=== PATIENT | male | born 1945 | race Caucasian/White ===

== ENCOUNTER → 2021-04-03 15:28 | Outpatient (BNVA) | payer MEDICARE, OTHER, SELFPAY | PROVIDERS: PCP Family Medicine; Visit Provider Hospitalist | DX: J84.9 Interstitial pulmonary disease, unspecified (principal); R05.3 Chronic cough; R91.1 Solitary pulmonary nodule | CPT/HCPCS: 99202 ==

== ENCOUNTER 2021-04-04 09:19 | Outpatient (REF) | payer MEDICARE, OTHER, SELFPAY ==
[2021-04-04 09:44] LABS: MANUAL DIFF FLAG NO
[2021-04-04 10:10] LABS: Basophils Absolute Auto 0.1 X10*3/uL (0.0-0.2); Basophils Percent Auto 0.8 % (0-2); Eosinophils Absolute Auto 0.3 X10*3/uL (0.0-0.4); Eosinophils Percent Auto 4.8 % (0-4); Hematocrit 42.4 % (42.0-52.0); Hemoglobin 14.3 g/dl (14.0-18.0); Imm Gran Abs Auto 0.02 X10*3/uL (0.00-0.03); Imm Gran Pct Auto 0.3 % (0.0-0.4); Lymphocytes Absolute Auto 1.3 X10*3/uL (1.2-4.9); Lymphocytes Percent Auto 19.8 % (20-40); Mean Corpuscular HGB Conc 33.7 g/dl (31.0-36.0); Mean Corpuscular Hemoglobin 30.2 pg (27.0-33.0); Mean Corpuscular Volume 89.6 fL (80.0-98.0); Mean Platelet Volume 10.4 fL (9.4-12.4); Monocytes Absolute Auto 0.7 X10*3/uL (0.1-1.2); Monocytes Percent Auto 11.3 % (2-11); Neutrophils Absolute Auto 4.1 x10*3/uL (2.0-8.3); Platelet Count 201 X10*3/uL (160-400); Red Blood Count 4.73 X10*6/uL (4.60-5.80); Red Cell Distribution Width 13.3 % (11.0-16.0); White Blood Count 6.5 X10*3/uL (4.8-10.8)
[2021-04-04 10:34] LABS: B Type Natriuretic Peptide 43 pg/mL (<100)
[2021-04-04 11:02] LABS: Alanine Aminotransferase 19 U/L (0-40); Albumin Level 4.6 g/dL (3.5-5.0); Alkaline Phosphatase 100 U/L (39-117); Aspartate Amino Transferase 25 U/L (5-37); Bilirubin Direct 0.3 mg/dL (0.0-0.5); Bilirubin Total 0.9 mg/dL (0.0-1.0); Total Protein 7.8 g/dL (6.5-8.0)
[2021-04-04 11:03] LABS: Erythrocyte Sedimentation Rate 16 MM/HR (0-15)
[2021-04-05 13:32] LABS: IgA 201 mg/dL (70-320); IgG 1260 mg/dL (600-1540); IgM 30 mg/dL (50-300)
[2021-04-05 21:37] LABS: Immunoglobulin E 148 kU/L (<OR=114)
[2021-04-06 20:11] LABS: TS Negative Control Passed; TS Panel A 1; TS Panel B 0; TS Positive Control Passed; TSpotTB Negative (Negative)
[2021-04-08 13:32] LABS: Angiotensin Converting Enzyme 71 U/L (9-67)
[2021-04-10 13:01] LABS: Asperg fumigatus Precip Abs NEGATIVE (NEGATIVE); Micropoly faeni Abs NEGATIVE (NEGATIVE); Pigeon serum Abs NEGATIVE (NEGATIVE); Saccharo pora viridis Abs NEGATIVE (NEGATIVE); Thermo candidus Abs NEGATIVE (NEGATIVE); Thermoa vulgaris #1 NEGATIVE (NEGATIVE)
== END 2021-04-04 09:20 | disposition home or self-care (01) ==
LOC: HO.LAB 09:19
PROVIDERS: PCP Family Medicine; Visit Provider Hospitalist
DX: J84.9 Interstitial pulmonary disease, unspecified (principal); R05.3 Chronic cough; R91.1 Solitary pulmonary nodule; R91.8 Other nonspecific abnormal finding of lung field
CPT/HCPCS: 36415; 80076; 82164; 82784; 82785; 83880; 85025; 85652; 86331; 86481; 86606; 86609

== ENCOUNTER 2021-04-14 08:51 | Outpatient (REF) | payer MEDICARE, OTHER, SELFPAY ==
--- NOTE | ~2021-04-14 | CT_ITS ---
EXAMINATION: CT CHEST WITHOUT CONTRAST CLINICAL INFORMATION: Interstitial pulmonary disease COMPARISON: None TECHNIQUE: Multidetector volumetric CT imaging of the chest was done. Axial MIP volume rendering provided. Sagittal and coronal reformatted images were obtained. This CT examination was performed using dose optimization techniques as appropriate, variously including the following: *Automated exposure control *Adjustment of mA and/or kV according to patient size (this includes techniques or standardized protocols for targeted exams where dose is matched to indication/reason for exam; i.e. extremities or head) *Use of iterative reconstruction technique DLP: 367 mGy-cm FINDINGS: LUNGS/PLEURA: Extensive peripheral reticular nodular opacities with architectural distortion. Biapical pleural parenchymal scarring. Multiple nodules are noted throughout the bilateral lung nelson. The right lung apex (series 7, image 53) measuring 6 mm. Posterior aspect of the right upper lobe (series 7, image 64) measuring 5 mm. Calcified nodules in the medial aspect of the right upper lobe measuring 7 mm (series 7, image 80 additional calcified nodule in medial aspect of the right upper lobe (series 7, image 85). Partially calcified nodule in the right upper lobe (series 7, image 92). Calcified granuloma along the anterior aspect of the right middle lobe (series 7, image 179). Multiple calcified nodules in the posterior lateral aspect of the right lower lobe the largest measuring up to 5 mm (series 7, image 171). Calcified nodule in the left upper lobe (series 7, image 76) measuring 7 mm. Partially calcified nodule in the left upper lobe (series 7, image 98) measuring 6 mm. Partially calcified nodule with slight pleural tethering to the left major fissure (series 7, image 147) measuring 7 mm along the anterior aspect of the left lower lobe. Noncalcified 3 mm nodule along the left major fissure (series 7, image 157). Central airways are patent. No pneumothorax. No pleural effusion. MEDIASTINUM: The heart is not enlarged. No pericardial effusion. Coronary artery calcifications are noted. Aorta is nonaneurysmal and demonstrates atherosclerotic calcifications. Main pulmonary artery is not enlarged. Extensive calcified and partially calcified lymph nodes throughout the mediastinum the largest measuring up to 1.9 cm suggesting granulomatous disease. Visualized portions of the thyroid are unremarkable. AXILLA: No lymphadenopathy. UPPER ABDOMEN: Mild fecal loading of the colon. The gallbladder is decompressed. Small hiatal hernia. Abdominal aorta is nonaneurysmal and demonstrates atherosclerotic calcifications. OSSEOUS STRUCTURES: Degenerative changes of the thoracolumbar spine. No large lytic or blastic lesions are noted. Degenerative changes of the bilateral glenohumeral joints. CT/CT chest wo con IMPRESSION: 1. Extensive peripheral reticular nodular opacities with architectural distortion. 2. Multiple bilateral pulmonary nodules are noted which are noncalcified, partially calcified, and heavily calcified, the largest measuring up to 7 mm. 3. Extensive calcified and partially calcified lymph nodes throughout the mediastinum the largest measuring up to 1.9 cm suggesting granulomatous disease. 4. Small hiatal hernia.
== END 2021-04-14 08:52 | disposition home or self-care (01) ==
LOC: HO.CT 08:51
PROVIDERS: Visit Provider Hospitalist
DX: J84.9 Interstitial pulmonary disease, unspecified (principal); R91.1 Solitary pulmonary nodule
CPT/HCPCS: 71250

== ENCOUNTER 2021-04-20 08:54 | Outpatient (REF) | payer MEDICARE, OTHER, SELFPAY ==
--- NOTE | 2021-04-20 | PFT_ITS ---
INDICATION: Cough. SPIROMETRY: The FEV1 to FVC of 81% with an FEV1 of 3.02 L, which is 98% predicted and an FVC of 3.73 L, which is 87% predicted. No significant response to bronchodilators noted. Maximum voluntary ventilation 105% predicted. LUNG VOLUMES: Total lung capacity 84% predicted with an expiratory reserve volume of 112% predicted. DIFFUSION CAPACITY: DLCO 51% predicted. INTERPRETATION: No obstructive nor restrictive ventilatory defects identified. No significant response to bronchodilators noted. No evidence of any abnormalities in maximum voluntary ventilation. Lung volumes are within normal limits with a low normal total lung capacity. Therefore, occult interstitial lung conditions cannot be ruled out. The patient does have a moderate diffusion impairment. Again, occult interstitial lung conditions and/or pulmonary vascular conditions should be considered. Correct for hemoglobin also be beneficial. Clinical correlation warranted. MD JESSICA Ferrari/SHANICE / [phone]
== END 2021-04-20 08:55 | disposition home or self-care (01) ==
LOC: HO.RESP 08:54
PROVIDERS: PCP Family Medicine; Visit Provider Hospitalist
DX: R05.9 Cough, unspecified (principal)
CPT/HCPCS: 94060; 94727; 94729

== ENCOUNTER → 2021-05-01 10:58 | Outpatient (BNVA) | payer MEDICARE, OTHER, SELFPAY | PROVIDERS: PCP Family Medicine; Visit Provider Hospitalist | DX: R91.1 Solitary pulmonary nodule (principal); J84.9 Interstitial pulmonary disease, unspecified; R05.3 Chronic cough | CPT/HCPCS: 99212 ==

== ENCOUNTER → 2021-08-07 09:24 | Outpatient (BNVA) | payer MEDICARE, OTHER, SELFPAY | PROVIDERS: PCP Family Medicine; Visit Provider Hospitalist | DX: D86.9 Sarcoidosis, unspecified (principal); J84.9 Interstitial pulmonary disease, unspecified; R91.1 Solitary pulmonary nodule; R05.3 Chronic cough | CPT/HCPCS: 99212 ==

== ENCOUNTER 2021-10-23 13:37 | Outpatient (REF) | payer MEDICARE, OTHER, SELFPAY ==
--- NOTE | ~2021-10-23 | XR_ITS ---
EXAMINATION: XR CHEST CLINICAL INFORMATION: Interstitial pulmonary disease. COMPARISON: CT scan of 04/14/2021. TECHNIQUE: 2 views of the chest were obtained. FINDINGS: There are calcified granulomas seen bilaterally. There are increased interstitial markings seen bilaterally most prominent peripherally. No pneumothorax or pleural effusion. No new confluent region of parenchymal disease. Heart normal size. XR/XR chest 2V IMPRESSION: Old granulomatous disease. Chronic interstitial lung disease.
[2021-10-23 13:51] LABS: MANUAL DIFF FLAG NO
[2021-10-23 14:30] LABS: Basophils Percent Auto 0.6 % (0-2); Eosinophils Absolute Auto 0.3 X10*3/uL (0.0-0.4); Eosinophils Percent Auto 4.3 % (0-4); Hematocrit 40.9 % (42.0-52.0); Hemoglobin 13.9 g/dl (14.0-18.0); Imm Gran Abs Auto 0.02 X10*3/uL (0.00-0.03); Imm Gran Pct Auto 0.3 % (0.0-0.4); Lymphocytes Absolute Auto 1.4 X10*3/uL (1.2-4.9); Lymphocytes Percent Auto 20.6 % (20-40); Mean Corpuscular Hemoglobin 30.6 pg (27.0-33.0); Mean Corpuscular Volume 90.1 fL (80.0-98.0); Mean Platelet Volume 10.5 fL (9.4-12.4); Monocytes Absolute Auto 0.9 X10*3/uL (0.1-1.2); Monocytes Percent Auto 13.1 % (2-11); Neutrophils Absolute Auto 4.1 x10*3/uL (2.0-8.3); Neutrophils Percent Auto 61.1 % (45-73); Platelet Count 203 X10*3/uL (160-400); Red Blood Count 4.54 X10*6/uL (4.60-5.80); Red Cell Distribution Width 13.6 % (11.0-16.0); White Blood Count 6.7 X10*3/uL (4.8-10.8)
[2021-10-23 15:19] LABS: Erythrocyte Sedimentation Rate 19 MM/HR (0-15)
[2021-10-23 15:31] LABS: Alanine Aminotransferase 18 U/L (0-40); Albumin Level 4.4 g/dL (3.5-5.0); Alkaline Phosphatase 78 U/L (39-117); Anion Gap 15 (12-20); Aspartate Amino Transferase 24 U/L (5-37); Bilirubin Direct 0.4 mg/dL (0.0-0.5); Blood Urea Nitrogen 14 mg/dL (9-16); Calcium 9.7 mg/dL (8.4-10.2); Carbon Dioxide 27 mmol/L (22-29); Chloride 103 mmol/L (96-108); Estimated Glomerular Filt Rate > 60; Glucose Random 91 mg/dL (60-115); Potassium 4.5 mmol/L (3.3-5.1); Sodium 140 mmol/L (135-145); Total Protein 7.4 g/dL (6.5-8.0)
[2021-10-26 22:10] LABS: Angiotensin Converting Enzyme 71.9 U/L (9-67)
== END 2021-10-23 13:38 | disposition home or self-care (01) ==
LOC: HO.XRAY 13:37
PROVIDERS: PCP Family Medicine; Visit Provider Hospitalist
DX: J84.9 Interstitial pulmonary disease, unspecified (principal); R91.1 Solitary pulmonary nodule
CPT/HCPCS: 36415; 71046; 80048; 80076; 82164; 85025; 85652

== ENCOUNTER → 2021-11-08 09:03 | Outpatient (BNVA) | payer MEDICARE, OTHER, SELFPAY | PROVIDERS: PCP Family Medicine; Visit Provider Hospitalist | DX: D86.9 Sarcoidosis, unspecified (principal); J84.9 Interstitial pulmonary disease, unspecified; R91.1 Solitary pulmonary nodule; R05.3 Chronic cough; Z79.52 Long term (current) use of systemic steroids | CPT/HCPCS: 99212 ==

== ENCOUNTER → 2022-04-11 09:51 | Outpatient (BNVA) | payer MEDICARE, OTHER, SELFPAY | PROVIDERS: PCP Family Medicine; Visit Provider Hospitalist | DX: J84.9 Interstitial pulmonary disease, unspecified (principal); R05.3 Chronic cough; R91.1 Solitary pulmonary nodule; D86.9 Sarcoidosis, unspecified | CPT/HCPCS: 99212 ==

== ENCOUNTER → 2022-04-24 07:30 | Outpatient (REF) | payer MEDICARE, OTHER, SELFPAY ==
--- NOTE | 2022-04-24 07:42 | CA_ITS ---
Transthoracic Echocardiogram Patient (Last, First, Middle): Curtis Paredes, Gender: Male Date of : 1945 Age: 76 Procedure Date: 04/24/2022 Procedure Type: Transthoracic Echocardiogram Location: OP Height: 177.8 cm Weight: 88.45 kg BSA: 2.06 m2 Heart Rate: bpm BP: 126 / 70 mmHg Sewage Reticulation Drafting Officer: ANDRES Referring MD: Kvng Joseph MD Payroll Machine Operator: Arthur Nina MD Symptoms: NEW SYSTOLIC MURMUR Study Quality: Adequate ECG Rhythm: Sinus Conclusions: - 1. Normal LV ejection fraction 55-60% with impaired relaxation filling pattern 2. At least mild aortic stenosis 3. Normal RV systolic pressure 4. No gross pericardial effusion Findings Left Ventricle Normal left ventricular size, thickness, and systolic function. The visually estimated ejection fraction is between 55-60%. Spectral Doppler is indicative of an impaired relaxation filling pattern. E/E prime ratio is between 8 and 15 consistent with indeterminate filling pressures. Peak GLS is -16.3%, which is marginally reduced. Right Ventricle Normal right ventricular cavity size and systolic function. Atria The left atrium is likely dilated. Interatrial shunt cannot be excluded. The right atrium is normal in size. Aortic Valve There is mild calcification of the aortic valve. There is mild thickening of the aortic valve. There is mild aortic valve stenosis. The mean gradient is 9 mmHg. There is no aortic valve regurgitation. Mitral Valve Normal mitral valve structure and function. There is trace mitral valve regurgitation. There is no mitral valve stenosis. Pulmonic Valve The pulmonic valve was not well visualized. Tricuspid Valve Likely normal tricuspid valve structure and function. There is trace tricuspid valve regurgitation. The right ventricular systolic pressure is normal. The right ventricular systolic pressure is 31 mmHg. Normal right atrial pressure. There is no evidence of pulmonary hypertension. Great Vessels All visible segments of the aorta are normal in size. The pulmonary artery was not well visualized. Venous The inferior vena cava is normal in size and collapses greater than 50% with inspiration. Pericardium/Pleural There is no evidence of pericardial effusion. Prior Study Comparison No prior study available for comparison. Measurements 2D Linear Measurements IVSd: 1.14 0.6-0.9/0.6-1.0 cm LVIDd: 4.16 3.9-5.3/4.2-5.9 cm LVIDd Index: 2.02 2.4-3.2/2.2-3.1 cm/m2 LVIDs: 3.30 2.0-3.6 cm LVPWd: 0.97 0.7-1.1 cm LA Diam: 3.60 2.7-3.8/3.0-4.0 cm LAIDs Index: 1.75 1.5-2.3 cm/m2 LV Mass: 180.87 67-162/88-224 g LV Mass Index: 87.80 43-95/49-115 g/m2 LVOT Diam: 2.20 3.0+(-)1.3 cm 2D Systolic Function EF 4C: 57.10 >55% EF 2C: 59.10 >55% EF BiP: 56.30 >55% Mitral Valve MV Pk E: 0.64 MV PK A: 0.55 MV Decel Time: 293.00 E/A: 1.20 E'Lateral: 11.10 E'Medial: 6.09 E/E' Med: 10.60 E/E' Lat: 5.80 PHT: 86.00 MVA PHT: 2.56 Decel Beckham: 2.19 Aortic Valve AoV Pk Monty: 1.94 AoV Mn Monty: 1.46 AoV VTI: 0.50 AoV Pk Grad: 15.00 Aov Mn Grad: 9.00 YURI Cont.VTI: 1.23 LVOT LVOT Pk Monty: 0.71 LVOT Mn Monty: 0.42 LVOT VTI: 0.16 LVOT Pk Grad: 2.00 LVOT Mn Grad: 1.00 LVOT Diam: 2.20 LVOT Area: 3.80 Diastolic Function MV Pk E: 0.64 MV Pk A: 0.55 E/A: 1.20 E'Medial: 6.09 E/E' Med: 10.60 E' Laterial: 11.10 E/E' Lat: 5.80 Right Ventricle TAPSE (mm): 22.40 TVS' Monty: 11.60 Tricuspid Valve TR Pk Monty: 2.42 TR Pk Grad: 23.00 RA Press: 8.00 RVSP: 31.00 Great Vessels Aorta Sinus of Valsalva: 3.83 2.0-3.[address] Ridge: 2.90 1.7-3.4 cm Ao Asc: 3.70 2.1-3.4 cm Updated in Other Vendor System with Status of Final Arthur Nina MD electronically signed on 04/25/2022 4:00:06 PM with status of Final
== END ==
LOC: HO.CARD 07:30
PROVIDERS: Visit Provider Physician Assistant
DX: R01.1 Cardiac murmur, unspecified (principal)
CPT/HCPCS: 93306; 93356

== ENCOUNTER 2022-05-18 08:38 | Outpatient (REF) | payer MEDICARE, OTHER, SELFPAY ==
--- NOTE | ~2022-05-18 | XR_ITS ---
EXAMINATION: XR HIP, RIGHT CLINICAL INFORMATION: Right hip pain COMPARISON: 09/21/2021 TECHNIQUE: Three views of the right hip. FINDINGS: No acute fracture or dislocation. Mild narrowing of the right femoral acetabular joint with tiny osteophytes. XR/XR hip RT w PEL1V IMPRESSION: Mild osteoarthritis of the right hip joint.
== END 2022-05-18 08:39 | disposition home or self-care (01) ==
LOC: HO.XRAY 08:38
PROVIDERS: PCP Family Medicine; Visit Provider Family Medicine
DX: M25.551 Pain in right hip (principal)
CPT/HCPCS: 73502

== ENCOUNTER → 2022-09-03 09:03 | Outpatient (REF) | payer MEDICARE, OTHER, SELFPAY | LOC: HO.SL 09:03 | PROVIDERS: PCP Family Medicine; Visit Provider Family Medicine | DX: G47.33 Obstructive sleep apnea (adult) (pediatric) (principal) | CPT/HCPCS: 95806 ==

== ENCOUNTER 2022-10-02 06:33 | Outpatient (REF) | payer MEDICARE, OTHER, SELFPAY ==
--- NOTE | ~2022-10-02 | CT_ITS ---
EXAMINATION: CT CHEST WITHOUT CONTRAST CLINICAL INFORMATION: Other nonspecific abnormal finding of lung field. COMPARISON: Previous chest CT March 2021 and chest x-ray September 2021. TECHNIQUE: Multidetector volumetric CT imaging of the chest was done. Axial MIP volume rendering provided. Sagittal and coronal reformatted images were obtained. This CT examination was performed using dose optimization techniques as appropriate, variously including the following: *Automated exposure control *Adjustment of mA and/or kV according to patient size (this includes techniques or standardized protocols for targeted exams where dose is matched to indication/reason for exam; i.e. extremities or head) *Use of iterative reconstruction technique DLP: 202 mGy-cm FINDINGS: LUNGS: There are numerous calcified and noncalcified pulmonary nodules. There is a new 3 mm noncalcified right upper lobe nodule axial image 67 series 10. Pulmonary nodules are otherwise stable. There are increased peripheral or subpleural interstitial markings with increased reticulation and some traction bronchiolectasis suggestive of interstitial lung disease. This is greatest at the lung bases. This does not appear appreciably changed from 2020 exam. MEDIASTINUM: There is stable mediastinal and bilateral hilar lymphadenopathy. Some lymph nodes are calcified. Some lymph nodes are prominent largest lymph node subcarinal and left hilar lymph node measuring 1.6 cm in short axis and right paratracheal lymph node measuring 1.3 cm in short axis. This is similar to previous exam. Normal heart size. No pericardial effusion. Tortuous thoracic aorta. There may be a small esophageal hernia. CORONARY ARTERY CALCIFICATION: Moderate coronary artery calcification. There is also aortic valve calcification. PLEURA: There is no pleural effusion. No pleural mass or thickening. AXILLA: No lymphadenopathy. UPPER ABDOMEN: Unremarkable. OSSEOUS STRUCTURES: Degenerative changes of the spine. CT/CT chest wo IV con IMPRESSION: Peripheral interstitial lung disease similar to prior exam. Multiple predominantly calcified pulmonary nodules and calcified bilateral hilar and mediastinal lymph nodes also stable. This is probably related to old granulomatous disease. New 3 mm noncalcified right upper lobe nodule. Fleischner guidelines were followed.
--- NOTE | ~2022-10-02 | CT_ITS ---
EXAMINATION: CT ABDOMEN AND PELVIS WITH CONTRAST CLINICAL INFORMATION: Right lower quadrant pain. COMPARISON: None available. TECHNIQUE: Multidetector volumetric images were obtained from the superior aspect of the liver through the pubic symphysis following administration 85 mL of Omnipaque 350 intravenous contrast. Sagittal and coronal reformatted images were obtained on the technologist's workstation. Oral contrast: Yes This CT examination was performed using dose optimization techniques as appropriate, variously including the following: *Automated exposure control *Adjustment of mA and/or kV according to patient size (this includes techniques or standardized protocols for targeted exams where dose is matched to indication/reason for exam; i.e. extremities or head) *Use of iterative reconstruction technique DLP: 485 mGy-cm FINDINGS: LUNG BASES: See chest CT from the same day. LIVER, GALLBLADDER, AND BILIARY TREE: The liver is normal in size, shape, and attenuation. No focal hepatic lesion or biliary ductal dilatation is present. The gallbladder is unremarkable with no evidence of radiopaque gallstones, gallbladder wall thickening, or obvious pericholecystic inflammatory changes. PANCREAS: Unremarkable. SPLEEN: Unremarkable. ADRENAL GLANDS: Unremarkable. KIDNEYS AND URETERS: The kidneys are normal in size, shape, and attenuation. No hydronephrosis, hydroureter, or calculi are seen. No perinephric stranding. BLADDER: Unremarkable. GASTROINTESTINAL TRACT: The small and large bowel is unremarkable. The appendix is unremarkable. ABDOMINAL WALL: Small umbilical hernia containing fat. Small left inguinal hernia containing fat. LYMPH NODES: Small retroperitoneal lymph nodes. No enlarged lymph nodes. VASCULAR: Atherosclerotic disease. Mild dilatation of the abdominal aorta measuring maximum 2.4 x 2.7 cm. No abdominal aortic aneurysm. Mild dilatation of the bilateral common iliac arteries measuring 1.8 cm and bilateral external iliac arteries measuring 1.3 cm on the right and 1.4 cm on the left. PELVIC VISCERA: Unremarkable. OSSEOUS STRUCTURES: Degenerative changes of the spine. CT/CT abdomen pelvis w IV con IMPRESSION: No cause of right lower quadrant pain seen. The appendix is normal appearing. Atherosclerotic disease with mild dilatation of the lower abdominal aorta and bilateral iliac arteries. No aneurysm. Fleischner guidelines were followed.
[2022-10-02 07:51] LABS: MANUAL DIFF FLAG NO
[2022-10-02 08:23] LABS: Basophils Percent Auto 0.7 % (0-2); Eosinophils Absolute Auto 0.4 X10*3/uL (0.0-0.4); Eosinophils Percent Auto 6.5 % (0-4); Hematocrit 43.3 % (42.0-52.0); Hemoglobin 14.8 g/dl (14.0-18.0); Imm Gran Abs Auto 0.01 X10*3/uL (0.00-0.03); Imm Gran Pct Auto 0.2 % (0.0-0.4); Lymphocytes Absolute Auto 1.2 X10*3/uL (1.2-4.9); Lymphocytes Percent Auto 20.2 % (20-40); Mean Corpuscular HGB Conc 34.2 g/dl (31.0-36.0); Mean Corpuscular Hemoglobin 30.5 pg (27.0-33.0); Mean Corpuscular Volume 89.1 fL (80.0-98.0); Mean Platelet Volume 10.5 fL (9.4-12.4); Monocytes Absolute Auto 0.7 X10*3/uL (0.1-1.2); Monocytes Percent Auto 12.6 % (2-11); Neutrophils Absolute Auto 3.4 x10*3/uL (2.0-8.3); Neutrophils Percent Auto 59.8 % (45-73); Platelet Count 210 X10*3/uL (160-400); Red Blood Count 4.86 X10*6/uL (4.60-5.80); Red Cell Distribution Width 13.5 % (11.0-16.0); White Blood Count 5.7 X10*3/uL (4.8-10.8)
[2022-10-02 08:52] LABS: Alanine Aminotransferase 15 U/L (0-40); Albumin Level 4.6 g/dL (3.5-5.0); Alkaline Phosphatase 72 U/L (39-117); Anion Gap 12 (12-20); Aspartate Amino Transferase 21 U/L (5-37); Bilirubin Direct 0.3 mg/dL (0.0-0.5); Bilirubin Total 1.5 mg/dL (0.0-1.0); Blood Urea Nitrogen 16 mg/dL (9-16); Calcium 9.9 mg/dL (8.4-10.2); Carbon Dioxide 30 mmol/L (22-29); Chloride 103 mmol/L (96-108); Estimated Glomerular Filt Rate > 60; Glucose Random 95 mg/dL (60-115); Potassium 4.6 mmol/L (3.3-5.1); Sodium 140 mmol/L (135-145); Total Protein 7.7 g/dL (6.5-8.0)
[2022-10-02] MEDS: iohexoL 350 MG/ML 100 ML INFUS..BTL IV (09:47)
[2022-10-02] MEDS: Barium Sulfate Oral (Berry) 450 ML ORAL.SUSP 900 ML PO (09:48)
[2022-10-02 10:09] LABS: Erythrocyte Sedimentation Rate 14 MM/HR (0-15)
[2022-10-06 14:13] LABS: Angiotensin Converting Enzyme 85.1 U/L (9-67)
== END 2022-10-02 06:34 | disposition home or self-care (01) ==
LOC: HO.CT 06:33
PROVIDERS: Hospitalist; PCP Family Medicine; Visit Provider Family Medicine
DX: R10.31 Right lower quadrant pain (principal); R91.8 Other nonspecific abnormal finding of lung field; D86.9 Sarcoidosis, unspecified; J84.9 Interstitial pulmonary disease, unspecified; R91.1 Solitary pulmonary nodule
CPT/HCPCS: 36415; 71250; 74177; 80048; 80076; 82164; 85025; 85652; Q9967

== ENCOUNTER → 2022-10-18 14:35 | Outpatient (BNVA) | payer MEDICARE, OTHER, SELFPAY | PROVIDERS: PCP Family Medicine; Visit Provider Hospitalist | DX: J84.9 Interstitial pulmonary disease, unspecified (principal); R91.1 Solitary pulmonary nodule; D86.9 Sarcoidosis, unspecified; R05.3 Chronic cough | CPT/HCPCS: 99212 ==

== ENCOUNTER 2022-11-22 09:40 | Outpatient (AMB) | payer MEDICARE, OTHER, SELFPAY ==
--- NOTE | 2022-11-22 09:44 | MHC.OFFVIS ---
Intake Vital Signs 11/22/22 09:49 Height 5 ft 11 in Weight 196 lb 6 oz BMI 27.4 BP 126/62 Blood Pressure Location Lt brachial Position Sitting Pulse 68 Pulse Source Pulse Oximeter Pulse Oximetry (%) 97 Oxygen Delivery Method Room Air Intake Visit Reasons: ENP-SHERON Intake Note: NPV for SHERON, on cpap Band Head Saw Operator Required: No Allergies Penicillins Allergy (Severe, Verified 12/06/22 08:46) Rash HPI HPI Comments History of Present Illness Details 77 y/o male patient with interstitial lung disease presents for new in-person visit to manage SHERON. Pt reports that he had a home sleep study done and started using CPAP. The home sleep study result was significant for moderately severe degree of sleep apnea. The total sleep time AHI was 18/hr and snoring for 20% of the sleep time. There is also nocturnal hypoxemia with average O2 sat 91%, lowest O2 sat 80% and O2 sat below 88% for 45 min. Pt started APAP [id number] two weeks ago. The CPAP compliance and therapy response reviewed. The usage days 16 days and the average usage hours 5 hrs. The median pressure is 6.3 and the AHI was 1/hr. Pt reports that he has refreshed sleep for 8-9 hrs, and he is not groggy anymore, daytime sleepiness has resolved. However, he feels the mask is not comfortable, and wants to try different masks. [facility] Medical History (Updated 12/15/22 @ 20:34 by Angie High CNP) Chronic cough ILD (interstitial lung disease) Pulmonary nodule Sarcoidosis Surgical History (Updated 11/22/22 @ 09:47 by June Foy CMA) H/O arthroscopic knee surgery H/O hernia repair Hx of tonsillectomy Family History (Updated 11/22/22 @ 09:49 by June Foy CMA) Mother Heart disease Family/Other Colon cancer Family/Other Colon cancer Social History Alcohol intake: current Patient Tobacco Use Status: Former Tobacco user Tobacco use type: Cigarette Years Smoked: 7 years Review of Systems Const All systems reviewed & are unremarkable except as noted in HPI and below ENT Reports Normal hearing present Neuro Reports Normal hearing present Physical Exam Vital Signs: Last Vital Signs Pulse 68 11/22/22 09:49 BP 126/62 11/22/22 09:49 Pulse Ox 97 11/22/22 09:49 Oxygen Delivery Method Room Air 11/22/22 09:49 BMI result Body Mass Index 27.4 Const General: cooperative and healthy appearing Nutritional Appearance: average body habitus Orientation/consciousness: patient oriented x3 Neck Neck: Yes full ROM and Yes supple Resp Effort & Inspection: normal respiratory effort and able to speak in complete sentences Neuro General: patient oriented x3, gait normal, moves all extremities and no focal motor deficits Cranial nerves: Yes Bilaterally intact EOM present, Yes Normal facial strength present, Yes Midline tongue present, Yes Symmetric palate elevation present, Yes Normal hearing present, Yes Ability to bilaterally rotate head present and Yes Ability to bilaterally elevate shoulders present Cognition (Neuro): normal cognition Gait exam (Neuro): Normal gait present Motor exam (neuro): 5/5 motor strength present throughout, Pronator motor function not present and no tremor noted Psych Appearance: grossly normal Mental Status: mental status grossly normal Speech and movement: Normal speech and movement present Affect: normal affect Attitude: cooperative Assessment & Plan Assessment & Plan (1) SHERON (obstructive sleep apnea): Comment: Moderate to severe degree of sleep apnea. The AHI was 18/hr and oxygen denise was 80%. Code(s): G47.33 - Obstructive sleep apnea (adult) (pediatric) Plan Advised patient to try new mask fitting session. The mask fitting session prescription given to patient. Continue to use APAP [id number] as patient experiences good clinical effects (less snoring, sleep quality improved, and daytime sleepiness has resolved). Coding Level of Care Code New Pt Level 3 (48625) Diagnoses SHERON (obstructive sleep apnea) G47.33
[2022-11-22 09:49] VITALS: BP 126/62; PULSE 68; O2SAT 97; BMI 27.4
== END 2022-11-22 10:17 | disposition home or self-care (01) ==
PROVIDERS: Visit Provider Nurse Practitioner Family
DX: G47.33 Obstructive sleep apnea (adult) (pediatric) (principal)
CPT/HCPCS: 99203

== ENCOUNTER → 2022-11-22 09:40 | Outpatient (BNVA) | payer MEDICARE, OTHER, SELFPAY | PROVIDERS: Visit Provider Nurse Practitioner Family | DX: G47.33 Obstructive sleep apnea (adult) (pediatric) (principal) | CPT/HCPCS: 99202 ==

== ENCOUNTER 2022-12-06 08:34 | Outpatient (AMB) | payer MEDICARE, OTHER, SELFPAY ==
[2022-12-06 08:42] VITALS: BMI 25.8
--- NOTE | 2022-12-06 08:42 | A.OFFVIS_ITS ---
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 States his pain has been present for years. States he has discrepancy in his feet and walks a little funny. He would like to discuss if the way he walks is affecting knee. Hx of MMT repair in 2004. States at times his knee gives out especially when carrying heavy items. Patient has tried P.T,orthotics and PRP wituh god results. Last PRP was done in June 2021 and his right hip in 2019. Patient referred by his PCP Kvng Joseph MD. Allergies Penicillins Allergy (Severe, Verified 12/06/22 08:46) Rash Medication List - Last Reconciled 12/06/22 by Stefanie Marley MD epinephrine IM DIRECTED multivitamin 1 tab PO DAILY HPI HPI Comments History of Present Illness Details Chronic pain for years, always on right side. No symptoms on left. Talks about a medial tendon right ankle pain, resulting from volleyball injury. Right meniscus repair 1994 from tennis injury. Noticed right everts out, thinks related to gait. Only in the past year. Denies developmental issue. Has flat feet. PRP and stemp brigida to joint to knee and hip tried, in [facility]. 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 These helped. But when he does repetitive exercise, like bicycle, notice more pain. Current pain medial knee, medial ankle and lateral hip. Rare sharp pain, usually with carrying on stairs. Last PT for ankle/tendon over period of time, 2017. Also used shoe insert. No numbness of feet. No swelling or effusions. No back lumbar pain. [facility] Medical History (Updated 12/06/22 @ 09:25 by Stefanie Marley MD) Chronic cough ILD (interstitial lung disease) Pulmonary nodule Sarcoidosis Surgical History (Updated 11/22/22 @ 09:47 by June Foy CMA) H/O arthroscopic knee surgery H/O hernia repair Hx of tonsillectomy Family History (Updated 11/22/22 @ 09:49 by June Foy CMA) Mother Heart disease Family/Other Colon cancer Family/Other Colon cancer Social History (Reviewed 12/06/22 @ 08:47 by CARMELA Saunders Alcohol intake: current Patient Tobacco Use Status: Former Tobacco user Tobacco use type: Cigarette Years Smoked: 7 years Physical Exam Vital Signs: BMI result Body Mass Index 25.8 Constitutional: Patient appears to be in no acute distress, well nourished and well developed. MSK: No specific abnormalities found on inspection of the spine and all extremities. Lumbar ROM was full. Bilateral hip, knee and ankle ROM WNL. No active signs of inflammation seen on right hip/knee/ankle. No ligamentous laxity or crepitant. No increased effusion. No joint line tenderness. No tenderness over patella. Patellar grind test is negative. Valgus and varus stress tests are negative. No tenderness in left Achillis tendon or plantar fascia. No ankle instability. True leg length umbilicus to medial malleolus 108 cm on right, 109 cm on the left. Strength is 5/5 in all muscle groups tested. No increased tone noted. When walking slowly, tends to over compensate with left leg to the point that he over steps left leg short stride. Appears a little bit more unstable and right leg with slow walking. But he can compensate with fast gait. Neurological: Neurologic examination of the upper and lower extremities was nonfocal with intact sensation, muscle stretch reflexes and without focal motor deficits. Neal?s negative bilaterally. Babinski was down going bilaterally. Clonus was negative. Gait as above Patient can stand on heels and toes. Results Reviewed Results Reviewed: I independently reviewed the results of the following: Right hip mild arthritis on x-ray XR/XR hip RT w PEL1V IMPRESSION: Mild osteoarthritis of the right hip I reviewed records from the following: PCP Neurology Assessment & Plan Assessment & Plan (1) Gait abnormality: Code(s): R26.9 - Unspecified abnormalities of gait and mobility (2) Leg length discrepancy: Code(s): M21.70 - Unequal limb length (acquired), unspecified site Plan No active inflammation on hip/knee/ankle on right side. However chronic/past injuries have affected his gait. Very slight leg length discrepancy noted with right leg shorter. Instability/mild weakness noted in right with slow gait. We decided that it might be beneficial to try an orthotic or ankle brace to keep his ankle/foot neutral and may give him a little bit of a heel lift. We will try an ankle brace that we have [id number] here. He can use that for the next few weeks and give me feedback on follow-up. He might add an extra shoe insert for length discrepancy. If these do not help, you may consider referring him out to an external quality assurance supervisor final, considering a more rigid AFO. Assessment and plan discussed with patent, and patient was agreeable. All questions were answered thoroughly. Follow-up in 4 weeks. Coding Level of Care Code New Pt Level 4 (89480) Diagnoses Gait abnormality R26.9 Leg length discrepancy M21.70
== END 2022-12-06 09:24 | disposition home or self-care (01) ==
PROVIDERS: PCP Family Medicine; Visit Provider Physical Medicine & Rehabilitation
DX: M25.561 Pain in right knee (principal); R26.9 Unspecified abnormalities of gait and mobility; M21.70 Unequal limb length (acquired), unspecified site; M16.11 Unilateral primary osteoarthritis, right hip
CPT/HCPCS: 99203

== ENCOUNTER → 2022-12-06 08:34 | Outpatient (BNVA) | payer MEDICARE, OTHER, SELFPAY | PROVIDERS: PCP Family Medicine; Visit Provider Physical Medicine & Rehabilitation | DX: R26.9 Unspecified abnormalities of gait and mobility (principal); M21.70 Unequal limb length (acquired), unspecified site | CPT/HCPCS: 99202 ==

== ENCOUNTER 2023-01-03 09:14 | Outpatient (AMB) | payer MEDICARE, OTHER, SELFPAY ==
--- NOTE | 2023-01-03 09:30 | A.OFFVIS_ITS ---
Intake Vital Signs 01/03/23 09:36 Height 5 ft 11 in Weight 185 lb BMI 25.8 Intake Visit Reasons: leg length discrepancy Intake Note: Curtis 77 yr old male presents today for his right leg discrepancy follow up visit. States his pain has improved with the use of ankle brace but states his foot is still not straight. Allergies Penicillins Allergy (Severe, Verified 12/06/22 08:46) Rash HPI HPI Comments History of Present Illness Details Chronic pain for years, always on right side. No symptoms on left. Talks about a medial tendon right ankle pain, resulting from volleyball injury. Right meniscus repair 1994 from tennis injury. Noticed right everts out, thinks related to gait. Only in the past year. Denies developmental issue. Has flat feet. PRP and stemp brigida to joint to knee and hip tried, in [facility]. 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 These helped. But when he does repetitive exercise, like bicycle, notice more pain. Current pain medial knee, medial ankle and lateral hip. Rare sharp pain, usually with carrying on stairs. Last PT for ankle/tendon over period of time, 2018. Also used shoe insert. No numbness of feet. No swelling or effusions. No back lumbar pain. Since then, we have tried an ankle brace. He says that there is less pain. He feels that gait is straighter. [facility] Medical History (Updated 12/15/22 @ 20:34 by Angie High CNP) Sarcoidosis Chronic cough ILD (interstitial lung disease) Pulmonary nodule Surgical History (Updated 11/22/22 @ 09:47 by June Foy CMA) H/O arthroscopic knee surgery H/O hernia repair Hx of tonsillectomy Family History (Updated 11/22/22 @ 09:49 by Juen Foy CMA) Mother Heart disease Family/Other Colon cancer Family/Other Colon cancer Social History (Reviewed 12/06/22 @ 08:47 by Paula Olivares [facility]) Alcohol intake: current Patient Tobacco Use Status: Former Tobacco user Tobacco use type: Cigarette Years Smoked: 7 years Physical Exam Vital Signs: BMI result Body Mass Index 25.8 Constitutional: Patient appears to be in no acute distress, well nourished and well developed. MSK: No more over compensation with hips or legs anymore. A few times, left leg almost crossed over right leg but he was able to self-correct. While standing, knees and feet/ankle are neutral. Neurological: Neurologic examination of the upper and lower extremities was nonfocal with intact sensation, muscle stretch reflexes and without focal motor deficits. Gait as above Assessment & Plan Assessment & Plan (1) Gait abnormality: Code(s): R26.9 - Unspecified abnormalities of gait and mobility (2) Leg length discrepancy: Code(s): M21.70 - Unequal limb length (acquired), unspecified site Plan We see improvement in both gait and standing mechanics with the use of ankle brace. He is overall satisfied with less pain. Continues current ankle brace and I do not see any indication to go forward with more rigid AFOs. He is also interested in going back to physical therapy and referral was given. Assessment and plan discussed with patent, and patient was agreeable. All questions were answered thoroughly. Patient to call if any issues. Orders: Orders PT Evaluation and Treatment Today M21.70 - Unequal limb length (acquired), unspecified site, R26.9 - Unspecified abnormalities of gait and mobility Coding Level of Care Code Est Pt Level 3 (38767) Diagnoses Gait abnormality R26.9 Leg length discrepancy M21.70
[2023-01-03 09:36] VITALS: BMI 25.8
== END 2023-01-03 09:44 | disposition home or self-care (01) ==
PROVIDERS: PCP Family Medicine; Visit Provider Physical Medicine & Rehabilitation
DX: R26.9 Unspecified abnormalities of gait and mobility (principal); M21.70 Unequal limb length (acquired), unspecified site
CPT/HCPCS: 99213

== ENCOUNTER → 2023-01-03 09:14 | Outpatient (BNVA) | payer MEDICARE, OTHER, SELFPAY | PROVIDERS: PCP Family Medicine; Visit Provider Physical Medicine & Rehabilitation | DX: R26.9 Unspecified abnormalities of gait and mobility (principal); M21.70 Unequal limb length (acquired), unspecified site | CPT/HCPCS: 99212 ==

== ENCOUNTER 2023-01-16 11:23 | Outpatient (REF) | payer MEDICARE, OTHER, SELFPAY ==
[2023-01-16 12:29] LABS: MANUAL DIFF FLAG NO
[2023-01-16 13:01] LABS: Basophils Absolute Auto 0.1 X10*3/uL (0.0-0.2); Basophils Percent Auto 0.9 % (0-2); Eosinophils Absolute Auto 0.2 X10*3/uL (0.0-0.4); Hematocrit 40.9 % (42.0-52.0); Hemoglobin 14.1 g/dl (14.0-18.0); Imm Gran Abs Auto 0.02 X10*3/uL (0.00-0.03); Imm Gran Pct Auto 0.4 % (0.0-0.4); Lymphocytes Percent Auto 18.1 % (20-40); Mean Corpuscular HGB Conc 34.5 g/dl (31.0-36.0); Mean Corpuscular Hemoglobin 31.1 pg (27.0-33.0); Mean Corpuscular Volume 90.3 fL (80.0-98.0); Mean Platelet Volume 10.6 fL (9.4-12.4); Monocytes Absolute Auto 0.6 X10*3/uL (0.1-1.2); Monocytes Percent Auto 10.9 % (2-11); Neutrophils Absolute Auto 3.8 x10*3/uL (2.0-8.3); Neutrophils Percent Auto 66.7 % (45-73); Platelet Count 205 X10*3/uL (160-400); Red Blood Count 4.53 X10*6/uL (4.60-5.80); Red Cell Distribution Width 13.2 % (11.0-16.0); White Blood Count 5.7 X10*3/uL (4.8-10.8)
[2023-01-16 13:51] LABS: Alanine Aminotransferase 13 U/L (0-40); Albumin Level 4.4 g/dL (3.5-5.0); Alkaline Phosphatase 83 U/L (39-117); Anion Gap 11 (12-20); Aspartate Amino Transferase 22 U/L (5-37); Bilirubin Direct 0.3 mg/dL (0.0-0.5); Blood Urea Nitrogen 12 mg/dL (9-16); Calcium 10.1 mg/dL (8.4-10.2); Carbon Dioxide 29 mmol/L (22-29); Chloride 105 mmol/L (96-108); Estimated Glomerular Filt Rate > 60; Glucose Random 99 mg/dL (60-115); Sodium 141 mmol/L (135-145); Total Protein 7.8 g/dL (6.5-8.0)
[2023-01-16 13:54] LABS: Erythrocyte Sedimentation Rate 14 MM/HR (0-15)
[2023-01-17 11:54] LABS: Immunoglobulin E 184 kU/L (<OR=114)
[2023-01-21 03:14] LABS: Angiotensin Converting Enzyme 71.6 U/L (9-67)
== END 2023-01-16 11:24 | disposition home or self-care (01) ==
LOC: HO.LAB 11:23
PROVIDERS: PCP Family Medicine; Visit Provider Hospitalist
DX: R05.3 Chronic cough (principal); J84.9 Interstitial pulmonary disease, unspecified; R91.1 Solitary pulmonary nodule; D86.9 Sarcoidosis, unspecified; J30.9 Allergic rhinitis, unspecified
CPT/HCPCS: 36415; 80048; 80076; 82164; 82785; 85025; 85652; 86003; 94010; 99212

== ENCOUNTER 2023-01-16 11:23 | Outpatient (AMB) | payer MEDICARE, OTHER, SELFPAY ==
[2023-01-16 11:30] VITALS: BP 128/70; PULSE 66; O2SAT 97; BMI 25.5
--- NOTE | 2023-01-16 11:30 | A.OFFVIS_ITS ---
Intake Vital Signs 01/16/23 11:30 Height 5 ft 11 in Weight 183 lb BMI 25.5 BP 128/70 Blood Pressure Location Rt brachial Position Sitting Pulse 66 Pulse Source Pulse Oximeter Pulse Oximetry (%) 97 Oxygen Delivery Method Room Air Intake Visit Reasons: discuss medication Spanish Instructor Required: No Allergies Penicillins Allergy (Severe, Verified 01/16/23 11:33) Rash HPI HPI Comments History of Present Illness Details The patient is a 77-year-old gentleman with a known history of chronic cough who apparently back in 2018 he was evaluated with imaging studies. He ultimately had a CT scan of the chest at [facility] demonstrating multiple calcified nodular densities in addition to some noncalcified nodular densities and calcifications of the lymph nodes. He was suspected that he has a diagnosis of sarcoidosis and the patient was monitored closely. Subsequently after that the patient continues to have a cough and was then re-evaluated at [facility]. There he did undergo pulmonary function studies in 2018. I personally reviewed the numbers demonstrating no obstructive nor restrictive ventilatory defects although he had a mile on diffusion impairment. In addition to that he had repeat PFTs in 2019 now with interval worsening of the diffusing capacity to 66 percent predicted. Otherwise no evidence of any obstructive nor restrictive ventilatory defects at that time. In view of the worsening diffusing capacity further evaluation of the CT scan that he had back in 2018 demonstrated what appeared to be some areas of haziness and interstitial changes suggested in underlying interstitial lung disease. A lot of the changes appear to be at the bases. No additional imaging studies were done at that time at [facility]. The patient was lost to follow-up. the patient now presents to our pulmonary office for further evaluation of this chronic cough. We closely discussed his CT scan findings packed then more concerning the fact that he had noncalcified pulmonary nodules measuring up to 7 millimeters in size there have not been followed up. In addition to that the patient had evidence of interstitial lung disease. At this point is not clear definitively he has a diagnosis of sarcoidosis. I explained to him that with his travel history need to consider and dynamic fungal infections or even tuberculosis that may resulting granulomas as well. Therefore the patient does need to undergo additional laboratory data in addition to repeating the CT scan in order to further address the abnormal findings. On my examination was taken back by the fact the patient does have significant rales both lungs bilaterally up to midway up. Also to note the patient does have a allergy shots for reactions to bee stings. Patient denies any other allergens. He denies any exposure to any fumes or toxins recently or in the last 20 years. 05/01/2021 the patient is here for a pulmonary follow-up visit. Overall the patient is doing about the same. He does complaint of dyspnea on exertion. This appears to be progressive. The patient did have multiple results to review. He did undergo blood work including a angiotensin-converting enzyme level which was slightly elevated at 71. Explained to him that this is sometimes used to measure activity of people that have underlying sarcoidosis. suggesting the possibility of active sarcoidosis. Patient also had evidence of eosinophilia and elevations in his IgE suggesting some degree of allergic component. The patient does get allergy shots which appear to be effective for him. He did undergo a CT scan of the chest that was personally reviewed by me. Unfortunately I do not have the images from [facility]. However, I could see moderate amount of subpleural reticular changes consistent with scarring in addition to that he does have the significant calcified lymphadenopathy consistent with his granulomatous type of disease. Patient also has pulmonary nodules which appear to have more nodules when I compare the reports. Although the largest nodule still measuring 7-8 mm in size. I also did review his pulmonary function studies and compare them to his previous pulmonary function studies from few years back in 2018. It appears that he has a slight decrease in his total lung capacity from 91% to now 82% predicted in addition to a decrease in his diffusing capacity from 66-51% predicted. Therefore, indeed appears that he does have underlying interstitial lung disease and is likely related to sarcoidosis. although, this has been a clinical diagnosis. 08/07/2021 the patient overall doing well . He responded well to the prednisone. He has been able to cut down the prednisone down to about 5 mg daily. His cough is dramatically improved. His breathing is also better. No significant adverse effects. We did review his blood work demonstrating an elevated Dong level. Therefore, this is something that we can follow to assess the activity of the sarcoid. He also needs to have his eyes checked to rule out uveitis. The goal was to treating for 6 months and see how he is doing. Hopefully we can wean him off the prednisone. We can also consider inhaled cortical steroids. Will have him come back in 3 months time reassess his blood work in addition to his chest x-ray in based on that to see if we need to continue therapy or we can wean him off. The patient is concerned about the side effects of chronic steroid use. I tried to reassuring that is taking a small dose, but, I do understand his concerns. 11/08/2021 the patient is here for a pulmonary follow-up visit. Overall the patient continues to do fairly well. He continues on the 5 mg of prednisone. He does state that a few days that he felt congested need to do full 10 mg tablet. But overall he is doing well. He did have his eyes checked which were within normal limits. Recently he did undergo blood work including Dong level though still slightly elevated. His chest x-ray just demonstrating chronic interstitial changes on the sarcoid. Again, we looked at the CT scan demonstrating significant interstitial involvement bilaterally and some areas of scarring suggesting more progressive illness. The patient is agreeable to continuing the prednisone for now. We did talk about alternatives steroid sparing agents to consider such as methotrexate and CellCept and Remicade. At this point the patient requires only a small dose of prednisone so therefore she does continue with the current therapy. If however the patient continues to be symptomatic under current does or if he needs a prolonged period of immune suppression then he consider an alternative agent. Will follow up in about 4-6 months. The patient should have blood work and chest x-ray prior to the visit so we can discuss further interventions done. 04/11/2022 the patient is here for a pul monary follow-up visit. He has been doing well from a respiratory status. He stop coughing his breathing overall has been stable. He was able to stop the prednisone weaned off about a month ago. He has been off it now for a month and he continues to do well. He is encouraged with the fact that he is doing well from the respiratory status. We did review his last CT scan from 03/2021 demonstrating interstitial changes in addition to pulmonary nodules multiple bilaterally. Most likely these nodules were related to his underlying sarcoidosis. However, when to make sure that they do not have any significant increasing growth. The patient will have a repeat CT scan in 6 months time to make sure that the nodules are stable. In addition to that we can assess the interstitial lung disease to make sure that he is not progressing in view of being off the immunosuppressant therapy. If the patient has any worsening symptoms he is to call so we can readdress any reactivation of the sarcoid. Right now his lungs sound fine and I am not concerned for any active disease at this time. The patient also needs to undergo blood work to assess his calcium level and also his Dong level. His previous Dong levels have been slightly elevated. 10/18/2022 the patient is here for pulmon sudheer follow-up visit. Since we last spoke the patient unfortunately developed COVID-19. He was treated with Paxlovid and then had a rebound case. Afterwards he had significant shortness of breath and cough. He did not feel well overall. Finally the last few weeks he is starting to feel better starting to get more energy. The patient has been off prednisone now for almost a year. We did review his CT scan of the chest that he had recently. It appears that his parenchymal lung disease on the sarcoidosis appears to be stable. Although he has a new pulmonary nodule that will need follow-up. In the meantime the patient also underwent blood work and his Dong level continues to be elevated. I do not feel strongly that patient needs prednisone at this time. He is going to continue recovering from the COVID-19 that he had in the springtime. And will follow-up in 6 months with blood work and PFTs. If his PFTs are worsened or its Dong level is higher than will discuss any additional therapies at that point. If the patient has any worsening symptoms prior to that visit he will call the office for sooner evaluation. 01/16/2023 the patient is here for a follow-up visit. He did have a follow-up a few months but he move that up because is cough is getting worse. The cough is moderate severe. Is bothering his sleep and is making hard for him to tolerate the new CPAP machine. Also he has been noticing some chest tightness along with a cough during the daytime. He is wondering about starting medications like methotrexate for the sarcoidosis. The patient does have a history of allergies. he denies any wheezing episodes. He does not have any respiratory inhalers at this time. We did have him do a spirometry in the office in his FEV1 and FVC were both about 90% predicted. Looks like a slight improvement from his previous PFT. Therefore the numbers are reassuring. He did have some forced end expiratory wheezing therefore I do believe that will try him on a combination inhaler 1st and also can provide with the Tessalon Perles. We did review his last blood work from back in September 2022 where his total bili was elevated to 1.5 otherwise his LFTs were normal. In addition to this is angiotensin-converting enzyme level had been elevated. 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 Also explained to him that at this higher stage of sarcoidosis typically progresses. [facility] Medical History (Updated 01/16/23 @ 11:57 by Mike Dempsey MD) Chronic allergic rhinitis Asthma Sarcoidosis Chronic cough ILD (interstitial lung disease) Pulmonary nodule Surgical History (Updated 11/22/22 @ 09:47 by June Foy CMA) H/O arthroscopic knee surgery H/O hernia repair Hx of tonsillectomy Family History (Updated 11/22/22 @ 09:49 by June Foy CMA) Mother Heart disease Family/Other Colon cancer Family/Other Colon cancer Social History Alcohol intake: current Patient Tobacco Use Status: Former Tobacco user Tobacco use type: Cigarette Years Smoked: 7 years Review of Systems Const Reports fatigue and Denies night sweats ENT Denies change in voice, Denies lip swelling, Denies mouth pain, Denies nasal congestion and Denies tongue swelling Card Denies chest pain and Reports dyspnea on exertion Resp Reports cough and Reports dyspnea on exertion GI Denies abdominal pain Musc Denies no additional complaints, Reports abnormal gait, Reports arthralgias, Reports joint swelling and Reports limited range of motion Neuro Denies Neuro-related abnormal movements and Reports abnormal gait Psych Denies no additional complaints Endo Reports fatigue Ian/Lymph Denies easy bleeding and Denies lymphadenopathy Aller/Immun Denies lip swelling and Denies tongue swelling Physical Exam Vital Signs: Last Vital Signs Pulse 66 01/16/23 11:30 BP 128/70 01/16/23 11:30 Pulse Ox 97 01/16/23 11:30 Oxygen Delivery Method Room Air 01/16/23 11:30 BMI result Body Mass Index 25.5 Const General: alert HEENT General nose exam: Abnormal mucous membranes and turbinates present boggy Throat: Yes postnasal drainage and Yes cobblestoning Neck Neck: Yes normal visual inspection, Yes full ROM and Yes no lymphadenopathy Chest Chest palpation & inspection: normal inspection of the chest Resp Auscultation: crackles bilateral at the base and diminished lung sounds Cardio Rate: regular rate Rhythm: regular rhythm Heart sounds: S1 normal heart sound present and S2 normal heart sound present GI Palpation (GI): Soft to palpation and nontender Auscultation: normal bowel sounds Skin General skin exam: rashes and/or lesions noted Office Procedures Spirometry Testing Spirometry Comments: Spirometry done in the office, Dr. Dempsey has the results results scanned to his chart. [id number]- Spirometry Assessment & Plan Assessment & Plan (1) Chronic cough: Code(s): R05.3 - Chronic cough (2) ILD (interstitial lung disease): Code(s): J84.9 - Interstitial pulmonary disease, unspecified (3) Pulmonary nodule: Code(s): R91.1 - Solitary pulmonary nodule (4) Sarcoidosis: Code(s): D86.9 - Sarcoidosis, unspecified Plan repeat CT chest 09/2023 repeat blood work today PFTs in 6 months start Symbicort start benzonates continue with APAP consider starting Methotraxate if the respiratory therapy is not effective -F/U 2-3 months Orders: Orders Liver Panel Today D86.9 - Sarcoidosis, unspecified, J30.9 - Allergic rhinitis, unspecified, J45.909 - Unspecified asthma, uncomplicated, R05.3 - Chronic cough Angiotensin Converting Enzyme Today D86.9 - Sarcoidosis, unspecified, J30.9 - Allergic rhinitis, unspecified, J45.909 - Unspecified asthma, uncomplicated, R05.3 - Chronic cough Complete Blood Count Auto Diff Today D86.9 - Sarcoidosis, unspecified, J30.9 - Allergic rhinitis, unspecified, J45.909 - Unspecified asthma, uncomplicated, R05.3 - Chronic cough Basic Metabolic Panel Today D86.9 - Sarcoidosis, unspecified, J30.9 - Allergic rhinitis, unspecified, J45.909 - Unspecified asthma, uncomplicated, R05.3 - Chronic cough Rast Allergen Today D86.9 - Sarcoidosis, unspecified, J30.9 - Allergic rhinitis, unspecified, J45.909 - Unspecified asthma, uncomplicated, R05.3 - Chronic cough Immunoglobulin E Today D86.9 - Sarcoidosis, unspecified, J30.9 - Allergic rhinitis, unspecified, J45.909 - Unspecified asthma, uncomplicated, R05.3 - Chronic cough AMB Spirometry Testing Today J84.9 - Interstitial pulmonary disease, unspecified Medications: New benzonatate 200 mg PO BID 30 days PRN 30 caps 6RF cough budesonide-formoterol 160-4.5 mcg/actuation (Symbicort) 2 puffs inhalation BID 30 days 10.2 grams 11RF J44.9 - Chronic obstructive pulmonary disease, unspecified benzonatate 200 mg PO BID 30 days PRN 30 caps 6RF cough Coding Level of Care Code Est Pt Level 5 (96756) Diagnoses Chronic cough R05.3 ILD (interstitial lung disease) J84.9 Pulmonary nodule R91.1 Sarcoidosis D86.9 CPT Codes Spirometry - CPT: 68778- Spirometry ([id number]) Time Spent (min) 50
== END 2023-01-16 13:47 | disposition home or self-care (01) ==
PROVIDERS: PCP Family Medicine; Visit Provider Hospitalist
DX: R05.3 Chronic cough (principal); J84.9 Interstitial pulmonary disease, unspecified; R91.1 Solitary pulmonary nodule; D86.9 Sarcoidosis, unspecified
CPT/HCPCS: 94010; 99215

== ENCOUNTER 2023-02-27 10:56 | Outpatient (AMB) | payer MEDICARE, OTHER, SELFPAY ==
--- NOTE | 2023-02-27 11:06 | A.OFFVIS_ITS ---
Intake Vital Signs 02/27/23 11:09 Weight 194 lb 2 oz BP 130/90 H Blood Pressure Location Lt brachial Position Sitting Pulse 62 Pulse Source Pulse Oximeter Intake Visit Reasons: 3m f/u SHERON - Conf through CW Intake Note: F/U Sleep Hot Pipe Gauger Required: No Allergies Penicillins Allergy (Severe, Verified 02/27/23 11:06) Rash HPI HPI Comments History of Present Illness Details 77 y/o male patient with interstitial lizz ng disease presents for follow up of SHERON on CPAP. The home sleep study result was significant for moderately severe degree of sleep apnea. The total sleep time AHI was 18/hr and snoring for 20% of the sleep time. There is also nocturnal hypoxemia with average O2 sat 91%, lowest O2 sat 80% and O2 sat below 88% for 45 min. The CPAP compliance and therapy response (01/26/23-02/24/23) reviewed. He is on APAP [id number]. The usage days 90% and the average usage hours 4 hrs and 40 min. The max pressure was 7.8 and the AHI was 1.8/hr. Pt reports that he has refreshed sleep for 8-9 hrs, and he is not groggy anymore, daytime sleepiness has resolved. [facility] Medical History Chronic allergic rhinitis Asthma Sarcoidosis Chronic cough ILD (interstitial lung disease) Pulmonary nodule Surgical History H/O arthroscopic knee surgery H/O hernia repair Hx of tonsillectomy Family History Mother Heart disease Family/Other Colon cancer Family/Other Colon cancer (Updated 02/27/23 @ 11:09 by June Foy CMA) Alcohol intake: current Patient Tobacco Use Status: Former Tobacco user Tobacco use type: Cigarette Years Smoked: 7 years Review of Systems Const All systems reviewed & are unremarkable except as noted in HPI and below ENT Reports Normal hearing present Neuro Reports Normal hearing present Physical Exam Vital Signs: Last Vital Signs Pulse 62 02/27/23 11:09 BP 130/90 H 02/27/23 11:09 Const General: cooperative and healthy appearing Nutritional Appearance: average body habitus Orientation/consciousness: patient oriented x3 Neck Neck: Yes full ROM and Yes supple Resp Effort & Inspection: normal respiratory effort and able to speak in complete sentences Neuro General: patient oriented x3, gait normal, moves all extremities and no focal motor deficits Cranial nerves: Yes Bilaterally intact EOM present, Yes Normal facial strength present, Yes Midline tongue present, Yes Symmetric palate elevation present, Yes Normal hearing present, Yes Ability to bilaterally rotate head present and Yes Ability to bilaterally elevate shoulders present Cognition (Neuro): normal cognition Gait exam (Neuro): Normal gait present Motor exam (neuro): 5/5 motor strength present throughout, Pronator motor function not present and no tremor noted Psych Appearance: grossly normal Mental Status: mental status grossly normal Speech and movement: Normal speech and movement present Affect: normal affect Attitude: cooperative Assessment & Plan Assessment & Plan (1) SHERON (obstructive sleep apnea): Comment: Moderate to severe degree of sleep apnea. The AHI was 18/hr and oxygen denise was 80%. Code(s): G47.33 - Obstructive sleep apnea (adult) (pediatric) Plan Continue to use APAP [id number] as patient experiences good clinical effects (less snoring, sleep quality improved, and daytime sleepiness has resolved). Stressed compliance, use CPAP nightly and more than 4 hrs. Coding Level of Care Code Est Pt Level 3 (15921) Diagnoses SHERON (obstructive sleep apnea) G47.33
[2023-02-27 11:09] VITALS: BP 130/90; PULSE 62
== END 2023-02-27 11:35 | disposition home or self-care (01) ==
PROVIDERS: PCP Family Medicine; Visit Provider Nurse Practitioner Family
DX: G47.33 Obstructive sleep apnea (adult) (pediatric) (principal)
CPT/HCPCS: 99213

== ENCOUNTER → 2023-02-27 10:56 | Outpatient (BNVA) | payer MEDICARE, OTHER, SELFPAY | PROVIDERS: PCP Family Medicine; Visit Provider Nurse Practitioner Family | DX: G47.33 Obstructive sleep apnea (adult) (pediatric) (principal) | CPT/HCPCS: 99212 ==

== ENCOUNTER 2023-03-19 08:10 | Outpatient (REF) | payer MEDICARE, OTHER, SELFPAY ==
[2023-03-19 08:44] LABS: MANUAL DIFF FLAG NO
[2023-03-19 08:53] LABS: Basophils Percent Auto 0.7 % (0-2); Eosinophils Absolute Auto 0.3 X10*3/uL (0.0-0.4); Eosinophils Percent Auto 5.1 % (0-4); Hemoglobin 13.6 g/dl (14.0-18.0); Imm Gran Abs Auto 0.03 X10*3/uL (0.00-0.03); Imm Gran Pct Auto 0.5 % (0.0-0.4); Lymphocytes Percent Auto 16.5 % (20-40); Mean Corpuscular Hemoglobin 30.8 pg (27.0-33.0); Mean Corpuscular Volume 90.5 fL (80.0-98.0); Mean Platelet Volume 10.1 fL (9.4-12.4); Monocytes Percent Auto 15.7 % (2-11); Neutrophils Absolute Auto 3.8 x10*3/uL (2.0-8.3); Neutrophils Percent Auto 61.5 % (45-73); Platelet Count 179 X10*3/uL (160-400); Red Blood Count 4.42 X10*6/uL (4.60-5.80); Red Cell Distribution Width 13.2 % (11.0-16.0); White Blood Count 6.1 X10*3/uL (4.8-10.8)
[2023-03-19 09:10] LABS: Alanine Aminotransferase 16 U/L (0-40); Albumin Level 4.2 g/dL (3.5-5.0); Alkaline Phosphatase 102 U/L (39-117); Anion Gap 9 (12-20); Aspartate Amino Transferase 23 U/L (5-37); Bilirubin Direct 0.2 mg/dL (0.0-0.5); Bilirubin Total 0.6 mg/dL (0.0-1.0); Blood Urea Nitrogen 18 mg/dL (9-16); Calcium 9.4 mg/dL (8.4-10.2); Carbon Dioxide 29 mmol/L (22-29); Chloride 105 mmol/L (96-108); Estimated Glomerular Filt Rate > 60; Glucose Random 97 mg/dL (60-115); Potassium 4.4 mmol/L (3.3-5.1); Sodium 139 mmol/L (135-145); Total Protein 7.5 g/dL (6.5-8.0)
[2023-03-19 09:45] LABS: Erythrocyte Sedimentation Rate 19 MM/HR (0-15)
== END 2023-03-19 08:11 | disposition home or self-care (01) ==
LOC: HO.LAB 08:10
PROVIDERS: PCP Family Medicine; Visit Provider Hospitalist
DX: D86.9 Sarcoidosis, unspecified (principal); J45.909 Unspecified asthma, uncomplicated; R05.3 Chronic cough; J30.9 Allergic rhinitis, unspecified
CPT/HCPCS: 36415; 80048; 80076; 82164; 85025; 85652

== ENCOUNTER 2023-03-27 11:32 | Outpatient (REF) | payer MEDICARE, OTHER, SELFPAY ==
--- NOTE | 2023-03-27 11:00 | PFT_ITS ---
Indication: Sarcoidosis Spirometry [FEV1 to FVC 81%; FEV1 3.15 L which is 103% predicted; FVC 3.89 L which is 97% predicted. No significant response to bronchodilators noted. Maximum voluntary ventilation 149% predicted.] Lung Volumes [Total lung capacity 76% predicted] Diffusion Capacity [Diffusing capacity 65% predicted] Comparisons [None] Interpretation [No obstructive ventilatory defects identified. No significant response to bronchodilators noted. The patient does have a mild restrictive ventilatory defect consistent with his sarcoidosis and interstitial lung disease. Patient also has a mild diffusion impairment. Clinical correlation warranted. MTDD
== END 2023-03-27 11:33 | disposition home or self-care (01) ==
LOC: HO.RESP 11:32
PROVIDERS: PCP Family Medicine; Visit Provider Hospitalist
DX: D86.9 Sarcoidosis, unspecified (principal)
CPT/HCPCS: 94010; 94727; 94729

== ENCOUNTER 2023-04-01 10:12 | Outpatient (AMB) | payer MEDICARE, OTHER, SELFPAY ==
--- NOTE | 2023-04-01 10:18 | A.OFFVIS_ITS ---
Intake Vital Signs 04/01/23 10:19 Height 5 ft 11 in Weight 190 lb BMI 26.5 BP 120/70 Blood Pressure Location Lt brachial Position Sitting Pulse 75 Pulse Source Pulse Oximeter Pulse Oximetry (%) 96 Oxygen Delivery Method Room Air Intake Visit Reasons: sarcoidosis Bander And Cellophaner Machine Required: No Allergies Penicillins Allergy (Severe, Verified 04/01/23 10:22) Rash budesonide [From Symbicort] Adverse Reaction (Severe, Verified 04/01/23 10:22) Joint Pain formoterol [From Symbicort] Adverse Reaction (Severe, Verified 04/01/23 10:22) Joint Pain HPI HPI Comments History of Present Illness Details The patient is a 77-year-old gentleman with a known history of chronic cough who apparently back in 2018 he was evaluated with imaging studies. He ultimately had a CT scan of the chest at [facility] demonstrating multiple calcified nodular densities in addition to some noncalcified nodular densities and calcifications of the lymph nodes. He was suspected that he has a diagnosis of sarcoidosis and the patient was monitored closely. Subsequently after that the patient continues to have a cough and was then re-evaluated at [facility]. There he did undergo pulmonary function studies in 2018. I personally reviewed the numbers demonstrating no obstructive nor restrictive ventilatory defects although he had a mile on diffusion impairment. In addition to that he had repeat PFTs in 2019 now with interval worsening of the diffusing capacity to 66 percent predicted. Otherwise no evidence of any obstructive nor restrictive ventilatory defects at that time. In view of the worsening diffusing capacity further evaluation of the CT scan that he had back in 2018 demonstrated what appeared to be some areas of haziness and interstitial changes suggested in underlying interstitial lung disease. A lot of the changes appear to be at the bases. No additional imaging studies were done at that time at [facility]. The patient was lost to follow-up. the patient now presents to our pulmonary office for further evaluation of this chronic cough. We closely discussed his CT scan findings packed then more concerning the fact that he had noncalcified pulmonary nodules measuring up to 7 millimeters in size there have not been followed up. In addition to that the patient had evidence of interstitial lung disease. At this point is not clear definitively he has a diagnosis of sarcoidosis. I explained to him that with his travel history need to consider and dynamic fungal infections or even tuberculosis that may resulting granulomas as well. Therefore the patient does need to undergo additional laboratory data in addition to repeating the CT scan in order to further address the abnormal findings. On my examination was taken back by the fact the patient does have significant rales both lungs bilaterally up to midway up. Also to note the patient does have a allergy shots for reactions to bee stings. Patient denies any other allergens. He denies any exposure to any fumes or toxins recently or in the last 20 years. 05/01/2021 the patient is here for a pulmonary follow-up visit. Overall the patient is doing about the same. He does complaint of dyspnea on exertion. This appears to be progressive. The patient did have multiple results to review. He did undergo blood work including a angiotensin-converting enzyme level which was slightly elevated at 71. Explained to him that this is sometimes used to measure activity of people that have underlying sarcoidosis. suggesting the possibility of active sarcoidosis. Patient also had evidence of eosinophilia and elevations in his IgE suggesting some degree of allergic component. The patient does get allergy shots which appear to be effective for him. He did undergo a CT scan of the chest that was personally reviewed by me. Unfortunately I do not have the images from [facility]. However, I could see moderate amount of subpleural reticular changes consistent with scarring in addition to that he does have the significant calcified lymphadenopathy consistent with his granulomatous type of disease. Patient also has pulmonary nodules which appear to have more nodules when I compare the reports. Although the largest nodule still measuring 7-8 mm in size. I also did review his pulmonary function studies and compare them to his previous pulmonary function studies from few years back in 2018. It appears that he has a slight decrease in his total lung capacity from 91% to now 82% predicted in addition to a decrease in his diffusing capacity from 66-51% predicted. Therefore, indeed appears that he does have underlying interstitial lung disease and is likely related to sarcoidosis. although, this has been a clinical diagnosis. 08/07/2021 the patient overall doing well . He responded well to the prednisone. He has been able to cut down the prednisone down to about 5 mg daily. His cough is dramatically improved. His breathing is also better. No significant adverse effects. We did review his blood work demonstrating an elevated Dong level. Therefore, this is something that we can follow to assess the activity of the sarcoid. He also needs to have his eyes checked to rule out uveitis. The goal was to treating for 6 months and see how he is doing. Hopefully we can wean him off the prednisone. We can also consider inhaled cortical steroids. Will have him come back in 3 months time reassess his blood work in addition to his chest x-ray in based on that to see if we need to continue therapy or we can wean him off. The patient is concerned about the side effects of chronic steroid use. I tried to reassuring that is taking a small dose, but, I do understand his concerns. 11/08/2021 the patient is here for a pulmonary follow-up visit. Overall the patient continues to do fairly well. He continues on the 5 mg of prednisone. He does state that a few days that he felt congested need to do full 10 mg tablet. But overall he is doing well. He did have his eyes checked which were within normal limits. Recently he did undergo blood work including Dong level though still slightly elevated. His chest x-ray just demonstrating chronic interstitial changes on the sarcoid. Again, we looked at the CT scan demonstrating significant interstitial involvement bilaterally and some areas of scarring suggesting more progressive illness. The patient is agreeable to continuing the prednisone for now. We did talk about alternatives steroid sparing agents to consider such as methotrexate and CellCept and Remicade. At this point the patient requires only a small dose of prednisone so therefore she does continue with the current therapy. If however the patient continues to be symptomatic under current does or if he needs a prolonged period of immune suppression then he consider an alternative agent. Will follow up in about 4-6 months. The patient should have blood work and chest x-ray prior to the visit so we can discuss further interventions done. 04/11/2022 the patient is here for a pul monary follow-up visit. He has been doing well from a respiratory status. He stop coughing his breathing overall has been stable. He was able to stop the prednisone weaned off about a month ago. He has been off it now for a month and he continues to do well. He is encouraged with the fact that he is doing well from the respiratory status. We did review his last CT scan from 03/2021 demonstrating interstitial changes in addition to pulmonary nodules multiple bilaterally. Most likely these nodules were related to his underlying sarcoidosis. However, when to make sure that they do not have any significant increasing growth. The patient will have a repeat CT scan in 6 months time to make sure that the nodules are stable. In addition to that we can assess the interstitial lung disease to make sure that he is not progressing in view of being off the immunosuppressant therapy. If the patient has any worsening symptoms he is to call so we can readdress any reactivation of the sarcoid. Right now his lungs sound fine and I am not concerned for any active disease at this time. The patient also needs to undergo blood work to assess his calcium level and also his Dong level. His previous Dong levels have been slightly elevated. 10/18/2022 the patient is here for pulmon sudheer follow-up visit. Since we last spoke the patient unfortunately developed COVID-19. He was treated with Paxlovid and then had a rebound case. Afterwards he had significant shortness of breath and cough. He did not feel well overall. Finally the last few weeks he is starting to feel better starting to get more energy. The patient has been off prednisone now for almost a year. We did review his CT scan of the chest that he had recently. It appears that his parenchymal lung disease on the sarcoidosis appears to be stable. Although he has a new pulmonary nodule that will need follow-up. In the meantime the patient also underwent blood work and his Dong level continues to be elevated. I do not feel strongly that patient needs prednisone at this time. He is going to continue recovering from the COVID-19 that he had in the springtime. And will follow-up in 6 months with blood work and PFTs. If his PFTs are worsened or its Dong level is higher than will discuss any additional therapies at that point. If the patient has any worsening symptoms prior to that visit he will call the office for sooner evaluation. 01/16/2023 the patient is here for a follow-up visit. He did have a follow-up a few months but he move that up because is cough is getting worse. The cough is moderate severe. Is bothering his sleep and is making hard for him to tolerate the new CPAP machine. Also he has been noticing some chest tightness along with a cough during the daytime. He is wondering about starting medications like methotrexate for the sarcoidosis. The patient does have a history of allergies. he denies any wheezing episodes. He does not have any respiratory inhalers at this time. We did have him do a spirometry in the office in his FEV1 and FVC were both about 90% predicted. Looks like a slight improvement from his previous PFT. Therefore the numbers are reassuring. He did have some forced end expiratory wheezing therefore I do believe that will try him on a combination inhaler 1st and also can provide with the Tessalon Perles. We did review his last blood work from back in September 2022 where his total bili was elevated to 1.5 otherwise his LFTs were normal. In addition to this is angiotensin-converting enzyme level had been elevated. 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 Also explained to him that at this higher stage of sarcoidosis typically progresses. 04/01/2023 the patient is here for a pulm onary follow-up visit. Overall he is doing better. He was switched over to Symbicort but then started having significant muscle spasms then was switched over to Flovent. The flow in seems to be working well. Will continue right now as prescribed. He did undergo pulmonary function studies which we personally reviewed. It is reassuring that his spirometry numbers are stable and also the diffusing capacity appears to be better overall. Daily number that is decreases the total lung capacity to a sl ight mild restriction. This could be the result of his significant COVID that he had a few months ago. The patient does not appear to have any active sarcoidosis. He has been off the prednisone now for some time and doing well. His last CT scan was back in September 2022 demonstrating stability of disease although he does have a new 3 mm pulmonary nodule. He will return in [address] scan to follow up with the interstitial changes and also his pulmonary nodule. If the patient has any worsening symptoms prior to that he will call for an earlier assessment. No need for methotrexate at this time [facility] Medical History Chronic allergic rhinitis Asthma Sarcoidosis Chronic cough ILD (interstitial lung disease) Pulmonary nodule Surgical History H/O arthroscopic knee surgery H/O hernia repair Hx of tonsillectomy Family History Mother Heart disease Family/Other Colon cancer Family/Other Colon cancer Social History (Updated 02/27/23 @ 11:09 by June Foy CMA) Alcohol intake: current Patient Tobacco Use Status: Former Tobacco user Tobacco use type: Cigarette Years Smoked: 7 years Review of Systems Const Reports fatigue and Denies night sweats ENT Denies change in voice, Denies lip swelling, Denies mouth pain, Denies nasal congestion and Denies tongue swelling Card Denies chest pain and Reports dyspnea on exertion Resp Reports cough and Reports dyspnea on exertion GI Denies abdominal pain Musc Denies no additional complaints, Reports abnormal gait, Reports arthralgias, Reports joint swelling and Reports limited range of motion Neuro Denies Neuro-related abnormal movements and Reports abnormal gait Psych Denies no additional complaints Endo Reports fatigue Ian/Lymph Denies easy bleeding and Denies lymphadenopathy Aller/Immun Denies lip swelling and Denies tongue swelling Physical Exam Vital Signs: Last Vital Signs Pulse 75 04/01/23 10:19 BP 120/70 04/01/23 10:19 Pulse Ox 96 04/01/23 10:19 Oxygen Delivery Method Room Air 04/01/23 10:19 BMI result Body Mass Index 26.5 Const General: alert HEENT General nose exam: Abnormal mucous membranes and turbinates present boggy Throat: Yes postnasal drainage and Yes cobblestoning Neck Neck: Yes normal visual inspection, Yes full ROM and Yes no lymphadenopathy Chest Chest palpation & inspection: normal inspection of the chest Resp Auscultation: crackles bilateral at the base and diminished lung sounds Cardio Rate: regular rate Rhythm: regular rhythm Heart sounds: S1 normal heart sound present and S2 normal heart sound present GI Palpation (GI): Soft to palpation and nontender Auscultation: normal bowel sounds Skin General skin exam: rashes and/or lesions noted Assessment & Plan Assessment & Plan (1) Chronic cough: Code(s): R05.3 - Chronic cough (2) ILD (interstitial lung disease): Code(s): J84.9 - Interstitial pulmonary disease, unspecified (3) Pulmonary nodule: Code(s): R91.1 - Solitary pulmonary nodule (4) Sarcoidosis: Code(s): D86.9 - Sarcoidosis, unspecified Plan repeat CT chest 09/2023 continue Flovent start benzonates as needed continue with APAP F/U 6 months Medications: Changed From fluticasone propionate 110 mcg/actuation (Flovent HFA) 2 puffs inhalation BID 30 days 12 grams 11RF To fluticasone propionate 110 mcg/actuation (Flovent HFA) 2 puffs inhalation BID 90 days 3 ea 3RF Coding Level of Care Code Est Pt Level 4 (19134) Diagnoses Chronic cough R05.3 ILD (interstitial lung disease) J84.9 Pulmonary nodule R91.1 Sarcoidosis D86.9 Time Spent (min) 17
[2023-04-01 10:19] VITALS: BP 120/70; PULSE 75; O2SAT 96; BMI 26.5
== END 2023-04-01 10:51 | disposition home or self-care (01) ==
PROVIDERS: PCP Family Medicine; Visit Provider Hospitalist
DX: R05.3 Chronic cough (principal); J84.9 Interstitial pulmonary disease, unspecified; R91.1 Solitary pulmonary nodule; D86.9 Sarcoidosis, unspecified
CPT/HCPCS: 99214

== ENCOUNTER → 2023-04-01 10:12 | Outpatient (BNVA) | payer MEDICARE, OTHER, SELFPAY | PROVIDERS: PCP Family Medicine; Visit Provider Hospitalist | DX: D86.9 Sarcoidosis, unspecified (principal); R05.3 Chronic cough; R91.1 Solitary pulmonary nodule; J84.9 Interstitial pulmonary disease, unspecified | CPT/HCPCS: 99212 ==

== ENCOUNTER 2023-05-17 14:16 | Outpatient (AMB) | payer MEDICARE, OTHER, SELFPAY ==
--- NOTE | 2023-05-17 14:30 | A.OFFVIS_ITS ---
Intake Vital Signs 05/17/23 14:37 Height 5 ft 11 in Weight 194 lb 6 oz BMI 27.1 BP 120/74 Blood Pressure Location Lt brachial Position Sitting Pulse 68 Pulse Source Pulse Oximeter Pulse Oximetry (%) 96 Oxygen Delivery Method Room Air Intake Visit Reasons: f/u. Not doing well with CPAP and wants appt-LvM Intake Note: Patient presents for F/U having trouble using CPAP machine. mouth very dry.' Allergies Penicillins Allergy (Severe, Verified 05/17/23 14:35) Rash budesonide [From Symbicort] Adverse Reaction (Severe, Verified 05/17/23 14:35) Joint Pain formoterol [From Symbicort] Adverse Reaction (Severe, Verified 05/17/23 14:35) Joint Pain HPI HPI Comments History of Present Illness Details 77 y/o male patient with interstitial lizz ng disease presents for follow up of SHERON on CPAP. Pt reports problem using CPAP. He states that using CPAP is very discomfort. However, he felt good with CPAP at [id number]. He gets very dry mouth, and it wakes him at night since March. He changed humidifier and tubing temperature setting with respiratory therapies, but still very uncomfortable. He tried nasal mask and full mask, but not helped for dryness. Now he is on APAP 6-8cmH2O with EPR 3. The compliance and therapy response (04/17/23-05/16/23) reviewed. The usage days 73 % and the average usage hours 3 hrs. The max pressure was 7.9 and vitor maximum leaks 26.5 and residual AHI was 2.2. [facility] Medical History Chronic allergic rhinitis Asthma Sarcoidosis Chronic cough ILD (interstitial lung disease) Pulmonary nodule Surgical History H/O arthroscopic knee surgery H/O hernia repair Hx of tonsillectomy Family History Mother Heart disease Family/Other Colon cancer Family/Other Colon cancer Social History Alcohol intake: current Patient Tobacco Use Status: Former Tobacco user Tobacco use type: Cigarette Years Smoked: 7 years Review of Systems Const All systems reviewed & are unremarkable except as noted in HPI and below ENT Reports Normal hearing present Neuro Reports Normal hearing present Physical Exam Vital Signs: Last Vital Signs Pulse 68 05/17/23 14:37 BP 120/74 05/17/23 14:37 Pulse Ox 96 05/17/23 14:37 Oxygen Delivery Method Room Air 05/17/23 14:37 BMI result Body Mass Index 27.1 Const General: cooperative and healthy appearing Nutritional Appearance: average body habitus Orientation/consciousness: patient oriented x3 Neck Neck: Yes full ROM and Yes supple Resp Effort & Inspection: normal respiratory effort and able to speak in complete sentences Neuro General: patient oriented x3, gait normal, moves all extremities and no focal motor deficits Cranial nerves: Yes Bilaterally intact EOM present, Yes Normal facial strength present, Yes Midline tongue present, Yes Symmetric palate elevation present, Yes Normal hearing present, Yes Ability to bilaterally rotate head present and Yes Ability to bilaterally elevate shoulders present Cognition (Neuro): normal cognition Gait exam (Neuro): Normal gait present Motor exam (neuro): 5/5 motor strength present throughout, Pronator motor function not present and no tremor noted Psych Appearance: grossly normal Mental Status: mental status grossly normal Speech and movement: Normal speech and movement present Affect: normal affect Attitude: cooperative Assessment & Plan Assessment & Plan (1) SHERON (obstructive sleep apnea): Comment: Moderate to severe degree of sleep apnea. The AHI was 18/hr and oxygen denise was 80%. Code(s): G47.33 - Obstructive sleep apnea (adult) (pediatric) Plan Changed CPAP setting to APAP [id number] as patient experienced good clinical effects (less snoring, sleep quality improved, and daytime sleepiness has resolved) before. Changed EPR to 2. Stressed compliance, use CPAP nightly and more than 4 hrs. Coding Level of Care Code Est Pt Level 3 (02500) Diagnoses SHERON (obstructive sleep apnea) G47.33
[2023-05-17 14:37] VITALS: BP 120/74; PULSE 68; O2SAT 96; BMI 27.1
== END 2023-05-17 15:09 | disposition home or self-care (01) ==
PROVIDERS: PCP Family Medicine; Visit Provider Nurse Practitioner Family
DX: G47.33 Obstructive sleep apnea (adult) (pediatric) (principal)
CPT/HCPCS: 99213

== ENCOUNTER → 2023-05-17 14:16 | Outpatient (BNVA) | payer MEDICARE, OTHER, SELFPAY | PROVIDERS: PCP Family Medicine; Visit Provider Nurse Practitioner Family | DX: G47.33 Obstructive sleep apnea (adult) (pediatric) (principal) | CPT/HCPCS: 99212 ==

== ENCOUNTER 2023-09-17 07:58 | Outpatient (REF) | payer MEDICARE, OTHER, SELFPAY ==
--- NOTE | ~2023-09-17 | CT_ITS ---
EXAMINATION: CT CHEST WITHOUT CONTRAST CLINICAL INFORMATION: Solitary pulmonary nodule COMPARISON: 10/02/2022, 04/14/2021 TECHNIQUE: Multidetector volumetric CT imaging of the chest was done. Axial MIP volume rendering provided. Sagittal and coronal reformatted images were obtained. This CT examination was performed using dose optimization techniques as appropriate, variously including the following: *Automated exposure control *Adjustment of mA and/or kV according to patient size (this includes techniques or standardized protocols for targeted exams where dose is matched to indication/reason for exam; i.e. extremities or head) *Use of iterative reconstruction technique DLP: 162 mGy-cm FINDINGS: LUNGS: Extensive subpleural reticulation throughout the lungs are noted with areas of honeycombing and fibrotic changes in the bilateral lower lobes. Right lower lobe calcified nodules measuring up to 5 mm are unchanged (5:342). Irregular right upper lobe 7 mm nodule is unchanged since 2020 (5:97). Partially calcified irregular left upper lobe 1.1 cm nodule is unchanged since 2020 (5:141). Additional numerous bilateral partially calcified pulmonary nodules are overall unchanged. Central airways are patent. No definite new or enlarging pulmonary nodule. Previously seen new right upper lobe noncalcified 3 mm nodule is unchanged (5:159). PLEURA: No pleural effusion. MEDIASTINUM: No cardiomegaly. Aorta and pulmonary artery are normal in caliber. Dense mediastinal calcified adenopathy and bulky calcified bilateral hilar adenopathy is unchanged from prior study. No hilar lymphadenopathy. CORONARY ARTERY CALCIFICATION: Coronary artery calcifications are present. CHEST WALL/AXILLA: No axillary or internal mammary lymphadenopathy. UPPER ABDOMEN: Unremarkable. OSSEOUS STRUCTURES: Unremarkable. CT/CT chest wo IV con IMPRESSION: * Extensive subpleural reticulation throughout the lungs with areas of honeycombing and fibrotic changes in the bilateral lower lobes. Findings are consistent with interstitial lung disease. Bilateral pulmonary nodules measuring up to 1.1 cm are unchanged. No definite new or enlarging pulmonary nodule. According to the UPDATED 2017 Fleischner Society recommendations, the advised followup imaging for multiple solid nodules, the largest measuring 6 mm or greater, is: LOW RISK PATIENT: CT at 3-6 months, then consider CT at 18-24 months. HIGH RISK PATIENT: CT at 3-6 months, then at 18-24 months. * Dense mediastinal and bilateral hilar calcified adenopathy is unchanged. This exam was submitted to the interpreting radiologist for interpretation on 10/29/2023 9:47 AM.
== END 2023-09-17 07:59 | disposition home or self-care (01) ==
LOC: HO.CT 07:58
PROVIDERS: PCP Family Medicine; Visit Provider Hospitalist
DX: R91.1 Solitary pulmonary nodule (principal)
CPT/HCPCS: 71250

== ENCOUNTER 2023-11-06 10:05 | Outpatient (AMB) | payer MEDICARE, OTHER, SELFPAY ==
[2023-11-06 10:16] VITALS: PULSE 63; O2SAT 98; BMI 26.5
--- NOTE | 2023-11-06 10:16 | A.OFFVIS_ITS ---
Vital Signs 11/06/23 10:16 Height 5 ft 11 in Weight 190 lb BMI 26.5 Pulse 63 Pulse Source Pulse Oximeter Pulse Oximetry (%) 98 Oxygen Delivery Method Room Air Intake Visit Reasons: sarcoidosis Medical Records Supervisor Required: No Allergies Penicillins Allergy (Severe, Verified 11/06/23 10:17) Rash budesonide [From Symbicort] Adverse Reaction (Severe, Verified 11/06/23 10:17) Joint Pain formoterol [From Symbicort] Adverse Reaction (Severe, Verified 11/06/23 10:17) Joint Pain HPI Comments Details: The patient is a 78-year-old gentleman with a known history of chronic cough who apparently back in 2018 he was evaluated with imaging studies. He ultimately had a CT scan of the chest at [facility] demonstrating multiple calcified nodular densities in addition to some noncalcified nodular densities and calcifications of the lymph nodes. He was suspected that he has a diagnosis of sarcoidosis and the patient was monitored closely. Subsequently after that the patient continues to have a cough and was then re-evaluated at [facility]. There he did undergo pulmonary function studies in 2018. I personally reviewed the numbers demonstrating no obstructive nor restrictive ventilatory defects although he had a mile on diffusion impairment. In addition to that he had repeat PFTs in 2019 now with interval worsening of the diffusing capacity to 66 percent predicted. Otherwise no evidence of any obstructive nor restrictive ventilatory defects at that time. In view of the worsening diffusing capacity further evaluation of the CT scan that he had back in 2018 demonstrated what appeared to be some areas of haziness and interstitial changes suggested in underlying interstitial lung disease. A lot of the changes appear to be at the bases. No additional imaging studies were done at that time at [facility]. The patient was lost to follow-up. the patient now presents to our pulmonary office for further evaluation of this chronic cough. We closely discussed his CT scan findings packed then more concerning the fact that he had noncalcified pulmonary nodules measuring up to 7 millimeters in size there have not been followed up. In addition to that the patient had evidence of interstitial lung disease. At this point is not clear definitively he has a diagnosis of sarcoidosis. I explained to him that with his travel history need to consider and dynamic fungal infections or even tuberculosis that may resulting granulomas as well. Therefore the patient does need to undergo additional laboratory data in addition to repeating the CT scan in order to further address the abnormal findings. On my examination was taken back by the fact the patient does have significant rales both lungs bilaterally up to midway up. Also to note the patient does have a allergy shots for reactions to bee stings. Patient denies any other allergens. He denies any exposure to any fumes or toxins recently or in the last 20 years. 05/01/2021 the patient is here for a pulmonary follow-up visit. Overall the patient is doing about the same. He does complaint of dyspnea on exertion. This appears to be progressive. The patient did have multiple results to review. He did undergo blood work including a angiotensin-converting enzyme level which was slightly elevated at 71. Explained to him that this is sometimes used to measure activity of people that have underlying sarcoidosis. suggesting the possibility of active sarcoidosis. Patient also had evidence of eosinophilia and elevations in his IgE suggesting some degree of allergic component. The patient does get allergy shots which appear to be effective for him. He did undergo a CT scan of the chest that was personally reviewed by me. Unfortunately I do not have the images from [facility]. However, I could see moderate amount of subpleural reticular changes consistent with scarring in addition to that he does have the significant calcified lymphadenopathy consistent with his granulomatous type of disease. Patient also has pulmonary nodules which appear to have more nodules when I compare the reports. Although the largest nodule still measuring 7-8 mm in size. I also did review his pulmonary function studies and compare them to his previous pulmonary function studies from few years back in 2018. It appears that he has a slight decrease in his total lung capacity from 91% to now 82% predicted in addition to a decrease in his diffusing capacity from 66-51% predicted. Therefore, indeed appears that he does have underlying interstitial lung disease and is likely related to sarcoidosis. although, this has been a clinical diagnosis. 08/07/2021 the patient overall doing well. He responded well to the prednisone. He has been able to cut down the prednisone down to about 5 mg daily. His cough is dramatically improved. His breathing is also better. No significant adverse effects. We did review his blood work demonstrating an elevated Dong level. Therefore, this is something that we can follow to assess the activity of the sarcoid. He also needs to have his eyes checked to rule out uveitis. The goal was to treating for 6 months and see how he is doing. Hopefully we can wean him off the prednisone. We can also consider inhaled cortical steroids. Will have him come back in 3 months time reassess his blood work in addition to his chest x-ray in based on that to see if we need to continue therapy or we can wean him off. The patient is concerned about the side effects of chronic steroid use. I tried to reassuring that is taking a small dose, but, I do understand his concerns. 11/08/2021 the patient is here for a pulmonary follow-up visit. Overall the patient continues to do fairly well. He continues on the 5 mg of prednisone. He does state that a few days that he felt congested need to do full 10 mg tablet. But overall he is doing well. He did have his eyes checked which were within normal limits. Recently he did undergo blood work including Dong level though still slightly elevated. His chest x-ray just demonstrating chronic interstitial changes on the sarcoid. Again, we looked at the CT scan demonstrating significant interstitial involvement bilaterally and some areas of scarring suggesting more progressive illness. The patient is agreeable to continuing the prednisone for now. We did talk about alternatives steroid sparing agents to consider such as methotrexate and CellCept and Remicade. At this point the patient requires only a small dose of prednisone so therefore she does continue with the current therapy. If however the patient continues to be symptomatic under current does or if he needs a prolonged period of immune suppression then he consider an alternative agent. Will follow up in about 4-6 months. The patient should have blood work and chest x-ray prior to the visit so we can discuss further interventions done. 04/11/2022 the patient is here for a pulmonary follow-up visit. He has been doing well from a respiratory status. He stop coughing his breathing overall has been stable. He was able to stop the prednisone weaned off about a month ago. He has been off it now for a month and he continues to do well. He is encouraged with the fact that he is doing well from the respiratory status. We did review his last CT scan from 03/2021 demonstrating interstitial changes in addition to pulmonary nodules multiple bilaterally. Most likely these nodules were related to his underlying sarcoidosis. However, when to make sure that they do not have any significant increasing growth. The patient will have a repeat CT scan in 6 months time to make sure that the nodules are stable. In addition to that we can assess the interstitial lung disease to make sure that he is not progressing in view of being off the immunosuppressant therapy. If the patient has any worsening symptoms he is to call so we can readdress any reactivation of the sarcoid. Right now his lungs sound fine and I am not concerned for any active disease at this time. The patient also needs to undergo blood work to assess his calcium level and also his Dong level. His previous Dong levels have been slightly elevated. 10/18/2022 the patient is here for pulmonary follow-up visit. Since we last spoke the patient unfortunately developed COVID-19. He was treated with Paxlovid and then had a rebound case. Afterwards he had significant shortness of breath and cough. He did not feel well overall. Finally the last few weeks he is starting to feel better starting to get more energy. The patient has been off prednisone now for almost a year. We did review his CT scan of the chest that he had recently. It appears that his parenchymal lung disease on the sarcoidosis appears to be stable. Although he has a new pulmonary nodule that will need follow-up. In the meantime the patient also underwent blood work and his Dong level continues to be elevated. I do not feel strongly that patient ne eds prednisone at this time. He is going to continue recovering from the COVID- 19 that he had in the springtime. And will follow-up in 6 months with blood work and PFTs. If his PFTs are worsened or its Dong level is higher than will discuss any additional therapies at that point. If the patient has any worsening symptoms prior to that visit he will call the office for sooner evaluation. 01/16/2023 the patient is here for a follow-up visit. He did have a follow-up a few months but he move that up because is cough is getting worse. The cough is moderate severe. Is bothering his sleep and is making hard for him to tolerate the new CPAP machine. Also he has been noticing some chest tightness along with a cough during the daytime. He is wondering about starting medications like methotrexate for the sarcoidosis. The patient does have a history of allergies. he denies any wheezing episodes. He does not have any respiratory inhalers at this time. We did have him do a spirometry in the office in his FEV1 and FVC were both about 90% predicted. Looks like a slight improvement from his previous PFT. Therefore the numbers are reassuring. He did have some forced end expiratory wheezing therefore I do believe that will try him on a combination inhaler 1st and also can provide with the Tessalon Perles. We did review his last blood work from back in September 2022 where his total bili was elevated to 1.5 otherwise his LFTs were normal. In addition to this is angiotensin-converting enzyme level had been elevated. 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 Also explained to him that at this higher stage of sarcoidosis typically progresses. 04/01/2023 the patient is here for a pulmonary follow-up visit. Overall he is doing better. He was switched over to Symbicort but then started having significant muscle spasms then was switched over to Flovent. The flow in seems to be working well. Will continue right now as prescribed. He did undergo pulmonary function studies which we personally reviewed. It is reassuring that his spirometry numbers are stable and also the diffusing capacity appears to be better overall. Daily number that is decreases the total lung capacity to a slight mild restriction. This could be the result of his significant COVID that he had a few months ago. The patient does not appear to have any active sarcoidosis. He has been off the prednisone now for some time and doing well. His last CT scan was back in September 2022 demonstrating stability of disease although he does have a new 3 mm pulmonary nodule. He will return in [address] scan to follow up with the interstitial changes and also his pulmonary nodule. If the patient has any worsening symptoms prior to that he will call for an earlier assessment. No need for methotrexate at this time 11/06/2023 the patient is here for a pulmonary follow-up visit. Overall he is doing well from a respiratory status he just came back from [place] and did not have any respiratory issues over there. He does have some underlying allergies at times. He has tolerating the Flovent inhaler is helping. Will go ahead and switch him over to the generic fluticasone propionate which is the only 1 covered now. The patient did have a CT scan of the chest. Initially reading the report is concerning for extensive parenchymal interstitial lung disease. Although when we compare his CT scan to his previous there has no real significant difference in the last couple years. Therefore, reassured that although he does have interstitial lung disease due to the sarcoid and pulmonary nodules due to the sarcoid does appear to be significantly change or changing. I do not believe he needs additional systemic therapies at this time. Will continue to monitoring closely. Otherwise the patient is using his allergy medicines as needed. He did not tolerate CPAP. Therefore he is looking at alternatives. He did speak to a dentist regarding an oral mandibular device. He is also speaking to ENT regarding the possibility of a hypoglossal nerve stimulator. He has not decide how he is going to move forward. I did give him my recommendations and I will try the noninvasive approaches 1st before the invasive approaches. If he does go ahead with the oral mandibular device we rae l provide him with a letter of medical necessity to his dentist in order to get it approved through his insurance. [facility] Medical History Chronic allergic rhinitis Asthma Sarcoidosis Chronic cough ILD (interstitial lung disease) Pulmonary nodule Surgical History H/O arthroscopic knee surgery H/O hernia repair Hx of tonsillectomy Family History Mother Heart disease Family/Other Colon cancer Family/Other Colon cancer Social History Alcohol intake: current Patient Tobacco Use Status: Former Tobacco user Tobacco use type: Cigarette Years Smoked: 7 years Review of Systems Const Reports fatigue and Denies night sweats ENT Denies change in voice, Denies lip swelling, Denies mouth pain, Denies nasal congestion and Denies tongue swelling Card Denies chest pain and Reports dyspnea on exertion Resp Reports cough and Reports dyspnea on exertion GI Denies abdominal pain Musc Denies no additional complaints, Reports abnormal gait, Reports arthralgias, Reports joint swelling and Reports limited range of motion Neuro Denies Neuro-related abnormal movements and Reports abnormal gait Psych Denies no additional complaints Endo Reports fatigue Ian/Lymph Denies easy bleeding and Denies lymphadenopathy Aller/Immun Denies lip swelling and Denies tongue swelling Physical Exam Vital Signs: Last Vital Signs Pulse 63 11/06/23 10:16 Pulse Ox 98 11/06/23 10:16 Oxygen Delivery Method Room Air 11/06/23 10:16 BMI result Body Mass Index 26.5 Const General: alert HEENT General nose exam: Abnormal mucous membranes and turbinates present boggy Throat: Yes postnasal drainage and Yes cobblestoning Neck Neck: Yes normal visual inspection, Yes full ROM and Yes no lymphadenopathy Chest Chest palpation & inspection: normal inspection of the chest Resp Auscultation: crackles bilateral at the base and diminished lung sounds Cardio Rate: regular rate Rhythm: regular rhythm Heart sounds: S1 normal heart sound present and S2 normal heart sound present GI Palpation (GI): Soft to palpation and nontender Auscultation: normal bowel sounds Skin General skin exam: rashes and/or lesions noted Assessment & Plan Assessment & Plan (1) Chronic cough: Code(s): R05.3 - Chronic cough Category: Medical (2) ILD (interstitial lung disease): Code(s): J84.9 - Interstitial pulmonary disease, unspecified Category: Medical (3) Pulmonary nodule: Code(s): R91.1 - Solitary pulmonary nodule Category: Medical (4) Sarcoidosis: Code(s): D86.9 - Sarcoidosis, unspecified Category: Medical (5) SHERON (obstructive sleep apnea): Comment: Moderate to severe degree of sleep apnea. The AHI was 18/hr and oxygen denise was 80%. Code(s): G47.33 - Obstructive sleep apnea (adult) (pediatric) Category: Medical (6) Chronic allergic rhinitis: Code(s): J30.9 - Allergic rhinitis, unspecified Category: Medical (7) Asthma: Code(s): J45.909 - Unspecified asthma, uncomplicated Category: Medical Qualifiers: Asthma severity: moderate Asthma persistence: persistent Asthma complication type: uncomplicated Qualified Code(s): J45.40 - Moderate persistent asthma, uncomplicated Plan continue Flovent, generic benzonates as needed Did not tolerate APAP. Has significant SHERON. Considering the HNS Also should consider OMD repeat CT chest 1 year F/U 1 yr Orders: Orders CT chest wo IV con 09/28/24 J84.9 - Interstitial pulmonary disease, unspecified Medications: Changed From fluticasone propionate 110 mcg/actuation (Flovent HFA) 2 puffs inhalation BID 90 days 3 ea 3RF To fluticasone propionate 110 mcg/actuation 2 puffs inhalation BID 90 days 36 grams 3RF Coding Level of Care Code Est Pt Level 4 (91970) Diagnoses Chronic cough R05.3 ILD (interstitial lung disease) J84.9 Pulmonary nodule R91.1 Sarcoidosis D86.9 SHERON (obstructive sleep apnea) G47.33 Chronic allergic rhinitis J30.9 Moderate persistent asthma without complication J45.40 Asthma severity: moderate Asthma persistence: persistent Asthma complication type: uncomplicated Time Spent (min) 20
== END 2023-11-06 10:46 | disposition home or self-care (01) ==
PROVIDERS: PCP Family Medicine; Visit Provider Hospitalist
DX: R05.3 Chronic cough (principal); J84.9 Interstitial pulmonary disease, unspecified; R91.1 Solitary pulmonary nodule; D86.9 Sarcoidosis, unspecified; G47.33 Obstructive sleep apnea (adult) (pediatric); J30.9 Allergic rhinitis, unspecified; J45.40 Moderate persistent asthma, uncomplicated
CPT/HCPCS: 99214

== ENCOUNTER → 2023-11-06 10:05 | Outpatient (BNVA) | payer MEDICARE, OTHER, SELFPAY | PROVIDERS: PCP Family Medicine; Visit Provider Hospitalist | DX: J84.9 Interstitial pulmonary disease, unspecified (principal); R05.3 Chronic cough; R91.1 Solitary pulmonary nodule; D86.9 Sarcoidosis, unspecified; J45.40 Moderate persistent asthma, uncomplicated; G47.33 Obstructive sleep apnea (adult) (pediatric) | CPT/HCPCS: 99212 ==

== ENCOUNTER 2024-03-04 11:07 | Outpatient (AMB) | payer MEDICARE, OTHER, SELFPAY ==
[2024-03-04 11:10] VITALS: BP 110/62; PULSE 74; O2SAT 97; BMI 26.5
--- NOTE | 2024-03-04 11:10 | MHC.OFFVIS ---
Vital Signs 03/04/24 11:10 Height 5 ft 11 in Weight 190 lb BMI 26.5 BP 110/62 Blood Pressure Location Rt brachial Position Sitting Pulse 74 Pulse Source Pulse Oximeter Pulse Oximetry (%) 97 Oxygen Delivery Method Room Air Intake Visit Reasons: 1Y follow up [employer] Required: No Accompanied by: Self / Same As Patient Allergies Penicillins Allergy (Severe, Verified 03/04/24 11:12) Rash budesonide [From Symbicort] Adverse Reaction (Severe, Verified 03/04/24 11:12) Joint Pain formoterol [From Symbicort] Adverse Reaction (Severe, Verified 03/04/24 11:12) Joint Pain Medication List - Last Reconciled 03/04/24 by PAVEL Nielsen epinephrine IM DIRECTED fluticasone propionate 110 mcg/actuation 2 puffs inhalation BID 90 days montelukast (Singulair) 10 mg PO BEDTIME multivitamin 1 tab PO DAILY HPI Comments Details: 78-yr-old male presents for follow-up visit of sleep apnea. Pt reports he did not tolerate his CPAP d/t chronic cough from pulmonary sarcoidosis. Thus, he returned his machine. Pulmonology referred him to dentist for a mandibular device, which he has been fitted for. He is using his mandibular device nightly with morning device to retract lower jaw. He feels he is sleeping better now. Now sleeping through the night. If he coughs at night, he may expel the mandibular device but he is able to reapply it and go back to sleep. His dentist has requested a f/u sleep study to determine effectiveness of the mandibular device. [facility] Medical History Chronic allergic rhinitis Asthma Sarcoidosis Chronic cough ILD (interstitial lung disease) Pulmonary nodule Surgical History H/O arthroscopic knee surgery H/O hernia repair Hx of tonsillectomy Family History Mother Heart disease Family/Other Colon cancer Family/Other Colon cancer Social History Alcohol intake: current Patient Tobacco Use Status: Former Tobacco user Tobacco use type: Cigarette Years Smoked: 7 years Physical Exam Vital Signs: Last Vital Signs Pulse 74 03/04/24 11:10 BP 110/62 03/04/24 11:10 Pulse Ox 97 03/04/24 11:10 Oxygen Delivery Method Room Air 03/04/24 11:10 BMI result Body Mass Index 26.5 Const General: no acute distress Orientation/consciousness: patient oriented x3 Resp Other: Faint bilateral lower lung crackles. Dry non-productive cough Effort & Inspection: normal respiratory effort and able to speak in complete sentences Cardio Rate: regular rate Rhythm: regular rhythm Heart sounds: S1 normal heart sound present and S2 normal heart sound present Neuro General: patient oriented x3 Psych Mental Status: mental status grossly normal Speech and movement: Clear speech present Attitude: cooperative Assessment & Plan Assessment & Plan (1) SHERON (obstructive sleep apnea): Comment: Moderate to severe degree of sleep apnea. The AHI was 18/hr and oxygen denise was 80%. Code(s): G47.33 - Obstructive sleep apnea (adult) (pediatric) Category: Medical (2) Chronic cough: Code(s): R05.3 - Chronic cough Category: Medical (3) Sarcoidosis: Code(s): D86.9 - Sarcoidosis, unspecified Category: Medical Plan Pt advised to undergo in-lab PSG w/ mandibular device to determine effectiveness of mandibular device tx to reduce obstructive sleep apnea and nocturnal hypoxemia. Will follow-up upon review of above and patient to follow-up in clinic in 6 months or sooner prn. Medications: Changed From montelukast (Singulair) 10 mg PO BEDTIME 30 days 30 tabs 11RF J45.909 - Unspecified asthma, uncomplicated To montelukast (Singulair) 10 mg PO BEDTIME J45.909 - Unspecified asthma, uncomplicated Coding Level of Care Code Est Pt Level 3 (21815) Diagnoses SHERON (obstructive sleep apnea) G47.33 Chronic cough R05.3 Sarcoidosis D86.9
== END 2024-03-04 11:52 | disposition home or self-care (01) ==
LOC: HO.HSMS 11:07
PROVIDERS: Absent Provider Nurse Practitioner Family; PCP Family Medicine; Visit Provider Nurse Practitioner Family
DX: G47.33 Obstructive sleep apnea (adult) (pediatric) (principal); R05.3 Chronic cough; D86.9 Sarcoidosis, unspecified
CPT/HCPCS: 99213

== ENCOUNTER → 2024-03-04 11:07 | Outpatient (BNVA) | payer MEDICARE, OTHER, SELFPAY | PROVIDERS: Absent Provider Nurse Practitioner Family; PCP Family Medicine; Visit Provider Nurse Practitioner Family | DX: G47.33 Obstructive sleep apnea (adult) (pediatric) (principal); J45.909 Unspecified asthma, uncomplicated; R05.3 Chronic cough; D86.9 Sarcoidosis, unspecified | CPT/HCPCS: 99212 ==

== ENCOUNTER → 2024-03-17 20:30 | Outpatient (REF) | payer MEDICARE, OTHER, SELFPAY | LOC: HO.SL 20:30 | PROVIDERS: PCP Family Medicine; Visit Provider Nurse Practitioner Family | DX: G47.33 Obstructive sleep apnea (adult) (pediatric) (principal); J84.9 Interstitial pulmonary disease, unspecified | CPT/HCPCS: 95810 ==

== ENCOUNTER → 2024-03-17 21:08 | Outpatient (BNV) | payer MEDICARE, OTHER, SELFPAY | PROVIDERS: PCP Family Medicine; Visit Provider Psychiatry & Neurology Neurology | DX: G47.33 Obstructive sleep apnea (adult) (pediatric) (principal) | CPT/HCPCS: 95810 ==

== ENCOUNTER 2024-05-14 14:44 | Outpatient (AMB) | payer MEDICARE, OTHER, SELFPAY ==
[2024-05-14 14:49] VITALS: BP 110/80; PULSE 48; O2SAT 98
--- NOTE | 2024-05-14 14:49 | MHC.OFFVIS ---
Vital Signs 05/14/24 14:49 Weight 195 lb 1.745 oz BP 110/80 Blood Pressure Location Lt brachial Position Sitting Pulse 48 L Pulse Source Palpation Pulse Oximetry (%) 98 Oxygen Delivery Method Room Air Intake Visit Reasons: Increased cough Allergies Penicillins Allergy (Severe, Verified 05/14/24 14:56) Rash budesonide [From Symbicort] Adverse Reaction (Severe, Verified 05/14/24 14:56) Joint Pain formoterol [From Symbicort] Adverse Reaction (Severe, Verified 05/14/24 14:56) Joint Pain Medication List - Last Reconciled 05/14/24 by Lachelle Saucedo LPN benzonatate 200 mg PO BID PRN 30 days epinephrine IM DIRECTED fluticasone furoate 200 mcg/actuation (Arnuity Ellipta) 1 inh inhalation DAILY 30 days magnesium glycinate 125 mg PO montelukast (Singulair) 10 mg PO BEDTIME 90 days multivitamin 1 tab PO DAILY HPI Comments Details: The patient is a 78-year-old gentleman with a known history of chronic cough who apparently back in 2018 he was evaluated with imaging studies. He ultimately had a CT scan of the chest at [facility] demonstrating multiple calcified nodular densities in addition to some noncalcified nodular densities and calcifications of the lymph nodes. He was suspected that he has a diagnosis of sarcoidosis and the patient was monitored closely. Subsequently after that the patient continues to have a cough and was then re-evaluated at [facility]. There he did undergo pulmonary function studies in 2018. I personally reviewed the numbers demonstrating no obstructive nor restrictive ventilatory defects although he had a mile on diffusion impairment. In addition to that he had repeat PFTs in 2019 now with interval worsening of the diffusing capacity to 66 percent predicted. Otherwise no evidence of any obstructive nor restrictive ventilatory defects at that time. In view of the worsening diffusing capacity further evaluation of the CT scan that he had back in 2018 demonstrated what appeared to be some areas of haziness and interstitial changes suggested in underlying interstitial lung disease. A lot of the changes appear to be at the bases. No additional imaging studies were done at that time at [facility]. The patient was lost to follow-up. the patient now presents to our pulmonary office for further evaluation of this chronic cough. We closely discussed his CT scan findings packed then more concerning the fact that he had noncalcified pulmonary nodules measuring up to 7 millimeters in size there have not been followed up. In addition to that the patient had evidence of interstitial lung disease. At this point is not clear definitively he has a diagnosis of sarcoidosis. I explained to him that with his travel history need to consider and dynamic fungal infections or even tuberculosis that may resulting granulomas as well. Therefore the patient does need to undergo additional laboratory data in addition to repeating the CT scan in order to further address the abnormal findings. On my examination was taken back by the fact the patient does have significant rales both lungs bilaterally up to midway up. Also to note the patient does have a allergy shots for reactions to bee stings. Patient denies any other allergens. He denies any exposure to any fumes or toxins recently or in the last 20 years. 05/01/2021 the patient is here for a pulmonary follow-up visit. Overall the patient is doing about the same. He does complaint of dyspnea on exertion. This appears to be progressive. The patient did have multiple results to review. He did undergo blood work including a angiotensin-converting enzyme level which was slightly elevated at 71. Explained to him that this is sometimes used to measure activity of people that have underlying sarcoidosis. suggesting the possibility of active sarcoidosis. Patient also had evidence of eosinophilia and elevations in his IgE suggesting some degree of allergic component. The patient does get allergy shots which appear to be effective for him. He did undergo a CT scan of the chest that was personally reviewed by me. Unfortunately I do not have the images from [employer]. However, I could see moderate amount of subpleural reticular changes consistent with scarring in addition to that he does have the significant calcified lymphadenopathy consistent with his granulomatous type of disease. Patient also has pulmonary nodules which appear to have more nodules when I compare the reports. Although the largest nodule still measuring 7-8 mm in size. I also did review his pulmonary function studies and compare them to his previous pulmonary function studies from few years back in 2018. It appears that he has a slight decrease in his total lung capacity from 91% to now 82% predicted in addition to a decrease in his diffusing capacity from 66-51% predicted. Therefore, indeed appears that he does have underlying interstitial lung disease and is likely related to sarcoidosis. although, this has been a clinical diagnosis. 08/07/2021 the patient overall doing well. He responded well to the prednisone. He has been able to cut down the prednisone down to about 5 mg daily. His cough is dramatically improved. His breathing is also better. No significant adverse effects. We did review his blood work demonstrating an elevated Dong level. Therefore, this is something that we can follow to assess the activity of the sarcoid. He also needs to have his eyes checked to rule out uveitis. The goal was to treating for 6 months and see how he is doing. Hopefully we can wean him off the prednisone. We can also consider inhaled cortical steroids. Will have him come back in 3 months time reassess his blood work in addition to his chest x-ray in based on that to see if we need to continue therapy or we can wean him off. The patient is concerned about the side effects of chronic steroid use. I tried to reassuring that is taking a small dose, but, I do understand his concerns. 11/08/2021 the patient is here for a pulmonary follow-up visit. Overall the patient continues to do fairly well. He continues on the 5 mg of prednisone. He does state that a few days that he felt congested need to do full 10 mg tablet. But overall he is doing well. He did have his eyes checked which were within normal limits. Recently he did undergo blood work including Dong level though still slightly elevated. His chest x-ray just demonstrating chronic interstitial changes on the sarcoid. Again, we looked at the CT scan demonstrating significant interstitial involvement bilaterally and some areas of scarring suggesting more progressive illness. The patient is agreeable to continuing the prednisone for now. We did talk about alternatives steroid sparing agents to consider such as methotrexate and CellCept and Remicade. At this point the patient requires only a small dose of prednisone so therefore she does continue with the current therapy. If however the patient continues to be symptomatic under current does or if he needs a prolonged period of immune suppression then he consider an alternative agent. Will follow up in about 4-6 months. The patient should have blood work and chest x-ray prior to the visit so we can discuss further interventions done. 04/11/2022 the patient is here for a pulmonary follow-up visit. He has been doing well from a respiratory status. He stop coughing his breathing overall has been stable. He was able to stop the prednisone weaned off about a month ago. He has been off it now for a month and he continues to do well. He is encouraged with the fact that he is doing well from the respiratory status. We did review his last CT scan from 03/2021 demonstrating interstitial changes in addition to pulmonary nodules multiple bilaterally. Most likely these nodules were related to his underlying sarcoidosis. However, when to make sure that they do not have any significant increasing growth. The patient will have a repeat CT scan in 6 months time to make sure that the nodules are stable. In addition to that we can assess the interstitial lung disease to make sure that he is not progressing in view of being off the immunosuppressant therapy. If the patient has any worsening symptoms he is to call so we can readdress any reactivation of the sarcoid. Right now his lungs sound fine and I am not concerned for any active disease at this time. The patient also needs to undergo blood work to assess his calcium level and also his Dong level. His previous Dong levels have been slightly elevated. 10/18/2022 the patient is here for pulmonary follow-up visit. Since we last spoke the patient unfortunately developed COVID-19. He was treated with Paxlovid and then had a rebound case. Afterwards he had significant shortness of breath and cough. He did not feel well overall. Finally the last few weeks he is starting to feel better starting to get more energy. The patient has been off prednisone now for almost a year. We did review his CT scan of the chest that he had recently. It appears that his parenchymal lung disease on the sarcoidosis appears to be stable. Although he has a new pulmonary nodule that will need follow-up. In the meantime the patient also underwent blood work and his Dong level continues to be elevated. I do not feel strongly that patient needs prednisone at this time. He is going to continue recovering from the COVID-19 that he had in the springtime. And will follow-up in 6 months with blood work and PFTs. If his PFTs are worsened or its Dong level is higher than will discuss any additional therapies at that point. If the patient has any worsening symptoms prior to that visit he will call the office for sooner evaluation. 01/16/2023 the patient is here for a follow-up visit. He did have a follow-up a few months but he move that up because is cough is getting worse. The cough is moderate severe. Is bothering his sleep and is making hard for him to tolerate the new CPAP machine. Also he has been noticing some chest tightness along with a cough during the daytime. He is wondering about starting medications like methotrexate for the sarcoidosis. The patient does have a history of allergies. he denies any wheezing episodes. He does not have any respiratory inhalers at this time. We did have him do a spirometry in the office in his FEV1 and FVC were both about 90% predicted. Looks like a slight improvement from his previous PFT. Therefore the numbers are reassuring. He did have some forced end expiratory wheezing therefore I do believe that will try him on a combination inhaler 1st and also can provide with the Tessalon Perles. We did review his last blood work from back in September 2022 where his total bili was elevated to 1.5 otherwise his LFTs were normal. In addition to this is angiotensin-converting enzyme level had been elevated. 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 Also explained to him that at this higher stage of sarcoidosis typically progresses. 04/01/2023 the patient is here for a pulmonary follow-up visit. Overall he is doing better. He was switched over to Symbicort but then started having significant muscle spasms then was switched over to Flovent. The flow in seems to be working well. Will continue right now as prescribed. He did undergo pulmonary function studies which we personally reviewed. It is reassuring that his spirometry numbers are stable and also the diffusing capacity appears to be better overall. Daily number that is decreases the total lung capacity to a slight mild restriction. This could be the result of his significant COVID that he had a few months ago. The patient does not appear to have any active sarcoidosis. He has been off the prednisone now for some time and doing well. His last CT scan was back in September 2022 demonstrating stability of disease although he does have a new 3 mm pulmonary nodule. He will return in [address] scan to follow up with the interstitial changes and also his pulmonary nodule. If the patient has any worsening symptoms prior to that he will call for an earlier assessment. No need for methotrexate at this time 11/06/2023 the patient is here for a pulmonary follow-up visit. Overall he is doing well from a respiratory status he just came back from [place] and did not have any respiratory issues over there. He does have some underlying allergies at times. He has tolerating the Flovent inhaler is helping. Will go ahead and switch him over to the generic fluticasone propionate which is the only 1 covered now. The patient did have a CT scan of the chest. Initially reading the report is concerning for extensive parenchymal interstitial lung disease. Although when we compare his CT scan to his previous there has no real significant difference in the last couple years. Therefore, reassured that although he does have interstitial lung disease due to the sarcoid and pulmonary nodules due to the sarcoid does appear to be significantly change or changing. I do not believe he needs additional systemic therapies at this time. Will continue to monitoring closely. Otherwise the patient is using his allergy medicines as needed. He did not tolerate CPAP. Therefore he is looking at alternatives. He did speak to a dentist regarding an oral mandibular device. He is also speaking to ENT regarding the possibility of a hypoglossal nerve stimulator. He has not decide how he is going to move forward. I did give him my recommendations and I will try the noninvasive approaches 1st before the invasive approaches. If he does go ahead with the oral mandibular device we will provide him with a letter of medical necessity to his dentist in order to get it approved through his insurance. 05/14/2024 the patient is here for a pulmonary follow-up visit. Overall he is doing better. Back in March however, did have worsening respiratory symptoms. initially, started developing some difficulty swallowing. Denied any laryngitis but just felt he could not swallow well. This lasted several days. Then he started developing worsening cough along with shortness of breath with activity. Moderate severity. his cough at times was productive in nature. At that time had been taking Arnuity. He did get an evaluation. [place] to have some thrush. He was placed on nystatin swish and swallow. He did stop the Arnuity at that time. The patient also subsequently stopped all his medications. Was not sure if this is related to a sarcoid flare-up. We did review his previous CT scan demonstrating the sequela of the sarcoid. We did compare his most recent CT scan from 09/16/2023 demonstrating the interstitial lung disease pulmonary nodules to his initial CT scan that we have on record from 2020 demonstrating not only the interstitial lung disease but ground-glass opacities suggesting after sarcoidosis. His Dong level has been elevated. now that he is off the Arnuity the patient would like to seek further opinions regarding his sarcoidosis. I did ask him to consider going to a sarcoid Clinic. In the meantime he is using his oral mandibular device with good effect. He is not snoring. He is waking up rested therefore it appears to be working well for him. During the initial visit it was noted that his heart rate was decreased down to 46 beats per minute. Although with activity had the heart rate did increase. Therefore, will go ahead and request an EKG. Would not be unreasonable for him to have a cardiology evaluation specially if there is any evidence of any cardiac sarcoid. But, at this point since he is going to a tertiary center while awake their recommendations. [facility] Medical History (Updated 05/14/24 @ 23:03 by Mike Dempsey MD) Bradycardia Chronic allergic rhinitis Asthma Sarcoidosis Chronic cough ILD (interstitial lung disease) Pulmonary nodule Surgical History H/O arthroscopic knee surgery H/O hernia repair Hx of tonsillectomy Family History Mother Heart disease Family/Other Colon cancer Family/Other Colon cancer Social History Alcohol intake: current Patient Tobacco Use Status: Former Tobacco user Tobacco use type: Cigarette Years Smoked: 7 years Review of Systems Const Reports fatigue and Denies night sweats ENT Denies change in voice, Denies lip swelling, Denies mouth pain, Denies nasal congestion and Denies tongue swelling Card Denies chest pain and Reports dyspnea on exertion Resp Reports cough and Reports dyspnea on exertion GI Denies abdominal pain Musc Denies no additional complaints, Reports abnormal gait, Reports arthralgias, Reports joint swelling and Reports limited range of motion Neuro Denies Neuro-related abnormal movements and Reports abnormal gait Psych Denies no additional complaints Endo Reports fatigue Ian/Lymph Denies easy bleeding and Denies lymphadenopathy Aller/Immun Denies lip swelling and Denies tongue swelling Physical Exam Vital Signs: Last Vital Signs Pulse 48 L 05/14/24 14:49 BP 110/80 05/14/24 14:49 Pulse Ox 98 05/14/24 14:49 Oxygen Delivery Method Room Air 05/14/24 14:49 Const General: alert HEENT General nose exam: Abnormal mucous membranes and turbinates present boggy Throat: Yes postnasal drainage and Yes cobblestoning Neck Neck: Yes normal visual inspection, Yes full ROM and Yes no lymphadenopathy Chest Chest palpation & inspection: normal inspection of the chest Resp Auscultation: crackles bilateral at the base and diminished lung sounds Cardio Rate: regular rate Rhythm: regular rhythm Heart sounds: S1 normal heart sound present and S2 normal heart sound present GI Palpation (GI): Soft to palpation and nontender Auscultation: normal bowel sounds Skin General skin exam: rashes and/or lesions noted Assessment & Plan Assessment & Plan (1) SHERON (obstructive sleep apnea): Comment: Moderate to severe degree of sleep apnea. The AHI was 18/hr and oxygen denise was 80%. Code(s): G47.33 - Obstructive sleep apnea (adult) (pediatric) Category: Medical (2) Chronic cough: Code(s): R05.3 - Chronic cough Category: Medical (3) Sarcoidosis: Code(s): D86.9 - Sarcoidosis, unspecified Category: Medical (4) Bradycardia: Comment: asymptomatic, HR did increase to 80-90 with activity Code(s): R00.1 - Bradycardia, unspecified Category: Medical Plan EKG to assess bradycardia. The patient would like an evaluation at a sarcoid clinic Bloodwork Pt advised to undergo in-lab PSG w/ mandibular device to determine effectiveness of mandibular device tx to reduce obstructive sleep apnea and nocturnal hypoxemia. Will follow-up upon review of above and patient to follow-up in clinic in 4-6 months or sooner prn. Orders: Orders Basic Metabolic Panel Today D86.9 - Sarcoidosis, unspecified, R00.1 - Bradycardia, unspecified, R05.3 - Chronic cough Complete Blood Count Auto Diff Today D86.9 - Sarcoidosis, unspecified, R00.1 - Bradycardia, unspecified, R05.3 - Chronic cough Angiotensin Converting Enzyme Today D86.9 - Sarcoidosis, unspecified, R00.1 - Bradycardia, unspecified, R05.3 - Chronic cough ECG 12 lead EKG Today D86.9 - Sarcoidosis, unspecified, J44.9 - Chronic obstructive pulmonary disease, unspecified, R00.1 - Bradycardia, unspecified, R05.3 - Chronic cough Coding Level of Care Code Est Pt Level 4 (14751) Complex EM visit Add On G2211 Diagnoses SHERON (obstructive sleep apnea) G47.33 Chronic cough R05.3 Sarcoidosis D86.9 Bradycardia R00.1 Time Spent (min) 20
--- OUTSIDE RECORDS SUMMARY | 2024-05-14 19:33 | XMS_ITS | Data Portability ---
Author Organization [place] - [facility], Allergy Address [address] [place] [address] Assessment Encounter Date Assessment Date Assessment LastModified by Organization Details LastModified Time 11/06/2023 11/06/2023 Based on review of prior sleep study, office physical exam, drug-induced sleep endoscopy the patient appears to be a good candidate for the inspire hypoglossal nerve stimulator device. We discussed the implant surgery will require 2 incisions. The first incision is below the right jawline and allows identification and placement of a stimulation cuff around a branch of the nerve that controls movement of the tongue to open the airway while sleeping. The second incision is below the right collarbone and allows a sense lead to detect when effort is made to take of breath. In the same incision site a generator is placed which then sends a signal to trigger tongue movement. Risks of surgery include injury to nearby structures including nerves that control movement of the lower lip, tongue as well as risk of infection of a medical appliance maker, scar, wound healing. There is an implanted battery that will need to be changed in approximately 10 years with an additional surgery. Patient is anticipated to be discharged home on the day of surgery with prescription for pain control and antibiotics. Most patients only need Tylenol and Motrin for discomfort. They will follow-up in the office approximately 1 week after surgery to evaluate the wound. They should keep the incision sites dry for at least 48 hours after surgery and leave dressings intact until follow-up unless they become very soiled. Patient will follow-up with sleep center to begin activation in approximately 1 month after the surgery and can anticipate the device will become therapeutically titrated over the next several weeks. Patient will work with surgery scheduling to coordinate a time for implantation [email or web address] Not available 11/04/2023 13:46:39 Plan of Treatment Reminders Order Date Submit Date Provider Last Modified By Organization Details Last Modified Time Details Appointments None recorded. Lab None recorded. Referral None recorded. Procedures insertion or replacement of neurostimul ator system for treatment of central sleep apnea; complete system (PROC) - INSPIRE implant 2023 024 9 Not available 15:34:57 Surgeries None recorded. Imaging None recorded. Medication Orders None recorded. Patient TargetsNo targets recorded. Patient InstructionsNo instructions recorded. Reason for Referral None Reported. Problems Name Problem SNOMED Code Status Onset Date Resolution Date Notes Provider Name and Address Organization Details Recorded Time Obstructive sleep apnea syndrome 85316779 Active 024 RICHARD OLIVEROS MD [address] [place] [address], [phone], [facility] 13:45:04 Problem Notes None recorded. Procedures Surgical History Date Name Laterality Status Provider Name and Address Organization Details Recorded Time 4 Telehealth completed RICHARD OLIVEROS MD [address] [place] [address], [phone], [facility] 11/04/2023 13:46:15 4 Dise eval [facility] completed RICHARD OLIVEROS MD [address] [place] [address],[address], [phone], [facility] 11/04/2023 13:44:28 Imaging Results None recorded. Procedure Notes None recorded. Medical Equipment None Reported. Medications Name Sig Start Date Stop Date Status Note LastModified by Organization Details LastModified Time montelukast 10 mg tablet TAKE ONE TABLET BY MOUTH AT BEDTIME active Not Available Not Available No t Available epinephrine 0.3 mg/0.3 mL injection, auto-injecto r USE DIRECTED FOR ALLEGIC REACTION active Not Available Not Available No t Available ciclopirox 0.77 % topical cream APPLY 1 APPLICATION TOPICALLY 1 TO 2 TIMES A DAY BETWEEN TOES AND TO AFFECTED NAILS active Not Available Not Available No t Available azithromycin 500 mg tablet TAKE 1 TABLET BY MOUTH WITH FOOD 1 TIME DAILY FOR 3 DAYS FOR PERSISTENT DIARRHEA. active Not Available Not Available No t Available Flovent HFA 110 mcg/actuatio n aerosol inhaler INHALE TWO PUFFS BY MOUTH TWICE A DAY active Not Available Not Available No t Available Symbicort 160 mcg-4.5 mcg/actuatio n HFA aerosol inhaler INHALE TWO PUFFS BY MOUTH TWICE A DAY active Not Available Not Available No t Available Vitals None Recorded Social History None recorded. Functional Status None recorded. Mental Status None recorded. Family History Nothing Reported. Medical History No medical history recorded. Past Encounters Encounter ID Performer Location Encounter Start Date Encounter Closed Date Diagnosis/Indication Diagnosis SNOMED-CT Code Diagnosis ICD10 Code Diagnosis Note [id number] RICHARD OLIVEROS MD [facility] [address] [address] 11/06/2023 16:47:28 11/10/2023 21:34:07 Obstructive sleep apnea syndrome 91962523 G47.33 Health Concerns Section Related Observation LastModified by Organization Detai ls LastModified Time None Recorded Concern Status LastModified by Organization Details LastModified Time None Recorded Advance Directives Directive None Recorded Payers Encounter Date Sequence Insurance Name Policy Number Policy Brady Covered Member ID Brady Member ID Guarantor Name 11/06/2023 2 [facility] IN[facility]MN[facility] [id number] Curtis Paredes [id number] Curtis Paredes 11/06/2023 1 MEDICARE B-[place]: [facility] Curtis Paredes [id number] Curtis Paredes Notes Date Note Type Note Provider Name and Address Organization Details Recorded Time 11/06/2023 text/html SHERON - Inspire [facility] [place] 09/03/22BMI 27AHI 18central and mixed - none recordedCPAP trial - trial around October 2022, was uncomfortable when he had a flare of his pulmonary sarcoid. 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 weekend travel RICHARD OLIVEROS MD [address] [facility],[place] [address], [place], [address], [facility] - [facility] 11/06/2023 17:02:11
--- OUTSIDE RECORDS SUMMARY | 2024-05-14 19:34 | XMS_ITS | Continuity of Care Document ---
Author Organization [facility] [employer] [facility], [facility] Address [address] [facility] [address] [place] [address] Care Team Providers Care Billing Adjudicator Name Role Phone ANIRUDH HUBBARD Primary Care Provider INGRID DEMPSEY OTHER [phone] Assessment Encounter Date Assessment Date Assessment LastModified by Organization Details LastModified Time 03/20/2024 03/20/2024 Assessment and plan based on Geriatric 5 M framework (Mind, Mobility, Multicomplexity, Medications, and Matters Most) This is a 78 y/o man with PMH sig for heart murmur, arthritis, hearing loss, seen for geriatric evaluation for concerns of cognitive changes. Mind: Cognition: Some cognitive concerns and possibly some cognitive changes. Most likely consistent with normal aging at this time. Possible contributing factors. untreated sleep apnea, hearing changes, possible sarcoid (now mild) Appreciate family history of dementia. Labs: none in our system Head imaging: not in chart Assessment: MOCA 28/30 done 5.13.24 Plan: W/u: We will order B12 level, MMA, T[place] and [place] [facility] [place] Could consider Brain MRI to establish a baseline. Beny will hold off on that for now. Could consider Neuropsych assessment if no improvement. There are some things that we know can help with overall cognition. Important to be an active listener - repeat back, write things down. Our ability to multi- task gets worse as we get older Try to just do one thing at a time Physical activity is the best thing - 30 minutes 4-5 times a week but start off slow and build up including strength and resistance training Mental activity - learning a new skill Social activity Meditation and/or Anthony Chi can help Would look to decrease alcohol. Sleep apnea - looking into Inspire device. Now has an oral appliance. Note that Beny did a study at [facility] around - will try to get records. Diagnosis reviewed? Yes Mood: No changes in mood Plan: will monitor Mobility: some changes in gait. Has some neuropathy/some OA/ankle pain - ongoing. Plan: Would increase protein intake to around 20-30 grams/per meal. Would consider strength training/resistan ce training in addition to cardiovascular exercise. Would speak to c d reactor operator about neuropathy - might this be from sarcoidosis? If not, would speak to PCP about possible work up. Multicomplexity / Medications: Plan: Avoid anti-cholinergic medications. Matters most: personal relationships and staying healthy ACP: Health care proxy: will place in chart Molst: not completed I personally spent 70 minutes preparing for, caring for the patient (F2F and non-F2F), and finalizing the visit for this patient, which included discussion with patient and/or family about diagnosis, prognosis, recommendations, risk/benefits, risk reduction and education of above. Thank you for this interesting consult. Will f/u in 6 months to see if things are stable, any changes [email or web address] Not available 03/20/2024 11:22:31 Plan of Treatment Reminders Order Date Submit Date Provider Last Modified By Organization Details Last Modified Time Details Appointments FOLLOW UP 30 2024 09:00A M Ivet Cervantes MD Not available Not available Not available Lab vitamin B12, serum [address], [address], 03/25/2024 16:26:54 mma (methylm alonic acid), serum [address], [address] [place] [address], [id number], 03/27/2024 10:48:46 folate, serum [address], [address], 03/27/2024 10:48:46 TSH + free T4, serum 2023 024 [email or web address] [facility], [address] [place] [address], [id number], 03/27/2024 10:48:46 iron + TIBC + ferritin , serum 2023 [email or web address] [facility], [address] [place] [address], [id number], 03/27/2024 10:48:46 magnesiu m, serum or plasma 2023 [email or web address] [facility], [address] [place] [address], [id number], 03/27/2024 10:48:46 Referral None recorded . Procedures None recorded . Surgeries None recorded . Imaging None recorded . Medication Orders None recorded . Patient TargetsNo targets recorded. Patient Instructions Encounter Date Encounter Id Patient Instructions Last Modified By Organization Details Last Modified Time 03/20/2024 [id number] hearing loss: care instructions Not available 03/20/2024 11:14:07 Reason for Referral None Reported. Problems Name Problem SNOMED Code Status Onset Date Resolution Date Notes Provider Name and Address Organization Details Recorded Time Aortic valve stenosis 44245334 Active 2023 Ivet Cervantes MD [address] [facility],[address], [address], [employer] 15:30:22 Sarcoidosi s 59723134 Active [address] Dempsey, last 01/16/23 who noted: diagnosed ~ 2017. Was seen at [facility] [place]. Noted ILD but not sure about sarcoid. Did have travel history and wanted to nesure that r/o fungal infection/ TB. BRAN level 71 (2021) Noted slight decrease in lung capacity from 91% to 82%. Kerens to have clinical dx of sarcoidosi s. was placed on prednisone 5 mg. did not have uveitis on eye exam. Noted to have Covid in 2022 - with sig sob and cough but improved. 01/16/23: cough moderate severe, keeping him awake and hard to tolerate new CPAP machine. fev1/fvc -90% predicted. Ivet Cervantes MD [address], [place], [address], [place] [email or web address] 14:24:32 Osteoarthr itis 037592113 Active 2023 right hip Ivet Cervantes MD [address], [place], [address], [place] [email or web address] 15:30:41 Obstructiv e sleep apnea syndrome 96381333 Active 2023 Ivet Cervantes MD [address], [place], [address], [email or web address] 15:30:52 Advance care planning Active 2023 HCP - Dtr Silvana Paredes, MOLST: yes 9 02/13/21 Ivet Cervantes MD [address], [place], [address], [email or web address] 15:36:50 Tinnitus 22254188 Active 2023 Ivet Cervantes MD [address], [facility] [place], [address], [email or web address] 10:18:54 Hearing loss 84493661 Active 2023 Ivet Cervantes MD [address], [place], [address], [email or web address] 14:09:34 Impaired cognition 533736621 Active 2023 [facility] [place] [facility] [place] Ivet Cervantes MD [address], [place], [address], [email or web address] 14:10:49 Problem Notes None recorded. Procedures Surgical History Date Name Laterality Status Provider Name and Address Organization Details Recorded Time inguinal region repair completed Ivet Cervantes MD [address], [place], [address], [place] [employer] 09/08/2023 15:42:48 Imaging Results None recorded. Procedure Notes None recorded. Medical Equipment None Reported. Allergies Allergen ID Allergen Name Allergen Category Reaction Reaction Severity Criticality Documentation Date Start Date Code Code System Note Provider Name and Address Organization Details Recorded Time 81 honey bee venom medicatio n Not available Not available [facility] 09/08/2023 42640 7 RxNorm Ivet [facility]antes MD [address] [facility], [place], [address], [employer] 4 15:31:14 82 Medicinal product containin g penicilli n and acting as antibacte rial agent (product) medicatio n hives Not available high 09/09/2023 89212 05 SNOMED Ivet Cervantes MD [address], [place], [address], [employer] 4 14:11:22 83 Symbicort medicatio n vasculiti s Not available Not available 09/09/2023 75751 8 RxNorm Sever e leg cramp s [facility] [employer] 4 14:18:15 Medications Name Sig Start Date Stop Date Status Note LastModified by Organization Details LastModified Time monteluka st 10 mg tablet TAKE ONE TABLET BY MOUTH AT BEDTIME active Not Available Not Available No t Available epinephri ne 0.3 mg/0.3 mL injection , auto-inje ctor INJECT ONE PEN INTO THE MUSCLE NEEDED FOR ALLERGIC REACTION active Not Available Not Available No t Available Tessalon Perle 100 mg capsule Take 1 capsule 3 times a day by oral route. active Not Available Not Available No t Available ciclopiro x 0.77 % topical cream APPLY 1 APPLICAT ION TOPICALL Y 1 TO 2 TIMES A DAY BETWEEN TOES AND TO AFFECTED NAILS 03/20 completed Not Available Not Available Not Available azithromy linda 500 mg tablet TAKE 1 TABLET BY MOUTH WITH FOOD 1 TIME DAILY FOR 3 DAYS FOR PERSISTE NT DIARRHEA . 09/08 completed Not Available Not Available Not Available Flovent HFA 110 mcg/actua tion aerosol inhaler INHALE TWO PUFFS BY MOUTH TWICE A DAY active One puff AM and PM Not Available Not Available Not Available Daily Vitamin active Not Available Not Available Not Available Symbicort 160 mcg-4.5 mcg/actua tion HFA aerosol inhaler INHALE TWO PUFFS BY MOUTH TWICE A DAY 09/08 completed Not Available Not Available Not Available turmeric 03/20 completed 1950 mg capsule Not Available Not Available Not Available Vitals Date Recorded Body height Body mass index (BMI) Body weight Oxygen saturation Oxygen saturation in Arterial blood by Pulse oximetry Heart rate Systolic blood pressure Diastolic blood pressure Provider Name and Address Organization Details Last Updated DateTime 4 178.43 cm 27.5 kg/m2 96247.3 3 g 97 % 97 % 63 /min 142 mm[Hg] 80 mm[Hg] [facility] 4 10:50:04 Social History None recorded. Functional Status None recorded. Mental Status None recorded. Family History Relationship Description Onset Age of this Age Resolved Age Notes LastModified by Organization Details LastModified Time Brother Malignant tumor of colon 54 Not available 2023 15:31:37 Father Alzheimer's disease 82 Not available 2023 15:31:53 Sister Malignant tumor of colon Not available 2023 15:32:09 Notes:Mother at age 94, father at age 89, healthy sister Medical History Condition Response Abnormal Bleeding N Thyroid Disease N Hearing Loss N Parkinson's Disease N Emphysema N Abnormal Pap Smear N Acid Reflux (GERD) N Back Problems N Dementia N Incontinence N Edema N Urinary Problems N Abdominal Pain N Nervous System Disorder N Heart Attack (MD) N Deep Vein Thrombosis N Past Encounters Encounter ID Performer Location Encounter Start Date Encounter Closed Date Diagnosis/Indication Diagnosis SNOMED-CT Code Diagnosis ICD10 Code Diagnosis Note [id number] MD [facility] [address] [place] [phone] 03/20/2024 10:27:27 03/20/2024 20:39:09 Impaired cognition 013075982 R41.89 see above - cognitive changes most likely c/w normal aging Obstructiv e sleep apnea syndrome 03194226 G47.33 as above, continue with mouth device. Hearing loss 93212930 H9 1.93 wearing hearing aides Bilateral cramp of muscle of lower limbs 1560396779 4282917 R25.2 gets them off and on.Tries to stay hydrated.C ould try some mag glycinnate 200-250 mg at bedtimeCan try some excercises Will order iron studies as well Health Concerns Section Related Observation LastModified by Organization Detai ls LastModified Time None Recorded Concern Status LastModified by Organization Details LastModified Time None Recorded Payers Encounter Date Sequence Insurance Name Policy Number Policy Brady Covered Member ID Brady Member ID Guarantor Name 03/20/2024 2 [facility] INDEMNITY PLAN (MEDICARE SUPPLEMENT) [id number] Curtis Paredes [id number] Curtis Paredes 03/20/2024 1 MEDICARE B-[place]: [employer] Curtis Welsh Lena [id number] Curtis Paredes Notes Date Note Type Note Provider Name and Address Organization Details Recorded Time 03/20/2024 text/html Subjective:Since last visit: date: 09/09/23: Falls/change in gait:ED visits/hospitaliza tions:Changes in function:Changes in medication:Was diagnosis from initial visit discussed?: Beny:They have been busy - some travelling. They did a food tour in [facility] and then [place] in January.He doesnt notice any memory changes while he is travelling. Sarcoidosis does hold him back - he is slower. He doesnt have any stamina. Memory: has not felt that it has deteriorated.His biggest complaint is his coughing and sarcoidosis. He f/u with Dr Dempsey, last in September, was planning to see him in a year but seemed to have gotten worse in [place]. He does feel he is continuing to lose weight. has lost weight. he wonders about going to [facility]. Faina:Memory is okay. Ivet Crevantes MD [address] [place] [address],[facility] [address], [place], [address], [facility] [employer] [facility] 03/20/2024 11:33:59
--- OUTSIDE RECORDS SUMMARY | 2024-05-14 19:34 | XMS_ITS | Data Portability ---
Author Organization [facility] s 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 Mind: Cognition: Some cognitve concerns and possibly some cognitive changes. Most likely consistent with normal aging at this time. Possible contributring factors. untreated sleep apnea, hearing changes, possible sarcoid (now mild) Appreciate family history of dementia. Labs: none in our system Head imaging: not in chart Assessment: MOCA Plan: W/u: Please make sure you have B12 level, MMA, TSH and folate levels done [place] [facility] [place] am happy to order here on that. . Could consider Brain MRi to establish a baseline. Beny will hold [...] Sleep apnea - looking into Inspire device. Also looking into the oral appliance. Note that Beny did a study at [facility] around - will try to get records. Diagnosis reviewed? Yes Mood: No changes in mood Plan: will monitor Mobility: some changes in gait. Has some neuropathy/some OA/ankle pain Plan: Would increase protein intake to around 20-30 grams/per meal. Would consider strength training/resistan ce training in addition to cardiovascular exercise. Would speak to plastic printer about neuropathy - might this be from sarcoidosis? If not, would speak to PCP about possible work up. Multicomplexity / Medications: Plan: Avoid anti-cholinergic medications. Matters most: personal relationships and staying healthy ACP: Health care proxy: will place in chart Molst: not completed I personally spent 130 minutes preparing for, caring for the patient (F2F and non-F2F), and finalizing the visit for this patient, which included discussion with patient and/or family about diagnosis, prognosis, recommendations, risk/benefits, risk reduction and education of above. Thank you for this interesting consult. Will f/u in 6 months to see if things are stable, any changes Not available 09/09/2023 15:55:43 03/20/2024 03/20/2024 Assessment and plan based on [...] not in chart Assessment: MOCA 28/30 done 5. Plan: W/u: We will order B12 level, MMA, TSH and folate levels done at [facility]. Could consider Brain MRI to establish a [...] Note that Beny did a study at [facility] around - will try to get records. Diagnosis reviewed? Yes Mood: No changes in mood Plan: will monitor Mobility: some changes in gait. Has some neuropathy/some OA/ankle pain - ongoing. Plan: Would increase protein intake to around 20-30 grams/per meal. Would consider strength training/resistan ce training in addition to cardiovascular exercise. Would speak to plastic printer about neuropathy - might this be from [...] see if things are stable, any [facility] Not available 03/20/2024 11:22:31 Plan of Treatment Reminders Order Date Submit Date Provider Last Modified By Organization Details Last Modified Time Details Appointments FOLLOW UP 30 2024 09:00A M Ivet Cervantes MD Not available Not available Not available Lab vitamin B12, serum [address], [address], 03/25/2024 16:26:54 mma (methylm alonic acid), serum [address], [address], 03/27/2024 10:48:46 folate, serum [address], [address], 03/27/2024 10:48:46 TSH + free T4, serum [address], [address], 03/27/2024 10:48:46 iron + TIBC + ferritin , serum [address], [address], 03/27/2024 10:48:46 magnesiu m, serum or plasma [address], [address], 03/27/2024 10:48:46 Referral None recorded . Procedures None recorded . Surgeries None recorded . Imaging None recorded . Medication Orders None recorded . Patient TargetsNo targets recorded. Patient Instructions Encounter Date Encounter Id Patient Instructions Last Modified By Organization Details Last Modified Time 09/09/2023 63 Please make sure you have B12 level, MMA, TSH and folate levels. Could consider Brain MRi to establish a baseline. Beny will hold [...] decrease alcohol. Sleep apnea - looking into Insprire device. Also looking into the oral appliance. Not available 09/09/2023 15:40:28 03/20/2024 659 hearing loss: care instructions Not available 03/20/2024 11:14:07 Reason for Referral None Reported. Results Created Date Observation Date Name Description Value Unit Range Abnormal Flag Note LastModifiedBy Organization Detail LastModifiedTime Result Notes None recorded. Problems Name Problem SNOMED Code Status Onset Date Resolution Date Notes Provider Name and Address Organization Details Recorded Time Aortic valve stenosis 88200679 Active 2023 Ivet Cervantes MD [address], [place], [address], [facility] 4 15:30:22 Sarcoidosi s 37628305 Active [address] Dempsey, last 01/16/23 who noted: diagnosed ~ 2017. Was seen at [facility] Pulmonary. Noted ILD but not sure about sarcoid. Did have travel history and wanted to nesure that r/o fungal infection/ TB. BRAN level 71 (2021) Noted slight decrease in lung capacity from 91% to 82%. [place] to have clinical dx of sarcoidosi s. was placed on prednisone 5 mg. did not have uveitis on eye exam. Noted to have Covid in 2022 - with sig sob and cough but improved. 01/16/23: cough moderate severe, keeping him awake and hard to tolerate new CPAP machine. fev1/fvc -90% predicted. Ivet Cervantes MD [address], [place], [address], [facility] 4 14:24:32 Osteoarthr itis 194727604 Active 2023 right hip Ivet Cervantes MD [address], [place], [address], [facility] 4 15:30:41 Obstructiv e sleep apnea syndrome 54866383 Active 2023 Ivet Cervantes MD [address], [place], [address], [facility] 4 15:30:52 Advance care planning Active 2023 HCP - Dtr Silvana Paredes, MOLST: yes 9 02/13/21 Ivet Cervantes MD [address], [place], [address], [facility] 15:36:50 Tinnitus 19109920 Active 2023 Ivet Cervantes MD [address] [facility], [place], [address], [facility] 10:18:54 Hearing loss 31983047 Active 2023 Ivet Cervantes MD [address] [place] [address],[address], [address], [facility] 14:09:34 Impaired cognition 007711459 Active 2023 MOCA - 07/[address] [facility] Ivet Cervantes MD [address] [place] [address],[facility], [place], [address], [facility] 14:10:49 Problem Notes None recorded. Procedures Surgical History Date Name Laterality Status Provider Name and Address Organization Details Recorded Time inguinal region repair completed Ivet Cervantes MD [address], [address], [facility] 09/08/2023 15:42:48 Imaging Results None recorded. Procedure Notes None recorded. Medical Equipment None Reported. Allergies Allergen ID Allergen Name Allergen Category Reaction Reaction Severity Criticality Documentation Date Start Date Code Code System Note Provider Name and Address Organization Details Recorded Time 81 honey bee venom medicatio n Not available Not available high 09/08/2023 09055 7 RxNorm Ivet Cervantes MD 264 [facility],[address], [address], [facility] 15:31:14 82 Medicinal product containin g penicilli n and acting as antibacte rial agent (product) medicatio n hives Not available high 09/09/2023 99674 05 SNOMED Ivet Cervantes MD [address] [facility], [place], [address], [facility] 14:11:22 83 Symbicort medicatio n vasculiti s Not available Not available 09/09/2023 13200 8 RxNorm Sever e leg cramp s Alyssa Calsysnicolas gagnon [employer] 4 14:18:15 Medications Name Sig Start Date [...] height Body mass index (BMI) Body weight Heart rate Oxygen saturation Oxygen saturation in Arterial blood by Pulse oximetry Systolic blood pressure Diastolic blood pressure Provider Name and Address Organization Details Last Updated DateTime 4 178.43 cm 27.8 kg/m2 93962.5 1 g 72 /min 97 % 97 % 112 mm[Hg] 78 mm[Hg] Alyssa Azuljamey [employer] 4 14:23:05 Date Recorded Body height Body mass index (BMI) Body weight Oxygen saturation Oxygen saturation in Arterial blood by Pulse oximetry Heart rate Systolic blood pressure Diastolic blood pressure Provider Name and Address Organization Details Last Updated DateTime 4 178.43 cm 27.5 kg/m2 51128.3 3 g 97 % 97 % 63 /min 142 mm[Hg] 80 mm[Hg] Alyssa Graham [employer] [facility] 10:50:04 Social History None recorded. Functional Status [...] Incontinence N Edema N Urinary Problems N Nervous System Disorder N Abdominal Pain N Heart Attack (NM) N Deep Vein Thrombosis N Past Encounters Encounter ID Performer Location Encounter Start Date Encounter Closed Date Diagnosis/Indication Diagnosis SNOMED-CT Code Diagnosis ICD10 Code Diagnosis Note 63 MD [facility] [address] [address] 09/09/2023 14:04:05 09/09/2023 15:49:19 Advance care planning 252337284 Z71.89 HCP - will place in chart Impaired cognition 55294 6002 R41.89 see above - cognitive changes most likely c/w normal aging Obstructiv e sleep apnea syndrome 01145367 G47.33 as above, would look to treat. 659 MD [facility] [address] [address] 03/20/2024 10:27:27 03/20/2024 20:39:09 Impaired cognition 935818313 R41.89 see above - cognitive changes most likely c/w normal aging Obstructiv e sleep apnea syndrome 07767393 G47.33 as above, continue with mouth device. Hearing loss 42175951 H9 1.93 wearing hearing aides Bilateral cramp of muscle of lower limbs 1374426811 4402885 R25.2 gets them off and on.Tries to [...] Member ID Brady Member ID Guarantor Name 09/09/2023 2 [facility] (MEDICARE SUPPLEMENT) [id number] Curtis Paredes [id number] Curtis Paredes 09/09/2023 1 MEDICARE B-[place]: [facility] [employer] Curtis Paredes [id number] Curtis Paredes 03/20/2024 2 UNICARE - GIC INDEMNITY PLAN (MEDICARE SUPPLEMENT) [id number] Curtis Paredes [id number] Curtis Paredes 03/20/2024 1 MEDICARE B-[place]: [facility] Curtis Paredes [id number] 9 Curtis Paredes Notes Date Note Type Note Provider Name and Address Organization Details Recorded Time 4 text/html Per Dr Hubbard, PCP notes (seen 08/12/23)presented at wellness visit with some forgetting things that partner tells him. Like details. Also starts tasks and then does not finish them. ALso a little disoriented sometimes with driving has to look around to see where he is. No hx ADHD. Noted MOCA score 28/30. Dr Hubbard noted that he had mostly attnetional issues regarding his memory. They talked about strategies to reduce toxic load and to increase antioxidants Person to contact for follow up visits: self Goals for visit: Determine mental accuity; establish baseline for potential Alzheimer's disease Problems or specific concerns for this visit: sometimes I lose my balance PHQ9: 2 (sleeping, feeling tired)GAD7: 0 Patient history: Beny Spends time- plays golf 1-2x week, skiing in winter, waterskiing, travel,tries to exercise, not reading a lot, watches a little TV a few hours/night. Memory changes:Dad had Alzheimers that progressed when he got into his mid/late 80's. He when he was 89. looking back at the things he would do, made Beny concerned. (like driving and losing track of where he was going)Sister is 86 - repeats herself and doesnt make any sense.He is concerned about progressing in that direction - would like to establish a baseline.No real changes in his function. Does sometimes have to think about where he is when he is driving at times.personality: no sig changes, less tolerance for stupidity.No AH/VH/no concerns that someone is stealing from him. In 2018, he looked at clinical studies. (he has been worried about this for some time)in a study at [facility], he was given a dose of atropine and assessed cognition. They would do tests/PET scans. They wouldnt release the information to him but may be able to get this to done. He has become more concerned and cautious about his physical concerns/security.Bam vega says that he doesnt follow through with things -this is a change. he was always well organized. Mood:Denies depression or anxiety. generally a positive person. Doesnt worry too much. Enjoys people. Mobility:Has lost his balance a few times. Hasnt fallen but notices some changes when he turns. It seems when he is going to his right that he notices it.Has issues with his right foot, right knee - has some pain. Last spring, he had covid x 2, since then his physical stamina has decreased tremendously, more SOB - after 2 flights of stairs. Sarcoidosis: followed by Apolinar Vargas, next visit in Spring 2023 (sees him every 6 months)In early , he had a lot of congestion in his lungs. Saw Dr Dinh, did xrays, felt he had sarcoidosis. Didnt have problems for many years, but then devd phlegm. Saw Dr Krishna at [facility]. Now seeing Dr Dempsey at [place] and very happy with him. Has some neuropathy - tingling/numbness in his feet, hands, more annoying than anything else. Attention - Sometimes Faina will say he is not paying attention. Wears hearing aides. Dr Hubbard - not sure if he did labs like B12, Did the MOCA . Wondered about spatial perception. Family/caregiver history: Faina He would start to do things and not finish them - over the past few years.he was always very regimented.No personality changes.She is less concerned than he is about his memory. She is not sure if he is getting older. He stopped using the CPAP - was very annoying, he would start coughing. He has looked into the Inspire, due for EGD in a week. Has not been using CPAP for 5 months. The winter was very hard. He is slouching more than he used to. He did lose about 10 lbs over the last year, not deliberately.Breakfast: coffee, scones, OJ,Cereal with milkDoesnt sit and have a full meal during the day.Has smoked salmon, then they have leftovers - chicken rice/beef/pastas. Recent ED visits/hospitalizations: No Function:ADL: (bathing, dressing, toileting, transferring, continence, feeding)Independent IADL: ( Telephone, shopping, food preparation, housekeeping, laundry, Transportation, Medications, Finances)independentPart ner pays bills and he does at time., no financial scams, no trouble with medications. No change in cooking Supports:Help at home: no General information about you: Mobility:Assistive device: noAny falls? noIf yes, any injuries? n/aAre you afraid of falling? no Sleep:How would you describe your sleep? fair (options: good, fair, poor)Do you snore? yes (options: yes, no, don't know)Have you ever been tested for sleep apnea? yes (yes, no, don't know) Driving?: yesAny concerns? there are times he is driving and will wonder where he is and see what landmarks are around - noticing that more in the past 4-8 months. Faina commented that he is not driving with the same amt of anticiption of traffic that he used to have. he was always a smooth driver guide but now putting on brakes Nutrition:Appetite: goodHas food intake declined over the past 3 months? noWeight loss/gain: lost weightWould you like assistance with meals? no Finances: Any concerns? no Health Maintenance:Overall health: goodDepression//sadness: noAnxiety:noMemory loss: ?Are you or others concerned about your memory?: yesFeels safe at home: yesHearing Test: yesEye exam: yesDentist: yesHave you decreased the amt of time you spend with family/friends in the past year?: n/a Physical fitness: yes Frailty Screening:Fatigue: yesResistance (able to climb a flight of stairs): yesAerobic (able to walk a block): yesPresence of > 5 illnesses(HTN, DM, CA, chronic respiratorydisease, NM, CVA, arthritis (or RA), CKD, or liver disease): noWeight loss > 5% in the past 6 months: ~ 10 lbsScore: 2 (Robust: 0, Pre-frail: 1-2, Frail: >=3) Social History: Born/raised: [facility]; 1 brother, 1 sister.Brother 12 years older ( at around age 56) , sister 10 years olderHealthy childhood. Not in the militaryEducational level: Juris DoctorLiving situation: 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 IM/MFM. Now director [employer]. In [facility].In contact with them? yesETOH: daily. drinks a beer every day at 5pm, wine with meals, 2 glassesConcern about amount of ETOH? noTobacco: yes- smoked 4-5 years, quit 50+ years agoOther drugs: nothing current ROS:constitutional noneeyes glassesENT ear ringingheart - nonelungs SOB/coughabdomen: painurinary noneMS: arthritisskin: noneNeuro: tingling, balancebehavioral: noneblood: none Ivet Cervantes MD [address] [place] [address], [address], [facility] 09/09/2023 15:56:06 4 text/html Subjective:Since last visit: date: 09/09/23: Falls/change in gait:ED visits/hospitalizations: Changes in function:Changes in medication:Was diagnosis from initial visit discussed?: Beny:They have been busy - some travelling. They did a food tour in [facility] and then [place] in January.He doesnt notice any memory changes while he is travelling. Sarcoidosis does hold him back - he is slower. He doesnt have any stamina. Memory: has not felt that it has deteriorated.His biggest complaint is his coughing and sarcoidosis. He f/u with Dr Dempsey, last in September, was planning to see him in a year but seemed to have gotten worse in [place]. He does feel he is continuing to lose weight. has lost weight. he wonders about going to [facility]. Faina:Memory is okay. Ivet Cervantes MD [address] [place] [address], [place], [address], [facility] 03/20/2024 11:33:59
== END 2024-05-14 15:26 | disposition home or self-care (01) ==
PROVIDERS: PCP Family Medicine; Visit Provider Hospitalist
DX: G47.33 Obstructive sleep apnea (adult) (pediatric) (principal); R05.3 Chronic cough; D86.9 Sarcoidosis, unspecified; R00.1 Bradycardia, unspecified
CPT/HCPCS: 99214; G2211

== ENCOUNTER → 2024-05-14 14:44 | Outpatient (BNVA) | payer MEDICARE, OTHER, SELFPAY | PROVIDERS: PCP Family Medicine; Visit Provider Hospitalist | DX: R05.3 Chronic cough (principal); R00.1 Bradycardia, unspecified; G47.33 Obstructive sleep apnea (adult) (pediatric); D86.9 Sarcoidosis, unspecified | CPT/HCPCS: 99212 ==

== ENCOUNTER → 2024-05-18 13:32 | Outpatient (REF) | payer MEDICARE, OTHER, SELFPAY ==
[2024-05-18 13:44] LABS: MANUAL DIFF FLAG NO
--- NOTE | 2024-05-18 13:44 | ECG_ITS ---
Test Reason : COPD Blood Pressure : */* mmHG Vent. Rate : 70 BPM Atrial Rate : 70 BPM P-R Int : 186 ms QRS Dur : 146 ms QT Int : 400 ms P-R-T Axes : 28 -8 -2 degrees QTcB Int : 432 ms Normal sinus rhythm Right bundle branch block Septal infarct , age undetermined Abnormal ECG No previous ECGs available Referred By: Mike Dempsey Electronically Signed By: CAYLA RICHMOND MD
[2024-05-18 14:17] LABS: Basophils Absolute Auto 0.1 X10*3/uL (0.0-0.2); Basophils Percent Auto 0.9 % (0-2); Eosinophils Absolute Auto 0.3 X10*3/uL (0.0-0.4); Hematocrit 39.3 % (42.0-52.0); Hemoglobin 13.6 g/dl (14.0-18.0); Imm Gran Abs Auto 0.02 X10*3/uL (0.00-0.03); Imm Gran Pct Auto 0.3 % (0.0-0.4); Lymphocytes Absolute Auto 1.2 X10*3/uL (1.2-4.9); Lymphocytes Percent Auto 17.7 % (20-40); Mean Corpuscular HGB Conc 34.6 g/dl (31.0-36.0); Mean Corpuscular Hemoglobin 31.3 pg (27.0-33.0); Mean Corpuscular Volume 90.3 fL (80.0-98.0); Mean Platelet Volume 10.5 fL (9.4-12.4); Monocytes Absolute Auto 0.8 X10*3/uL (0.1-1.2); Monocytes Percent Auto 12.5 % (2-11); Neutrophils Absolute Auto 4.2 x10*3/uL (2.0-8.3); Neutrophils Percent Auto 63.6 % (45-73); Platelet Count 190 X10*3/uL (160-400); Red Blood Count 4.35 X10*6/uL (4.60-5.80); Red Cell Distribution Width 13.5 % (11.0-16.0); White Blood Count 6.5 X10*3/uL (4.8-10.8)
[2024-05-18 14:36] LABS: Anion Gap 11 (12-20); Blood Urea Nitrogen 24 mg/dL (9-16); Carbon Dioxide 29 mmol/L (22-29); Chloride 105 mmol/L (96-108); Estimated Glomerular Filt Rate > 60; Glucose Random 77 mg/dL (60-115); Potassium 4.2 mmol/L (3.3-5.1); Sodium 141 mmol/L (135-145)
--- OUTSIDE RECORDS SUMMARY | 2024-05-18 15:15 | XMS_ITS | Data Portability ---
Author Organization [facility] [employer] [facility], [facility] Address [address] [address] Care Team Providers Care Headlight Adjuster Name Role Phone ANIRUDH HUBBARD Primary Care [...] MMA, TSH and folate levels done at [facility] I am happy to order here on [...] Note that Beny did a study at [facility] around - will try to get records. Diagnosis reviewed? Yes Mood: No changes in mood Plan: will monitor Mobility: some changes in gait. Has some neuropathy/some OA/ankle pain Plan: Would increase protein intake to around 20-30 grams/per meal. Would consider strength training/resistan ce training in addition to cardiovascular exercise. Would speak to employee health rn about neuropathy - might this be from [...] MMA, TSH and folate levels done at [facility]. Could consider Brain MRI to establish a [...] Note that Beny did a study at [facility] around - will try to get records. Diagnosis reviewed? Yes Mood: No changes in mood Plan: will monitor Mobility: some changes in gait. Has some neuropathy/some OA/ankle pain - ongoing. Plan: Would increase protein intake to around 20-30 grams/per meal. Would consider strength training/resistan ce training in addition to cardiovascular exercise. Would speak to employee health rn about neuropathy - might this be from [...] if things are stable, [facility] Not available 03/20/2024 11:22:31 Plan of Treatment Reminders Order Date Submit Date Provider Last Modified By Organization Details Last Modified Time Details Appointments FOLLOW UP 30 2024 09:00A M Ivet Cervantes MD Not available Not available Not available Lab vitamin B12, serum [address], [address], 03/25/2024 16:26:54 mma (methylm alonic acid), serum [address], [address], 03/27/2024 10:48:46 folate, serum [address], [address], 03/27/2024 10:48:46 TSH + free T4, serum [address], [address], 03/27/2024 10:48:46 iron + TIBC + ferritin , serum [address], [address], 03/27/2024 10:48:46 magnesiu m, serum or plasma [address], [address], 03/27/2024 10:48:46 Referral None recorded . Procedures [...] Organization Details Recorded Time Aortic valve stenosis 73360401 Active 2023 Ivet Cervantes MD [address], [place], [address], [facility] 4 15:30:22 Sarcoidosi s 32922337 Active [address] Dempsey, last 01/16/23 who noted: diagnosed ~ 2017. Was seen at [facility] Pulmonary. Noted ILD but not sure about sarcoid. Did have travel history and wanted to nesure that r/o fungal infection/ TB. BRAN level 71 (2021) Noted slight decrease in lung capacity from 91% to 82%. [place] to have clinical dx of sarcoidosi s. was placed on prednisone 5 mg. did not have uveitis on eye exam. Noted to have Covid in 2022 - with sig sob and cough but improved. 01/16/23: cough moderate severe, keeping him awake and hard to tolerate new CPAP machine. fev1/fvc -90% predicted. Ivet Cervantes MD [address], [place], [address], [employer] 4 14:24:32 Osteoarthr itis 370616044 Active 2023 right hip Ivet Cervantes MD [address], [place], [address], [employer] 4 15:30:41 Obstructiv e sleep apnea syndrome 10319942 Active 2023 Ivet Cervantes MD [address], [place], [address], [employer] 4 15:30:52 Advance care planning Active 2023 HCP - Dtr Silvana Paredes, MOLST: yes 9 02/13/21 Ivet Cervantes MD [address], [place], [address], [employer] 15:36:50 Tinnitus 10331785 Active 2023 Ivet Cervantes MD 264 [facility],[address], [address], [employer] 10:18:54 Hearing loss 26495729 Active 2023 Ivet Cervantes MD [address] [place] [address], [address], [employer] 14:09:34 Impaired cognition 707904026 Active 2023 MOCA - 07/2023 @ [facility] Ivet Cervantes MD [address] [place] [address], [place], [address], [employer] 14:10:49 Problem Notes None recorded. Procedures Surgical History Date Name Laterality Status Provider Name and Address Organization Details Recorded Time inguinal region repair completed Ivet Cervantes MD [address], [address], [employer] 09/08/2023 15:42:48 Imaging Results None recorded. Procedure Notes None recorded. Medical Equipment None Reported. Allergies Allergen ID Allergen Name Allergen Category Reaction Reaction Severity Criticality Documentation Date Start Date Code Code System Note Provider Name and Address Organization Details Recorded Time 81 honey bee venom medicatio n Not available Not available high 09/08/2023 99030 7 RxNorm Ivet Cervantes MD [address], [address], [employer] 15:31:14 82 Product containin g penicilli n and antibioti c (product) medicatio n hives Not available high 09/09/2023 62602 05 SNOMED Ivet Cervantes MD 264 [facility], [place], [address], [facility] 14:11:22 83 Symbicort medicatio n vasculiti s Not available Not available 09/09/2023 55389 8 RxNorm Sever e leg cramp s Alyssa GMInicolas [facility] 4 14:18:15 Medications Name Sig Start Date [...] Updated DateTime 4 178.43 cm 27.8 kg/m2 08363.5 1 g 72 /min 97 % 97 % 112 mm[Hg] 78 mm[Hg] Alyssa [facility] 4 14:23:05 Date Recorded Body height Body mass index (BMI) Body weight Oxygen saturation Oxygen saturation in Arterial blood by Pulse oximetry Heart rate Systolic blood pressure Diastolic blood pressure Provider Name and Address Organization Details Last Updated DateTime 4 178.43 cm 27.5 kg/m2 00436.3 3 g 97 % 97 % 63 /min 142 mm[Hg] 80 mm[Hg] Alyssa Graham [facility] 10:50:04 Social History None recorded. Functional Status [...] 89, healthy sister Medical History Condition Response Thyroid Disease N Emphysema N Incontinence N Edema N Deep Vein Thrombosis N Hearing Loss N Abnormal Pap Smear N Acid Reflux (GERD) N Nervous System Disorder N Abnormal Bleeding N Parkinson's Disease N Urinary Problems N Abdominal Pain N Heart Attack ([place]) N Back Problems N Dementia N Past Encounters Encounter ID Performer Location Encounter Start Date Encounter Closed Date Diagnosis/Indication Diagnosis SNOMED-CT Code Diagnosis ICD10 Code Diagnosis Note [id number] MD Helen Joyce [facility] [address] [address] 09/09/2023 14:04:05 09/09/2023 15:49:19 Advance care planning 139499693 Z71.89 HCP - will place in chart Impaired cognition 31644 6002 R41.89 see above - cognitive changes most likely c/w normal aging Obstructiv e sleep apnea syndrome 11521404 G47.33 as above, would look to treat. [id number] MD [facility] [address] [address] 03/20/2024 10:27:27 03/20/2024 20:39:09 Impaired cognition 713686710 R41.89 see above - cognitive changes most likely c/w normal aging Obstructiv e sleep apnea syndrome 89175247 G47.33 as above, continue with mouth device. Hearing loss 96730221 H9 1.93 wearing hearing aides Bilateral cramp of muscle of lower limbs 0824713413 6255319 R25.2 gets them off and on.Tries to [...] Brady Member ID Guarantor Name 09/09/2023 2 [employer] - GIC INDEMNITY PLAN (MEDICARE SUPPLEMENT) [id number] Curtis Paredes [id number] Curtis Paredes 09/09/2023 1 MEDICARE B-[place]: NATIONAL [employer] Curtis Paredes [id number] 9 Curtis Paredes 03/20/2024 2 [employer] - GIC INDEMNITY PLAN (MEDICARE SUPPLEMENT) [id number] Curtis Paredes [id number] Curtis Paredes 03/20/2024 1 MEDICARE B-[place]: [employer]ATIONAL [employer] Curtis Paredes [id number] 9 Curtis Praedes Notes Date Note Type Note Provider Name [...] this for some time)in a study at [facility], he was given a dose of atropine [...] then devd phlegm. Saw Dr Krishna at [facility]. Now seeing Dr Dempsey at [place] and very happy with him. Has some [...] to have. 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 Not in the militaryEducational level: Mallorie DoctorLiving situation: 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 IM/MFM. 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 In [facility].In contact with them? yesETOH: daily. drinks a beer every day at 5pm, wine with meals, 2 glassesConcern about amount of ETOH? noTobacco: yes- smoked 4-5 years, quit 50+ years agoOther drugs: nothing current ROS:constitutional noneeyes glassesENT ear ringingheart - nonelungs SOB/coughabdomen: painurinary noneMS: arthritisskin: noneNeuro: tingling, balancebehavioral: noneblood: none Ivet Cervantes MD [address] [place] [address], [address], [facility] 09/09/2023 15:56:06 4 text/html Subjective:Since last visit: date: 09/09/23: Falls/change in gait:ED visits/hospitalizations: Changes in function:Changes in medication:Was diagnosis from initial visit discussed?: Beny:They have been busy - some travelling. They did a food tour in [facility] and then [place] in January.He doesnt notice any memory changes while he is travelling. Sarcoidosis does hold him back - he is slower. He doesnt have any stamina. Memory: has not felt that it has deteriorated.His biggest complaint is his coughing and sarcoidosis. He f/u with Dr Dempsey, last in September, was planning to see him in a year but seemed to have gotten worse in [place]. He does feel he is continuing to lose weight. has lost weight. he wonders about going to [facility]. Faina:Memory is okay. Ivet Cervantes MD [address] [place] [address],[facility], [place], [address], [facility] 03/20/2024 11:33:59
--- OUTSIDE RECORDS SUMMARY | 2024-05-18 15:16 | XMS_ITS | Continuity of Care Document ---
Author Organization [facility] [employer] [facility], [facility] Address 264 [facility] 12 [place] [address] Care Team Providers Care Moving Van Driver Name Role Phone ANIRUDH HUBBARD Primary Care Provider INGRID DEMPSEY OTHER [phone] Assessment Encounter Date Assessment Date Assessment LastModified [...] MMA, TSH and folate levels done at [facility]. Could consider Brain MRI to [...] Note that Beny did a study at [facility] around - will try to get records. Diagnosis reviewed? Yes Mood: No changes in mood Plan: will monitor Mobility: some changes in gait. Has some neuropathy/some OA/ankle pain - ongoing. Plan: Would increase protein intake to around 20-30 grams/per meal. Would consider strength training/resistan ce training in addition to cardiovascular exercise. Would speak to secondary school teacher librarian about neuropathy - might this be from [...] Not available Lab vitamin B12, serum [address], [address], 03/25/2024 16:26:54 mma (methylm alonic acid), serum [address], [address] [place] [address], [address], 03/27/2024 10:48:46 folate, serum [address], [address], 03/27/2024 10:48:46 TSH + free T4, serum 2023 024 [email or web address], [address] [place] [address], [address], 03/27/2024 10:48:46 iron + TIBC + ferritin , serum 2023 [email or web address], [address] [place] [address], [address], 03/27/2024 10:48:46 magnesiu m, serum or plasma 2023 [email or web address], [address] [place] [address], [address], 03/27/2024 10:48:46 Referral None recorded . Procedures [...] Organization Details Recorded Time Aortic valve stenosis 03572004 Active 2023 Ivet Cervantes MD 264 [facility],[address], [address], [employer] 15:30:22 Sarcoidosi s 98053282 Active [address] Dempsey, last 01/16/23 who noted: diagnosed ~ 2017. Was seen at [facility] Pulmonary. Noted ILD but not sure about sarcoid. Did have travel history and wanted to nesure that r/o fungal infection/ TB. BRAN level 71 (2021) Noted slight decrease in lung capacity from 91% to 82%. [place] to have clinical dx of sarcoidosi s. was placed on prednisone 5 mg. did not have uveitis on eye exam. Noted to have Covid in 2022 - with sig sob and cough but improved. 01/16/23: cough moderate severe, keeping him awake and hard to tolerate new CPAP machine. fev1/fvc -90% predicted. Ivet Cervantes MD [address], [place], [address], [employer] [place] [employer] 14:24:32 Osteoarthr itis 144405425 Active 2023 right hip Ivet Cervantes MD [address], [place], [address], [employer] [place] [employer] 4 15:30:41 Obstructiv e sleep apnea syndrome 09118636 Active 2023 Ivet Cervantes MD [address], [place], [address], [employer] 15:30:52 Advance care planning Active 2023 HCP - Dtr Silvana Paredes, MOLST: yes 9 02/13/21 Ivet Cervantes MD [address], [place], [address], [employer] 15:36:50 Tinnitus 68729504 Active 2023 Ivet Cervantes MD [address], [place], [address], [employer] 10:18:54 Hearing loss 05234404 Active 2023 Ivet Cervantes MD [address], [place], [address], [employer] 14:09:34 Impaired cognition 581940840 Active 2023 MOCA - 07/2023 @ [facility] Ivet Cervantes MD [address], [place], [address], [employer] 14:10:49 Problem Notes None recorded. Procedures Surgical History Date Name Laterality Status Provider Name and Address Organization Details Recorded Time inguinal region repair completed Ivet Cervantes MD [address], [place], [address], [place] [employer] 09/08/2023 15:42:48 Imaging Results None recorded. Procedure Notes None recorded. Medical Equipment None Reported. Allergies Allergen ID Allergen Name Allergen Category Reaction Reaction Severity Criticality Documentation Date Start Date Code Code System Note Provider Name and Address Organization Details Recorded Time 81 honey bee venom medicatio n Not available Not available [facility] 09/08/2023 54489 7 RxNorm Ivet Cervantes MD [address], [place], [address], [employer] 4 15:31:14 82 Product containin g penicilli n and antibioti c (product) medicatio n hives Not available high 09/09/2023 96846 05 SNOMED Ivet Cervantes MD [address], [place], [address], [employer] 4 14:11:22 83 Symbicort medicatio n vasculiti s Not available Not available 09/09/2023 42365 8 RxNorm Sever e leg cramp s [facility] [employer] 4 14:18:15 Medications Name Sig Start Date [...] Updated DateTime 4 178.43 cm 27.5 kg/m2 44888.3 3 g 97 % 97 % 63 /min 142 mm[Hg] 80 mm[Hg] [facility] 4 10:50:04 Social History None recorded. Functional [...] Loss N Parkinson's Disease N Emphysema N Acid Reflux (GERD) N Abnormal Pap Smear N Back Problems N Dementia N Incontinence N Edema N Urinary Problems N Abdominal Pain N Nervous System Disorder N Heart Attack ([place]) N Deep Vein Thrombosis N Past Encounters Encounter ID Performer Location Encounter Start Date Encounter Closed Date Diagnosis/Indication Diagnosis SNOMED-CT Code Diagnosis ICD10 Code Diagnosis Note [id number] MD [facility] [address] [place] [address] 03/20/2024 10:27:27 03/20/2024 20:39:09 Impaired cognition 445190260 R41.89 see above - cognitive changes most likely c/w normal aging Obstructiv e sleep apnea syndrome 70879063 G47.33 as above, continue with mouth device. Hearing loss 47829621 H9 1.93 wearing hearing aides Bilateral cramp of muscle of lower limbs 0235290247 5371497 R25.2 gets them off and on.Tries to [...] Brady Member ID Guarantor Name 03/20/2024 2 [facility] INDEMNITY PLAN (MEDICARE SUPPLEMENT) [id number] Curtis Lena [id number] Curtis Paredes 03/20/2024 1 MEDICARE B-[place]: [employer] Curtis Paredes [id number] 9 Curtis Paredes Notes Date Note Type Note Provider Name and Address Organization Details Recorded Time 03/20/2024 text/html Subjective:Since last visit: date: 09/09/23: Falls/change in gait:ED visits/hospitaliza tions:Changes in function:Changes in medication:Was diagnosis from initial visit discussed?: Beny:They have been busy - some travelling. They did a food tour in [facility] and then [place] in January.He doesnt notice any memory changes while he is travelling. Sarcoidosis does hold him back - he is slower. He doesnt have any stamina. Memory: has not felt that it has deteriorated.His biggest complaint is his coughing and sarcoidosis. He f/u with Dr Dempsey, last in September, was planning to see him in a year but seemed to have gotten worse in [place]. He does feel he is continuing to lose weight. has lost weight. he wonders about going to [facility]. Faina:Memory is okay. Ivet Cervantes MD [address] [place] [address],[facility], [place], [address], [facility] [employer] [facility] 03/20/2024 11:33:59
== END ==
LOC: HO.CARD 13:32
PROVIDERS: PCP Family Medicine; Visit Provider Hospitalist
DX: R00.1 Bradycardia, unspecified (principal); R05.3 Chronic cough; D86.9 Sarcoidosis, unspecified; J44.9 Chronic obstructive pulmonary disease, unspecified
CPT/HCPCS: 36415; 80048; 82164; 85025; 93005

== ENCOUNTER → 2024-05-18 13:44 | Outpatient (BNV) | payer MEDICARE, OTHER, SELFPAY | PROVIDERS: PCP Family Medicine; Visit Provider Internal Medicine Cardiovascular Disease | DX: R94.31 Abnormal electrocardiogram [ECG] [EKG] (principal) | CPT/HCPCS: 93010 ==

== ENCOUNTER 2024-06-08 10:05 | Outpatient (AMB) | payer MEDICARE, OTHER, SELFPAY ==
[2024-06-08 10:08] VITALS: BP 140/64; PULSE 72; BMI 27.9
--- NOTE | 2024-06-08 10:08 | MHC.OFFVIS ---
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 Required: No Accompanied by: Self / Same As Patient Allergies Penicillins Allergy (Severe, Verified 05/14/24 14:56) Rash budesonide [From Symbicort] Adverse Reaction (Severe, Verified 05/14/24 14:56) Joint Pain formoterol [From Symbicort] Adverse Reaction (Severe, Verified 05/14/24 14:56) Joint Pain Medication List - Last Reconciled 06/08/24 by Hemal Wisdom MD epinephrine IM DIRECTED fluticasone furoate 200 mcg/actuation (Arnuity Ellipta) 1 inh inhalation DAILY 30 days magnesium glycinate 125 mg PO montelukast (Singulair) 10 mg PO BEDTIME 90 days multivitamin 1 tab PO DAILY HPI Comments Details: Curtis is here for consultation regarding question of bradycardia. He does not have any known cardiac issues. No history of any coronary disease, myocardial infarction or cardiomyopathy or in fact any other cardiac concerns in the past. There is interstitial lung disease and there is also question of sarcoidosis. He goes to Dr. Dempsey but also planning on a 2nd opinion, possibly in [facility]. From the cardiac standpoint, there was question of bradycardia per Pulmonary note. EKG also showed a right bundle-branch block. Hence he has been referred here. Patient denies any cardiac history and also any cardiac symptoms like angina. He does get some exertional shortness of breath related to interstitial lung disease. Coughing, again most likely pulmonary in nature. [facility] Medical History (Updated 06/08/24 @ 11:05 by Hemal Wisdom MD) Bradycardia Chronic allergic rhinitis Asthma Sarcoidosis Chronic cough ILD (interstitial lung disease) Pulmonary nodule Surgical History H/O arthroscopic knee surgery H/O hernia repair Hx of tonsillectomy Family History Mother Heart disease Family/Other Colon cancer Family/Other Colon cancer Social History (Updated 06/08/24 @ 10:14 by Ruby Hercules CMA) Alcohol intake: current Alcohol intake frequency: holidays/special occasions only Patient Tobacco Use Status: Former Tobacco user Tobacco use type: Cigarette Years Smoked: 7 years Review of Systems Const Denies chills, Denies daytime sleepiness, Denies fatigue, Denies fever(s), Denies poor appetite, Denies snoring, Denies stops breathing during sleep, Denies weakness, Denies weight gain and Denies weight loss Eyes Denies loss of vision ENT Denies dizziness and Denies hearing loss Card Denies chest pain, Denies irregular heart rhythm, Denies claudication, Denies leg edema, Denies lightheadedness, Denies palpitations, Reports dyspnea on exertion and Denies orthopnea Resp Denies cough, Denies excessive phlegm production, Reports dyspnea on exertion, Denies snoring and Denies wheezing GI Denies abdominal pain, Denies hematochezia, Denies change in bowel habits, Denies nausea and Denies vomiting Denies dysuria and Denies urinary frequency Musc Denies arthralgias, Denies muscle weakness, Denies numbness and Denies other Skin/Breast Denies nail changes and Denies rash Neuro Denies Abnormal speech present, Denies dizziness, Denies loss of vision, Denies memory loss, Denies numbness and Denies weakness Psych Denies depression and Denies memory loss Endo Denies fatigue and Denies palpitations Ian/Lymph Denies easy bruising Aller/Immun Denies wheezing Physical Exam Vital Signs: Last Vital Signs Pulse 72 06/08/24 10:08 BP 140/64 H 06/08/24 10:08 BMI result Body Mass Index 27.9 Const General: comfortable and no acute distress Orientation/consciousness: patient oriented x3 HEENT Other: Unremarkable Head: Yes normal to inspection Neck Neck: Yes normal visual inspection Chest Chest palpation & inspection: normal inspection of the chest Resp Other: Few fine inspiratory crackles Cardio Palpation: normal PMI Heart sounds: S1 normal heart sound present, S2 normal heart sound present, no gallops, Murmur heart sound present systolic II/ and at the right sternal border and no rubs GI Palpation (GI): Soft to palpation Back/Spine/Pelvis Other: unremarkable Skin General skin exam: no rashes or lesions noted Neuro General: patient oriented x3 Speech: No Abnormal speech present Extrem General: Yes normal to inspection Psych Mental Status: mental status grossly normal Assessment & Plan Assessment & Plan (1) Atherosclerotic cardiovascular disease: Code(s): I25.10 - Atherosclerotic heart disease of [place] coronary artery without angina pectoris Category: Medical Plan: Chest CT scan shows coronary artery calcification. Clinically, no angina. Obtain myocardial perfusion imaging study to assess ischemia. He has some ankle issues and if it does not get better by the time of stress test, consider Lexiscan instead of treadmill. (2) Non-rheumatic aortic stenosis: Code(s): I35.0 - Nonrheumatic aortic (valve) stenosis Category: Medical Plan: In the echocardiogram from 2021, mean gradient across the aortic valve was 9 mm Hg. Thought to be having mild aortic stenosis. LVEF preserved at 55-60%. Can recheck echocardiogram. Pathophysiology, clinical course, treatment options discussed. (3) Right bundle branch block: Code(s): I45.10 - Unspecified right bundle-branch block Category: Medical Plan: Recent EKG shows right bundle-branch block. Could be related to obstructive sleep apnea. Less likely related to infiltrative disease like sarcoid. There was a question of bradycardia from pulmonary note. Obtain Holter monitor. (4) ILD (interstitial lung disease): Code(s): J84.9 - Interstitial pulmonary disease, unspecified Category: Medical Plan: Not definitive if it is sarcoid or not per patient. Hence he is seeing a specialist. If indeed confirmed to be sarcoid, then consider cardiac MRI or PET to evaluate for cardiac sarcoid but less likely as he does not have any overt symptoms or prior echocardiographic findings. Plan Discussed with significant other. Orders: Orders CA stress test Today I25.10 - Atherosclerotic heart disease of [place] coronary artery without angina pectoris, R07.2 - Precordial pain NM cardiolite stress test Today I25.10 - Atherosclerotic heart disease of [place] coronary artery without angina pectoris, R07.2 - Precordial pain ECG 7 day holter monitor Today R00.1 - Bradycardia, unspecified CA echo transthoracic complete Today I35.0 - Nonrheumatic aortic (valve) stenosis Coding Level of Care Code New Pt Level 4 (26186) Diagnoses Atherosclerotic cardiovascular disease I25.10 Non-rheumatic aortic stenosis I35.0 Right bundle branch block I45.10 ILD (interstitial lung disease) J84.9
== END 2024-06-08 10:52 | disposition home or self-care (01) ==
PROVIDERS: PCP Family Medicine; Visit Provider Internal Medicine
DX: I25.10 Atherosclerotic heart disease of native coronary artery without angina pectoris (principal); I35.0 Nonrheumatic aortic (valve) stenosis; I45.10 Unspecified right bundle-branch block; J84.9 Interstitial pulmonary disease, unspecified
CPT/HCPCS: 99204

== ENCOUNTER → 2024-06-08 10:05 | Outpatient (BNVA) | payer MEDICARE, OTHER, SELFPAY | PROVIDERS: PCP Family Medicine; Visit Provider Internal Medicine | DX: I25.10 Atherosclerotic heart disease of native coronary artery without angina pectoris (principal); I35.0 Nonrheumatic aortic (valve) stenosis; I45.10 Unspecified right bundle-branch block; J84.9 Interstitial pulmonary disease, unspecified | CPT/HCPCS: 99202 ==

== ENCOUNTER → 2024-06-24 12:53 | Outpatient (REF) | payer MEDICARE, OTHER, SELFPAY ==
--- NOTE | 2024-06-24 12:57 | CA_ITS ---
Transthoracic Echocardiogram Patient (Last, First, Middle): Curtis Paredes, Gender: Male Date of : 1945 Age: 79 Procedure Date: 06/24/2024 Procedure Type: Transthoracic Echocardiogram Location: OP Height: 177.8 cm Weight: 86.18 kg BSA: 2.04 m2 Heart Rate: bpm BP: 130 / 82 mmHg Guest Services Agent: Referring MD: Hemal Wisdom MD Symptoms: I35.0 - Nonrheumatic aortic (valve) stenosis Study Quality: Adequate ECG Rhythm: Sinus Conclusions: - The left ventricular systolic function is normal. The calculated ejection fraction is 58% by biplane method. - There is mild aortic valve stenosis. Findings Left Ventricle Normal left ventricular cavity size. There is mildly increased left ventricular wall thickness. The left ventricular systolic function is normal. The calculated ejection fraction is 58% by biplane method. There is no evidence of regional wall motion abnormalities. Diastolic function is normal for age. Right Ventricle Normal right ventricular cavity size and systolic function. Atria Both atria are normal in size. Aortic Valve There is moderate calcification of the aortic valve. There is mild aortic valve stenosis. There is no aortic valve regurgitation. Mitral Valve The mitral valve appears normal. There is mild mitral valve regurgitation. There is no mitral valve stenosis. Pulmonic Valve The pulmonic valve is likely normal. Tricuspid Valve There is trace tricuspid valve regurgitation. There is no evidence of pulmonary hypertension. Great Vessels The asc aorta is normal in size. Venous The inferior vena cava is normal in size and collapses greater than 50% with inspiration. Pericardium/Pleural There is no evidence of pericardial effusion. Prior Study Comparison No significant change compared to prior study dated: 04/24/2022. Measurements 2D Linear Measurements IVSd: 1.12 0.6-0.9/0.6-1.0 cm LVIDd: 4.33 3.9-5.3/4.2-5.9 cm LVIDd Index: 2.12 2.4-3.2/2.2-3.1 cm/m2 LVIDs: 3.04 2.0-3.6 cm LVPWd: 1.02 0.7-1.1 cm Ao Root: 3.50 2.1-3.5 cm LA Diam: 3.80 2.7-3.8/3.0-4.0 cm LAIDs Index: 1.86 1.5-2.3 cm/m2 LV Mass: 197.24 67-162/88-224 g LV Mass Index: 96.69 43-95/49-115 g/m2 LVOT Diam: 2.40 3.0+(-)1.3 cm 2D Systolic Function EF 4C: 63.90 >55% EF 2C: 50.40 >55% EF BiP: 58.20 >55% Mitral Valve MV Pk E: 0.55 MV PK A: 0.69 MV Decel Time: 288.00 E/A: 0.80 E'Lateral: 10.20 E'Medial: 5.55 E/E' Med: 10.00 E/E' Lat: 5.40 PHT: 84.00 MVA PHT: 2.62 Decel Andrews: 1.92 Aortic Valve AoV Pk Monty: 1.85 AoV Mn Monty: 1.30 AoV VTI: 0.48 AoV Pk Grad: 14.00 Aov Mn Grad: 9.00 YURI Cont.VTI: 1.65 LVOT LVOT Pk Monty: 0.66 LVOT Mn Monty: 0.44 LVOT VTI: 0.18 LVOT Pk Grad: 2.00 LVOT Mn Grad: 1.00 LVOT Diam: 2.40 LVOT Area: 4.52 Diastolic Function MV Pk E: 0.55 MV Pk A: 0.69 E/A: 0.80 E'Medial: 5.55 E/E' Med: 10.00 E' Laterial: 10.20 E/E' Lat: 5.40 Right Ventricle TAPSE (mm): 24.00 TVS' Monty: 10.00 Tricuspid Valve TR Pk Monty: 1.66 TR Pk Grad: 11.00 RA Press: 3.00 RVSP: 14.00 Great Vessels Aorta Ao Root-2D: 3.50 2.0-3.7 cm Ao Asc: 3.50 2.1-3.4 cm Pulmonary Valve PV Pk Monty: 1.10 Peak PV Grad: 5.00 Updated in Other Vendor System with Status of Final Hemal Wisdom MD electronically signed on 06/25/2024 8:06:53 AM with status of Final
--- OUTSIDE RECORDS SUMMARY | 2024-06-24 15:46 | XMS_ITS | Data Portability ---
Author Organization [place] - [facility], Allergy Address [address] [place] [phone] Assessment Encounter Date Assessment Date Assessment LastModified [...] well as risk of infection of a manager medical, scar, wound healing. There is an implanted [...] system (PROC) - INSPIRE implant 2023 024 [email or web address] Not available 15:34:57 Surgeries None recorded. Imaging None recorded. Medication Orders None recorded. Patient TargetsNo targets recorded. Patient InstructionsNo instructions recorded. Reason for Referral None Reported. Problems Name Problem SNOMED Code Status Onset Date Resolution Date Notes Provider Name and Address Organization Details Recorded Time Obstructive sleep apnea syndrome 17522047 Active 024 RICHARD OLIVEROS MD [address] [place] [address], [phone], [facility] 13:45:04 Problem Notes None recorded. Procedures Surgical History Date Name Laterality Status Provider Name and Address Organization Details Recorded Time 4 Telehealth completed RICHARD OLIVEROS MD [address] [place] [address], [phone], [facility] 11/04/2023 13:46:15 4 Dise [facility] RICHARD OLIVEROS MD [address] [place] [address],[address], [address], [facility] 11/04/2023 13:44:28 Imaging Results None recorded. Procedure [...] Diagnosis Note [id number] RICHARD OLIVEROS MD [facility] [address] [address] 11/06/2023 16:47:28 11/10/2023 21:34:07 Obstructive sleep apnea syndrome 23592644 G47.33 Health Concerns Section Related Observation LastModified by Organization Detai ls LastModified Time None Recorded Concern Status LastModified by Organization Details LastModified Time None Recorded Advance Directives Directive None Recorded Payers Encounter Date Sequence Insurance Name Policy Number Policy Brady Covered Member ID Brady Member ID Guarantor Name 11/06/2023 2 [facility] IN[facility]MNITY [facility] - [facility] [id number] Curtis Paredes [id number] Curtis Paredes 11/06/2023 1 MEDICARE B-[place]: [facility] [employer] Curtis Praedes [id number] Curtis Paredes Notes Date Note Type Note Provider Name and Address Organization Details Recorded Time 11/06/2023 text/html [facility] - [employer] [facility] [facility] [place] 09/03/22BMI 27AHI 18central and mixed - none [...] exercise. weekend travel RICHARD OLIVEROS MD [address] [facility],[place] [address], [place], [address], [facility] - [facility] 11/06/2023 17:02:11
--- OUTSIDE RECORDS SUMMARY | 2024-06-24 15:47 | XMS_ITS | Data Portability ---
Author Organization [facility] [email or web address] s [facility], [facility] Address [address] [address] Care Team Providers Care Academic Administrator Name Role Phone ANIRUDH HUBBARD Primary Care Provider [phone] INGRID DEMPSEY OTHER Assessment Encounter Date Assessment [...] MMA, TSH and folate levels done at [facility] I am happy to order here on [...] Note that Beny did a study at [facility] around - will try to get records. Diagnosis reviewed? Yes Mood: No changes in mood Plan: will monitor Mobility: some changes in gait. Has some neuropathy/some OA/ankle pain Plan: Would increase protein intake to around 20-30 grams/per meal. Would consider strength training/resistan ce training in addition to cardiovascular exercise. Would speak to rubber off about neuropathy - might this be from [...] MMA, TSH and folate levels done at [facility]. Could consider Brain MRI to establish a [...] Note that Beny did a study at [facility] around - will try to get records. Diagnosis reviewed? Yes Mood: No changes in mood Plan: will monitor Mobility: some changes in gait. Has some neuropathy/some OA/ankle pain - ongoing. Plan: Would increase protein intake to around 20-30 grams/per meal. Would consider strength training/resistan ce training in addition to cardiovascular exercise. Would speak to rubber off about neuropathy - might this be from [...] see if things are stable, [facility] 03/20/2024 11:22:31 Plan of Treatment Reminders Order Date Submit Date Provider Last Modified By Organization Details Last Modified Time Details Appointments FOLLOW UP 30 2024 09:00A M Ivet Cervantes MD Not available Not available Not available Lab vitamin B12, serum [address], [address], 03/25/2024 16:26:54 mma (methylm alonic acid), serum [address], [address], 03/27/2024 10:48:46 folate, serum [address], [address], 03/27/2024 10:48:46 TSH + free T4, serum [address], [address], 03/27/2024 10:48:46 iron + TIBC + ferritin , serum [address], [address], 03/27/2024 10:48:46 magnesiu m, serum or plasma [address], [address], 03/27/2024 10:48:46 Referral None recorded . Procedures [...] Organization Details Recorded Time Aortic valve stenosis 82695317 Active 2023 Ivet Cervantes MD [address], [place], [address], [employer] 4 15:30:22 Sarcoidosi s 57574622 Active [address] Dempsey, last 01/16/23 who noted: diagnosed ~ 2017. Was seen at [facility] Pulmonary. Noted ILD but not sure about sarcoid. Did have travel history and wanted to nesure that r/o fungal infection/ TB. BRAN level 71 (2021) Noted slight decrease in lung capacity from 91% to 82%. [place] to have clinical dx of sarcoidosi s. was placed on prednisone 5 mg. did not have uveitis on eye exam. Noted to have Covid in 2022 - with sig sob and cough but improved. 01/16/23: cough moderate severe, keeping him awake and hard to tolerate new CPAP machine. fev1/fvc -90% predicted. Ivet Cervantes MD [address], [place], [address], [employer] 4 14:24:32 Osteoarthr itis 941243629 Active 2023 right hip Ivet Cervantes MD [address], [place], [address], [employer] 4 15:30:41 Obstructiv e sleep apnea syndrome 43762731 Active 2023 Ivet Cervantes MD [address], [place], [address], [employer] 4 15:30:52 Advance care planning Active 2023 HCP - Dtr Silvana Paredes, MOLST: yes 9 02/13/21 Ivet Cervantes MD [address], [place], [address], [employer] 15:36:50 Tinnitus 24746457 Active 2023 Ivet Cervantes MD [address] [facility], [place], [address], [employer] 10:18:54 Hearing loss 43790212 Active 2023 Ivet Cervantes MD [address] [place] [address], [address], [employer] 14:09:34 Impaired cognition 161786660 Active 2023 MOCA - 07/2023 @ [facility] Ivet Cervantes MD [address] [place] [address], [place], [address], [employer] 14:10:49 Problem Notes None recorded. Procedures Surgical History Date Name Laterality Status Provider Name and Address Organization Details Recorded Time inguinal region repair completed Ivet Cervantes MD [address], [address], [employer] 09/08/2023 15:42:48 Imaging Results None recorded. Procedure Notes None recorded. Medical Equipment None Reported. Allergies Allergen ID Allergen Name Allergen Category Reaction Reaction Severity Criticality Documentation Date Start Date Code Code System Note Provider Name and Address Organization Details Recorded Time 81 honey bee venom medicatio n Not available Not available high 09/08/2023 02994 7 RxNorm Ivet Cervantes MD [address] [place] [address],[address], [address], [employer] 4 15:31:14 82 Product containin g penicilli n (product) medicatio n hives Not available high 09/09/2023 47663 8001 SNOMED Ivet Cervantes MD [address] [facility], [place], [address], [employer] 14:11:22 83 Symbicort medicatio n vasculiti s Not available Not available 09/09/2023 98314 8 RxNorm Sever e leg cramp s Alyssa Pangnicolas gagnon [employer] 4 14:18:15 Medications Name Sig Start Date [...] Updated DateTime 4 178.43 cm 27.8 kg/m2 97240.5 1 g 72 /min 97 % 97 % 112 mm[Hg] 78 mm[Hg] Alyssa Graham [employer] 4 14:23:05 Date Recorded Body height Body mass index (BMI) Body weight Oxygen saturation Oxygen saturation in Arterial blood by Pulse oximetry Heart rate Systolic blood pressure Diastolic blood pressure Provider Name and Address Organization Details Last Updated DateTime 4 178.43 cm 27.5 kg/m2 27261.3 3 g 97 % 97 % 63 /min 142 mm[Hg] 80 mm[Hg] [facility]a [facility] 10:50:04 Social History None recorded. Functional [...] N Nervous System Disorder N Heart Attack ([place]) N Deep Vein Thrombosis N Past Encounters Encounter ID Performer Location Encounter Start Date Encounter Closed Date Diagnosis/Indication Diagnosis SNOMED-CT Code Diagnosis ICD10 Code Diagnosis Note 63 MD Helen Joyce [facility] [address] [address] 09/09/2023 14:04:05 09/09/2023 15:49:19 Advance care planning 735498234 Z71.89 HCP - will place in chart Impaired cognition 76352 6002 R41.89 see above - cognitive changes most likely c/w normal aging Obstructiv e sleep apnea syndrome 25405547 G47.33 as above, would look to treat. [id number] MD Helen Joyce [facility] Primary Care [address] [address] 03/20/2024 10:27:27 03/20/2024 20:39:09 Impaired cognition 694620398 R41.89 see above - cognitive changes most likely c/w normal aging Obstructiv e sleep apnea syndrome 67702947 G47.33 as above, continue with mouth device. Hearing loss 34794962 H9 1.93 wearing hearing aides Bilateral cramp of muscle of lower limbs 9738587221 0636663 R25.2 gets them off and on.Tries to [...] UNICARE - GIC INDEMNITY PLAN (MEDICARE SUPPLEMENT) [id number] Curtis Monkanda [id number] Curtis Paredes 09/09/2023 1 MEDICARE B-[place]: [facility] [employer] Curtis Paredes [id number] Curtis Paredes 03/20/2024 2 UNICARE - GIC INDEMNITY PLAN (MEDICARE SUPPLEMENT) [id number] Curtis Paredes [id number] Curtis Paredes 03/20/2024 1 MEDICARE B-[place]: NATIONAL [employer]ERNMENT [employer] Curtis Paredes [id number] Curtis Paredes Notes Date Note Type [...] this for some time)in a study at [facility], he was given a dose of [...] 2023 (sees him every 6 months)In early 1999', he had a lot of congestion in his lungs. Saw Dr Dinh, did xrays, felt he had sarcoidosis. Didnt have problems for many years, but then devd phlegm. Saw Dr Krishna at [facility]. Now seeing Dr Dempsey at [place] and very happy with him. Has some [...] to have. 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 Not in the militaryEducational level: Mallorie DoctorLiving situation: [facility], moved to [place] in 1971, in 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 IM/MFM. 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 In [facility].In contact with them? yesETOH: daily. drinks a beer every day at 5pm, wine with meals, 2 glassesConcern about amount of ETOH? noTobacco: yes- smoked 4-5 years, quit 50+ years agoOther drugs: nothing current ROS:constitutional noneeyes glassesENT ear ringingheart - nonelungs SOB/coughabdomen: painurinary noneMS: arthritisskin: noneNeuro: tingling, balancebehavioral: noneblood: none Ivet Cervantes MD [address] [place] [address], [address], [facility] 09/09/2023 15:56:06 4 text/html Subjective:Since last visit: date: 09/09/23: Falls/change in gait:ED visits/hospitalizations: Changes in function:Changes in medication:Was diagnosis from initial visit discussed?: Beny:They have been busy - some travelling. They did a food tour in [facility] and then [place] in January.He doesnt notice any memory changes while he is travelling. Sarcoidosis does hold him back - he is slower. He doesnt have any stamina. Memory: has not felt that it has deteriorated.His biggest complaint is his coughing and sarcoidosis. He f/u with Dr Dempsey, last in September, was planning to see him in a year but seemed to have gotten worse in [place]. He does feel he is continuing to lose weight. has lost weight. he wonders about going to [facility]. Faina:Memory is okay. Ivet Cervantes MD [address] [place] [address], [place], [address], [facility] 03/20/2024 11:33:59
--- OUTSIDE RECORDS SUMMARY | 2024-06-24 15:47 | XMS_ITS | Continuity of Care Document ---
Author Organization [facility], Sports Medicine, [facility] Address [address] [place] [address] Care Team Providers Care Sinter Feeder Name Role Phone FLORA TOUSSAINT Phys. Med. & Rehab Unavailable ANIRUDH HUBBARD Primary Care Provider TAMY CORDOVA Airport Clerk RICKY VERA Neuro Psych Sales Specialist EDVIN BUENO Infectious Disease JULIO CALZADA Orthopedist LEELA ADAN Neuro Psych Sales Specialist [facility] Orthopedist [facility] Dermatolo gist RICHARD OLIVEROS OTHER Assessment No assessment recorded. Plan of Treatment Reminders Order Date Submit Date Provider Last Modified By Organization Details Last Modified Time Details Appointments Follow Up, 2024 03:00P M Roberto Springer n, PT Not available Not available Not available Sports Med Follow Up (20) 2024 09:30A M Moises Perrin MD Not available Not available Not available Wellness Visit 2024 11:15A M Anirudh Hubbard MD Not available Not available Not available Lab None recorded. Referral None recorded. Procedures None recorded. Surgeries None recorded. Imaging US, foot - Performed and read by - Do not send to radiologi 2024 [id number] [email or web address] [id number] [facility] (Imaging), [address], [place], [address], 06/18/2024 11:20:13 Medication Orders None recorded. Patient TargetsNo targets recorded. Patient Instructions Encounter Date Encounter Id Patient Instructions Last Modified By Organization Details Last Modified Time 2024 [id number] Consider wearing a walking boot Continue with physical Consider orthotics Follow-up in 6-8 weeks for a recheck Not available 2024 12:22:39 All of the patients questions were answered and they understand the plan of care. Thank you for allowing me to participate in the care of your patient. ? ? ?Please feel free to contact me with any questions regarding their care. Not available 2024 12:24:17 Reason for Referral None Reported. 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 flovent- but d/c'd( did not need much). 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 2022 repeat echo 2026 Anirudh Hubbard MD [address] [place] [address], , [facility] 3 09:36:43 Lipoma of skin and subcutan eous tissue (excludi ng face) 887115921 Completed 200703/18/2013 Not Available [facility] 3 02:04:10 Neoplasm of uncertai n behavior of skin 58509061 Completed 200603/18/2013 Not Available [facility] 3 02:01:52 Hiccough s 91602840 Completed 200602/13/2021 Anirudh Hubbard MD [address] [place] [address], , [facility] 1 09:20:52 Knee pain Completed 200603/18/2013 Not Available [facility] 3 02:00:42 Problem Notes None recorded. Procedures Surgical History Date Name Laterality Status Provider Name and Address Organization Details Recorded Time 06/16/19 25 76100: Therapeutic Exercise completed Roberto Calloway, PT [address] [place], [address], [facility] 06/16/2024 10:16:27 06/16/19 25 29716: Neuromuscular Re-Education completed Roberto Calloway, PT [address] [place], [address], [facility] 06/16/2024 10:17:24 06/16/19 25 Treatment and Advice completed Roberto Calloway, PT [address] [place], [address], [facility] 06/16/2024 10:18:51 06/11/19 25 Generic Procedure Template completed Moises Perrin MD [address] [place], [address], [facility] 2024 12:24:28 06/11/19 25 88908: Neuromuscular Re-Education completed Roberto Calloway, PT [address] [place], [address], [facility] 2024 09:42:16 06/11/19 25 Treatment and Advice completed Roberto Calloway, PT [address] [place], [address], [facility] 2024 09:33:26 06/09/19 25 90568: Manual Therapy completed Roberto Calloway, PT [address] [place], [address], [facility] 2024 09:38:21 06/09/19 25 61258: Neuromuscular Re-Education completed Roberto Calloway, PT [address] [place], [address], [facility] 2024 09:36:59 06/09/19 25 Treatment and Advice completed Roberto Calloway, PT [address] [place], [address], [facility] 06/09/2024 12:47:46 05/14/19 25 Physical Activity Counselling completed Roberto Calloway, PT [address] [place], [address], [facility] 05/14/2024 13:27:08 05/14/19 25 79762: PT Eval Low Complexity completed Roberto Calloway, PT [address] [place], [address], [facility] 05/14/2024 13:27:08 05/14/19 25 Treatment and Advice completed Roberto Calloway, PT [address] [place], [address], [facility] 05/14/2024 13:57:52 04/20/20 19 76152: Therapeutic Exercise completed Flora Toussaint, PT [address] [place], [address], [facility] 04/20/2019 08:48:51 04/20/20 19 41837: Manual Therapy completed Flora Toussaint, PT [address] [place], [address], [facility] 04/20/2019 08:48:55 04/08/20 19 45077: Therapeutic Exercise completed Flora Toussaint, PT [address] [place], [address], [facility] 04/09/2019 13:29:05 04/01/20 19 74396: Therapeutic Exercise completed Flora Toussaint, PT [address] [place], [address], [facility] 04/01/2019 08:40:29 04/01/20 19 20524: Manual Therapy completed Flora Toussaint, PT [address] [place], [address], [facility] 04/01/2019 08:40:33 03/30/20 19 Physical Activity Counselling completed Folra Toussaint, PT [address] [place], [address], [facility] 03/31/2019 09:38:08 03/30/20 19 94725: PT Eval Low Complexity completed Flora Toussaint, PT [address] [place], [address], [facility] 03/31/2019 09:38:13 08/28/19 19 Medicare Wellness Visit completed Naina Villanueva [facility] 08/27/2018 13:44:04 08/28/19 19 Medicare Risk for Falls Screen completed Naina Villanueva [facility] 08/27/2018 13:49:32 08/28/19 19 Advanced Care Planning completed Anirudh Hubbard MD [address] [place], [address], [facility] 08/27/2018 14:21:10 11/13/19 18 75152: Therapeutic Exercise completed Flora Toussaint, PT [address] [place], [address], [facility] 11/13/2017 07:35:58 11/13/19 18 34531: Manual Therapy completed Flora Toussaint, PT [address] [place], [address], [facility] 11/13/2017 07:36:04 10/26/19 18 20086: Therapeutic Exercise completed Flora Toussaint, PT [address] [place], [address], [facility] 10/25/2017 08:13:46 10/26/19 18 41263: Manual Therapy completed Flora Toussaint, PT [address] [place], [address], [facility] 10/25/2017 08:13:50 10/24/19 18 Physical Activity Counselling completed Flora Toussaint, PT [address] [place], [address], [facility] 10/23/2017 14:58:29 10/24/19 18 29000: PT Eval Low Complexity completed Flora Toussaint, PT [address] [place], [address], [facility] 10/23/2017 14:58:35 08/22/19 18 Medicare Wellness Visit completed Naina Villanueva [facility] 08/21/2017 13:44:24 08/22/19 18 Medicare Risk for Falls Screen completed Naina Villanueva [facility] 08/21/2017 13:46:22 08/21/19 17 Medicare Wellness Visit completed Corina Solares RN, BSN [facility] 08/20/2016 11:04:47 11/10/19 15 Medicare Wellness Visit completed Jailyn Lance [facility] 11/09/2014 16:18:01 11/10/19 15 Medicare Annual Wellness Visit completed Jailyn Lance [facility] 11/09/2014 16:25:29 11/10/19 15 Medicare Risk for Falls Screen completed Jailyn Lance [facility] 11/09/2014 16:25:29 08/14/19 14 <strong>Pain</str latonia> Assessment and Follow-up (G8730) completed Flora Toussaint, PT [address] [place], [address], [facility] 08/13/2013 23:01:36 08/14/19 14 <strong>Falls</st juan c> Risk Assessment - No Risk (1101F) completed Flora Toussaint, PT [address] [place], [address], [facility] 08/13/2013 23:01:36 08/14/19 14 <strong>Functiona l</strong> outcome not documented, reason not given (G8541) completed Flora Toussaint, PT [address] [place], [address], [facility] 08/13/2013 23:01:36 03/16/20 13 Medicare Wellness Visit completed Nasrin Multani CMA [facility] 03/16/2013 15:07:02 04/07/20 12 Medicare Wellness Visit completed Naina Garcia MA [facility] 04/07/2012 09:08:04 Imaging Results None recorded. Procedure Notes None recorded. Medical Equipment None Reported. Allergies Allergen ID Allergen Name Allergen Category Reaction Reaction Severity Criticality Documentation Date Start Date Code Code System Note Provider Name and Address Organization Details Recorded Time 21644 Product containin g penicilli n (product) medicatio n rash Not available Not available 12/27/2008 42150 8001 SNOMED Not Available [facility] 1 06:05:20 848513 hornet venom environme nt anaphylax is Not available Not available 11/01/2017 16854 UNK Colten Rooney RN null, [facility] 8 11:51:51 490193 wasp venoms environme nt anaphylax is Not available Not available 11/01/2017 90484 RxNorm Colten Rooney RN null, [facility] 8 11:52:00 718591 Symbicort medicatio n muscle cramps Not available Not available 04/19/2023 83273 8 RxNorm Lachelle Kauffman CMA [facility] 3 09:05:01 Medications Name Sig Start Date Stop Date Status Note LastModified by Organization Details LastModified Time cyclobenz aprine 10 mg tablet TK 1 T PO Q 8 H PRF SPASM 01/19 completed Not Available Not Available Not Available nystatin 100,000 unit/mL oral suspensio n Take 5 mL 4 times a day by oral route for 7 days. active finished course 06/11/24 Not Available Not Available Not Available prednison e 10 mg tablet TAKE ONE TABLET BY MOUTH EVERY DAY 04/17 completed Not Available Not Available Not Available doxycycli ne hyclate 100 mg capsule TAKE ONE CAPSULE BY MOUTH TWICE A DAY FOR 14 DAYS active Not Available Not Available No t Available ibuprofen 800 mg tablet 08/27 completed Not Available Not Available Not Available benzonata te 200 mg capsule TAKE ONE CAPSULE BY MOUTH TWICE A DAY NEEDED FOR COUGH 05/10 completed Not Available Not Available Not Available acetazola mide 250 mg tablet 1/2 BID 24 hours before ascent and 1 tab BID for symptoms active Not Available Not Available No t Available tramadol 50 mg tablet 01/19 completed Not Available Not Available Not Available oxycodone -acetamin ophen 5 mg-325 mg tablet 01/19 completed Not Available Not Available Not Available lidocaine 5 % topical patch active Not Available Not Available Not Available monteluka st 10 mg tablet TAKE ONE TABLET BY MOUTH EVERY DAY active Not Available Not Available No t Available Baby Aspirin 81 mg chewable tablet active TAKE 1 DAILY Not Available Not Available Not Available epinephri ne 0.3 mg/0.3 mL injection , auto-inje ctor INJECT ONE PEN INTO THE MUSCLE NEEDED FOR ALLERGIC REACTION active Not Available Not Available No t Available Bactrim DS 800 mg-160 mg tablet Take 1 tablet every 12 hours by oral route. 2009 active Not Available Not Available Not Avai lable ciclopiro x 0.77 % topical cream APPLY 1 APPLICAT ION TOPICALL Y 1 TO 2 TIMES A DAY BETWEEN TOES AND TO AFFECTED NAILS active Not Available Not Available No t Available azithromy linda 500 mg tablet 05/10 completed Not Available Not Available Not Available Flovent HFA 110 mcg/actua tion aerosol inhaler INHALE TWO PUFFS BY MOUTH TWICE A DAY 04/27 completed pt is not using 04/27/24 mp Not Available Not Available Not Available benzonata te as needed active Not Available Not Available No t Available multivita min active TAKE 1 DAILY Not Available Not Available Not Available Prilosec OTC active TAKE 1 DAILY Not Available Not Available Not Available Symbicort 160 mcg-4.5 mcg/actua tion HFA aerosol inhaler INHALE TWO PUFFS BY MOUTH TWICE A DAY 04/19 completed muscle cramping Not Available Not Available Not Available Symbicort per Pulm note 04/19 completed Not Available Not Available Not Available Flovent Diskus 100 mcg/actua tion powder for inhalatio n 08/27 completed Not Available Not Available Not Available Fluvirin (PF) 45 mcg (15 mcg x3)/0.5 mL intramusc ular syringe TO BE ADMINIST ERED BY PHARMACI ST FOR IMMUNIZA TION active Not Available Not Available No t Available Arnuity Ellipta 200 mcg/actua tion powder for inhalatio n INHALE 1 PUFF BY MOUTH ONCE DAILY active Not Available Not Available No t Available Fluzone High-Dose (PF) 180 mcg/0.5 mL intramusc ular syringe TO BE ADMINIST ERED BY PHARMACI ST FOR IMMUNIZA TION 08/20 completed Not Available Not Available Not Available Shingrix (PF) 50 mcg/0.5 mL intramusc ular suspensio n, kit 05/31 completed Not Available Not Available Not Available BinaxNOW COVID-19 Ag Self Test kit TEST DIRECTED TODAY 05/10 completed Not Available Not Available Not Available Paxlovid 300 mg (150 mg x 2)-100 mg tablets in a dose pack TAKE THREE TABLETS BY MOUTH TWICE A DAY FOR 5 DAYS 04/19 completed Not Available Not Available Not Available Vitals Date Recorded Body height Provider Name an d Address Organization Details Last Updated DateTime 2024 177.8 cm DEDE [facility] 2024 10:39:48 Social History Question Answer Notes LastModified by Organizat ion Details LastModified Time Tobacco Smoking Status Former Smoker SMOKED ABOUT 50 YRS AGO WHEN HE WAS A KID Not Available [facility] 09/21/2010 02:08:49 Do You Have An Advance Directive? No INFO GIVEN- [email or web address] Information not available 02/20/2010 What Is Your Level Of Alcohol Consumption? Moderate [email or web address] Information not available 03/16/2013 Do You Wear A Helmet When Biking? Yes Information not available 11/09/2014 What Is Your Level Of Caffeine Consumption? Moderate 3-4 Daily Information not available 11/09/2014 How Much Tobacco Do You Chew? 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 REGULAR Information not available 11/09/2014 Which Illicit Or Recreational Drugs Have You Used? 0 Information not available 11/09/2014 What Is The Highest Grade Or Level Of School You Have Completed Or The Highest Degree You Have Received? LA11478-1 [email or web address] Information not available 04/19/2023 When Did You Quit Smoking? 16+yearssinc elastcigaret te Information not available 11/09/2014 How Many Days In The Past Year Have You Had A Heavy Drinking Consumption (4+ Female, 5+ Male)? 2 2 Information not available 11/09/2014 Are There Any Guns Present In Your Home? No Information not available 11/09/2014 Live Alone Or With Others? With Others Faina Information not available 04/02/2011 Patient Has Health Care Proxy Signed And In Chart No Katina Paredes (daughter) [phone] [email or web address] Information not available 01/23/2018 MOLST Form Signed And In Chart 02/13/2021 Information not available 02/14/2021 CCM Consent Discussion 08/20/2016 Information not available 08/22/2016 Marital Status GF Faina Informatio n not available 02/20/2010 Mosquito Repellent Used Routinely No Information not available 11/09/2014 What Was The Date Of Your Most Recent Tobacco Screening? 05/10/2024 [email or web address] Information not available 05/10/2024 How Many Children Do You Have? 1 [facility] ) [email or web address] Information not available 04/02/2011 What Is Your Current Pack Years? 10packyears 0 Pack Years Information not available 11/09/2014 Do You Use Your Seat Belt Or Car Seat Routinely? Yes Information not available 04/19/2023 Seat Belts Used Routinely Yes Information not available 11/09/2014 Smoke Alarm In Home Yes Information not available 11/09/2014 Do You Have Smoke And Carbon Monoxide Detectors In Your Home? Yes [email or web address] Information not available 04/19/2023 Are You Passively Exposed To Smoke? No [email or web address] Information not available 04/19/2023 General Stress Level Low Information not available 11/09/2014 Do You Use Sunscreen Routinely? Yes Information not available 11/09/2014 Sex: Unknown Functional Status None recorded. Mental Status None recorded. Family History Relationship Description Onset Age of this Age Resolved Age Notes LastModified by Organization Details LastModified Time Brother Malignant tumor of colon 54 previo usly record ed as Cancer - Colon [id number] Not available 12/08/2012 03:00:55 Sister Malignant tumor of colon got age 70's [facility] Not available 08/27/2018 14:11:33 Sister Malignant tumor of breast [facility] Not available 2018 14:11:45 Father Alzheimer's disease age 82 [email or web address] Not available 2022 09:42:21 Notes:Mother age 94. Fa ther 89, [place] in his 80's. Healthy sister. Medical History Condition Response Interstitial Lung Disease Y MUSCULOSKELETAL Y Immunizations Vaccine Type Date Status Note Provider Nam e and Address Organization Details Recorded Time Influenza, split virus, trivalent, preservative 1 completed Not Available [facility] 05/16/2019 02:18:30 zoster live 1 completed Not Available [facility] 05/16/2019 02:29:17 influenza, unspecified formulation 8 completed Not Available [facility] 03/14/2011 05:22:13 Td(adult) unspecified formulation 8 completed Not Available [facility] 03/14/2011 05:22:26 Influenza, high-dose, trivalent, PF 4 completed Not Available [facility] 05/16/2019 02:29:19 Pneumococcal conjugate PCV 13 5 completed Not Available [facility] 05/16/2019 02:19:44 Influenza, split virus, trivalent, preservative 2 completed DEDE Cheung, [facility] 04/07/2012 09:09:04 influenza, unspecified formulation 3 [facility] 15:13:05 Influenza, high-dose, trivalent, PF 6 completed Not Available [facility] 05/16/2019 02:30:31 pneumococcal polysaccharide PPV23 7 completed Not Available [facility] 05/16/2019 02:39:42 Influenza, high-dose, trivalent, PF 7 completed Not Available [facility] 05/16/2019 02:22:28 Influenza, high-dose, trivalent, PF 5 completed Naina Villanueva CMA null, [facility] 03/08/2015 13:35:27 Influenza, high-dose, trivalent, PF 8 completed Not Available [facility] 05/16/2019 02:23:06 Influenza, high-dose, trivalent, PF 9 completed Not Available [facility] 05/16/2019 02:39:37 Influenza, high-dose, quadrivalent, PF 0 completed PAWAN Crane null, [facility] 02/22/2020 10:55:33 Hep A, unspecified formulation 9 completed [facility] 10/08/2018 08:15:24 zoster recombinant 9 completed Naina Villanueva CMA null, [facility] 04/16/2019 13:28:55 zoster recombinant 0 completed [facility] 07/03/2019 08:16:44 Influenza, high-dose, quadrivalent, PF 2 [facility] 02/15[facility]2022 13:28:17 Td (adult), 2 Lf tetanus toxoid, preservative free, adsorbed 2 completed Naina Villanueva CMA null, [facility] 05/29/2022 16:41:32 Influenza, split virus, trivalent, preservative 0 completed Not Available [facility] 05/16/2019 02:38:54 Tdap 0 completed Not Available [facility] 05/16/2019 02:34:19 Influenza, high-dose, quadrivalent, PF 3 completed Chinyere Loaiza RN null, [facility] 02/12/2023 10:50:21 Influenza, split virus, quadrivalent, preservative 1 completed Naina Villanueva CMA null, [facility] 02/13/2021 09:13:34 COVID-19, mRNA, LNP-S, PF, 100 mcg/0.5mL dose or 50 mcg/0.25mL dose 1 completed AMINTA Sheth, [facility] 02/13/2021 15:43:04 COVID-19, mRNA, LNP-S, PF, 100 mcg/0.5mL dose or 50 mcg/0.25mL dose 1 completed AMINTA Sheth, [facility] 02/12/2023 15:02:32 Influenza, split virus, trivalent, PF 9 completed Not Available [facility] 05/16/2019 02:30:34 Past Encounters Encounter ID Performer Location Encounter Start Date Encounter Closed Date Diagnosis/Indication Diagnosis SNOMED-CT Code Diagnosis ICD10 Code Diagnosis Note [id number] Roberto Calloway , PT Physical Therapy, [address] [address] 05/14/2024 13:18:15 05/18/2024 08:35:26 Pain in right foot [id number] 29265 M79.671 78 year old {{female m kia*}} with findings most consistent with {{acute* c hronic rec urrent}} 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 Skilled physical therapy is needed to safely and progressiv bea address impairment s and functional limitation s as outlined below.Antonia ent Goals:To be able to Walk, climb stairs and return to skiing her ADLs and recreation al without limitation s due to medial ankle pain Clinical Goals:1. Demonstrat e symmetric pain free active, passive and resisted motions of the {{neck and upper extremitie s shoulder elbow, forearm and wrist trun k and lower extremitie s hip knee ankle kne e and foot#}}. 2. Demonstrat e sufficient muscular endurance to meet functional demands. Treatment Plan: Patient to return for {{4 6* 8 1 0}} visits over {{4 8 12*} } weeks. 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 Skilled physical therapy is needed to safely and progressiv bea address impairment s and functional limitation s as outlined below.Antonia ent Goals:To be able to Walk, climb stairs and return to skiing her ADLs and recreation al without limitation s due to medial ankle pain Clinical Goals:1. Demonstrat e symmetric pain free active, passive and resisted motions of the {{neck and upper extremitie s shoulder elbow, forearm and wrist trun k and lower extremitie s hip knee ankle kne e and foot#}}. 2. Demonstrat e sufficient muscular endurance to meet functional demands. Treatment Plan: Patient to return for {{4 6* 8 1 0}} visits over {{4 8 12*} } weeks. We expect significan t change in pain, impairment and function in this time frame.Leticia tment to Include as appropriat e: therapeuti c exercise (40915), manual therapy (05760), therapeuti c activity (41609), gait training (19817), neuromuscu lar reeducatio n (34666), mechanical traction (99461) [id number] Moises Perrin MD Sports Medicine, [facility] [address] [facility] [place] [phone] 2024 10:01:18 06/18/2024 11:20:13 Pain in right foot [id number] M79.671 Beny is a 79-year-ol d male with right ankle pain due to tibialis posterior tendinitis . He may also be developing tibialis posterior dysfunctio n. His diagnostic ultrasound demonstrat ed significan t thickening of the tibialis posterior tendon as well as fluid adjacent to the tendon. There was no evidence of a significan t tendon rupture visualized . I reviewed tibialis posterior tendinitis and dysfunctio n with him today as well as discussing treatment. We discussed a period of brief immobiliza tion in a Cam walker boot. We also discussed the use of either over-the-c ounter or custom orthotics to support the navicular bone and posterior tibialis tendon. We also discussed further physical therapy as well as the potential for surgery. Beny will consider purchasing a Cam walker boot to wear when weightbear ing to see if this helps alleviate his symptoms. Tibialis p osterior tendinitis [id number] [id number] Roberto Calloway , PT Physical Therapy, [facility] [address] [place] [phone] 2024 09:06:37 2024 12:30:06 Pain in right foot [id number] M79.671 78 year old {{female m kia*}} with findings most consistent with {{acute* c hronic rec urrent}} 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 Skilled physical therapy is needed to safely and progressiv bea address impairment s and functional limitation s as outlined below.Antonia ent Goals:To be able to Walk, climb stairs and return to skiing her ADLs and recreation al without limitation s due to medial ankle pain Clinical Goals:1. Demonstrat e symmetric pain free active, passive and resisted motions of the {{neck and upper extremitie s shoulder elbow, forearm and wrist trun k and lower extremitie s hip knee ankle kne e and foot#}}. 2. Demonstrat e sufficient muscular endurance to meet functional demands. Treatment Plan: Patient to return for {{4 6* 8 1 0}} visits over {{4 8 12*} } weeks. We expect significan t change in pain, impairment and function in this time frame.Leticia tment to Include as appropriat e: therapeuti c exercise (31493), manual therapy (71787), therapeuti c activity (54712), gait training (51428), neuromuscu lar reeducatio n (22497), mechanical traction (34135) Health Concerns Section Related Observation LastModified by Organization Detai ls LastModified Time None Recorded Concern Status LastModified by Organization Details LastModified Time None Recorded Payers Encounter Date Sequence Insurance Name Policy Number Policy Brady Covered Member ID Brady Member ID Guarantor Name [id number] 2 FORMERLY [facility] IN[facility]MN[facility] - FORMERLY [facility] [id number] Jolie Paredes [id number] Julio Paredes 2024 1 [place]IC[place]: [employer] Julio Paredes [id number] Julio Paredes Notes Date Note Type Note Provider Name and Address Organization Details Recorded Time 2024 text/html PT Initial Eval*Reported bypatient.History: ief complaint: (Right medial foot pain); May 06 patient was walking in the [place] uneven [place]. He noted common medial foot pain that progressively worsened. Since then he has had difficulty with walking. He has a prior history of a right posterior tibial tendon insufficiency. He was treated with PT and orthotics in 2015 and had significant improvement. He has had intermittent foot pain but no pain that has lasted this long since then Symptom intensity:average 10/06 Symptom duration:constantly Symptom change:symptoms are not changing Symptom quality:burning; Throbbing Aggravating Factors:standing; walking; upstairs; downstairs; bending/squatting Sleep Status:no difficulty sleeping due to pain Prior History:no prior PT for other problems in the past year; no recent hospitalization; not currently taking a blood thinner; no allergy to latex; no falls in the past year Prior Treatments:physical therapy Work:retired Activities/Hobbies/E xercise:stopped due to pain; He is not walking for exercise like to be able to ski. Associated Symptoms:no nausea; no vomiting; no fever; no chills; no excessive fatigue; no confusion; no forgetfulness; no dizziness; no lightheadedness; no change in weight; no numbness; no tingling; no changes in urinary habits; no changes in bowel habits; no loss of pleasure or interest in activities; no feeling down or depressedDaily progress note*Reported bypatient.How are you feeling?improving (Taping helped a lot. I am seeing Dr. Perrin later today); Partner Faina is here to help with taping Patient Specific Functional Score: {{10 20 30 40 50 60 70 80* 90 100}} Percent limitation in Walking {{10 20 30 40 50* 60 70 80 90 100}} Percent limitation in Exercise Roberto Calloway, PT [address] [place], [phone], [facility] 2024 09:42:37 2024 text/html Beny is a 79-year -old male who presents today for evaluation of right foot and ankle pain. He states he developed pain in his right ankle and foot starting approximately 6 weeks ago. He was walking on frozen uneven ground with his dog and developed gradual onset pain along the medial ankle and foot. He denies any sudden onset of pain or injury. He describes the pain as along the medial ankle and worse with walking particular going up stairs or moving his ankle into a toe down position. He has been going to physical therapy for 2 sessions and states his symptoms have been improving somewhat. He has had his medial foot taped which rides symptom relief. He also has been using naproxen with some relief of symptoms. Beny is never had any previous right foot or ankle surgery or injections. He does state in 2015 he injured his ankle he thinks a medial ankle sprain. This was treated with physical therapy as well as custom orthotics with eventual resolution of his symptoms. He more recently was wearing [id number] orthotics. Moises Perrin MD [address] [place] [address], [phone], [facility] 2024 12:25:01
== END ==
LOC: HO.CARD 12:53
PROVIDERS: PCP Family Medicine; Visit Provider Internal Medicine
DX: R00.1 Bradycardia, unspecified (principal); I35.0 Nonrheumatic aortic (valve) stenosis
CPT/HCPCS: 93242; 93306

== ENCOUNTER → 2024-06-24 12:57 | Outpatient (BNV) | payer MEDICARE, OTHER, SELFPAY | PROVIDERS: PCP Family Medicine; Visit Provider Internal Medicine | DX: I35.2 Nonrheumatic aortic (valve) stenosis with insufficiency (principal); I34.0 Nonrheumatic mitral (valve) insufficiency; I36.1 Nonrheumatic tricuspid (valve) insufficiency | CPT/HCPCS: 93306 ==

== ENCOUNTER 2024-09-02 07:53 | Outpatient (REF) | payer MEDICARE, OTHER, SELFPAY ==
--- NOTE | ~2024-09-02 | CT_ITS ---
CLINICAL HISTORY: J84.9 - Interstitial pulmonary disease, unspecified CT chest without contrast Comparison: 09/17/2023 Findings: Lung nelson are clear without acute infiltrates. Chronic interstitial fibrosis pattern noted. Peripheral end-stage honeycombing is unchanged. Stable anterior left lower lobe nodules. Stable 3 mm right upper lobe nodule. Scattered calcified granulomas noted. No significant mediastinal adenopathy. Benign calcified nodes noted. No significant free pleural fluid. No significant focal bony abnormalities. Impression: Stable interstitial fibrosis No acute processes This document has been electronically signed by: Gomez Alaniz MD on 09/02/2024 20:01:57
--- OUTSIDE RECORDS SUMMARY | 2024-09-02 07:56 | XMS_ITS | Data Portability ---
Author Organization [facility], [facility] Address [address] [place] [address] Care Team Providers Care Tank Hoop Bender Name Role Phone FLORA TOUSSAINT Phys. Med. & Rehab Unavailable ANIRUDH HUBBARD Primary Care Provider TAMY CORDOVA Home Builder RICKY VERA Healthcare Liaison EDVIN BUENO Infectious Disease JULIO CALZADA Orthopedist LEELA ADAN Healthcare Liaison [facility] Orthopedist [facility] Dermatolo gist RICHARD OLIVEROS Assessment Encounter Date Assessment Date Assessment LastModified by Organization Details LastModified Time 2024 2024 2 PT sessions since initial evaluation on 05.14.24 Since our prior session patient reports improvement in symptom control and function. Clinically associated pain with ROM and resisted motions are not changingS. We will assess if adjustment to self care and home exercise as above help patient in progression toward their goals. Follow up: next week josullivan Not available 2024 09:42:29 06/16/2024 06/16/2024 3 PT sessions since initial evaluation on 05.14.24 Since our prior session patient reports improvement in symptom control and function. Clinically associated pain with ROM and resisted motions are improving. We will assess if adjustment to self care and home exercise as above help patient in progression toward their goals. Follow up: 3-4 weeks josullivan Not available 06/16/2024 10:19:24 07/09/2024 07/09/2024 4 PT sessions since initial evaluation on 05.14.24 Since our prior session patient reports improvement in symptom control and function. Clinically associated pain with ROM and resisted motions are improving. We will assess if adjustment to self care and home exercise as above help patient in progression toward their goals. Follow up: 3-4 weeks josullivan Not available 07/09/2024 16:10:16 08/11/2024 08/11/2024 6 PT sessions since initial evaluation on 05.14.24 Since our prior session patient reports improvement in symptom control and function. Clinically associated pain with ROM and resisted motions are improving. We will assess if adjustment to self care and home exercise as above help patient in progression toward their goals. Follow up: At this time patient is plateaued with their level of symptom control and function and confident they can continue with a home exercise program independently. No further physical therapy is planned. josullivan Not available 08/12/2024 19:07:42 Plan of Treatment Reminders Order Date Submit Date Provider Last Modified By Organization Details Last Modified Time Details Appointments LAB Follow-Up 2024 12:55P M [facility] Lab Not available Not available Not available Sports Med Follow Up (20) 2024 01:30P M Moises Perrin MD Not available Not available Not available New Patient-1 5 2024 03:30P M Roberto Weiner DPM Not available Not available Not available Wellness Visit 30 2024 11:15A M Anirudh Hubbard MD Not available Not available Not available Lab None recorded. Referral None recorded. Procedures None recorded. Surgeries None recorded. Imaging None recorded. Medication Orders None recorded. Patient TargetsNo targets recorded. Patient Instructions Encounter Date Encounter Id Patient Instructions Last Modified By Organization Details Last Modified Time 07/29/2024 [id number] Continue with physical therapy Consider having custom orthotics adjusted Follow-up as needed Not available 07/29/2024 09:53:56 All of the patients questions were answered and they understand the plan of care. Thank you for allowing me to participate in the care of your patient. ? ? ?Please feel free to contact me with any questions regarding their care. Not available 07/29/2024 09:54:44 Reason for Referral None Reported. 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 flovent- but d/c'd( did not need much). 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 2022 repeat echo 2026 Anirudh Hubbard MD [address] [place] [address] [place], [address] , [facility] 3 09:36:43 Lipoma of skin and subcutan eous tissue (excludi ng face) 501636836 Completed 200703/18/2013 Not Available [facility] 3 02:04:10 Neoplasm of uncertai n behavior of skin 64240875 Completed 200603/18/2013 Not Available [facility] 3 02:01:52 Lisbeth s 99939195 Completed 200602/13/2021 Anirudh Hubbard MD [address] [place], [address] , [facility] 1 09:20:52 Knee pain Completed 200603/18/2013 Not Available [facility] 3 02:00:42 Problem Notes None recorded. Procedures Surgical History Date Name Laterality Status Provider Name and Address Organization Details Recorded Time 08/12/19 34684: Therapeutic Exercise completed Roberto Calloway, PT [address] [place], [address], [facility] 08/12/2024 19:05:48 08/12/19 Treatment and Advice completed Roberto Calloway, PT [address] [place], [address], [facility] 08/12/2024 19:01:12 07/10/19 25 38544: Therapeutic Exercise completed Roberto Calloway, PT [address] [place], [address], [facility] 07/09/2024 16:09:56 07/10/19 Treatment and Advice completed Roberto Calloway, PT [address] [place], [address], [facility] 07/09/2024 16:08:43 06/16/19 25 92174: Therapeutic Exercise completed Roberto Calloway, PT [address] [place], [address], [facility] 06/16/2024 10:16:27 06/16/19 25 71275: Neuromuscular Re-Education completed Roberto Calloway, PT [address] [place], [address], [facility] 06/16/2024 10:17:24 06/16/19 25 Treatment and Advice completed Roberto Calloway, PT [address] [place], [address], [facility] 06/16/2024 10:18:51 06/11/19 25 Generic Procedure Template completed Moises Perrin MD [address] [place], [address], [facility] 2024 12:24:28 06/11/19 25 40647: Neuromuscular Re-Education completed Roberto Calloway, PT [address] [place], [address], [facility] 2024 09:42:16 06/11/19 25 Treatment and Advice completed Roberto Calloway, PT [address] [place], [address], [facility] 2024 09:33:26 06/09/19 25 38586: Manual Therapy completed Roberto Calloway, PT [address] [place], [address], [facility] 2024 09:38:21 06/09/19 25 08015: Neuromuscular Re-Education completed Roberto Calloway, PT [address] [place], [address], [facility] 2024 09:36:59 06/09/19 25 Treatment and Advice completed Roberto Calloway, PT [address] [place], [address], [facility] 06/09/2024 12:47:46 05/14/19 25 Physical Activity Counselling completed Roberto Calloway, PT [address] [place], [address], [facility] 05/14/2024 13:27:08 05/14/19 25 14135: PT Eval Low Complexity completed Roberto Calloway, PT [address] [place], [address], [facility] 05/14/2024 13:27:08 05/14/19 25 Treatment and Advice completed Roberto Calloway, PT [address] [place], [address], [facility] 05/14/2024 13:57:52 04/01/20 19 92074: Therapeutic Exercise completed Flora Toussaint, PT [address] [place], [address], [facility] 04/01/2019 08:40:29 04/01/20 19 91238: Manual Therapy completed Flora Toussaint, PT [address] [place], [address], [facility] 04/01/2019 08:40:33 03/30/20 19 Physical Activity Counselling completed Flora Toussaint, PT [address] [place], [address], [facility] 03/31/2019 09:38:08 03/30/20 19 70079: PT Eval Low Complexity completed Flora Toussaint, PT [address] [place], [address], [facility] 03/31/2019 09:38:13 08/28/19 19 Medicare Wellness Visit completed Naina Villanueva CMA [facility] 08/27/2018 13:44:04 08/28/19 19 Medicare Risk for Falls Screen completed Naina Villanueva CMA [facility] 08/27/2018 13:49:32 08/28/19 19 Advanced Care Planning completed Anirudh Hubbard MD [address] [place], [address], [facility] 08/27/2018 14:21:10 11/13/19 18 39111: Therapeutic Exercise completed Flora Toussaint, PT [address] [place], [address], [facility] 11/13/2017 07:35:58 11/13/19 18 96611: Manual Therapy completed Flora Toussaint, PT [address] [place], [address], [facility] 11/13/2017 07:36:04 10/26/19 18 22211: Therapeutic Exercise completed Flora Toussaint, PT [address] [place], [address], [facility] 10/25/2017 08:13:46 10/26/19 18 35924: Manual Therapy completed Flora Toussaint, PT [address] [place], [address], [facility] 10/25/2017 08:13:50 10/24/19 18 Physical Activity Counselling completed Flora Toussaint, PT [address] [place], [address], [facility] 10/23/2017 14:58:29 10/24/19 18 90778: PT Eval Low Complexity completed Flora Toussaint, PT [address] [place], [address], [facility] 10/23/2017 14:58:35 08/22/19 18 Medicare Wellness Visit completed Naina Villanueva [facility] 08/21/2017 13:44:24 08/22/19 18 Medicare Risk for Falls Screen completed Naina Villanueva [facility] 08/21/2017 13:46:22 08/21/19 17 Medicare Wellness Visit completed Corina Solares RN, BSN [facility] 08/20/2016 11:04:47 11/10/19 15 Medicare Wellness Visit completed Jailyn Lance [facility] 11/09/2014 16:18:01 11/10/19 15 Medicare Annual Wellness Visit completed Jailyn Lance [facility] 11/09/2014 16:25:29 11/10/19 15 Medicare Risk for Falls Screen completed Jailyn Lance [facility] 11/09/2014 16:25:29 08/14/19 14 <strong>Pain</str latonia> Assessment and Follow-up (G8730) completed Flora Toussaint, PT [address] [place], [address], [facility] 08/13/2013 23:01:36 08/14/19 14 <strong>Falls</st juan c> Risk Assessment - No Risk (1101F) completed Flora Toussaint, PT [address] [place], [address], [facility] 08/13/2013 23:01:36 08/14/19 14 <strong>Functiona l</strong> outcome not documented, reason not given (G8541) completed Flora Toussaint, PT [address] [place], [address], [facility] 08/13/2013 23:01:36 03/16/20 13 Medicare Wellness Visit completed Nasrin Multani CMA [facility] 03/16/2013 15:07:02 04/07/20 12 Medicare Wellness Visit completed Naina Garcia MA [facility] 04/07/2012 09:08:04 Imaging Results None recorded. Procedure Notes None recorded. Medical Equipment None Reported. Allergies Allergen ID Allergen Name Allergen Category Reaction Reaction Severity Criticality Documentation Date Start Date Code Code System Note Provider Name and Address Organization Details Recorded Time 57146 Product containin g penicilli n (product) medicatio n rash Not available Not available 12/27/2008 04039 8001 SNOMED Not Available [facility] 1 06:05:20 841142 hornet venom environme nt anaphylax is Not available Not available 11/01/2017 16680 UNK Colten Rooney RN [facility] 8 11:51:51 507874 wasp venoms environme nt anaphylax is Not available Not available 11/01/2017 59491 RxNorm Colten Rooney RN [facility], [facility] 8 11:52:00 818809 Symbicort medicatio n muscle cramps Not available Not available 04/19/2023 77818 8 RxNomichele Kauffman CMA [facility] 3 09:05:01 Medications Name Sig Start Date Stop Date Status Note LastModified by Organization Details LastModified Time cyclobenz aprine 10 mg tablet TK 1 T PO Q 8 H PRF SPASM 01/19 completed Not Available Not Available Not Available nystatin 100,000 unit/mL oral suspensio n Take 5 mL 4 times a day by oral route for 7 days. active finished course 2/13/25 Not Available Not Available Not Available prednison [...] Not Available Not Available Not Available Fluvirin 0300-2282 (PF) 45 mcg (15 mcg x3)/0.5 mL intramusc ular syringe TO BE ADMINIST ERED BY [employer] FOR IMMUNIZA TION active Not Available Not Available No t Available Arnuity Ellipta 200 mcg/actua tion powder for inhalatio n INHALE 1 PUFF BY MOUTH ONCE DAILY active Not Available Not Available No t Available Fluzone High-Dose (PF) 180 mcg/0.5 mL intramusc ular syringe TO BE ADMINIST ERED BY [employer] FOR IMMUNIZA TION 08/20 completed Not Available [...] Details Last Updated DateTime 2024 177.[address] MA [facility] 2024 10:39:48 Date Recorded Body height Provider Name an d Address Organization Details Last Updated DateTime 07/29/2024 177.8 [address] Patel MA 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 REGULAR Information not available 11/09/2014 Which Illicit Or Recreational Drugs Have You Used? 0 Information not available 11/09/2014 What Is The Highest Grade Or Level Of School You Have Completed Or The Highest Degree You Have Received? [id number] [email or web address] Information not available 04/19/2023 When Did You Quit Smoking? 16+yearssinc [email or web address] te Information not available 11/09/2014 How Many Days In The Past Year Have You Had A Heavy Drinking Consumption (4+ Female, 5+ Male)? 2 2 Information not available 11/09/2014 Are There Any Guns Present In Your Home? No Information not available 11/09/2014 Live Alone Or With Others? With Others Faina murphy Information not available 04/02/2011 Patient Has Health Care Proxy Signed And In Chart No Katina Paredes (daughter) [phone] [email or web address] Information not available 01/23/2018 MOLST Form Signed And In Chart 02/13/2021 Information not available 02/14/2021 CCM Consent Discussion 08/20/2016 Information not available 08/22/2016 Marital Status GF Faina [email or web address] Informatio n not available 02/20/2010 Mosquito Repellent Used Routinely No Information not available 11/09/2014 What Was The Date Of Your Most Recent Tobacco Screening? 05/10/2024 [email or web address] Information not available 05/10/2024 How Many Children Do You Have? 1 Silvana(Fami ly Practitioner ) [facility] Information not available 04/02/2011 What Is Your Current Pack Years? 10packyears 0 Pack Years Information not available 11/09/2014 Do You Use Your Seat Belt Or Car Seat Routinely? Yes [email or web address] Information not available 04/19/2023 Seat Belts Used Routinely Yes Information not available 11/09/2014 Smoke Alarm In Home Yes Information not available 11/09/2014 Do You Have Smoke And Carbon Monoxide Detectors In Your Home? Yes [email or web address] Information not available 04/19/2023 Are You Passively Exposed To Smoke? No [email or web address] Information not available 04/19/2023 General Stress Level [...] record ed as Cancer - Colon [id number] Not available 12/08/2012 03:00:55 Sister Malignant tumor of colon got age 70's [facility] Not available 08/27/2018 14:11:33 Sister Malignant tumor of breast [facility] Not available 2018 14:11:45 Father Alzheimer's disease age 82 [facility] Not available 2022 09:42:21 Notes:Mother age 94. Fa ther 89, [place] in his 80's. Healthy sister. Medical History Condition Response Interstitial Lung Disease Y MUSCULOSKELETAL Y Immunizations Vaccine Type Date Status Note Provider Nam e and Address Organization Details Recorded Time Influenza, split virus, trivalent, preservative 1 completed Not Available [facility] 05/16/2019 02:18:30 zoster live 1 completed Not Available [facility] 05/16/2019 02:29:17 influenza, unspecified formulation 8 completed Not Available [facility] 03/14/2011 05:22:13 Td(adult) unspecified formulation 8 completed Not Available [facility] 03/14/2011 05:22:26 Influenza, high-dose, trivalent, PF 4 completed Not Available [facility] 05/16/2019 02:29:19 Pneumococcal conjugate PCV 13 5 completed Not Available [facility] 05/16/2019 02:19:44 Influenza, split virus, trivalent, preservative 2 completed Naina Garcia MA null, [facility] 04/07/2012 09:09:04 influenza, unspecified formulation 3 completed Nasrin Multani CMA null, [facility] 03/16/2013 15:13:05 Influenza, high-dose, trivalent, PF 6 completed Not Available [facility] 05/16/2019 02:30:31 pneumococcal polysaccharide PPV23 7 completed Not Available [facility] 05/16/2019 02:39:42 Influenza, high-dose, trivalent, PF 7 completed Not Available [facility] 05/16/2019 02:22:28 Influenza, high-dose, trivalent, PF 5 completed Naina Villanueva CMA null, [facility] 03/08/2015 13:35:27 Influenza, high-dose, trivalent, PF 8 completed Not Available [facility] 05/16/2019 02:23:06 Influenza, high-dose, trivalent, PF 9 completed Not Available [facility] 05/16/2019 02:39:37 Influenza, high-dose, quadrivalent, PF 0 completed PAWAN Crane null, [facility] 02/22/2020 10:55:33 Hep A, unspecified formulation 9 completed [facility] [place] [facility]2018 08:15:24 zoster recombinant 9 completed Naina Villanueva CMA null, [facility] 04/16/2019 13:28:55 zoster recombinant 0 completed [facility] [place] 07/03/2019 08:16:44 Influenza, high-dose, quadrivalent, PF 2 completed Niana Villanueva CMA null, [facility] 02/15/2022 13:28:17 Td (adult), 2 Lf tetanus toxoid, preservative free, adsorbed 2 completed AMINTA Sheth, [facility] 05/29/2022 16:41:32 Influenza, split virus, trivalent, preservative 0 completed Not Available [facility] 05/16/2019 02:38:54 Tdap 0 completed Not Available [facility] 05/16/2019 02:34:19 Influenza, high-dose, quadrivalent, PF 3 completed Chinyere Loaiza RN null, [facility] 02/12/2023 10:50:21 Influenza, split virus, quadrivalent, preservative 1 completed AMINTA Sheth, [facility] 02/13/2021 09:13:34 COVID-19, mRNA, LNP-S, PF, 100 mcg/0.5mL dose or 50 mcg/0.25mL dose 1 completed AMINTA Sheth, [facility] 02/13/2021 15:43:04 COVID-19, mRNA, LNP-S, PF, 100 mcg/0.5mL dose or 50 mcg/0.25mL dose 1 completed AMINTA Sheth, [facility] 02/12/2023 15:02:32 Influenza, split virus, trivalent, PF 9 completed Not Available [facility] 05/16/2019 02:30:34 Past Encounters Encounter ID Performer Location Encounter Start Date Encounter Closed Date Diagnosis/Indication Diagnosis SNOMED-CT Code Diagnosis ICD10 Code Diagnosis Note [id number] MD DOUG Mares, [facility], OFF[address] [place] [address] 05/21/2006 17:15:54 05/22/2006 07:41:25 [id number] MD DOUG Mares, [facility], [address] [place] [address] [id number] MD DOUG Corbin, [facility], [address] [place] [address] 11/29/2006 16:21:32 11/29/2006 16:58:08 [id number] Leandro Monge , [facility], [address] [place] [place] [facility] [place] [address] 03/02/2008 16:16:02 05/19/2008 02:02:29 [id number] Anirudh Hubbard MD , [facility], [address] [place] [facility] [place] [address] 12/27/2008 08:53:44 12/31/2008 08:45:14 [id number] [facility] - [facility] [address] [facility] [place] [facility] [address] 02/15/2009 07:50:16 02/15/2009 07:57:32 [id number] MD DOUG Mares, [facility], [address] [place] [facility] [place] [address] 06/13/2009 16:38:19 06/14/2009 15:37:48 [id number] Anirudh Hubbard MD , [facility], [address] [place] [facility] [place] [address] 09/12/2009 16:38:58 09/15/2009 14:00:10 [id number] MD DOUG Corbin, [facility], [address] [place] [facility] [place] [address] 01/19/2010 16:11:15 01/24/2010 08:19:13 [id number] MD DOUG Mares, [facility] [facility] [place] [facility] [place] [address] 02/20/2010 14:00:17 02/22/2010 13:39:19 [id number] MD DOUG Contreras, [facility], OFF[address] [place] [facility] [place] [address] 06/30/2010 15:49:12 07/06/2010 15:20:53 [id number] MD DOUG Mares, [facility], [address] [place] [facility] [place] [address] 04/02/2011 08:50:55 04/02/2011 09:55:44 [id number] [facility] FP TREATMENT NURSE FP, [facility] [facility] [place] [facility] [address] 04/10/2011 08:56:13 04/11/2011 13:49:26 [id number] Anirudh Hubbard MD , [facility] [facility] [place] [facility] [place] [address] 10/05/2011 15:41:54 10/05/2011 16:16:09 [id number] Anirudh Hubbard MD , [facility], [facility] [address] [facility] [place] [address] 02/13/2012 07:43:58 02/13/2012 08:21:20 [id number] Eduardo Pierson MD Radiology , [address] [place] [facility] [place] [address] 02/18/2012 16:28:24 02/19/2012 15:22:27 [id number] Anirudh Hubbard MD , [facility], OFFICE [address] [place] [address] [place] [address] 04/07/2012 08:52:30 04/07/2012 10:27:09 [id number] Ethan Linn MD Radiology , [address] [place] [address] 05/12/2012 07:31:37 05/12/2012 08:01:50 [id number] Flora Toussaint PT Physical Therapy, [address] [place] [facility] [place] [address] 10/07/2012 08:52:05 10/07/2012 11:57:54 [id number] Flora Toussaint PT Physical Therapy, [address] [place] [facility] [address] 10/10/2012 07:35:42 10/14/2012 07:33:56 [id number] Flora Toussaint PT Physical Therapy, [address] [place] [address] 10/20/2012 07:36:37 10/20/2012 10:38:57 [id number] Flora Toussaint PT Physical Therapy, [address] [place] [facility] [address] 10/22/2012 07:35:39 10/22/2012 10:35:22 [id number] Flora Toussaint PT Physical Therapy, [address] [address] 11/05/2012 07:31:42 11/05/2012 11:55:57 [id number] Anirudh Hubbard MD , [facility], OFFICE [address] [place] [address] 6 03/16/2013 14:58:54 03/16/2013 16:32:08 Adult health examination [id number] see Risk Assessment and Lifestyle Change Counseling section above Counseling 443967207 Muscle strain 68103420 [id number] Anirudh Hubbard MD , [facility], OFFICE [address] [place] [address] 6 08/10/2013 08:14:35 08/10/2013 09:31:48 Memory impairment 554920976 Foot pain 80760306 Sprain of foot 69395325 spring ligament sprain. [id number] Flora Toussaint PT Physical Therapy, [address] [address] 6 08/13/2013 06:44:10 08/14/2013 11:12:29 Foot pain 06281721 [id number] Flora Toussaint PT Physical Therapy, [address] [address] 6 08/17/2013 07:40:20 08/17/2013 11:13:38 Foot pain 94754367 [id number] Flora Toussaint PT Physical Therapy, [address] [address] 6 08/19/2013 07:05:45 08/19/2013 11:02:32 Foot pain 17048315 [id number] Flora Toussaint PT Physical Therapy, [address] [address] 6 08/19/2013 15:09:08 08/19/2013 15:09:27 [id number] MD DOUG Corbin, [facility], OFFICE [address] [place] [address] 6 03/12/2014 06:54:01 03/12/2014 08:19:45 Influenza vaccine needed 1461914491 [id number] [id number] Flora Toussaint PT Physical Therapy, [address] [address] 6 03/15/2014 15:13:56 03/15/2014 15:14:10 [id number] Tamy Rosas , [facility], OFFICE [address] [place] [address] 6 08/05/2014 09:58:30 08/05/2014 10:29:39 Tick bite 60167767 [id number] Anirudh Hubbard MD FP, [facility], OFFICE [address] [place] [address] 6 11/09/2014 16:10:53 11/09/2014 17:42:15 Adult health examination 369844477 see Risk Assessment and Lifestyle Change Counseling section above Counseling 808856413 Pigmented skin lesion of uncertain nature 370608471 Pain of elbow region 65213841 Active or passive immunization 884942027 Knee pain 75396794 [id number] Flora Toussaint, PT Physical Therapy, [address] [address] 6 04/21/2015 11:31:14 04/21/2015 11:31:27 [id number] Dax Beal MD , [facility], OFFICE [address] [place] [address] 6 01/26/2016 11:47:44 01/26/2016 14:08:17 Active or passive immunization 588736201 Z23 [id number] Flora Toussaint PT Physical Therapy, [address] [address] 6 05/10/2016 13:54:16 05/10/2016 13:54:31 [id number] Anirudh Hubbard MD , [facility], OFFICE [address] [place] [address] 6 08/20/2016 10:55:38 08/20/2016 12:18:08 Adult health examination 843772696 Z00.00 see Risk Assessment and Lifestyle Change Counseling section above Counseling 559619877 Z71 .9 Screening for disorder 695869326 Z11.59 Active or passive immunization 578439096 Z23 Tick bite 74268689 S30.8 61A [id number] Anirudh Hubbard MD , [facility], OFFICE [address] [place] [address] 6 09/25/2016 16:51:08 09/26/2016 12:49:47 Allergic reaction to bee sting 277577859 T78.40XA Chest pain 53595836 R07. 9 [id number] Flora Toussaint, PT Physical Therapy, [address] [address] 6 01/11/2017 09:51:41 01/11/2017 09:51:57 [id number] Anirudh Hubbard MD , [facility], OFFICE [address] [place] [address] 6 04/17/2017 11:42:00 04/17/2017 11:57:09 Active or passive immunization 171222714 Z23 [id number] Anirudh Hubbard MD , [facility], OFFICE [address] [place] [address]984 6 08/21/2017 13:39:31 08/21/2017 14:31:53 Adult health examination 956117985 Z00.00 see Risk Assessment and Lifestyle Change Counseling section above Counseling 969922129 Z71 .9 Depression screening 171 610545 Z13.89 depression screening tool administer ed, entered into emr, scored and discussed. 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, wasps and bees 528647511 T63.451D Pain of ri ght shoulder joint 1014706282 0580412 M25.511 Pain of rush int of ankle 277014700 M25.400 [id number] Flora Toussaint, PT Physical Therapy, [address] [address] 6 10/23/2017 07:57:17 10/24/2017 10:04:45 Tibialis posterior tendinitis 895619898 M76.226 [id number] Flora Toussaint PT Physical Therapy, [address] [address] 6 10/25/2017 07:33:11 10/25/2017 08:39:24 Tibialis posterior tendinitis 669700284 M76.180 [id number] Flora Toussaint, PT Physical Therapy, [address] [address] 6 11/12/2017 17:15:43 11/13/2017 08:20:23 Tibialis posterior tendinitis 581229297 M76.780 [id number] Anirudh Hubbard MD , [facility], OFFICE [address] [place] [address] 6 03/05/2018 07:00:55 03/05/2018 12:10:08 Active or passive immunization 978158769 Z23 [id number] Anirudh Hubbrad MD , [facility], OFFICE [address] [place] [address] 6 08/27/2018 13:43:33 08/27/2018 14:27:00 Adult health examination 470735777 Z00.00 see Risk Assessment and Lifestyle Change Counseling section above Counseling 158502669 Z71 .9 Depression screening 171 872577 Z13.89 depression screening tool administer ed, entered into emr Advance di rective discussed with patient 720853401 Z71.89 Sarcoidosis 27346945 D86 .9 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 [id number] Anirudh Hubbard MD , [facility], OFFICE [address] [place] [address] 6 11/26/2018 14:13:21 11/26/2018 15:59:54 Acute upper respiratory infection 05056050 J06.9 [id number] Anirudh Hubbard MD , [facility], OFFICE [address] [place] [address] 6 02/05/2019 09:19:51 02/05/2019 16:20:10 Active or passive immunization 579857926 Z23 [id number] Flora Toussaint PT Physical Therapy, [address] [address] 6 03/30/2019 15:26:42 04/02/2019 14:37:58 Pain in right foot 2983561585 77012 M79.215 [id number] Flora Toussaint PT Physical Therapy, [address] [address] 6 04/01/2019 08:01:04 04/01/2019 10:06:04 Pain in right foot 0440076069 58141 M79.527 [id number] Flora Toussaint PT Physical Therapy, [address] [address] 6 04/08/2019 07:56:20 04/09/2019 14:24:48 Pain in right foot 3261752519 53014 M79.062 [id number] Flora Toussaint PT Physical Therapy, [address] [address] 6 04/20/2019 08:01:50 04/20/2019 09:41:52 Pain in right foot 8685272075 43045 M79.283 [id number] Flora Toussaint PT Physical Therapy, [address] [address] 6 10/21/2019 07:36:42 10/26/2019 12:38:44 Knee pain 97300987 M25.561 Pain of hip region 09213 002 M25.800 [id number] Flora Toussaint PT Physical Therapy, [address] [address] 6 10/27/2019 07:25:42 10/27/2019 08:43:50 Knee pain 14675882 M25.561 Pain of hip region 98274 002 M25.020 [id number] Flora Toussaint PT Physical Therapy, [address] [address] 6 11/04/2019 07:35:31 11/04/2019 08:14:54 Knee pain 11025227 M25.561 Pain of hip region 88416 002 M25.869 [id number] Anirudh Hubbard MD , [facility], OFFICE [address] [place] [address] 6 01/20/2020 13:34:38 01/21/2020 08:38:13 Adult health examination 645095520 Z00.00 see Risk Assessment and Lifestyle Change Counseling section above Counseling 983077620 Z71 .9 including cardiovasc ular risk reduction counseling Depression screening 171 101693 Z13.89 depression screening tool administer ed, entered into emr, scored and discussed\ Screening for alcohol abuse 839147666 Z13.39 Sarcoidosis 12480488 D86 .9 quiescent. 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 suspect L3 disc injury, or more likely a lumbar muscle strain. Delines meds. Screening for disorder 558675252 Z13.6 due anyway, low on my list of likely issues. Abdominal pain 27751719 R10.9 Abd pain portion of this does not make 100% sense. Would do AAA screening. [id number] Flora Toussaint, PT Physical Therapy, [address] [address] 6 06/02/2020 07:36:33 06/03/2020 08:18:36 Low back pain 203908813 M54.5 [id number] Anirudh Hubbard MD , [facility], OFFICE [address] [place] [address]749 6 02/13/2021 08:59:55 02/24/2021 10:28:04 Adult health examination 592164929 Z00.00 see Risk Assessment and Lifestyle Change Counseling section above Counseling 703277482 Z71 .9 including cardiovasc ular risk reduction counseling Depression screening 171 Z13.31 depression screening tool administer ed, entered into emr, scored and discussed, Screening for alcohol abuse 486418808 Z13.39 Advance di rective discussed with patient 167722551 Z71.89 Sarcoidosis 02134621 D86 .9 quiescent. but with cough daily. and a bit more SOB. Will look up sarcoid and further surveilanc e. [id number] Anirudh Hubbard MD , [facility], OFFICE [address] [place] [address] 6 02/15/2022 13:20:25 03/07/2022 14:13:39 Active or passive immunization 326158172 Z23 [id number] Anirudh Hubbard MD , [facility], OFFICE [address] [place] [address] 6 04/17/2022 14:42:41 04/17/2022 15:30:52 Adult health examination 979622932 Z00.00 see Risk Assessment and Lifestyle Change Counseling section above Counseling 852938544 Z71 .9 including cardiovasc ular risk reduction counseling Depression screening 171 247210 Z13.31 depression screening tool administer ed, entered into emr Screening for alcohol abuse 984642546 Z13.39 Active or passive immunization 065788037 Z23 Allergy to bee venom 424 247265 Z91.030 epi when needs it. Sarcoidosis 86973410 D86 .9 quiescent. but with cough daily. and a bit more SOB. Will look up sarcoid and further surveilanc e. Pigmented skin lesion of uncertain nature 888089367 L81.9 see derm Systolic murmur 54616453 R01.1 check the echo, also SOB Family his tory of cancer of colon 087626149 Z80.0 get colonsocpy 2022 [id number] Anirudh Hubbard MD , [facility], OFFICE [address] [place] [address] 6 05/11/2022 08:23:44 05/11/2022 09:49:26 Right lower quadrant pain 911814839 R10.31 2 d RLQ pain, neg on exam, no tenderness . unclear etiology. Suspect muscluar. will observe. Go to ED if getting worse. When get back from the trip to [facility] , then send a message how it is going. If no better, consider imaging-CT [id number] Anirudh Hubbard MD , [facility], OFFICE [address] [place] [address] 6 07/13/2022 09:33:49 07/13/2022 10:36:46 Acute upper respiratory infection 00347688 J06.9 Cold self care measures reviewed and encouraged (fluids, steam inhalation , adequate rest). F/U if symptoms worsen or aren't resolving. COVID-19 261123325 U07.1 Last GFR 06/18/20 at 78. By recommend full dosing. We talked about repeating the kidney function but it is heading into the weekend and will just get it on time to be fully effective. Sarcoidosis 23509149 D86 .9 quiescent. but with cough daily. and a bit more SOB. Will look up sarcoid and further surveilanc e. Right lowe r quadrant pain 194066360 R10.31 2 mo RLQ pain, neg on exam, no tenderness . unclear etiology. neg us and x-ray. still with the problem, ? serious etiology. [id number] Anirudh Hubbard MD , [facility], OFFICE [address] [place] [address] 02/12/2023 10:43:00 02/12/2023 19:08:09 Active or passive immunization 397453711 Z23 [id number] Anirudh Hubbard MD , [facility], OFFICE [address] [place] [address]509 6 04/19/2023 08:57:49 04/23/2023 12:36:46 Adult health examination 090765759 Z00.00 see Risk Assessment and Lifestyle Change Counseling section above Depression screening 171 648280 Z13.31 depression screening tool administer ed Screening for alcohol abuse 194792693 Z13.39 Alcohol use screening tool administer ed Screening for malignant neoplasm of prostate 791134289 Z12.5 PSA testing for ages 55-69 risks and benefits discussed {{patient declines testing te st ordered}}. Allergy to bee venom 424 748170 Z91.030 epi when needs it. [id number] Anirudh Hubbard MD , [facility], OFFICE [address] [place] [address] 08/12/2023 08:59:43 08/12/2023 11:47:51 Mild memory disturbance 839053836 R41.3 The memory is actually quite good and his mocha score is 28 out of 30 which is quite normal. He does seem to present with mostly attentiona l issues regarding his memory and I will discuss this with or send a message to 1 of the geriatrici ans about this. We talked about strategies to reduce toxic load and to increase antioxidan ts. We talked about the clean 15 and the dirty dozen from the [facility] to continue taking his multivitam in, getting enough vitamin D as well.We talked some about the medication s used for Alzheimer' s in my judgment given his lack of evidence of obvious memory loss I would probably steer away from them given the side effects but he is also welcome to talk to a geriatrici an or a neurologis t.Given the number for Ivet Cervantes [id number] PAVEL EDUARDO , [facility], OFFICE [address] [place] [address] 04/27/2024 13:15:20 04/27/2024 14:04:46 Candidiasis of mouth 64458823 B37.0 Pt noting discomfort in throat, difficulty swallowing , altered taste x 2 weeks. on steroid inhaler. White lesion noted in back of throat. Difficult to discern if thrush or a cancer sore. Will treat as thrush, reviewed instructio n for medication rinse below, if not improvemen t after 1 week would consider treating as canker sore w/ oral steroid paste. f/u prn Sarcoidosis 48172364 D86 .9 can consider holding inhaler during treatment [id number] Silvana Hercules DO , [facility], OFFICE [address] [place] [address] 05/10/2024 08:57:47 05/10/2024 09:23:56 Pain in right foot 4459368014 93278 M79.671 Recurrent Extensor Tibialis Tendonitis Aggravated by walking on uneven terrain. Currently managed with over-the-c ounter ibuprofen 800mg three times a day and custom orthotics. Pain originates from the foot and radiates upwards. -Refer to physical therapy for a refresher on exercises and management strategies . -Wrap the foot for additional support. Applied by nursing today -Consider use of topical pain relievers such as ibuprofen gel or aspirin cream. [id number] Roberto Calloway , PT Physical Therapy, [address] [address] 6 05/14/2024 13:18:15 05/18/2024 08:35:26 Pain in right foot 8265715737 45991 M79.671 78 year old {{female m kia*}} [...] Include as appropriat e: therapeuti c exercise (36480), manual therapy (75187), therapeuti c activity (49492), gait training (49957), neuromuscu lar reeducatio n (36896), mechanical traction (12215) [id number] NICHOL MASTERS NP Physical Therapy, [address] [address] 6 06/09/2024 12:28:14 2024 12:29:29 Pain in right foot 4698354438 64052 M79.671 78 year old {{female m kia*}} [...] Include as appropriat e: therapeuti c exercise (72413), manual therapy (20553), therapeuti c activity (75885), gait training (23374), neuromuscu lar reeducatio n (34037), mechanical traction (37399) [id number] Moises Perrin MD Sports Medicine, [address] [address] 2024 10:01:18 06/18/2024 11:20:13 Pain in right foot 6937937981 91723 M79.671 Beny is a 79-year-ol d male [...] alleviate his symptoms. Tibialis p osterior tendinitis 342857917 M76.829 [id number] NICHOL MASTERS NP Physical Therapy, [address] [address] 2024 09:06:37 2024 12:30:06 Pain in right foot 0508568325 81773 M79.671 78 year old {{female m kia*}} [...] Include as appropriat e: therapeuti c exercise (14323), manual therapy (40893), therapeuti c activity (62413), gait training (74727), neuromuscu lar reeducatio n (77186), mechanical traction (47813) [id number] NICHOL MASTERS NP Physical Therapy, [address] [address] 6 06/16/2024 09:29:15 06/16/2024 11:40:26 Pain in right foot 5368394752 93185 M79.671 78 year old {{female m kia*}} [...] Include as appropriat e: therapeuti c exercise (62946), manual therapy (19539), therapeuti c activity (53547), gait training (96842), neuromuscu lar reeducatio n (30968), mechanical traction (69933) [id number] NICHOL MASTERS NP Physical Therapy, [address] [address] 6 07/09/2024 14:57:56 07/09/2024 16:20:45 Pain in right foot 9438422967 47112 M79.671 78 year old {{female m kia*}} [...] Include as appropriat e: therapeuti c exercise (11634), manual therapy (56823), therapeuti c activity (92756), gait training (56719), neuromuscu lar reeducatio n (68367), mechanical traction (36578) [id number] Moises Perrin MD Sports Medicine, [address] [address] 6 07/29/2024 09:27:13 08/20/2024 09:16:51 Pain in right foot 0016774550 04367 M79.671 Beny is a 79-year-ol d male with right ankle pain due to tibialis posterior tendinitis . I again reviewed this diagnosis with him today as well as discussing further treatment options. He has done quite well with brief immobiliza tion as well as physical therapy. We discussed considerat ion of custom orthotics via podiatry. We also discussed possible surgical interventi on. Beny had questions regarding PRP injections . I did advise that although there is limited evidence in this region PRP has been shown to improved symptoms with her the areas of tendinitis and would likely provide some benefit. We discussed the cost of $600 which is not covered by the insurance. Beny is also considerin g other options such as stem cell treatments which he has had in other locations and found beneficial . He was provided with the name of Dr. Navin Schmitt who does both PRP and stem cell injections . He has previously had treatments with Dr. Rian Capone in [place]. At this point time is planning to consider his options. He will continue with his physical therapy and consider custom orthotics. He will contact me if he wishes to proceed with a PRP injection around the tibialis posterior tendon. Otherwise, Beny will plan to follow-up with me only as needed for further care. Over 30 minutes was spent on patient care activities during the day of service Tibialis p osterior tendinitis 924649891 M15.821 [id number] NICHOL MASTERS NP Physical Therapy, [facility] [address] [place] [address] 08/11/2024 11:56:14 08/14/2024 11:17:33 Pain in right foot 4771826146 70397 M79.878 Patient Goals:To be able to Walk, climb stairs and return to skiing her ADLs and recreation al without limitation s due to medial ankle pain4.15.2 5 progress made but goals not reached. Patient will pursue PRP injection. Clinical Goals:1. Demonstrat e symmetric pain free active, passive and resisted motions of the {{neck and upper extremitie s shoulder elbow, forearm and wrist trun k and lower extremitie s hip knee ankle kne e and foot#}}. 2. Demonstrat e sufficient muscular endurance to meet functional demands.4. 15.25 progress made but goals not reached. Patient will pursue PRP injection. Health Concerns Section Related Observation LastModified by Organization Detai ls LastModified Time None Recorded Concern Status LastModified by Organization Details LastModified Time None Recorded Advance Directives Directive N: INFO GIVEN- Payers Encounter Date Sequence Insurance Name Policy Number Policy Brady Covered Member ID Brady Member ID Guarantor Name 2024 2 [facility] [id number] Jolie Monkanda [id number] [facility] 2024 1 MEDIC[place] [facility] Julio Paredes [id number] [facility] 06/16/2024 2 [facility] INDEMNITY [facility] - [employer] [id number] Jolie Lena [id number] [facility] 06/16/2024 1 [place]: [employer] Julio Paredes [id number] [facility] 07/09/2024 2 [facility] [id number] Jolie Paredes [id number] Julio Paredes 07/09/2024 1 [place] [facility] Julio Paredes [id number] Julio Paredes 07/29/2024 2 [facility] [id number] Jolie Paredes [id number] Julio Paredes 07/29/2024 1 [facility] Julio Paredes [id number] Julio Paredse 08/11/2024 2 [facility] [id number] Jolie Paredes [id number] Julio Paredes 08/11/2024 1 [place] [facility] Julio Paredes [id number] Julio Paredes Notes Date Note Type Note Provider Name and Address Organization Details Recorded Time 2024 text/html PT Initial Eval*Reported bypatient.History:[facility] complaint: (Right medial foot pain); May 06 patient was walking in the [facility] on uneven ground. He noted common medial foot pain that progressively worsened. Since then he has had difficulty with walking. He has a prior history of a right posterior tibial tendon insufficiency. He was treated with PT and orthotics in 2014 and had significant improvement. He has had intermittent foot pain but no pain that has lasted this long since then Symptom intensity:average 6/10 Symptom duration:constantly Symptom change:symptoms are not changing [...] limitation in Exercise Roberto Calloway, PT [address] [place], [address], [facility] 2024 09:42:37 2024 text/html Beny is a [...] surgery or injections. He does state in 2014 he injured his ankle he thinks a medial ankle sprain. This was treated with physical therapy as well as custom orthotics with eventual resolution of his symptoms. He more recently was wearing ojav-ggs-niiireb orthotics. Moises Perrin MD [address] [place], [address], [facility] 2024 12:25:01 06/16/2024 text/html PT Initial Eval*Reported bypatient.History:[facility] complaint: (Right medial foot pain); May 06 patient was walking in the [place] on uneven ground. He noted common medial foot pain that progressively worsened. Since then he has had difficulty with walking. He has a prior history of a right posterior tibial tendon insufficiency. He was treated with PT and orthotics in 2014 and had significant improvement. He has had [...] or depressedDaily progress note*Reported bypatient.How are you feeling?same; I saw Dr. Perrin. He said the tendon was intact on ultrasound. He suggested a Cam walker boot. I have tried it and it does not help as much as the tape and causes some pain. I will tried a few more times and see. Patient Specific Functional Score: {{10 20 30 40 50 60 70 80* 90 100}} Percent limitation in Walking {{10 20 30 40 50* 60 70 80 90 100}} Percent limitation in Exercise Roberto Calloway, PT [address] [place] [address], [phone], [facility] 06/16/2024 10:19:34 07/09/2024 text/html PT Initial Eval*Reported bypatient.History:[facility] complaint: (Right medial foot pain); May 06 patient was walking in the [place] on uneven ground. He noted common medial foot pain that progressively worsened. Since then he has had difficulty with walking. He has a prior history of a right posterior tibial tendon insufficiency. He was treated with PT and orthotics in 2014 and had significant improvement. He has had [...] depressedDaily progress note*Reported bypatient.How are you feeling?improving (still painful but much less); Standing pain in the bottom of the heel. Home program:Performing regularly Patient Specific Functional Score: {{10 20 30 40 50 60 70 80* 90 100}} Percent limitation in Walking {{10 20 30 40 50* 60 70 80 90 100}} Percent limitation in Exercise Roberto Calloway, PT [address] [place], [address], [facility] 07/09/2024 16:10:27 07/29/2024 text/html Beny is a 79-year -old male who presents today for reevaluation of right ankle pain. He was last evaluated on 2024. After that appointment he did wear a Cam walker boot for 2-3 days but felt it was uncomfortable so discontinued use. He has been continuing with his physical therapy with a home exercise program. He does wear [id number]-[id number] orthotics. Beny does have custom orthotics but feels they cause calluses and may not fit properly. He states these custom orthotics are 5-6 years old. Overall his symptoms have been improving and he is having significantly less pain. He does continue to have discomfort along his medial ankle in the retromalleolar region that is worse with walking. Moises Perrin MD [address] [place], [address], [facility] 07/29/2024 16:50:11 08/11/2024 text/html PT Initial Eval*Reported bypatient.History:[facility] complaint: (Right medial foot pain); May 06 patient was walking in the [place] on uneven ground. He noted common medial foot pain that progressively worsened. Since then he has had difficulty with walking. He has a prior history of a right posterior tibial tendon insufficiency. He was treated with PT and orthotics in 2014 and had significant improvement. He has had [...] depressedDaily progress note*Reported bypatient.How are you feeling?improving (slowly every day. Worse in the AM and if I sit for more than 15 minutes. works out with moving. Best if I stay taped and in my shoes with orthotics.) Home program:Performing regularly Patient Specific Functional Score: {{10 20 30 40 50 60 70 80* 90 100}} Percent limitation in Walking {{10 20 30 40 50* 60 70 80 90 100}} Percent limitation in Exercise Roberto Calloway, AXEL [address] [place], [address], [facility] 08/12/2024 19:09:05
--- OUTSIDE RECORDS SUMMARY | 2024-09-02 07:56 | XMS_ITS | Data Portability ---
Author Organization [facility] [employer] [facility], [facility] Address [address] [address] Care Team Providers Care Heavy Truck Driver Name Role Phone ANIRUDH HUBBARD Primary Care Provider INGRID DEMPSEY OTHER [phone] Assessment Encounter Date Assessment Date Assessment [...] MMA, TSH and folate levels done at [facility] I am happy to order here on [...] Note that Beny did a study at [facility] around - will try to get records. Diagnosis reviewed? Yes Mood: No changes in mood Plan: will monitor Mobility: some changes in gait. Has some neuropathy/some OA/ankle pain Plan: Would increase protein intake to around 20-30 grams/per meal. Would consider strength training/resistan ce training in addition to cardiovascular exercise. Would speak to moisture meter reader about neuropathy - might this be from [...] MMA, TSH and folate levels done at [facility]. Could consider Brain MRI to establish a [...] Note that Beny did a study at [facility] around - will try to get records. Diagnosis reviewed? Yes Mood: No changes in mood Plan: will monitor Mobility: some changes in gait. Has some neuropathy/some OA/ankle pain - ongoing. Plan: Would increase protein intake to around 20-30 grams/per meal. Would consider strength training/resistan ce training in addition to cardiovascular exercise. Would speak to moisture meter reader about neuropathy - might this be from [...] see if things are stable, any changes [facility] Not available 03/20/2024 11:22:31 Plan of Treatment Reminders Order Date Submit Date Provider Last Modified By Organization Details Last Modified Time Details Appointments FOLLOW UP 30 2024 09:00A M Ivet Cervantes MD Not available Not available Not available Lab vitamin B12, serum [address], [address], 03/25/2024 16:26:54 mma (methylm alonic acid), serum [address], [address], 03/27/2024 10:48:46 folate, serum [address], [address], 03/27/2024 10:48:46 TSH + free T4, serum [address], [address], 03/27/2024 10:48:46 iron + TIBC + ferritin , serum [address], [address], 03/27/2024 10:48:46 magnesiu m, serum or plasma [address], [address], 03/27/2024 10:48:46 Referral None recorded . Procedures [...] Organization Details Recorded Time Aortic valve stenosis 38578009 Active 2023 Ivet Cervantes MD [address], [place], [address], [employer] 4 15:30:22 Sarcoidosi s 49138002 Active [address] Dempsey, last 01/16/23 who noted: diagnosed ~ 2017. Was seen at [facility] Pulmonary. Noted ILD but not sure about sarcoid. Did have travel history and wanted to nesure that r/o fungal infection/ TB. BRAN level 71 (2021) Noted slight decrease in lung capacity from 91% to 82%. [place] to have clinical dx of sarcoidosi s. was placed on prednisone 5 mg. did not have uveitis on eye exam. Noted to have Covid in 2022 - with sig sob and cough but improved. 01/16/23: cough moderate severe, keeping him awake and hard to tolerate new CPAP machine. fev1/fvc -90% predicted. Ivet Cervantes MD [address], [place], [address], [employer] 4 14:24:32 Osteoarthr itis 581887917 Active 2023 right hip Ivet Cervantes MD [address], [place], [address], [employer] 4 15:30:41 Obstructiv e sleep apnea syndrome 40002623 Active 2023 Ivet Cervantes MD [address], [place], [address], [employer] 4 15:30:52 Advance care planning Active 2023 HCP - Dtr Silvana Paredes, MOLST: yes 9 02/13/21 Ivet Cervantes MD [address], [place], [address], [employer] 15:36:50 Tinnitus 28969843 Active 2023 Ivet Cervantes MD [address] [facility], [place], [address], [employer] 10:18:54 Hearing loss 18898662 Active 2023 Ivet Cervantes MD [address] [place] [address], [address], [employer] 14:09:34 Impaired cognition 910926501 Active 2023 MOCA - 07/2023 @ [facility] Ivet Cervantes MD [address] [place] [address], [place], [address], [employer] 14:10:49 Problem Notes None recorded. Procedures Surgical History Date Name Laterality Status Provider Name and Address Organization Details Recorded Time inguinal region repair completed Ivet Cervantes MD [address], [address], [employer] 09/08/2023 15:42:48 Imaging Results None recorded. Procedure Notes None recorded. Medical Equipment None Reported. Allergies Allergen ID Allergen Name Allergen Category Reaction Reaction Severity Criticality Documentation Date Start Date Code Code System Note Provider Name and Address Organization Details Recorded Time 81 honey bee venom medicatio n Not available Not available high 09/08/2023 17702 7 RxNorm Ivet Cervantes MD [address] [place] [address],[address], [address], [employer] 4 15:31:14 82 Product containin g penicilli n (product) medicatio n hives Not available high 09/09/2023 99368 8001 SNOMED Ivet Cervantes MD [address] [facility], [place], [address], [employer] 14:11:22 83 Symbicort medicatio n vasculiti s Not available Not available 09/09/2023 53286 8 RxNorm Sever e leg cramp s Alyssa Pangnicolas gagnon [employer] 4 14:18:15 Medications Name Sig Start Date [...] Updated DateTime 4 178.43 cm 27.8 kg/m2 51977.5 1 g 72 /min 97 % 97 % 112 mm[Hg] 78 mm[Hg] Alyssa Graham [facility] 4 14:23:05 Date Recorded Body height Body mass index (BMI) Body weight Oxygen saturation Oxygen saturation in Arterial blood by Pulse oximetry Heart rate Systolic blood pressure Diastolic blood pressure Provider Name and Address Organization Details Last Updated DateTime 4 178.43 cm 27.5 kg/m2 65879.3 3 g 97 % 97 % 63 /min 142 mm[Hg] 80 mm[Hg] [facility]a [facility] 10:50:04 Social History None recorded. Functional [...] N Nervous System Disorder N Heart Attack ([place]) N Deep Vein Thrombosis N Past Encounters Encounter ID Performer Location Encounter Start Date Encounter Closed Date Diagnosis/Indication Diagnosis SNOMED-CT Code Diagnosis ICD10 Code Diagnosis Note [id number] MD Helen Joyce [facility] [address] [address] 09/09/2023 14:04:05 09/09/2023 15:49:19 Advance care planning 876084978 Z71.89 HCP - will place in chart Impaired cognition 87832 6002 R41.89 see above - cognitive changes most likely c/w normal aging Obstructiv e sleep apnea syndrome 09137035 G47.33 as above, would look to treat. 659 MD Helen Joyce [facility] s Primary Care [address] [address] 03/20/2024 10:27:27 03/20/2024 20:39:09 Impaired cognition 706237787 R41.89 see above - cognitive changes most likely c/w normal aging Obstructiv e sleep apnea syndrome 42195913 G47.33 as above, continue with mouth device. Hearing loss 78817479 H9 1.93 wearing hearing aides Bilateral cramp of muscle of lower limbs 2814198119 0453279 R25.2 gets them off and on.Tries to [...] ID Brady Member ID Guarantor Name 09/09/2023 1 MEDICARE B-[place]: [facility] Curtis Paredes [id number] Curtis Paredes 09/09/2023 2 UNIC[employer] - [employer] INDEMNITY PLAN (MEDICARE SUPPLEMENT) [id number] Curtis Paredes [id number] Curtis Paredes 03/20/2024 1 [place] [facility] Curtis Paredes [id number] Curtis Paredes 03/20/2024 2 [employer] INDEMNITY PLAN (MEDICARE SUPPLEMENT) [id number] Curtis Paredes [id number] Curtis Paredes Notes Date Note Type Note [...] this for some time)in a study at [facility], he was given a dose of atropine [...] then devd phlegm. Saw Dr Krishna at [facility]. Now seeing Dr Dempsey at [place] [facility] and very happy with him. Has some [...] to have. 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 Not in the militaryEducational level: Mallorie DoctorLiving situation: 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 IM/MFM. 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 In [facility].In contact with them? yesETOH: daily. drinks a beer every day at 5pm, wine with meals, 2 glassesConcern about amount of ETOH? noTobacco: yes- smoked 4-5 years, quit 50+ years agoOther drugs: nothing current ROS:constitutional noneeyes glassesENT ear ringingheart - nonelungs SOB/coughabdomen: painurinary noneMS: arthritisskin: noneNeuro: tingling, balancebehavioral: noneblood: none Ivet Cervantes MD [address] [place] [address], [address], [facility] 09/09/2023 15:56:06 4 text/html Subjective:Since last visit: date: 09/09/23: Falls/change in gait:ED visits/hospitalizations: Changes in function:Changes in medication:Was diagnosis from initial visit discussed?: Beny:They have been busy - some travelling. They did a food tour in [facility] and then [place] in January.He doesnt notice any memory changes while he is travelling. Sarcoidosis does hold him back - he is slower. He doesnt have any stamina. Memory: has not felt that it has deteriorated.His biggest complaint is his coughing and sarcoidosis. He f/u with Dr Dempsey, last in September, was planning to see him in a year but seemed to have gotten worse in [place]. He does feel he is continuing to lose weight. has lost weight. he wonders about going to [facility]. Faina:Memory is okay. Ivet Cervantes MD [address] [place] [address], [place], [address], [facility] 03/20/2024 11:33:59
--- OUTSIDE RECORDS SUMMARY | 2024-09-02 07:56 | XMS_ITS | Data Portability ---
Author Organization [place] - [facility], Allergy Address [address] [place] [address] Assessment Encounter Date Assessment Date Assessment LastModified [...] well as risk of infection of a biomedical service engineer, scar, wound healing. There is an implanted [...] system (PROC) - INSPIRE implant 2023 024 [email or web address] [id number] Not available 15:34:57 Surgeries None recorded. Imaging None recorded. Medication Orders None recorded. Patient TargetsNo targets recorded. Patient InstructionsNo instructions recorded. Reason for Referral None Reported. Problems Name Problem SNOMED Code Status Onset Date Resolution Date Notes Provider Name and Address Organization Details Recorded Time Obstructive sleep apnea syndrome 60269383 Active 024 RICHARD OLIVEROS MD [address] [place] [address], [address], [facility] 13:45:04 Problem Notes None recorded. 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 Procedure [...] Diagnosis Note [id number] RICHARD OLIVEROS MD [facility] [address] [address] 11/06/2023 16:47:28 11/10/2023 21:34:07 Obstructive sleep apnea syndrome 96555632 G47.33 Health Concerns Section Related Observation LastModified by Organization Detai ls LastModified Time None Recorded Concern Status LastModified by Organization Details LastModified Time None Recorded Advance Directives Directive None Recorded Payers Insurance Date Sequence Insurance Name Policy Number Policy Brady Covered Member ID Brady Member ID Guarantor Name 11/11/2023 2 [facility] INDE[facility]ITY PLAN - [facility] [id number] Curtis Paredes [id number] Curtis Paredes 11/03/2023 1 MEDICARE B-[place]: [facility] Curtis Paredes [id number] Curtis Paredes Notes Date Note Type Note Provider Name and Address Organization Details Recorded Time 11/06/2023 text/html SHERON - Insp[facility] [place] 09/03/22BMI 27AHI 18central and mixed - none [...] exercise. weekend travel RICHARD OLIVEROS MD [address] [facility],[place] [address], [place], [address], [facility] - [facility] 11/06/2023 17:02:11
== END 2024-09-02 07:54 | disposition home or self-care (01) ==
LOC: HO.CT 07:53
PROVIDERS: PCP Family Medicine; Visit Provider Hospitalist
DX: J84.9 Interstitial pulmonary disease, unspecified (principal)
CPT/HCPCS: 71250

== ENCOUNTER → 2024-09-02 07:55 | Outpatient (BNV) | payer MEDICARE, OTHER, SELFPAY | PROVIDERS: PCP Family Medicine; Visit Provider Radiology Diagnostic Radiology | DX: J84.10 Pulmonary fibrosis, unspecified (principal) | CPT/HCPCS: 71250 ==

== ENCOUNTER 2024-09-15 10:57 | Outpatient (AMB) | payer MEDICARE, OTHER, SELFPAY ==
--- NOTE | 2024-09-15 11:10 | MHC.OFFVIS ---
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 In Apr, he notes he reinjured an old RLE tibial injury- slipped on frozen ground and strained the ankle. States this is slowly recovering. 03/17/2024, In-lab PSG while wearing mandibular device, showed good reduction in residual AHI and resolution of nocturnal hypoxemia with the use of patient's mandibular device. AHI 5.3 per hour and REM AHI 13 per hour Average SpO2 92%, with O2 denise 85% and SpO2 under 88% times 0.4 minutes. Light snoring Periodic limb movements of sleep 30.6 per hour with PLMS arousal index of 2.3 per hour Overall sleep efficiency 88% He states he continues to sleep better and waking up refreshed since he started using a mandibular device to treat his SHERON. He is using his mandibular device nightly with morning device to retract lower jaw. States he is overall tolerating this well, but may cause a bit of jaw discomfort- which he is ok with. He is no longer interested in pursuing Inspire therapy. 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 In regards to frequent periodic limb movements of sleep during sleep study, patient denies restless leg symptoms or restless sleep. He he does endorse a h/o nocturnal leg cramps- which have been well-controlled since starting Mag glycinate. [facility] Medical History (Updated 09/15/24 @ 12:43 by PAVEL Nielsen) Bradycardia Chronic allergic rhinitis Asthma Sarcoidosis Chronic cough ILD (interstitial lung disease) Pulmonary nodule Surgical History H/O arthroscopic knee surgery H/O hernia repair Hx of tonsillectomy Family History Mother Heart disease Family/Other Colon cancer Family/Other Colon cancer Social History (Updated 06/08/24 @ 10:14 by Ruby Hercules CMA) Alcohol intake: current Alcohol intake frequency: holidays/special occasions only Patient Tobacco Use Status: Former Tobacco user Tobacco use type: Cigarette Years Smoked: 7 years Physical Exam Vital Signs: Last Vital Signs Pulse 66 09/15/24 11:11 BP 140/78 H 09/15/24 11:11 Pulse Ox 99 09/15/24 11:11 Oxygen Delivery Method Room Air 09/15/24 11:11 Const General: no acute distress Orientation/consciousness: patient oriented x3 Resp Effort & Inspection: normal respiratory effort and able to speak in complete sentences Neuro Other: Patient wearing a RLE walking boot, steady gait with left-sided crutch General: patient oriented x3 Psych Mental Status: mental status grossly normal Speech and movement: Clear speech present Attitude: cooperative Assessment & Plan Assessment & Plan (1) SHERON (obstructive sleep apnea): Comment: 09/03/2022, HST showed moderate to severe SHERON with AHI was 18/hr and oxygen denise was 80%. Code(s): G47.33 - Obstructive sleep apnea (adult) (pediatric) Category: Medical (2) Sarcoidosis: Code(s): D86.9 - Sarcoidosis, unspecified Category: Medical Plan Reviewed results of interval in-lab PSG while using mandibular device, which shows good reduction in residual AHI and optimization of nocturnal oxygenation levels. Patient is advised to continue to use mandibular device nightly, which he is in agreement with. Concur with not pursuing further evaluation for Inspire therapy at this point. Concur with the using magnesium glycinate daily at bedtime for nocturnal leg cramp prevention. Patient to follow-up with pulmonology and dentist as scheduled. Patient to follow-up here as needed. Medications: Changed From magnesium glycinate 125 mg PO To magnesium glycinate 125 mg (1.25 x 100 mg magnesium) PO BEDTIME 30 days 38 caps 0RF Coding Level of Care Code Est Pt Level 3 (42259) Diagnoses SHERON (obstructive sleep apnea) G47.33 Sarcoidosis D86.9
[2024-09-15 11:11] VITALS: BP 140/78; PULSE 66; O2SAT 99
--- OUTSIDE RECORDS SUMMARY | 2024-09-15 12:14 | XMS_ITS | Data Portability ---
Author Organization [place] - [facility], Allergy Address [address] [place] [address] Assessment Encounter Date Assessment Date Assessment LastModified [...] as risk of infection of a medical i d sales, scar, wound healing. There is an implanted [...] system (PROC) - INSPIRE implant 2023 024 [email or web address] [id number] Not available 15:34:57 Surgeries None recorded. Imaging None recorded. Medication Orders None recorded. Patient TargetsNo targets recorded. Patient InstructionsNo instructions recorded. Reason for Referral None Reported. Problems Name Problem SNOMED Code Status Onset Date Resolution Date Notes Provider Name and Address Organization Details Recorded Time Obstructive sleep apnea syndrome 63824650 Active 024 RICHARD OLIVEROS MD [address] [place] [address], [address], [facility] 13:45:04 Problem Notes None recorded. Procedures Surgical History Date Name Laterality Status Provider Name and Address Organization Details Recorded Time 4 Telehealth completed RICHARD OLIVEROS MD [address] [place] [address], [address], [facility] 11/04/2023 13:46:15 4 Dise eval it network architect [facility] completed RICHARD OLIVEROS MD [address] [place] [address],[address], [address], [facility] 11/04/2023 13:44:28 Imaging Results None recorded. [...] Diagnosis Note [id number] RICHARD OLIVEROS MD [facility] [address] [address] 11/06/2023 16:47:28 11/10/2023 21:34:07 Obstructive sleep apnea syndrome 18854269 G47.33 Health Concerns Section Related Observation LastModified by Organization Detai ls LastModified Time None Recorded Concern Status LastModified by Organization Details LastModified Time None Recorded Advance Directives Directive None Recorded Payers Insurance Date Sequence Insurance Name Policy Number Policy Brady Covered Member ID Brady Member ID Guarantor Name 11/11/2023 2 [facility] INDEMNITY PLAN - [facility] [id number] Curtis Paredes [id number] Curtis Paredes 11/03/2023 1 [place]IC[place] B-[place]: [employer] Curtis Paredes [id number] Curtis Paredes Notes Date Note Type Note Provider Name and Address Organization Details Recorded Time 11/06/2023 text/html SHERON - [facility] [place] 09/03/22BMI 27AHI 18central and mixed - none [...] exercise. weekend travel RICHARD OLIVEROS MD [address] [facility],[place] [address], [place], [address], [facility] - [facility] 11/06/2023 17:02:11
--- OUTSIDE RECORDS SUMMARY | 2024-09-15 12:15 | XMS_ITS | Data Portability ---
Author Organization [facility] Bufys s [facility], [facility] Address [address] [address] Care Team Providers Care Veneer Jointer Name Role Phone ANIRUDH HUBBARD Primary Care Provider [phone] INGRID DEMPSEY OTHER Assessment Encounter Date Assessment [...] MMA, TSH and folate levels done at [facility] I am happy to order here on [...] Note that Beny did a study at [facility] around - will try to get records. Diagnosis reviewed? Yes Mood: No changes in mood Plan: will monitor Mobility: some changes in gait. Has some neuropathy/some OA/ankle pain Plan: Would increase protein intake to around 20-30 grams/per meal. Would consider strength training/resistan ce training in addition to cardiovascular exercise. Would speak to insulation power unit tender about neuropathy - might this be from [...] MMA, TSH and folate levels done at [facility]. Could consider Brain MRI to establish a [...] Note that Beny did a study at [facility] around - will try to get records. Diagnosis reviewed? Yes Mood: No changes in mood Plan: will monitor Mobility: some changes in gait. Has some neuropathy/some OA/ankle pain - ongoing. Plan: Would increase protein intake to around 20-30 grams/per meal. Would consider strength training/resistan ce training in addition to cardiovascular exercise. Would speak to insulation power unit tender about neuropathy - might this be from [...] see if things are stable, any changes [facility] Not available 03/20/2024 11:22:31 Plan of Treatment Reminders Order Date Submit Date Provider Last Modified By Organization Details Last Modified Time Details Appointments FOLLOW UP 30 2024 09:00A M Ivet Cervantes MD Not available Not available Not available Lab vitamin B12, serum [address], [address], 03/25/2024 16:26:54 mma (methylm alonic acid), serum [address], [address], 03/27/2024 10:48:46 folate, serum [address], [address], 03/27/2024 10:48:46 TSH + free T4, serum [address], [address], 03/27/2024 10:48:46 iron + TIBC + ferritin , serum [address], [address], 03/27/2024 10:48:46 magnesiu m, serum or plasma [address], [address], 03/27/2024 10:48:46 Referral None recorded . Procedures [...] Organization Details Recorded Time Aortic valve stenosis 13372872 Active 2023 Ivet Cervantes MD [address], [place], [address], [facility] 4 15:30:22 Sarcoidosi s 33336365 Active [address] Dempsey, last 01/16/23 who noted: diagnosed ~ 2017. Was seen [place] [facility]. Noted ILD but not sure about sarcoid. Did have travel history and wanted to nesure that r/o fungal infection/ TB. BRAN level 71 (2021) Noted slight decrease in lung capacity from 91% to 82%. Gate to have clinical dx of sarcoidosi s. was placed on prednisone 5 mg. did not have uveitis on eye exam. Noted to have Covid in 2022 - with sig sob and cough but improved. 01/16/23: cough moderate severe, keeping him awake and hard to tolerate new CPAP machine. fev1/fvc -90% predicted. Ivet Cervantes MD [address], [place], [address], [facility] 4 14:24:32 Osteoarthr itis 534519893 Active 2023 right hip Ivet Cervantes MD [address], [place], [address], [facility] 4 15:30:41 Obstructiv e sleep apnea syndrome 84541760 Active 2023 Ivet Cervantes MD [address], [place], [address], [facility] 4 15:30:52 Advance care planning Active 2023 HCP - Dtr Silvana Paredes, MOLST: yes 9 02/13/21 Ivet Cervantes MD [address], [place], [address], [facility] 15:36:50 Tinnitus 43520867 Active 2023 Ivet Cervantes MD 264 [facility], [place], [address], [facility] 10:18:54 Hearing loss 27108107 Active 2023 Ivet Cervantes MD [address] [place] [address], [address], [facility] 14:09:34 Impaired cognition 504284886 Active 2023 MOCA - 07/2023 @ [facility] Ivet C[facility]antes MD [address] [place] [address], [place], [address], [facility] 14:10:49 Problem Notes None recorded. Procedures Surgical History Date Name Laterality Status Provider Name and Address Organization Details Recorded Time inguinal region repair completed Ivet Cervantes MD [address], [address], [facility] 09/08/2023 15:42:48 Imaging Results None recorded. Procedure Notes None recorded. Medical Equipment None Reported. Allergies Allergen ID Allergen Name Allergen Category Reaction Reaction Severity Criticality Documentation Date Start Date Code Code System Note Provider Name and Address Organization Details Recorded Time 81 honey bee venom medicatio n Not available Not available high 09/08/2023 33253 7 RxNorm Ivet Cervantes MD [address] [place] [address],[address], [address], [facility] 4 15:31:14 82 Product containin g penicilli n (product) medicatio n hives Not available high 09/09/2023 79171 8001 SNOMED Ivet Cervantes MD [address] [facility], [place], [address], [facility] 14:11:22 83 Symbicort medicatio n vasculiti s Not available Not available 09/09/2023 82059 8 RxNorm Sever e leg cramp s Alyssa Pangnicolas gagnon [facility] 4 14:18:15 Medications Name Sig Start Date [...] Updated DateTime 4 178.43 cm 27.8 kg/m2 07934.5 1 g 72 /min 97 % 97 % 112 mm[Hg] 78 mm[Hg] Alyssa Graham [facility] 4 14:23:05 Date Recorded Body height Body mass index (BMI) Body weight Oxygen saturation Oxygen saturation in Arterial blood by Pulse oximetry Heart rate Systolic blood pressure Diastolic blood pressure Provider Name and Address Organization Details Last Updated DateTime 4 178.43 cm 27.5 kg/m2 34738.3 3 g 97 % 97 % 63 /min 142 mm[Hg] 80 mm[Hg] [facility] 10:50:04 Social History None recorded. Functional Status [...] N Nervous System Disorder N Heart Attack ([place]) N Deep Vein Thrombosis N Past Encounters Encounter ID Performer Location Encounter Start Date Encounter Closed Date Diagnosis/Indication Diagnosis SNOMED-CT Code Diagnosis ICD10 Code Diagnosis Note 63 MD Helen Joyce [facility] [address] [address] 09/09/2023 14:04:05 09/09/2023 15:49:19 Advance care planning 725581975 Z71.89 HCP - will place in chart Impaired cognition 78079 6002 R41.89 see above - cognitive changes most likely c/w normal aging Obstructiv e sleep apnea syndrome 42960304 G47.33 as above, would look to treat. [id number] MD Helen Joyce [facility] [address] [address] 03/20/2024 10:27:27 03/20/2024 20:39:09 Impaired cognition 785946687 R41.89 see above - cognitive changes most likely c/w normal aging Obstructiv e sleep apnea syndrome 94252420 G47.33 as above, continue with mouth device. Hearing loss 55216669 H9 1.93 wearing hearing aides Bilateral cramp of muscle of lower limbs 6929060697 5206029 R25.2 gets them off and on.Tries to [...] UNICARE - GIC INDEMNITY PLAN (MEDICARE SUPPLEMENT) [id number] Curtis Monkanda [id number] Curtis Paredes 09/09/2023 1 MEDICARE B-[place]: [facility] [employer] Curtis Paredes [id number] Curtis Paredes 03/20/2024 2 UNICARE - GIC INDEMNITY PLAN (MEDICARE SUPPLEMENT) [id number] Curtis Paredes [id number] Curtis Paredes 03/20/2024 1 MEDIC[place] B-[place]: [employer] Curtis Paredes [id number] 9 Curtis Paredes Notes Date Note Type [...] this for some time)in a study at [facility], he was given a dose of [...] then devd phlegm. Saw Dr Krishna at [facility]. Now seeing Dr Dempsey at [place] and very happy with him. Has some [...] to have. 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; 1 brother, 1 sister.Brother 12 years older ( at around age 56) , sister 10 years olderHealthy childhood. 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 IM/MFM. 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 In [facility].In contact with them? yesETOH: daily. drinks a beer every day at 5pm, wine with meals, 2 glassesConcern about amount of ETOH? noTobacco: yes- smoked 4-5 years, quit 50+ years agoOther drugs: nothing current ROS:constitutional noneeyes glassesENT ear ringingheart - nonelungs SOB/coughabdomen: painurinary noneMS: arthritisskin: noneNeuro: tingling, balancebehavioral: noneblood: none Ivet Cervantes MD [address] [place] [address], [address], [facility] 09/09/2023 15:56:06 4 text/html Subjective:Since last visit: date: 09/09/23: Falls/change in gait:ED visits/hospitalizations: Changes in function:Changes in medication:Was diagnosis from initial visit discussed?: Beny:They have been busy - some travelling. They did a food tour in [facility] and then [place] in January.He doesnt notice any memory changes while he is travelling. Sarcoidosis does hold him back - he is slower. He doesnt have any stamina. Memory: has not felt that it has deteriorated.His biggest complaint is his coughing and sarcoidosis. He f/u with Dr Dempsey, last in September, was planning to see him in a year but seemed to have gotten worse in [place]. He does feel he is continuing to lose weight. has lost weight. he wonders about going to [facility]. Faina:Memory is okay. Ivet Cervantes MD [address] [place] [address], [place], [address], [facility] 03/20/2024 11:33:59
--- OUTSIDE RECORDS SUMMARY | 2024-09-15 12:15 | XMS_ITS | Data Portability ---
Author Organization [facility], [facility] Address [address] [place] [address] Care Team Providers Care Side Gluer Name Role Phone FLORA TOUSSAINT Phys. Med. & Rehab Unavailable ANIRUDH HUBBARD Primary Care Provider TAMY CORDOVA Cellar Supervisor RICKY VERA Finishing Machine Operator EDVIN BUENO Infectious Disease JULIO CALZADA Orthopedist LEELA ADAN Finishing Machine Operator [facility] Orthopedist [facility] Dermatolo gist RICHARD OLIVEROS Assessment Encounter Date Assessment Date Assessment LastModified by Organization Details LastModified Time 06/16/2024 06/16/2024 3 PT sessions since initial [...] independently. No further physical therapy is planned. clayton Not available 08/12/2024 19:07:42 Plan of Treatment Reminders Order Date Submit Date Provider Last Modified By Organization Details Last Modified Time Details Appointments Follow Up, 2024 01:00P Fredy knox, PT Not available Not available Not available New Patient-1 5 2024 03:30P ALYCE MartinezM Not available Not available Not available Follow Up, 2024 03:00P Fredy knox, PT Not available Not available Not available Wellness Visit 2024 11:15A M Anirudh Hubbard MD Not available Not available Not available Lab None recorded. Referral None recorded. Procedures None recorded. Surgeries None recorded. Imaging US, guidance [address] (Imaging), [address], [place], [address], 09/08/2024 16:31:53 Medication Orders None recorded. Patient TargetsNo targets recorded. Patient Instructions Encounter Date Encounter Id Patient Instructions Last Modified By Organization Details Last Modified Time 07/29/2024 [id number] Continue with physical therapy Consider having custom orthotics adjusted Follow-up as needed Not available 07/29/2024 09:53:56 All of the patients questions were answered and they understand the plan of care. Thank you for allowing me to participate in the care of your patient. ? ? ?Please feel free to contact me with any questions regarding their care. Not available 07/29/2024 09:54:44 09/08/2024 [id number] Do not use NSAID S or Aspirin for the next 4 weeks You can use tylenol for pain Use crutches and boot and don't put weight on your foot for 2 days After 2 days you can walk with the boot on and you can stop using crutches After 2 weeks transition to sneakers with arch support for 2 more weeks (no barefoot) Restart physical therapy in 4 weeks No driving with boot on Follow-up as needed for further care Seek immediate attention for any redness, fevers, chills, worsening or severe pain, or any other concerning symptoms. Not available 09/08/2024 16:18:33 All of the patients questions were answered and they understand the plan of care. Thank you for allowing me to participate in the care of your patient. ? ? ?Please feel free to contact me with any questions regarding their care. Not available 09/08/2024 13:55:55 Reason for Referral None Reported. Results Created Date Observation Date Name Description Value Unit Range Abnormal Flag Note LastModifiedBy Organization Detail LastModifiedTime 09/03/1909/02/2024 CT, chest , w/o contr ast No observ ation record ed. [address], [address], 09/03/2024 09:17:50 Result Notes None recorded. 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 flovent- but d/c'd( did not need much). 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 2022 repeat echo 2026 Anirudh Hubbard MD [address] [place] [address], , [facility] 3 09:36:43 Lipoma of skin and subcutan eous tissue (excludi ng face) 161861084 Completed 200703/18/2013 Not Available [facility] 3 02:04:10 Neoplasm of uncertai n behavior of skin 02720442 Completed 200603/18/2013 Not Available [facility] 3 02:01:52 Hiccough s 47367327 Completed 200602/13/2021 Anirudh Hubbard MD [address] [place] [address], [address] , [facility] 1 09:20:52 Knee pain Completed 200603/18/2013 Not Available [facility] 3 02:00:42 Problem Notes None recorded. Procedures Surgical History Date Name Laterality Status Provider Name and Address Organization Details Recorded Time 09/09/19 Generic Procedure Template completed Moises Perrin MD [address] [place], [address], [facility] 09/08/2024 16:21:27 08/12/19 76953: Therapeutic Exercise completed Roberto Calloway, PT [address] [place], [address], [facility] 08/12/2024 19:05:48 08/12/19 Treatment and Advice completed Roberto Calloway, PT [address] [place], [address], [facility] 08/12/2024 19:01:12 07/10/19 50617: Therapeutic Exercise completed Roberto Calloway, PT [address] [place], [address], [facility] 07/09/2024 16:09:56 07/10/19 Treatment and Advice completed Roberto Calloway, PT [address] [place], [address], [facility] 07/09/2024 16:08:43 06/16/19 21693: Therapeutic Exercise completed Roberto Calloway, PT [address] [place], [address], [facility] 06/16/2024 10:16:27 06/16/19 25 50712: Neuromuscular Re-Education completed Roberto Calloway, PT [address] [place], [address], [facility] 06/16/2024 10:17:24 06/16/19 25 Treatment and Advice completed Roberto Calloway, PT [address] [place], [address], [facility] 06/16/2024 10:18:51 06/11/19 25 Generic Procedure Template completed Moises Perrin MD [address] [place], [address], [facility] 2024 12:24:28 06/11/19 25 51333: Neuromuscular Re-Education completed Roberto Calloway, PT [address] [place], [address], [facility] 2024 09:42:16 06/11/19 25 Treatment and Advice completed Roberto Calloway, PT [address] [place], [address], [facility] 2024 09:33:26 06/09/19 56112: Manual Therapy completed Roberto Calloway, PT [address] [place], [address], [facility] 2024 09:38:21 06/09/19 25 76622: Neuromuscular Re-Education completed Roberto Calloway, PT [address] [place], [address], [facility] 2024 09:36:59 06/09/19 25 Treatment and Advice completed Roberto Calloway, PT [address] [place], [address], [facility] 06/09/2024 12:47:46 05/14/19 25 Physical Activity Counselling completed Roberto Calloway, PT [address] [place], [address], [facility] 05/14/2024 13:27:08 05/14/19 25 08425: PT Eval Low Complexity completed Roberto Calloway, PT [address] [place], [address], [facility] 05/14/2024 13:27:08 05/14/19 25 Treatment and Advice completed Roberto Calloway, PT [address] [place], [address], [facility] 05/14/2024 13:57:52 04/01/20 19 61089: Therapeutic Exercise completed Flora Toussaint, PT [address] [place], [address], [facility] 04/01/2019 08:40:29 03/30/20 19 Physical Activity Counselling completed Flora Toussaint, PT [address] [place], [address], [facility] 03/31/2019 09:38:08 03/30/20 19 08577: PT Eval Low Complexity completed Flora Toussaint, PT [address] [place], [address], [facility] 03/31/2019 09:38:13 08/28/19 19 Medicare Wellness Visit completed Naina Villanueva [facility] 08/27/2018 13:44:04 08/28/19 19 Medicare Risk for Falls Screen completed Naina Villanueva [facility] 08/27/2018 13:49:32 08/28/19 19 Advanced Care Planning completed Anirudh Hubbard MD [address] [place], [address], [facility] 08/27/2018 14:21:10 11/13/19 18 07190: Therapeutic Exercise completed Flora Toussaint, PT [address] [place], [address], [facility] 11/13/2017 07:35:58 11/13/19 18 42018: Manual Therapy completed Flora Toussaint, PT [address] [place], [address], [facility] 11/13/2017 07:36:04 10/26/19 18 53023: Therapeutic Exercise completed Flora Toussaint, PT [address] [place], [address], [facility] 10/25/2017 08:13:46 10/26/19 18 39714: Manual Therapy completed Flora Toussaint, PT [address] [place], [address], [facility] 10/25/2017 08:13:50 10/24/19 18 Physical Activity Counselling completed Flora Toussaint, PT [address] [place], [address], [facility] 10/23/2017 14:58:29 10/24/19 18 55245: PT Eval Low Complexity completed Flora Toussaint, PT [address] [place], [address], [facility] 10/23/2017 14:58:35 08/22/19 18 Medicare Wellness Visit completed Naina Villanueva [facility] 08/21/2017 13:44:24 08/22/19 18 Medicare Risk for Falls Screen completed Naina Villanueva [facility] 08/21/2017 13:46:22 08/21/19 17 Medicare Wellness Visit completed Corina Solares RN, BSN [facility] 08/20/2016 11:04:47 11/10/19 15 Medicare Wellness Visit completed Jailyn Lance [facility] 11/09/2014 16:18:01 11/10/19 15 Medicare Annual Wellness Visit completed Jailyn Lance [facility] 11/09/2014 16:25:29 11/10/19 15 Medicare Risk for Falls Screen completed Jailyn Lance [facility] 11/09/2014 16:25:29 08/14/19 14 <strong>Pain</str latonia> Assessment and Follow-up (G8730) completed Flora Toussaint, PT [address] [place], [address], [facility] 08/13/2013 23:01:36 08/14/19 14 <strong>Falls</st juan c> Risk Assessment - No Risk (1101F) completed Flora Toussaint, PT [address] [place], [address], [facility] 08/13/2013 23:01:36 08/14/19 14 <strong>Functiona l</strong> outcome not documented, reason not given (G8541) completed Flora Toussaint, PT [address] [place], [address], [facility] 08/13/2013 23:01:36 03/16/20 13 Medicare Wellness Visit completed Nasrin Multani [facility] 03/16/2013 15:07:02 04/07/20 12 Medicare Wellness Visit completed Naina Garcia [facility] 04/07/2012 09:08:04 Imaging Results Imaging Date Name Status LastModified by Organiz ation Details LastModified Time 09/02/2024 CT, chest, w/o contrast completed [facility] [address] [place], [address], 09/03/2024 09:17:50 Procedure Notes None recorded. Medical Equipment None Reported. Allergies Allergen ID Allergen Name Allergen Category Reaction Reaction Severity Criticality Documentation Date Start Date Code Code System Note Provider Name and Address Organization Details Recorded Time 71523 Product containin g penicilli n (product) medicatio n rash Not available Not available 12/27/2008 87499 8001 SNOMED Not Available [facility] 1 06:05:20 890923 hornet venom environme nt anaphylax is Not available Not available 11/01/2017 43985 UNK Colten Rooney RN [facility] 8 11:51:51 963900 wasp venoms environme nt anaphylax is Not available Not available 11/01/2017 65807 RxNorm Colten Rooney RN null, [facility] 8 11:52:00 690194 Symbicort medicatio n muscle cramps Not available Not available 04/19/2023 62761 8 RxNorm Lachelle Kauffman CMA null, [facility] 3 09:05:01 Medications Name Sig Start Date [...] Not Available Not Available Not Available Fluvirin 6085-4826 (PF) 45 mcg (15 mcg x3)/0.5 mL intramusc ular syringe TO BE ADMINIST ERED BY PHARMACI ST FOR IMMUNIZA TION active Not Available Not Available No t Available Arnuity Ellipta 200 mcg/actua tion powder for inhalatio n INHALE 1 PUFF BY MOUTH ONCE DAILY active Not Available Not Available No t Available Fluzone High-Dose 2015-16 (PF) 180 mcg/0.5 mL intramusc ular syringe [...] DateTime 07/29/2024 177.8 cm Kimmy Patel MA [facility] 07/29/2024 09:40:59 Date Recorded Body height Provider Name an d Address Organization Details Last Updated DateTime 09/08/2024 177.8 cm Kimmy Patel MA [facility] 09/08/2024 13:34:37 Date Recorded Systolic blood pressure Diastolic blood pressure Provider Name and Address Organization Details Last Updated DateTime 07/06/2024 159 mm[Hg] 85 mm[Hg] Tati Parker LPN [facility] 07/07/2024 13:18:59 Social History Question Answer Notes LastModified by Organizat ion Details LastModified Time Tobacco Smoking Status Former Smoker SMOKED ABOUT 50 YRS AGO WHEN HE WAS A KID Not Available [facility] 09/21/2010 02:08:49 Do You Have An Advance Directive? No INFO GIVEN- [email or web address] Information not available 02/20/2010 Do You Wear A Helmet When Biking? Yes Information not available 11/09/2014 What Is Your Level Of Caffeine Consumption? Moderate 3-4 Daily Information not available 11/09/2014 How Much Tobacco Do You Chew? None Information not available 11/09/2014 What Type Of Diet Are You Following? REGULAR Information not available 11/09/2014 Which Illicit Or Recreational Drugs Have You Used? 0 Information not available 11/09/2014 What Is The Highest Grade Or Level Of School You Have Completed Or The Highest Degree You Have Received? MP87221-8 [email or web address] Information not available 04/19/2023 When Did You [...] And In Chart No Katina Paredes (daughter) [email or web address] Information not available 01/23/2018 MOLST Form [...] How Many Children Do You Have? 1 Silvana(Brian anny Shanelle r) Information not available 04/02/2011 What Is Your Current Pack Years? 10packyears 0 Pack Years Information not available 11/09/2014 Do You Use Your Seat Belt Or Car Seat Routinely? Yes [email or web address] Information not available 04/19/2023 Seat Belts Used Routinely Yes Information not available 11/09/2014 Smoke Alarm In Home Yes Information not available 11/09/2014 Do You Have Smoke And Carbon Monoxide Detectors In Your Home? Yes [email or web address] Information not available 04/19/2023 Are You Passively Exposed To Smoke? No [email or web address] Information not available 04/19/2023 General Stress Level Low Information not available 11/09/2014 Do You Use Sunscreen Routinely? Yes Information not available 11/09/2014 Sex: Unknown Functional Status Question Answer Note LastModified by Organizat ion Details LastModified Time What is your level of alcohol consumption? 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 Family History Relationship Description Onset Age of this Age Resolved Age Notes LastModified by Organization Details LastModified Time Brother Malignant tumor of colon 54 previo usly record ed as Cancer - Colon [id number] Not available 12/08/2012 03:00:55 Sister Malignant tumor of colon got age 70's [facility] Not available 08/27/2018 14:11:33 Sister Malignant tumor of breast [facility] Not available 2018 14:11:45 Father Alzheimer's disease [facility] 82 [facility] Not available 2022 09:42:21 Notes:Mother age 94. Fa ther 89, [place] in his 80's. Healthy sister. Medical History Condition Response Interstitial Lung Disease Y MUSCULOSKELETAL Y Immunizations Vaccine Type Date Status Note Provider Nam e and Address Organization Details Recorded Time Influenza, split virus, trivalent, preservative 1 completed Not Available [facility] 05/16/2019 02:18:30 zoster live 1 completed Not Available [facility] 05/16/2019 02:29:17 influenza, unspecified formulation 8 completed Not Available [facility] 03/14/2011 05:22:13 Td(adult) unspecified formulation 8 completed Not Available [facility] 03/14/2011 05:22:26 Influenza, high-dose, trivalent, PF 4 completed Not Available [facility] 05/16/2019 02:29:19 Pneumococcal conjugate PCV 13 5 completed Not Available [facility] 05/16/2019 02:19:44 Influenza, split virus, trivalent, preservative 2 completed Naina Garcia MA [facility] 04/07/2012 09:09:04 influenza, unspecified formulation 3 completed Nasrin Multani CMA [facility] 03/16/2013 15:13:05 Influenza, high-dose, trivalent, PF 6 completed Not Available [facility] 05/16/2019 02:30:31 pneumococcal polysaccharide PPV23 7 completed Not Available [facility] 05/16/2019 02:39:42 Influenza, high-dose, trivalent, PF 7 completed Not Available [facility] 05/16/2019 02:22:28 Influenza, high-dose, trivalent, PF 5 completed Naina Villanueva [employer] null, [facility] 03/08/2015 13:35:27 Influenza, high-dose, trivalent, PF 8 completed Not Available [facility] 05/16/2019 02:23:06 Influenza, high-dose, trivalent, PF 9 completed Not Available [facility] 05/16/2019 02:39:37 Influenza, high-dose, quadrivalent, PF 0 completed PAWAN Crane null, [facility] 02/22/2020 10:55:33 Hep A, unspecified formulation 9 completed [facility]2018 08:15:24 zoster recombinant 9 completed Naina Villanueva CMA null, [facility] 04/16/2019 13:28:55 zoster recombinant 0 completed [facility] 07/03/2019 08:16:44 Influenza, high-dose, quadrivalent, PF 2 completed AMINTA Sheth, [facility] 02/15/2022 13:28:17 Td (adult), 2 Lf tetanus toxoid, preservative free, adsorbed 2 completed Naina Villanueva [employer] kalin, [facility] 05/29/2022 16:41:32 Influenza, split virus, trivalent, preservative 0 completed Not Available [facility] 05/16/2019 02:38:54 Tdap 0 completed Not Available [facility] 05/16/2019 02:34:19 Influenza, high-dose, quadrivalent, PF 3 completed Chinyere Suddaby, RN null, [facility] 02/12/2023 10:50:21 Influenza, split virus, quadrivalent, preservative 1 completed Naina Villanueva CMA null, [facility] 02/13/2021 09:13:34 COVID-19, mRNA, LNP-S, PF, 100 mcg/0.5mL dose or 50 mcg/0.25mL dose 1 completed Naina Villanueva CMA null, [facility] 02/13/2021 15:43:04 COVID-19, mRNA, LNP-S, PF, 100 mcg/0.5mL dose or 50 mcg/0.25mL dose 1 completed Naina Villanueva CMA null, [facility] 02/12/2023 15:02:32 Influenza, split virus, trivalent, PF 9 completed Not Available [facility] 05/16/2019 02:30:34 Past Encounters Encounter ID Performer Location Encounter Start Date Encounter Closed Date Diagnosis/Indication Diagnosis SNOMED-CT Code Diagnosis ICD10 Code Diagnosis Note [id number] Anirudh Hubbard MD , [facility], [address] [place] [address] 05/21/2006 17:15:54 05/22/2006 07:41:25 [id number] MD DOUG Mares, [facility], [address] [place] [address] [id number] Dax Beal MD , [facility], [address] [place] [address] 11/29/2006 16:21:32 11/29/2006 16:58:08 [id number] Leandro Monge, [facility], [address] [place] [address] 03/02/2008 16:16:02 05/19/2008 02:02:29 [id number] MD DOUG Mares, [facility], [address] [place] [address] 12/27/2008 08:53:44 12/31/2008 08:45:[id number] [facility] - [facility] [address] [facility] [place] [address] 02/15/2009 07:50:16 02/15/2009 07:57:32 [id number] Anirudh Hubbard MD , [facility] [address] [facility] [place] [address] 06/13/2009 16:38:19 06/14/2009 15:37:48 [id number] MD DOUG Mares, [facility], [address] [facility] [place] [address] 09/12/2009 16:38:58 09/15/2009 14:00:10 [id number] MD DOUG Corbin, [facility], [facility] [address] [facility] [place] [address] 01/19/2010 16:11:15 01/24/2010 08:19:13 [id number] MD DOUG Mares, [facility], [facility] [address] [facility] [place] [address] 02/20/2010 14:00:17 02/22/2010 13:39:19 [id number] MD DOUG Contreras, [facility], [facility] [address] [facility] [place] [address] 06/30/2010 15:49:12 07/06/2010 15:20:53 [id number] MD DOUG Mares, [facility], [facility] [address] [facility] [place] [address] 04/02/2011 08:50:55 04/02/2011 09:55:[id number] [facility] FP TREATMENT NURSE , [facility] [address] [facility] [address] 04/10/2011 08:56:13 04/11/2011 13:49:26 [id number] MD DOUG Mares, [facility], [facility] [address] [facility] [place] [address] 10/05/2011 15:41:54 10/05/2011 16:16:09 [id number] MD DOUG Mares, [facility] [address] [facility] [place] [address] 02/13/2012 07:43:58 02/13/2012 08:21:20 [id number] Eduardo Pierson MD Radiology , [facility] [address] [facility] [place] [address] 02/18/2012 16:28:24 02/19/2012 15:22:27 [id number] Anirudh Hubbard MD , [facility], OFFICE [address] [place], [place] [address] on [facility] [place] [address] 04/07/2012 08:52:30 04/07/2012 10:27:09 [id number] Ethan Linn MD Radiology , [facility] [address] [facility] [place] [address] 05/12/2012 07:31:37 05/12/2012 08:01:50 [id number] Flora Toussaint, PT Physical Therapy, [address] [facility] [place] [address] 10/07/2012 08:52:05 10/07/2012 11:57:54 [id number] Flora Toussaint PT Physical Therapy, [address] [facility] [place] [address] 10/10/2012 07:35:42 10/14/2012 07:33:56 [id number] Flora Toussaint PT Physical Therapy, [address] [facility] [place] [address] 10/20/2012 07:36:37 10/20/2012 10:38:57 [id number] Flora Toussaint PT Physical Therapy, [address] [facility] [place] [address] 10/22/2012 07:35:39 10/22/2012 10:35:22 [id number] Flora Toussaint PT Physical Therapy, [address] [facility] [place] [address] 11/05/2012 07:31:42 11/05/2012 11:55:57 [id number] Anirudh Hubbard MD FP, [facility], OFFICE [address] [place], [place] [address]t on [facility] [place] [address] 03/16/2013 14:58:54 03/16/2013 16:32:08 Adult health examination [id number] see Risk Assessment and Lifestyle Change Counseling section above Counseling [id number] Muscle strain 07949105 [id number] Anirudh Hubbard MD FP, [facility], OFFICE [address] [place] [address]36 6 08/10/2013 08:14:35 08/10/2013 09:31:48 Memory impairment 285713384 Foot pain 12027796 Sprain of foot 07016971 spring ligament sprain. [id number] Flora Toussaint, PT Physical Therapy, [address] [address] 6 08/13/2013 06:44:10 08/14/2013 11:12:29 Foot pain 35213271 [id number] Flora Toussaint, PT Physical Therapy, [address] [address] 6 08/17/2013 07:40:20 08/17/2013 11:13:38 Foot pain 67499066 [id number] Flora Toussaint PT Physical Therapy, [address] [address] 6 08/19/2013 07:05:45 08/19/2013 11:02:32 Foot pain 58816264 [id number] Flora Toussaint PT Physical Therapy, [address] [address] 6 08/19/2013 15:09:08 08/19/2013 15:09:27 [id number] Dax Beal MD , [facility], OFFICE [address] [place] [address] 6 03/12/2014 06:54:01 03/12/2014 08:19:45 Influenza vaccine needed [id number] Flora Toussaint, PT Physical Therapy, [address] [address] 6 03/15/2014 15:13:56 03/15/2014 15:14:10 [id number] Tamy Rosas , [facility], OFFICE [address] [place] [address]230 6 08/05/2014 09:58:30 08/05/2014 10:29:39 Tick bite 97920537 [id number] Anirudh Hubbard MD , [facility], OFFICE [address] [place] [address] 6 11/09/2014 16:10:53 11/09/2014 17:42:15 Adult health examination 810606680 see Risk Assessment and Lifestyle Change Counseling section above Counseling 631638105 Pigmented skin lesion of uncertain nature 872614319 Pain of elbow region 20881423 Active or passive immunization 480383287 Knee pain 81491351 [id number] Flora Toussaint, PT Physical Therapy, [address] [address] 6 04/21/2015 11:31:14 04/21/2015 11:31:27 [id number] Dax Beal MD , [facility], OFFICE [address] [place] [address] 6 01/26/2016 11:47:44 01/26/2016 14:08:17 Active or passive immunization 797248984 Z23 [id number] Flora Toussaint PT Physical Therapy, [address] [address] 6 05/10/2016 13:54:16 05/10/2016 13:54:31 [id number] Anirudh Hubbard MD , [facility], OFFICE [address] [place] [address] 6 08/20/2016 10:55:38 08/20/2016 12:18:08 Adult health examination 981850965 Z00.00 see Risk Assessment and Lifestyle Change Counseling section above Counseling 749480427 Z71 .9 Screening for disorder 170728411 Z11.59 Active or passive immunization 628691249 Z23 Tick bite 44939616 S30.8 61A [id number] Anirudh Hubbard MD , [facility], OFFICE [address] [place] [address]114 6 09/25/2016 16:51:08 09/26/2016 12:49:47 Allergic reaction to bee sting 957548450 T78.40XA Chest pain 84000071 R07. 9 [id number] Flora Toussaint PT Physical Therapy, C [address] [place] [address] 09938-970 6 01/11/2017 09:51:41 01/11/2017 09:51:57 [id number] Anirudh Hubbard MD , [facility], OFFICE [address] [place] [address]516 6 04/17/2017 11:42:00 04/17/2017 11:57:09 Active or passive immunization 450948935 Z23 [id number] Anirudh Hubbard MD , [facility], OFFICE [address] [place] [address]46[address]041 6 08/21/2017 13:39:31 08/21/2017 14:31:53 Adult health examination 276359545 Z00.00 see Risk Assessment and Lifestyle Change Counseling section above Counseling 057566157 Z71 .9 Depression screening 171 091787 Z13.89 depression screening tool administer ed, entered into emr, scored and discussed. 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, wasps and bees 528290107 T63.451D Pain of ri ght shoulder joint 5190638827 8217731 M25.511 Pain of rush int of ankle 148601765 M25.405 [id number] Flora Toussaint, PT Physical Therapy, [address] [address] 6 10/23/2017 07:57:17 10/24/2017 10:04:45 Tibialis posterior tendinitis 636145981 M76.446 [id number] Flora Toussiant PT Physical Therapy, [address] [address] 6 10/25/2017 07:33:11 10/25/2017 08:39:24 Tibialis posterior tendinitis 765354796 M76.230 [id number] Flora Toussaint, PT Physical Therapy, [address] [address] 6 11/12/2017 17:15:43 11/13/2017 08:20:23 Tibialis posterior tendinitis 102807422 M76.865 [id number] Anirudh Hubbard MD , [facility], OFFICE [address] [place] [address]930 6 03/05/2018 07:00:55 03/05/2018 12:10:08 Active or passive immunization 213908405 Z23 [id number] Anirudh Hubbard MD , 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, OFFICE [address] [place] [address] 6 11/26/2018 14:13:21 11/26/2018 15:59:54 Acute upper respiratory infection 89971634 J06.9 [id number] Anirudh Hubbard MD , [facility], OFFICE [address] [place] [address]87[address]835 6 02/05/2019 09:19:51 02/05/2019 16:20:10 Active or passive immunization 704541146 Z23 [id number] Flora Toussaint PT Physical Therapy, [address] [address] 6 03/30/2019 15:26:42 04/02/2019 14:37:58 Pain in right foot 5304643396 67657 M79.910 [id number] Flora Toussaint PT Physical Therapy, [address] [address] 6 04/01/2019 08:01:04 04/01/2019 10:06:04 Pain in right foot 1731620221 97187 M79.956 [id number] Flora Toussaint PT Physical Therapy, [address] [address] 6 04/08/2019 07:56:20 04/09/2019 14:24:48 Pain in right foot 8924099373 10871 M79.475 [id number] Flora Toussaint PT Physical Therapy, [address] [place] [address] 6 04/20/2019 08:01:50 04/20/2019 09:41:52 Pain in right foot 0857766668 17277 M79.737 [id number] Flora Toussaint, PT Physical Therapy, [address] [address] 6 10/21/2019 07:36:42 10/26/2019 12:38:44 Knee pain 52137881 M25.561 Pain of hip region 32699 002 M25.591 [id number] Flora Toussaint, PT Physical Therapy, [address] [address] 6 10/27/2019 07:25:42 10/27/2019 08:43:50 Knee pain 11126449 M25.561 Pain of hip region 35154 002 M25.529 [id number] Flora Toussaint PT Physical Therapy, [address] [address] 6 11/04/2019 07:35:31 11/04/2019 08:14:54 Knee pain 94388697 M25.561 Pain of hip region 27267 002 M25.390 [id number] Anirudh Hubbard MD FP, [facility], OFFICE [address] [place] [address] 31475[address]168 6 01/20/2020 13:34:38 01/21/2020 08:38:13 Adult health examination 945898231 Z00.00 see Risk Assessment and Lifestyle Change Counseling section above Counseling 712012255 Z71 .9 including cardiovasc ular risk reduction counseling Depression screening 171 012943 Z13.89 depression screening tool administer ed, entered into emr, scored and discussed\ Screening for alcohol abuse 705631560 Z13.39 Sarcoidosis 73685517 D86 .9 quiescent. 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, OFFICE [address] [place] [address] 6 02/22/2020 07:30:51 02/23/2020 12:25:38 Active or passive immunization 154667337 Z23 [id number] Anirudh Hubbard MD , [facility], OFFICE [address] [place] [address] 16955[address]419 6 05/31/2020 17:03:06 06/02/2020 08:38:13 Low back pain 831157196 M54.5 2 wks low back pain and rad into R leg when he bends over. suspect L3 disc injury, or more likely a lumbar muscle strain. Delines meds. Screening for disorder 410939705 Z13.6 due anyway, low on my list of likely issues. Abdominal pain 39903350 R10.9 Abd pain portion of this does not make 100% sense. Would do AAA screening. [id number] Flora Toussaint, PT Physical Therapy, [address] [address] 6 06/02/2020 07:36:33 06/03/2020 08:18:36 Low back pain 459213235 M54.5 [id number] Anirudh Hubbard MD , [facility], OFFICE [address] [place] [address] 05788-771 6 02/13/2021 08:59:55 02/24/2021 10:28:04 Adult health examination 014126824 Z00.00 see Risk Assessment and Lifestyle Change Counseling section above Counseling 489800876 Z71 .9 including cardiovasc ular risk reduction counseling Depression screening 171 870212 Z13.31 depression screening tool administer ed, entered into emr, scored and discussed, Screening for alcohol abuse 492303764 Z13.39 Advance di rective discussed with patient 947695152 Z71.89 Sarcoidosis 58850569 D86 .9 quiescent. but with cough daily. and a bit more SOB. Will look up sarcoid and further surveilanc e. [id number] Anirudh Hubbard MD , [facility], OFFICE [address] [place] [address]95[address] 6 02/15/2022 13:20:25 03/07/2022 14:13:39 Active or passive immunization 138923618 Z23 [id number] Anirudh Hubbard MD , [facility], OFFICE [address] [place] [address]676[address]977 6 04/17/2022 14:42:41 04/17/2022 15:30:52 Adult health examination 476150074 Z00.00 see Risk Assessment and Lifestyle Change Counseling section above Counseling 007000098 Z71 .9 including cardiovasc ular risk reduction counseling Depression screening 171 942170 Z13.31 depression screening tool administer ed, entered into emr Screening for alcohol abuse 626099248 Z13.39 Active or passive immunization 432225655 Z23 Allergy to bee venom 424 117614 Z91.030 epi when needs it. Sarcoidosis 58818341 D86 .9 quiescent. but with cough daily. and a bit more SOB. Will look up sarcoid and further surveilanc e. Pigmented skin lesion of uncertain nature 436733184 L81.9 see derm Systolic murmur 42797129 R01.1 check the echo, also SOB Family his tory of cancer of colon 936059322 Z80.0 get colonsocpy 2022 [id number] Anirudh Hubbard MD , [facility], OFFICE [address] [place] [address] 05/11/2022 08:23:44 05/11/2022 09:49:26 Right lower quadrant pain 171741599 R10.31 2 d RLQ pain, neg on exam, no tenderness . unclear etiology. Suspect muscluar. will observe. Go to ED if getting worse. When get back from the trip to [facility] , then send a message how it is going. If no better, consider imaging-CT [id number] Anirudh Hubbard MD , [facility], OFFICE [address] [place] [address] 07/13/2022 09:33:49 07/13/2022 10:36:46 Acute upper respiratory infection 24546447 J06.9 Cold self care measures reviewed and encouraged (fluids, steam inhalation , adequate rest). F/U if symptoms worsen or aren't resolving. COVID-19 980386398 U07.1 Last GFR 06/18/20 at 78. By recommend full dosing. We talked about repeating the kidney function but it is heading into the weekend and will just get it on time to be fully effective. Sarcoidosis 68742643 D86 .9 quiescent. but with cough daily. and a bit more SOB. Will look up sarcoid and further surveilanc e. Right lowe r quadrant pain 864170288 R10.31 2 mo RLQ pain, neg on exam, no tenderness . unclear etiology. neg us and x-ray. still with the problem, ? serious etiology. [id number] Anirudh Hubbard MD , [facility], OFFICE [address] [place] [address] 6 02/12/2023 10:43:00 02/12/2023 19:08:09 Active or passive immunization 946335232 Z23 [id number] Anirudh Hubbard MD , [facility], OFFICE [address] [place] [address]64-076 6 04/19/2023 08:57:49 04/23/2023 12:36:46 Adult health examination 736236151 Z00.00 see Risk Assessment and Lifestyle Change Counseling section above Depression screening 171 651363 Z13.31 depression screening tool administer ed Screening for alcohol abuse 167063069 Z13.39 Alcohol use screening tool administer ed Screening for malignant neoplasm of prostate 315970277 Z12.5 PSA testing for ages 55-69 risks and benefits discussed {{patient declines testing te st ordered}}. Allergy to bee venom 424 920278 Z91.030 epi when needs it. [id number] Anirudh Hubbard MD , [facility], OFFICE [address] [place] [address] 6 08/12/2023 08:59:43 08/12/2023 11:47:51 Mild memory disturbance 341339425 R41.3 The memory is actually quite good [...] 15 and the dirty dozen from the [employer] to continue taking his multivitam [...] neurologis t.Given the number for Ivet Cervantes [id number] PAVEL EDUARDO , [facility], OFFICE [address] [place] [address] 04/27/2024 13:15:20 04/27/2024 14:04:46 Candidiasis of mouth 39034460 B37.0 Pt noting discomfort in throat, difficulty [...] w/ oral steroid paste. f/u prn Sarcoidosis 15215785 D86 .9 can consider holding inhaler during treatment [id number] Silvana Hercules DO , [facility], OFFICE [address] [place] [address] 05/10/2024 08:57:47 05/10/2024 09:23:56 Pain in right foot 3679309643 63727 M79.671 Recurrent Extensor Tibialis Tendonitis Aggravated by [...] such as ibuprofen gel or aspirin cream. [id number] Roberto Calloway , PT Physical Therapy, [facility] [address] [place] [address] 05/14/2024 13:18:15 05/18/2024 08:35:26 Pain in right foot 5076021939 14353 M79.671 78 year old {{female m kia*}} [...] Include as appropriat e: therapeuti c exercise (17090), manual therapy (30024), therapeuti c activity (10051), gait training (87418), neuromuscu lar reeducatio n (44082), mechanical traction (23929) [id number] NICHOL MASTERS NP Physical Therapy, [facility] [address] [place] [address] 06/09/2024 12:28:14 2024 12:29:29 Pain in right foot 3660308545 58499 M79.671 78 year old {{female m kia*}} [...] Include as appropriat e: therapeuti c exercise (62626), manual therapy (88488), therapeuti c activity (14737), gait training (96479), neuromuscu lar reeducatio n (77233), mechanical traction (04142) [id number] Moises Perrin MD Sports Medicine, [facility] [address] [facility] [place] [address] 2024 10:01:18 06/18/2024 11:20:13 Pain in right foot 3005573667 68665 M79.671 Beny is a 79-year-ol d male [...] alleviate his symptoms. Tibialis p osterior tendinitis 055220766 M76.829 [id number] NICHOL MASTERS NP Physical Therapy, [facility] [address] [place] [address] 2024 09:06:37 2024 12:30:06 Pain in right foot 6941297622 63013 M79.671 78 year old {{female m kia*}} [...] Include as appropriat e: therapeuti c exercise (72283), manual therapy (41063), therapeuti c activity (22570), gait training (52861), neuromuscu lar reeducatio n (53140), mechanical traction (04360) [id number] NICHOL MASTERS NP Physical Therapy, [facility] [address] [place] [address] 06/16/2024 09:29:15 06/16/2024 11:40:26 Pain in right foot 4320262727 61745 M79.671 78 year old {{female m kia*}} [...] {{4 6* 8 1 0}} visits over {{ 8 12*} } weeks. We expect significan t change in pain, impairment and function in this time frame.Leticia tment to Include as appropriat e: therapeuti c exercise (38948), manual therapy (33145), therapeuti c activity (12788), gait training (53142), neuromuscu lar reeducatio n (99934), mechanical traction (67352) [id number] NICHOL MASTERS NP Physical Therapy, [address] [address] 07/09/2024 14:57:56 07/09/2024 16:20:45 Pain in right foot 8702618992 37028 M79.671 78 year old {{female m kia*}} [...] {{4 6* 8 1 0}} visits over {{ 8 12*} } weeks. We expect significan t change in pain, impairment and function in this time frame.Leticia tment to Include as appropriat e: therapeuti c exercise (75203), manual therapy (48858), therapeuti c activity (83932), gait training (29230), neuromuscu lar reeducatio n (13404), mechanical traction (11710) [id number] Moises Perrin MD Sports Medicine, [facility] [address] [place] [address] 07/29/2024 09:27:13 08/20/2024 09:16:51 Pain in right foot 4102857728 08049 M79.671 Beny is a 79-year-ol d male [...] had treatments with Dr. Rian Capone in [place]. At this point time is planning to [...] day of service Tibialis p osterior tendinitis 050246573 M76.821 [id number] NICHOL MASTERS NP Physical Therapy, [facility] [address] [place] [address] 08/11/2024 11:56:14 08/14/2024 11:17:33 Pain in right foot 6915035297 84966 M79.671 Patient Goals:To be able to Walk, climb [...] not reached. Patient will pursue PRP injection. [id number] Moises Perrin MD Sports Medicine, [address] [place] [address] 09/08/2024 12:51:02 09/08/2024 16:21:56 Pain in right foot 2836495743 12098 M79.671 Beny is a 79-year-ol d male with right ankle and foot pain due to tibialis posterior tendinitis and dysfunctio n. I again reviewed this diagnosis with him and his as well as discussing further options for treatment. We discussed continued physical therapy and appropriat e bracing, activity modificati ons and orthotics, considerat ion of PRP injection, as well as potential surgery. He does wish to proceed with PRP. We discussed again the risks and benefits of this type of injection as well as the cost which is $600 and not covered by insurance which he understand s. Beny did undergo a right ankle leukocyte poor PRP injection around the tibialis posterior tendon. This was tolerated well for complicati on. I have advised that he be nonweightb earing with crutches and a boot for the next 2 days. He can take off his boot to sleep as well as when showering. After that he can progress to full weightbear ing without crutches for 2 weeks but continue to wear his Cam walker boot. After an additional 2 weeks he can progress to a sneaker with appropriat e arch support either via orthotic or the ASO brace he recently purchased. I did advise he can restart physical therapy in 4 weeks. Beny will plan to follow-up with me as needed if his symptoms are not improving and can contact me at any time if he has any questions or concerns. Tibialis p osterior tendinitis 521241644 M76.821 Health Concerns Section Related Observation LastModified by Organization Detai ls LastModified Time None Recorded Concern Status LastModified by Organization Details LastModified Time None Recorded Advance Directives Directive N: INFO GIVEN- Payers Encounter Date Sequence Insurance Name Policy Number Policy Brady Covered Member ID Brady Member ID Guarantor Name 06/16/2024 2 [employer] - [employer] [id number] 8 Jolie Lena [id number] [facility] 06/16/2024 1 MEDICARE B-[place]: [facility] Julio Welsh Lena [id number] [facility] 07/09/2024 2 [employer] - [employer] [id number] 8 Jolie Lena [id number] [facility] 07/09/2024 1 MEDICARE [place]: [facility] Julio Welsh Lena [id number] [facility] 07/29/2024 2 [employer] - [employer] [id number] 8 Jolie Lena [id number] [facility] 07/29/2024 1 MEDICARE [place]: [facility] Julio Welsh Lena [id number] [facility] 08/11/2024 2 [employer] - [employer] [id number] Jolie Lena [id number] [facility] 08/11/2024 1 [place]: [facility] Julio Welsh Lena [id number] [facility] 09/08/2024 2 [employer] - [employer] [id number] 8 Jolie Lena [id number] [facility] 09/08/2024 1 MEDICARE B-[place]: [facility] Julio Welsh Lena [id number] [facility] Notes Date Note Type Note Provider Name and Address Organization Details Recorded Time 06/16/2024 text/html PT Initial Eval*Reported bypatient.History: ief complaint: [...] limitation in Exercise Roberto Calloway, PT [address] [place], [address], [facility] 06/16/2024 10:19:34 07/09/2024 text/html PT Initial Eval*Reported bypatient.History: ief complaint: [...] lasted this long since then Symptom intensity:average 610 Symptom duration:constantly Symptom change:symptoms are not changing [...] limitation in Exercise Roberto Calloway, PT [address] [place], [address], [facility] 07/09/2024 16:10:27 07/29/2024 text/html Beny is a 79-year -old male who presents today for reevaluation of right ankle pain. He was last evaluated on 2024. After that appointment he did wear a Cam walker boot for 2-3 days but felt it was uncomfortable so discontinued use. He has been continuing with his physical therapy with a home exercise program. He does wear sook-wsw-qxhmrlt orthotics. Beny does have custom orthotics but feels they cause calluses and may not fit properly. He states these custom orthotics are 5-6 years old. Overall his symptoms have been improving and he is having significantly less pain. He does continue to have discomfort along his medial ankle in the retromalleolar region that is worse with walking. Moises Perrin MD [address] [place] [address], [address], [facility] 07/29/2024 16:50:11 08/11/2024 text/html PT Initial Eval*Reported bypatient.History:[facility] complaint: (Right medial foot pain); May 06 [...] limitation in Exercise Roberto Calloway, PT [address] [place], [address], [facility] 08/12/2024 19:09:05 09/08/2024 text/html Beny is a 79-year -old male presents today for reevaluation of right ankle pain and planned PRP injection. Was last evaluated on 07/29/2024 and has not had any significant change in his symptoms since then. Continues to have pain primarily along the right medial ankle in the retromalleolar region although has had some increased discomfort slightly more proximally as well. He has been doing physical therapy as well as briefly immobilizing his ankle in a Cam walker boot which did help somewhat with his symptoms although they did not completely resolve. He also has recently been using a ankle support orthosis type Velcro brace with specific strapping to help with posterior tibial tendon dysfunction. In review his symptoms initially started in April 2024. Moises Perrin MD [address] [place], [address], [facility] 09/08/2024 16:21:54
== END 2024-09-15 11:44 | disposition home or self-care (01) ==
LOC: HO.HSMS 10:58
PROVIDERS: PCP Family Medicine; Visit Provider Nurse Practitioner Family
DX: G47.33 Obstructive sleep apnea (adult) (pediatric) (principal); D86.9 Sarcoidosis, unspecified
CPT/HCPCS: 99213

== ENCOUNTER → 2024-09-15 10:57 | Outpatient (BNVA) | payer MEDICARE, OTHER, SELFPAY | PROVIDERS: PCP Family Medicine; Visit Provider Nurse Practitioner Family | DX: G47.33 Obstructive sleep apnea (adult) (pediatric) (principal); D86.9 Sarcoidosis, unspecified | CPT/HCPCS: 99212 ==

== ENCOUNTER → 2024-09-17 08:40 | Outpatient (REF) | payer MEDICARE, OTHER, SELFPAY ==
--- NOTE | 2024-09-17 08:42 | CA_ITS ---
Acquisition Time: 2024-09-17 08:46:18 Total Exercise Time: 00:02:00 Test Indications: LBBB, BRADYCARDIC Medications: SEE H&P Protocol: LEXISCAN Max HR: 91 BPM 64% of Pred: 142 BPM Max BP: 122/80 mmHG Max Work Load: 1.0 METS Pharmacological stress test with Lexiscan while pt moved his left leg, with reports of lightheadedness, without any arrythmias, with normotensive response to injection. Nondiagnostic EKG for ischemia. In recovery, pt feeling back to baseline. Nuclear images pending. Test reviewed with Dr. Mcneill. Referred By: Hemal Wisdom Electronically Signed By: Ayaz Nesbitt
--- OUTSIDE RECORDS SUMMARY | 2024-09-17 08:49 | XMS_ITS | Data Portability ---
Author Organization [place] - [facility], Allergy Address [address] [place] [phone] Assessment Encounter Date Assessment Date Assessment LastModified [...] Details Recorded Time Obstructive sleep apnea syndrome 70975744 Active 024 RICHARD OLIVEROS MD [address] [place] [address], [phone], [facility] 13:45:04 Problem Notes None recorded. Procedures Surgical History Date Name Laterality Status Provider Name and Address Organization Details Recorded Time 4 Telehealth completed RICHARD OLIVEROS MD [address] [place] [address], [phone], [facility] 11/04/2023 13:46:15 4 Dise eval [facility] completed RICHARD OLIVEROS MD [address] [place] [address],[address], [address], [facility] 11/04/2023 13:44:28 Imaging Results None recorded. [...] Diagnosis Note [id number] RICHARD OLIVEROS MD [facility] [address] [address] 11/06/2023 16:47:28 11/10/2023 21:34:07 Obstructive sleep apnea syndrome 86702855 G47.33 Health Concerns Section Related Observation LastModified by Organization Detai ls LastModified Time None Recorded Concern Status LastModified by Organization Details LastModified Time None Recorded Advance Directives Directive None Recorded Payers Insurance Date Sequence Insurance Name Policy Number Policy Brady Covered Member ID Brady Member ID Guarantor Name 11/11/2023 2 [facility] INDEMN[facility] - [facility] [id number] Curtis Paredes [id number] Curtis Paredes 11/03/2023 1 [place] [employer] Curtis Paredes [id number] Curtis Paredes Notes Date Note Type Note Provider Name and Address Organization Details Recorded Time 11/06/2023 text/html [facility] [place] 09/03/22BMI 27AHI 18central and mixed - none [...] exercise. weekend travel RICHARD OLIVEROS MD [address] [facility],[place] [address], [place], [address], [facility] - [facility] 11/06/2023 17:02:11
--- OUTSIDE RECORDS SUMMARY | 2024-09-17 08:50 | XMS_ITS | Data Portability ---
Author Organization [facility] Sighter s [facility], [facility] Address [address] [address] Care Team Providers Care Barrel Lathe Operator Name Role Phone ANIRUDH HUBBARD Primary Care Provider INGRID DEMPSEY OTHER [phone] Assessment Encounter Date Assessment Date Assessment LastModified [...] MMA, TSH and folate levels done at [facility] I am happy to order here on that. . Could consider Brain MRi to establish a baseline. Beyn will hold off on that for now. [...] Note that Beny did a study at [facility] around - will try to get records. Diagnosis reviewed? Yes Mood: No changes in mood Plan: will monitor Mobility: some changes in gait. Has some neuropathy/some OA/ankle pain Plan: Would increase protein intake to around 20-30 grams/per meal. Would consider strength training/resistan ce training in addition to cardiovascular exercise. Would speak to metal cut off saw tender about neuropathy - might this be [...] MMA, TSH and folate levels done at [facility]. Could consider Brain MRI to establish a [...] Note that Beny did a study at [facility] around - will try to get records. Diagnosis reviewed? Yes Mood: No changes in mood Plan: will monitor Mobility: some changes in gait. Has some neuropathy/some OA/ankle pain - ongoing. Plan: Would increase protein intake to around 20-30 grams/per meal. Would consider strength training/resistan ce training in addition to cardiovascular exercise. Would speak to metal cut off saw tender about neuropathy - might this be [...] see if things are stable, any changes [facility] Not available 03/20/2024 11:22:31 Plan of Treatment Reminders Order Date Submit Date Provider Last Modified By Organization Details Last Modified Time Details Appointments FOLLOW UP 30 2024 09:00A M Ivet [facility] MD Not available Not available Not available Lab vitamin B12, serum [address], [address], 03/25/2024 16:26:54 mma (methylm alonic acid), serum [address], [address], 03/27/2024 10:48:46 folate, serum [address], [address], 03/27/2024 10:48:46 TSH + free T4, serum [address], [address], 03/27/2024 10:48:46 iron + TIBC + ferritin , serum [address], [address], 03/27/2024 10:48:46 magnesiu m, serum or plasma [address], [address], 03/27/2024 10:48:46 Referral None recorded . Procedures [...] Organization Details Recorded Time Aortic valve stenosis 82695750 Active 2023 Ivet Cervantes MD [address], [place], [address], [employer] 4 15:30:22 Sarcoidosi s 69744982 Active [address] Dempsey, last 01/16/23 who noted: diagnosed ~ 2017. Was seen at [facility] Pulmonary. Noted ILD but not sure about sarcoid. Did have travel history and wanted to nesure that r/o fungal infection/ TB. BRAN level 71 (2021) Noted slight decrease in lung capacity from 91% to 82%. Oran to have clinical dx of sarcoidosi s. was placed on prednisone 5 mg. did not have uveitis on eye exam. Noted to have Covid in 2022 - with sig sob and cough but improved. 01/16/23: cough moderate severe, keeping him awake and hard to tolerate new CPAP machine. fev1/fvc -90% predicted. Ivet Cervantes MD [address], [place], [address], [employer] 4 14:24:32 Osteoarthr itis 444991564 Active 2023 right hip Ivet Cervantes MD [address], [place], [address], [email or web address] 4 15:30:41 Obstructiv e sleep apnea syndrome 45399574 Active 2023 Ivet Cervantes MD [address], [place], [address], [employer] 4 15:30:52 Advance care planning Active 2023 HCP - Dtr Silvana Paredes, MOLST: yes 9 02/13/21 Ivet Cervantes MD [address], [place], [address], [employer] 15:36:50 Tinnitus 70124844 Active 2023 Ivet Cervantes MD [address] [facility], [place], [address], [employer] 10:18:54 Hearing loss 23483836 Active 2023 Ivet Cervantes MD [address] [place] [address], [address], [employer] 14:09:34 Impaired cognition 972049277 Active 2023 MOCA - 07/2023 @ [facility] Ivet Cervantes MD [address] [place] [address], [place], [address], [employer] 14:10:49 Problem Notes None recorded. Procedures Surgical History Date Name Laterality Status Provider Name and Address Organization Details Recorded Time inguinal region repair completed Ivet Cervantes MD [address], [address], [employer] 09/08/2023 15:42:48 Imaging Results None recorded. Procedure Notes None recorded. Medical Equipment None Reported. Allergies Allergen ID Allergen Name Allergen Category Reaction Reaction Severity Criticality Documentation Date Start Date Code Code System Note Provider Name and Address Organization Details Recorded Time 81 honey bee venom medicatio n Not available Not available high 09/08/2023 37186 7 RxNorm Ivet Cervantes MD [address] [place] [address],[address], [address], [employer] 4 15:31:14 82 Product containin g penicilli n (product) medicatio n hives Not available high 09/09/2023 28215 8001 SNOMED Ivet Cervantes MD [address] [facility], [place], [address], [employer] 14:11:22 83 Symbicort medicatio n vasculiti s Not available Not available 09/09/2023 97183 8 RxNorm Sever e leg cramp s Alyssa Pangnicolas gagnon [employer] 4 14:18:15 Medications Name Sig Start Date [...] Updated DateTime 4 178.43 cm 27.8 kg/m2 52207.5 1 g 72 /min 97 % 97 % 112 mm[Hg] 78 mm[Hg] Alyssa Graham [employer] 4 14:23:05 Date Recorded Body height Body mass index (BMI) Body weight Oxygen saturation Oxygen saturation in Arterial blood by Pulse oximetry Heart rate Systolic blood pressure Diastolic blood pressure Provider Name and Address Organization Details Last Updated DateTime 4 178.43 cm 27.5 kg/m2 38928.3 3 g 97 % 97 % 63 /min 142 mm[Hg] 80 mm[Hg] [facility] 10:50:04 Social History None recorded. Functional [...] Problems N Abdominal Pain N Heart Attack (HI) N Back Problems N Dementia N Past Encounters Encounter ID Performer Location Encounter Start Date Encounter Closed Date Diagnosis/Indication Diagnosis SNOMED-CT Code Diagnosis ICD10 Code Diagnosis Note [id number] MD Helen Joyce [facility] Primary Care [address] [address] 09/09/2023 14:04:05 09/09/2023 15:49:19 Advance care planning 316797421 Z71.89 HCP - will place in chart Impaired cognition 35061 6002 R41.89 see above - cognitive changes most likely c/w normal aging Obstructiv e sleep apnea syndrome 31230314 G47.33 as above, would look to treat. [id number] MD Helen Joyce [facility] s Primary Care [address] [address] 03/20/2024 10:27:27 03/20/2024 20:39:09 Impaired cognition 313164339 R41.89 see above - cognitive changes most likely c/w normal aging Obstructiv e sleep apnea syndrome 78745444 G47.33 as above, continue with mouth device. Hearing loss 66452347 H9 1.93 wearing hearing aides Bilateral cramp of muscle of lower limbs 6264732741 6289328 R25.2 gets them off and on.Tries to [...] UNICARE - GIC INDEMNITY PLAN (MEDICARE SUPPLEMENT) [id number] Curtis Monkanda [id number] Curtis Paredes 09/09/2023 1 MEDIC[place] B-[place]: [facility] [employer] Curtis Paredes [id number] Curtis Paredes 03/20/2024 2 [employer] - [employer] INDEMNITY PLAN (MEDICARE SUPPLEMENT) [id number] Curtis Paredes [id number] Curtis Paredes 03/20/2024 1 MEDIC[place]: [employer] Curtis Paredes [id number] Curtis Paredes Notes Date Note Type [...] this for some time)in a study at [facility], he was given a dose of atropine [...] then devd phlegm. Saw Dr Krishna at [facility]. Now seeing Dr Dempsey at [place] and very happy with him. Has some [...] to have. 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 IM/MFM. 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 In [facility].In contact with them? yesETOH: daily. drinks a beer every day at 5pm, wine with meals, 2 glassesConcern about amount of ETOH? noTobacco: yes- smoked 4-5 years, quit 50+ years agoOther drugs: nothing current ROS:constitutional noneeyes glassesENT ear ringingheart - nonelungs SOB/coughabdomen: painurinary noneMS: arthritisskin: noneNeuro: tingling, balancebehavioral: noneblood: none Ivet Cervantes MD [address] [place] [address], [address], [facility] 09/09/2023 15:56:06 4 text/html Subjective:Since last visit: date: 09/09/23: Falls/change in gait:ED visits/hospitalizations: Changes in function:Changes in medication:Was diagnosis from initial visit discussed?: Beny:They have been busy - some travelling. They did a food tour in [facility] and then [place] in January.He doesnt notice any memory changes while he is travelling. Sarcoidosis does hold him back - he is slower. He doesnt have any stamina. Memory: has not felt that it has deteriorated.His biggest complaint is his coughing and sarcoidosis. He f/u with Dr Dempsey, last in September, was planning to see him in a year but seemed to have gotten worse in [place]. He does feel he is continuing to lose weight. has lost weight. he wonders about going to [facility]. Faina:Memory is okay. Ivet Cervantes MD [address] [place] [address], [place], [address], [facility] 03/20/2024 11:33:59
--- OUTSIDE RECORDS SUMMARY | 2024-09-17 08:50 | XMS_ITS | Data Portability ---
Author Organization [facility], [facility] Address [address] [place] [address] Care Team Providers Care Rubber Stamp Maker Name Role Phone FLORA TOUSSAINT Phys. Med. & Rehab Unavailable ANIRUDH HUBBARD Primary Care Provider TAMY [employer] Teacher RICKY VERA Account Manager Employee Benefits EDVIN BUENO Infectious Disease JULIO CALZADA Orthopedist LEELA ADAN Account Manager Employee Benefits [facility] Orthopedist [facility] Dermatolo gist RICHARD [...] None recorded. Imaging US, guidance [address] (Imaging), [address], [place], [address], 09/08/2024 16:31:53 Medication Orders None recorded. Patient TargetsNo targets recorded. Patient Instructions Encounter Date Encounter Id Patient Instructions Last Modified By Organization Details Last Modified Time 07/29/2024 [id number] Continue with physical therapy Consider having custom orthotics adjusted Follow-up as needed Not available 07/29/2024 09:53:56 All of the patients questions were answered and they understand the plan of care. Thank you for allowing me to participate in the care of your patient. ? ? ?Please feel free to contact me with any questions regarding their care. Not available 07/29/2024 09:54:44 09/08/2024 [id number] Do not use NSAID S or Aspirin [...] contr ast No observ ation record ed. [address], [address], 09/03/2024 09:17:50 Result Notes None recorded. 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 flovent- but d/c'd( did not need much). 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 2022 repeat echo 2026 Anirudh Hubbard MD [address] [place] [address], , [facility] 3 09:36:43 Lipoma of skin and subcutan eous tissue (excludi ng face) 700655944 Completed 200703/18/2013 Not Available [facility] 3 02:04:10 Neoplasm of uncertai n behavior of skin 14018655 Completed 200603/18/2013 Not Available [facility] 3 02:01:52 Hiccough s 46751130 Completed 200602/13/2021 Anirudh Hubbard MD [address] [place] [address], [address] , [facility] 1 09:20:52 Knee pain Completed 200603/18/2013 Not Available [facility] 3 02:00:42 Problem Notes None recorded. Procedures Surgical History Date Name Laterality Status Provider Name and Address Organization Details Recorded Time 09/09/19 Generic Procedure Template completed Moises Perrin MD [address] [place], [address], [facility] 09/08/2024 16:21:27 08/12/19 81308: Therapeutic Exercise completed Roberto Calloway, PT [address] [place], [address], [facility] 08/12/2024 19:05:48 08/12/19 Treatment and Advice completed Roberto Calloway, PT [address] [place], [address], [facility] 08/12/2024 19:01:12 07/10/19 89906: Therapeutic Exercise completed Roberto Calloway, PT [address] [place], [address], [facility] 07/09/2024 16:09:56 07/10/19 Treatment and Advice completed Roberto Calloway, PT [address] [place], [address], [facility] 07/09/2024 16:08:43 06/16/19 39130: Therapeutic Exercise completed Roberto Calloway, PT [address] [place], [address], [facility] 06/16/2024 10:16:27 06/16/19 25 15134: Neuromuscular Re-Education completed Roberto Calloway, PT [address] [place], [address], [facility] 06/16/2024 10:17:24 06/16/19 25 Treatment and Advice completed Roberto Calloway, PT [address] [place], [address], [facility] 06/16/2024 10:18:51 06/11/19 25 Generic Procedure Template completed Moises Perrin MD [address] [place], [address], [facility] 2024 12:24:28 06/11/19 25 19065: Neuromuscular Re-Education completed Roberto Calloway, PT [address] [place], [address], [facility] 2024 09:42:16 06/11/19 25 Treatment and Advice completed Roberto Calloway, PT [address] [place], [address], [facility] 2024 09:33:26 06/09/19 40506: Manual Therapy completed Roberto Calloway, PT [address] [place], [address], [facility] 2024 09:38:21 06/09/19 25 67477: Neuromuscular Re-Education completed Roberto Calloway, PT [address] [place], [address], [facility] 2024 09:36:59 06/09/19 25 Treatment and Advice completed Roberto Calloway, PT [address] [place], [address], [facility] 06/09/2024 12:47:46 05/14/19 25 Physical Activity Counselling completed Roberto Calloway, PT [address] [place], [address], [facility] 05/14/2024 13:27:08 05/14/19 25 41931: PT Eval Low Complexity completed Roberto Calloway, PT [address] [place], [address], [facility] 05/14/2024 13:27:08 05/14/19 25 Treatment and Advice completed Roberto Calloway, PT [address] [place], [address], [facility] 05/14/2024 13:57:52 04/01/20 19 88181: Therapeutic Exercise completed Flora Toussaint, PT [address] [place], [address], [facility] 04/01/2019 08:40:29 03/30/20 19 Physical Activity Counselling completed Flora Toussaitn, PT [address] [place], [address], [facility] 03/31/2019 09:38:08 03/30/20 19 00459: PT Eval Low Complexity completed Flora Toussaint, PT [address] [place], [address], [facility] 03/31/2019 09:38:13 08/28/19 19 Medicare Wellness Visit completed Naina Villanueva [facility] 08/27/2018 13:44:04 08/28/19 19 Medicare Risk for Falls Screen completed Naina Villanueva [facility] 08/27/2018 13:49:32 08/28/19 19 Advanced Care Planning completed Anirudh Hubbard MD [address] [place], [address], [facility] 08/27/2018 14:21:10 11/13/19 18 31946: Therapeutic Exercise completed Flora Toussaint, PT [address] [place], [address], [facility] 11/13/2017 07:35:58 11/13/19 18 05631: Manual Therapy completed Flora Toussaint, PT [address] [place], [address], [facility] 11/13/2017 07:36:04 10/26/19 18 34700: Therapeutic Exercise completed Flora Toussaint, PT [address] [place], [address], [facility] 10/25/2017 08:13:46 10/26/19 18 31787: Manual Therapy completed Flora Toussaint, PT [address] [place], [address], [facility] 10/25/2017 08:13:50 10/24/19 18 Physical Activity Counselling completed Flora Toussaint, PT [address] [place], [address], [facility] 10/23/2017 14:58:29 10/24/19 18 28219: PT Eval Low Complexity completed Flora Toussaint, PT [address] [place], [address], [facility] 10/23/2017 14:58:35 08/22/19 18 Medicare Wellness Visit completed Naina Villanueva [facility] 08/21/2017 13:44:24 08/22/19 18 Medicare Risk for Falls Screen completed Naina Villanueva [facility] 08/21/2017 13:46:22 08/21/19 17 Medicare Wellness Visit completed Corina Solares RN, BSN [facility] 08/20/2016 11:04:47 11/10/19 15 Medicare Wellness Visit completed Jailyn Lance [facility] 11/09/2014 16:18:01 11/10/19 15 Medicare Annual Wellness Visit completed Jailyn Lance [facility] 11/09/2014 16:25:29 11/10/19 15 Medicare Risk for Falls Screen completed Jailyn Lance [facility] 11/09/2014 16:25:29 08/14/19 14 <strong>Pain</str latonia> Assessment and Follow-up (G8730) completed Flora Toussaint, PT [address] [place], [address], [facility] 08/13/2013 23:01:36 08/14/19 14 <strong>Falls</st juan c> Risk Assessment - No Risk (1101F) completed Flora Toussaint, PT [address] [place], [address], [facility] 08/13/2013 23:01:36 08/14/19 14 <strong>Functiona l</strong> outcome not documented, reason not given (G8541) completed Flora Toussaint, PT [address] [place], [address], [facility] 08/13/2013 23:01:36 03/16/20 13 Medicare Wellness Visit completed Nasrin Multani [facility] 03/16/2013 15:07:02 04/07/20 12 Medicare Wellness Visit completed Naina Garcia [facility] 04/07/2012 09:08:04 Imaging Results Imaging Date Name Status LastModified by Organiz ation Details LastModified Time 09/02/2024 CT, chest, w/o contrast completed [facility] [address] [place], [address], 09/03/2024 09:17:50 Procedure Notes None recorded. Medical Equipment None Reported. Allergies Allergen ID Allergen Name Allergen Category Reaction Reaction Severity Criticality Documentation Date Start Date Code Code System Note Provider Name and Address Organization Details Recorded Time 09153 Product containin g penicilli n (product) medicatio n rash Not available Not available 12/27/2008 00368 8001 SNOMED Not Available [facility] 1 06:05:20 593588 hornet venom environme nt anaphylax is Not available Not available 11/01/2017 37745 UNK Colten Rooney RN [facility] 8 11:51:51 053358 wasp venoms environme nt anaphylax is Not available Not available 11/01/2017 52372 RxNorm Colten Rooney RN null, [facility] 8 11:52:00 279030 Symbicort medicatio n muscle cramps Not available Not available 04/19/2023 64256 8 RxNorm Lachelle Kauffman CMA null, [facility] 3 09:05:01 Medications Name Sig Start Date [...] Not Available Not Available Not Available Fluvirin 8115-4530 (PF) 45 mcg (15 mcg x3)/0.5 mL [...] Last Updated DateTime 07/29/2024 177.8 cm Kimmy Ptael MA [facility] [place] 07/29/2024 09:40:59 Date Recorded Body height Provider Name an d Address Organization Details Last Updated DateTime 09/08/2024 177.8 cm Kimmy Patel MA [facility] [place] 09/08/2024 13:34:37 Date Recorded Systolic blood pressure Diastolic blood pressure Provider Name and Address Organization Details Last Updated DateTime 07/06/2024 159 mm[Hg] 85 mm[Hg] Tati Parker LPN [facility] 07/07/2024 13:18:59 Date Recorded Systolic blood pressure Diastolic blood pressure Provider Name and Address Organization Details Last Updated DateTime 09/15/2024 140 mm[Hg] 78 mm[Hg] Chinyere Loaiza RN [facility] 09/16/2024 09:14:13 Social History Question Answer Notes LastModified by Organizat ion Details LastModified Time Tobacco Smoking Status Former Smoker SMOKED ABOUT 50 YRS AGO WHEN HE WAS A KID Not Available [facility] 09/21/2010 02:08:49 Do You Have An Advance [...] Or The Highest Degree You Have Received? GS69334-0 [email or web address] Information not available 04/19/2023 When Did You [...] And In Chart No Katina Paredes (daughter) [phone] [email or web address] Information not available 01/23/2018 MOLST Form [...] You Have? 1 Silvana(Brian anny Shanelle r) jeffrey Information not available 04/02/2011 What Is Your Current Pack Years? 10packyears 0 Pack Years Information not available 11/09/2014 Do You Use Your Seat Belt Or Car Seat Routinely? Yes [email or web address] Information not available 04/19/2023 Seat Belts Used Routinely Yes Information not available 11/09/2014 Smoke Alarm In Home Yes Information not available 11/09/2014 Do You Have Smoke And Carbon Monoxide Detectors In Your Home? Yes [email or web address] Information not available 04/19/2023 Are You Passively Exposed To Smoke? No [email or web address] Information not available 04/19/2023 General Stress Level Low Information not available 11/09/2014 Do You Use Sunscreen Routinely? Yes Information not available 11/09/2014 Sex: Unknown Functional Status Question Answer Note LastModified by Organizat ion Details LastModified Time What is your level of alcohol consumption? Moderate [email or web address] Information not available 03/16/2013 Are you currently employed? 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 Family History Relationship Description Onset Age of this Age Resolved Age Notes LastModified by Organization Details LastModified Time Brother Malignant tumor of colon 54 previo usly record ed as Cancer - Colon [id number] Not available 12/08/2012 03:00:55 Sister Malignant tumor of colon got age 70's [facility] Not available 08/27/2018 14:11:33 Sister Malignant tumor of breast [facility] Not available 2018 14:11:45 Father Alzheimer's disease age 82 [place] Not available 2022 09:42:21 Notes:Mother age 94. Fa ther 89, [place] in his 80's. Healthy sister. Medical History Condition Response MUSCULOSKELETAL Y Interstitial Lung Disease Y Immunizations Vaccine Type Date Status Note Provider Nam e and Address Organization Details Recorded Time Influenza, split virus, trivalent, preservative 1 completed Not Available [facility] 05/16/2019 02:18:30 zoster live 1 completed Not Available [facility] 05/16/2019 02:29:17 influenza, unspecified formulation 8 completed Not Available [facility] 03/14/2011 05:22:13 Td(adult) unspecified formulation 8 completed Not Available [facility] 03/14/2011 05:22:26 Influenza, high-dose, trivalent, PF 4 completed Not Available [facility] 05/16/2019 02:29:19 Pneumococcal conjugate PCV 13 5 completed Not Available [facility] 05/16/2019 02:19:44 Influenza, split virus, trivalent, preservative 2 completed DEDE Cheung [place] [facility] 04/07/2012 09:09:04 influenza, unspecified formulation 3 completed [facility] 03/16/2013 15:13:05 Influenza, high-dose, trivalent, PF 6 completed Not Available [facility] 05/16/2019 02:30:31 pneumococcal polysaccharide PPV23 7 completed Not Available [facility] 05/16/2019 02:39:42 Influenza, high-dose, trivalent, PF 7 completed Not Available [facility] 05/16/2019 02:22:28 Influenza, high-dose, trivalent, PF 5 [facility] 03/08/2015 13:35:27 Influenza, high-dose, trivalent, PF 8 completed Not Available [facility] 05/16/2019 02:23:06 Influenza, high-dose, trivalent, PF 9 completed Not Available [facility] 05/16/2019 02:39:37 Influenza, high-dose, quadrivalent, PF 0 completed [facility]ane [facility] 02/22/2020 10:55:33 Hep A, unspecified formulation 9 completed Chaitanya Ortiz [facility] 10/08/2018 08:15:24 zoster recombinant 9 completed [facility] 04/16/2019 13:28:55 zoster recombinant 0 completed Naina Villanueva CMA null, [facility] 07/03/2019 08:16:44 Influenza, high-dose, quadrivalent, PF 2 [facility] 02/15/2022 13:28:17 Td (adult), 2 Lf tetanus toxoid, preservative free, adsorbed 2 [facility] 05/29/2022 16:41:32 Influenza, split virus, trivalent, preservative 0 completed Not Available [facility] 05/16/2019 02:38:54 Tdap 0 completed Not Available [facility] 05/16/2019 02:34:19 Influenza, high-dose, quadrivalent, PF 3 completed Chinyere Loaiza RN null, [facility] 02/12/2023 10:50:21 Influenza, split virus, quadrivalent, preservative 1 completed [facility] 02/13/2021 09:13:34 COVID-19, mRNA, LNP-S, PF, 100 mcg/0.5mL dose or 50 mcg/0.25mL dose 1 [facility] 02/13/2021 15:43:04 COVID-19, mRNA, LNP-S, PF, 100 mcg/0.5mL dose or 50 mcg/0.25mL dose 1 [facility] 02/12/2023 15:02:32 Influenza, split virus, trivalent, PF 9 completed Not Available [facility] 05/16/2019 02:30:34 Past Encounters Encounter ID Performer Location Encounter Start Date Encounter Closed Date Diagnosis/Indication Diagnosis SNOMED-CT Code Diagnosis ICD10 Code Diagnosis Note [id number] MD DOUG Mares, [facility], [address] [place] [address] 05/21/2006 17:15:54 05/22/2006 07:41:25 [id number] MD DOUG Mares, [facility], [address] [place] [address] [id number] MD DOUG Corbin, [facility], [address] [place] [address] 11/29/2006 16:21:32 11/29/2006 16:58:08 [id number] Leandro Monge. DOUG, [facility], [address] [place] [address] 03/02/2008 16:16:02 05/19/2008 02:02:29 [id number] Anirudh Hubbard MD , [facility], [address] [facility] [place] [id number] 12/27/2008 08:53:44 12/31/2008 08:45:14 [id number] [facility] LAB LAB - [facility] [address] [place] [id number] 02/15/2009 07:50:16 02/15/2009 07:57:32 [id number] Anirudh Hubbard MD , [facility], [address] [facility] [place] [id number] 06/13/2009 16:38:19 06/14/2009 15:37:48 [id number] MD DOUG Mares, [facility], [address] [facility] [place] [id number] 09/12/2009 16:38:58 09/15/2009 14:00:10 [id number] MD DOUG Corbin, [facility], [address] [facility] [place] [id number] 01/19/2010 16:11:15 01/24/2010 08:19:13 [id number] MD DOUG Mares, [facility], [address] [facility] [place] [id number] 02/20/2010 14:00:17 02/22/2010 13:39:19 [id number] MD DOUG Contreras, [facility], OFF[address] [facility] [place] [id number] 06/30/2010 15:49:12 07/06/2010 15:20:53 [id number] MD DOUG Mares, [facility], [facility] [facility] [place] [id number] 04/02/2011 08:50:55 04/02/2011 09:55:44 [id number] [facility] FP TREATMENT NURSE , [facility], [address] [facility] [place] [id number] 04/10/2011 08:56:13 04/11/2011 13:49:26 [id number] MD DOUG Mares, [facility], [address] [facility] [place] [id number] 10/05/2011 15:41:54 10/05/2011 16:16:09 [id number] Anirudh Hubbard MD , [facility], [address] [facility] [place] [id number] 02/13/2012 07:43:58 02/13/2012 08:21:20 [id number] Eduardo Pierson MD Radiology , [facility] [address] [facility] [place] [id number] 02/18/2012 16:28:24 02/19/2012 15:22:27 [id number] Anirudh Hubbard MD , [facility], [facility] [facility] [place] [id number] 04/07/2012 08:52:30 04/07/2012 10:27:09 [id number] Ethan Linn MD Radiology , [facility] [address] [facility] [place] [id number] 05/12/2012 07:31:37 05/12/2012 08:01:50 [id number] Flora Toussaint, PT Physical Therapy, [facility] [address] [facility] [place] [id number] 10/07/2012 08:52:05 10/07/2012 11:57:54 [id number] Flora Toussaint, PT Physical Therapy, [facility] [address] [facility] [place] [id number] 10/10/2012 07:35:42 10/14/2012 07:33:56 [id number] Flora Toussaint PT Physical Therapy, [facility] [address] [facility] [place] [id number] 10/20/2012 07:36:37 10/20/2012 10:38:57 [id number] Flora Toussaint PT Physical Therapy, [facility] [address] [place] [facility] [place] [id number] 10/22/2012 07:35:39 10/22/2012 10:35:22 [id number] Flora Toussaint, PT Physical Therapy, [facility] [address] [place] [facility] [id number] 11/05/2012 07:31:42 11/05/2012 11:55:57 [id number] Anirudh Hubbard MD , [facility], OFFICE [address] [place] [id number] 03/16/2013 14:58:54 03/16/2013 16:32:08 Adult health examination 419469910 see Risk Assessment and Lifestyle Change Counseling section above Counseling 382728700 Muscle strain 25413520 [id number] Anirudh Hubbard MD , [facility], OFFICE [address] [place] [address] 08/10/2013 08:14:35 08/10/2013 09:31:48 Memory impairment 308550507 Foot pain 52920970 Sprain of foot 22334786 spring ligament sprain. [id number] Flora Toussaint, PT Physical Therapy, [address] [address] 08/13/2013 06:44:10 08/14/2013 11:12:29 Foot pain 16630468 [id number] Flora Toussaint, PT Physical Therapy, [address] [address] 08/17/2013 07:40:20 08/17/2013 11:13:38 Foot pain 29854779 [id number] Flora Toussaint, PT Physical Therapy, [address] [address] 08/19/2013 07:05:45 08/19/2013 11:02:32 Foot pain 18882350 [id number] Flora Toussaint, PT Physical Therapy, [address] [address] 08/19/2013 15:09:08 08/19/2013 15:09:27 [id number] Dax Beal MD , [facility], OFFICE [address] [place] [address] 03/12/2014 06:54:01 03/12/2014 08:19:45 Influenza vaccine needed 1943276634 [id number] Flora Toussaint, PT Physical Therapy, [address] [address] 03/15/2014 15:13:56 03/15/2014 15:14:10 [id number] Tamy Rosas , [facility], OFFICE [address] [place] [id number] 08/05/2014 09:58:30 08/05/2014 10:29:39 Tick bite 99678034 [id number] Anirudh Hubbard MD , [facility], OFFICE [address] [place] [id number] 11/09/2014 16:10:53 11/09/2014 17:42:15 Adult health examination 208070112 see Risk Assessment and Lifestyle Change Counseling section above Counseling 693786105 Pigmented skin lesion of uncertain nature 832914983 Pain of elbow region 52036564 Active or passive immunization 864394670 Knee pain 59528671 [id number] Flora Toussaint, PT Physical Therapy, [address] [address] 04/21/2015 11:31:14 04/21/2015 11:31:27 [id number] Dax Beal MD , [facility], OFFICE [address] [place] [id number] 01/26/2016 11:47:44 01/26/2016 14:08:17 Active or passive immunization 299741466 Z23 [id number] Flora Toussaint, PT Physical Therapy, [address] [address] 05/10/2016 13:54:16 05/10/2016 13:54:31 [id number] Anirudh Hubbard MD , [facility], OFFICE [address] [place] [address] 08/20/2016 10:55:38 08/20/2016 12:18:08 Adult health examination 066883714 Z00.00 see Risk Assessment and Lifestyle Change Counseling section above Counseling 307574553 Z71 .9 Screening for disorder 903294065 Z11.59 Active or passive immunization 368689240 Z23 Tick bite 89616741 S30.8 61A [id number] Anirudh Hubbard MD , [facility], OFFICE [address] [place] [id number] 09/25/2016 16:51:08 09/26/2016 12:49:47 Allergic reaction to bee sting 372704395 T78.40XA Chest pain 27050933 R07. 9 [id number] Flora Toussaint PT Physical Therapy, [address] [address] 01/11/2017 09:51:41 01/11/2017 09:51:57 [id number] Anirudh Hubbard MD , [facility], OFFICE [address] [place] [address]170[address]169 6 04/17/2017 11:42:00 04/17/2017 11:57:09 Active or passive immunization [id number] Z23 [id number] Anirudh Hubbard MD , [facility] OFFICE [address] [place] [address] 07001-131 6 08/21/2017 13:39:31 08/21/2017 14:31:53 Adult health examination 958158522 Z00.00 see Risk Assessment and Lifestyle Change Counseling section above Counseling 339205694 Z71 .9 Depression screening 171 897802 Z13.89 depression screening tool administer ed, entered into emr, scored and discussed. 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, wasps and bees 935842355 T63.451D Pain of ri ght shoulder joint [id number] 0855488 M25.511 Pain of rush int of ankle 479083247 M25.471 [id number] Flora Toussaint PT Physical Therapy, [address] [address] 6 10/23/2017 07:57:17 10/24/2017 10:04:45 Tibialis posterior tendinitis 405673835 M76.373 [id number] Flora Toussaint PT Physical Therapy, [address] 74436-199 6 10/25/2017 07:33:11 10/25/2017 08:39:24 Tibialis posterior tendinitis 171090479 M76.356 [id number] Flora Toussaint PT Physical Therapy, [address] [address]90[address] 6 11/12/2017 17:15:43 11/13/2017 08:20:23 Tibialis posterior tendinitis 118423734 M76.294 [id number] Anirudh Hubbard MD , [facility] OFFICE [address] [place] [address] 91620-915 6 03/05/2018 07:00:55 03/05/2018 12:10:08 Active or passive immunization 986581946 Z23 [id number] MD DOUG Mares, [facility] OFFICE [address] [place] [address] 97318-424 6 08/27/2018 13:43:33 08/27/2018 14:27:00 Adult health examination 286472163 Z00.00 see Risk Assessment and Lifestyle Change Counseling section above Counseling 976440343 Z71 .9 Depression screening 171 488740 Z13.89 depression screening tool administer ed, entered into emr Advance di rective discussed with patient 913161558 Z71.89 Sarcoidosis 28790453 D86 .9 Senile hyperkeratosis 39 1659692 L82.1 [id number] Anirudh Hubbard MD , [facility] OFFICE [address] [place] [address] 79554-710 6 11/26/2018 14:13:21 11/26/2018 15:59:54 Acute upper respiratory infection 67885022 J06.9 [id number] Anirudh Hubbard MD , [facility] OFFICE [address] [place] [address] 60494-595 6 02/05/2019 09:19:51 02/05/2019 16:20:10 Active or passive immunization 139375947 Z23 [id number] Flora Toussaint PT Physical Therapy, [address] 90952-602 6 03/30/2019 15:26:42 04/02/2019 14:37:58 Pain in right foot 7168023587 34728 M79.085 [id number] Flora Toussaint PT Physical Therapy, [address] [address]751[address]223 6 04/01/2019 08:01:04 04/01/2019 10:06:04 Pain in right foot 1352372127 91870 M79.442 [id number] Flora Toussaint PT Physical Therapy, [address] 19398-307 6 04/08/2019 07:56:20 04/09/2019 14:24:48 Pain in right foot 1084565125 58740 M79.597 [id number] Flora Toussaint PT Physical Therapy, [address] [address]82-114 6 04/20/2019 08:01:50 04/20/2019 09:41:52 Pain in right foot 7297409454 48427 M79.564 [id number] Flora Toussaint PT Physical Therapy, [address] 64388-549 6 10/21/2019 07:36:42 10/26/2019 12:38:44 Knee pain 58168571 M25.561 Pain of hip region 51660 002 M25.457 [id number] Flora Toussaint PT Physical Therapy, [address] 98805-808 6 10/27/2019 07:25:42 10/27/2019 08:43:50 Knee pain 31060503 M25.561 Pain of hip region 65212 002 M25.653 [id number] Flora Toussaint PT Physical Therapy, [address] 31893-447 6 11/04/2019 07:35:31 11/04/2019 08:14:54 Knee pain 07435839 M25.561 Pain of hip region 55583 002 M25.525 [id number] Anirudh Hubbard MD , [facility] OFF[facility] [address] [place] [address] 59161-362 6 01/20/2020 13:34:38 01/21/2020 08:38:13 Adult health examination 491580125 Z00.00 see Risk Assessment and Lifestyle Change Counseling section above Counseling 822470388 Z71 .9 including cardiovasc ular risk reduction counseling Depression screening 171 166243 Z13.89 depression screening tool administer ed, entered into emr, scored and discussed\ Screening for alcohol abuse 920208108 Z13.39 Sarcoidosis 98400114 D86 .9 quiescent. 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 suspect L3 disc injury, or more likely a lumbar muscle strain. Delines meds. Screening for disorder 545557864 Z13.6 due anyway, low on my list of likely issues. Abdominal pain 21252697 R10.9 Abd pain portion of this does not make 100% sense. Would do AAA screening. [id number] Flora Toussaint, PT Physical Therapy, [address] [address]100-883 6 06/02/2020 07:36:33 06/03/2020 08:18:36 Low back pain 588519119 M54.5 [id number] Anirudh Hubbard MD , [facility] OFF[facility] [address] [place] [address] 69670-031 6 02/13/2021 08:59:55 02/24/2021 10:28:04 Adult health examination 521529234 Z00.00 see Risk Assessment and Lifestyle Change Counseling section above Counseling 276590233 Z71 .9 including cardiovasc ular risk reduction counseling Depression screening 171 713076 Z13.31 depression screening tool administer ed, entered into emr, scored and discussed, Screening for alcohol abuse 456106474 Z13.39 Advance di rective discussed with patient 411718747 Z71.89 Sarcoidosis 31270029 D86 .9 quiescent. but with cough daily. and a bit more SOB. Will look up sarcoid and further surveilanc e. [id number] Anirudh Hubbard MD , [facility] [address] [place] [address] 66020-031 6 02/15/2022 13:20:25 03/07/2022 14:13:39 Active or passive immunization 555503613 Z23 [id number] Anirudh Hubbard MD , [facility] OFF[facility] [address] [place] [address] 47828-365 6 04/17/2022 14:42:41 04/17/2022 15:30:52 Adult health examination 704117307 Z00.00 see Risk Assessment and Lifestyle Change Counseling section above Counseling 910973095 Z71 .9 including cardiovasc ular risk reduction counseling Depression screening 171 897203 Z13.31 depression screening tool administer ed, entered into emr Screening for alcohol abuse 274411487 Z13.39 Active or passive immunization 485855418 Z23 Allergy to bee venom 424 746382 Z91.030 epi when needs it. Sarcoidosis 14586634 D86 .9 quiescent. but with cough daily. and a bit more SOB. Will look up sarcoid and further surveilanc e. Pigmented skin lesion of uncertain nature 536619630 L81.9 see derm Systolic murmur 55312489 R01.1 check the echo, also SOB Family his tory of cancer of colon 199370867 Z80.0 get colonsocpy 2022 [id number] Anirudh Hubbard MD , [facility] [address] [place] [address] 41900-619 6 05/11/2022 08:23:44 05/11/2022 09:49:26 Right lower quadrant pain 337838017 R10.31 2 d RLQ pain, neg on exam, no tenderness . unclear etiology. Suspect muscluar. will observe. Go to ED if getting worse. When get back from the trip to [facility] , then send a message how it is going. If no better, consider imaging-CT [id number] Anirudh Hubbard MD , [facility] OFFICE [address] [place] [address] 95593-213 6 07/13/2022 09:33:49 07/13/2022 10:36:46 Acute upper respiratory infection 98862743 J06.9 Cold self care measures reviewed and encouraged (fluids, steam inhalation , adequate rest). F/U if symptoms worsen or aren't resolving. COVID-19 306474282 U07.1 Last GFR 06/18/20 at 78. By recommend full dosing. We talked about repeating the kidney function but it is heading into the weekend and will just get it on time to be fully effective. Sarcoidosis 46195330 D86 .9 quiescent. but with cough daily. and a bit more SOB. Will look up sarcoid and further surveilanc e. Right lowe r quadrant pain 366989880 R10.31 2 mo RLQ pain, neg on exam, no tenderness . unclear etiology. neg us and x-ray. still with the problem, ? serious etiology. [id number] Anirudh Hubbard MD , [facility] OFF[facility] [address] [place] [address] 50216-628 6 02/12/2023 10:43:00 02/12/2023 19:08:09 Active or passive immunization 988908601 Z23 [id number] Anirudh Hubbard MD , [facility] OFF[facility] [address] [place] [address] 78976-403 6 04/19/2023 08:57:49 04/23/2023 12:36:46 Adult health examination 804248133 Z00.00 see Risk Assessment and Lifestyle Change Counseling section above Depression screening 171 195581 Z13.31 depression screening tool administer ed Screening for alcohol abuse 161680253 Z13.39 Alcohol use screening tool administer ed Screening for malignant neoplasm of prostate 520651568 Z12.5 PSA testing for ages 55-69 risks and benefits discussed {{patient declines testing te st ordered}}. Allergy to bee venom 424 455113 Z91.030 epi when needs it. [id number] Anirudh Hubbard MD , [facility] OFFICE [address] [place] [address] 15109-607 6 08/12/2023 08:59:43 08/12/2023 11:47:51 Mild memory disturbance 446343718 R41.3 The memory is actually quite good [...] 15 and the dirty dozen from the [facility] working group to continue taking his multivitam [...] neurologis t.Given the number for Ivet Cervantes [id number] PAVEL EDUARDO , [facility], OFFICE [address] [place] [address] 6 04/27/2024 13:15:20 04/27/2024 14:04:46 Candidiasis of mouth 39863667 B37.0 Pt noting discomfort in throat, difficulty [...] w/ oral steroid paste. f/u prn Sarcoidosis 27579746 D86 .9 can consider holding inhaler during treatment [id number] Silvana Hercules DO FP, [facility], OFFICE [address] [place] [address] 05/10/2024 08:57:47 05/10/2024 09:23:56 Pain in right foot 3947020199 98173 M79.671 Recurrent Extensor Tibialis Tendonitis Aggravated by [...] such as ibuprofen gel or aspirin cream. [id number] Roberto Calloway , PT Physical Therapy, [facility] [address] [place] [address] 6 05/14/2024 13:18:15 05/18/2024 08:35:26 Pain in right foot 2890574430 91087 M79.671 78 year old {{female m kia*}} [...] Include as appropriat e: therapeuti c exercise (36366), manual therapy (92092), therapeuti c activity (31966), gait training (52152), neuromuscu lar reeducatio n (69598), mechanical traction (60981) [id number] NICHOL MASTERS NP Physical Therapy, [address] [address] 6 06/09/2024 12:28:14 2024 12:29:29 Pain in right foot 8208516521 74883 M79.671 78 year old {{female m kia*}} [...] Include as appropriat e: therapeuti c exercise (45440), manual therapy (22433), therapeuti c activity (59170), gait training (70772), neuromuscu lar reeducatio n (94812), mechanical traction (98552) [id number] Moises Perrin MD Sports Medicine, [facility] [address] [place] [address] 2024 10:01:18 06/18/2024 11:20:13 Pain in right foot 8313761567 07376 M79.671 Beny is a 79-year-ol d male [...] alleviate his symptoms. Tibialis p osterior tendinitis 049875163 M76.829 [id number] NICHOL MASTERS NP Physical Therapy, [facility] [address] [place] [address] 2024 09:06:37 2024 12:30:06 Pain in right foot 4823261195 83308 M79.671 78 year old {{female m kia*}} [...] Include as appropriat e: therapeuti c exercise (65599), manual therapy (32911), therapeuti c activity (38661), gait training (44838), neuromuscu lar reeducatio n (46171), mechanical traction (20547) [id number] NICHOL MASTERS NP Physical Therapy, [address] [address] 6 06/16/2024 09:29:15 06/16/2024 11:40:26 Pain in right foot 3329715037 50455 M79.671 78 year old {{female m kia*}} [...] Include as appropriat e: therapeuti c exercise (74824), manual therapy (59573), therapeuti c activity (33270), gait training (01683), neuromuscu lar reeducatio n (32903), mechanical traction (92708) [id number] NICHOL MASTERS NP Physical Therapy, [facility] [address] [place] [address] 6 07/09/2024 14:57:56 07/09/2024 16:20:45 Pain in right foot 1674279335 26806 M79.671 78 year old {{female m kia*}} [...] Include as appropriat e: therapeuti c exercise (12414), manual therapy (86944), therapeuti c activity (95708), gait training (24008), neuromuscu lar reeducatio n (91449), mechanical traction (86921) [id number] Moises Perrin MD Sports Medicine, [address] [address] 07/29/2024 09:27:13 08/20/2024 09:16:51 Pain in right foot 4686931667 59171 M79.670 Beny is a 79-year-ol d male with [...] had treatments with Dr. Rian Capone in [place]. At this point time is planning to [...] day of service Tibialis p osterior tendinitis 339452165 M76.821 [id number] NICHOL MASTERS NP Physical Therapy, [facility] [address] [place] [address] 08/11/2024 11:56:14 08/14/2024 11:17:33 Pain in right foot 3620070442 11478 M79.671 Patient Goals:To be able to Walk, [...] not reached. Patient will pursue PRP injection. [id number] Moises Perrin MD Sports Medicine, [facility] [address] [facility] [place] [address] 09/08/2024 12:51:02 09/08/2024 16:21:56 Pain in right foot 6747973686 68193 79.679 Beny is a 79-year-ol d male with [...] questions or concerns. Tibialis p osterior tendinitis 057733192 M76.821 Health Concerns Section Related Observation LastModified by Organization Detai ls LastModified Time None Recorded Concern Status LastModified by Organization Details LastModified Time None Recorded Advance Directives Directive N: INFO GIVEN- Payers Encounter Date Sequence Insurance Name Policy Number Policy Brady Covered Member ID Brady Member ID Guarantor Name 06/16/2024 2 [employer] - [employer] [id number] Jolie Lena [id number] [facility] 06/16/2024 1 [place] [employer] Julio Welsh Lena [id number] [facility] 07/09/2024 2 [employer] - [employer] [id number] Jolie Lena [id number] [facility] 07/09/2024 1 [place] Julio Welsh Lena [id number] [facility] 07/29/2024 2 [employer]AN - [employer] [id number] Jolie Lena [id number] [facility] 07/29/2024 1 [place] Julio Welsh Lena [id number] [facility] 08/11/2024 2 [employer] - [employer] [id number] Jolie Lena [id number] [facility] 08/11/2024 1 [place] [employer] Julio Welsh Lena [id number] [facility] 09/08/2024 2 [employer]AN - [employer] [id number] Jolie Lena [id number] [facility] 09/08/2024 1 [place] [employer] Julio Paredes [id number] Julio Paredes Notes Date Note Type Note Provider Name and Address Organization Details Recorded Time 06/16/2024 text/html PT Initial Eval*Reported bypatient.History:[facility] complaint: (Right medial foot pain); May [...] limitation in Exercise Roberto Calloway, PT [address] [place], [address], [facility] 06/16/2024 10:19:34 07/09/2024 text/html PT Initial Eval*Reported bypatient.History:[facility] complaint: (Right medial foot pain); May [...] limitation in Exercise Roberto Calloway, PT [address] [facility], [place], [address], [facility] 07/09/2024 16:10:27 07/29/2024 text/html Beny is a 79-year -old male who presents today for reevaluation of right ankle pain. He was last evaluated on 2024. After that appointment he did wear a Cam walker boot for 2-3 days but felt it was uncomfortable so discontinued use. He has been continuing with his physical therapy with a home exercise program. He does wear [id number] orthotics. Beny does have custom orthotics but feels they cause calluses and may not fit properly. He states these custom orthotics are 5-6 years old. Overall his symptoms have been improving and he is having significantly less pain. He does continue to have discomfort along his medial ankle in the retromalleolar region that is worse with walking. Moises Perrin MD [address] [place] [address], [phone], [facility] 07/29/2024 16:50:11 08/11/2024 text/html PT Initial Eval*Reported bypatient.History:[facility] complaint: (Right medial foot pain); May [...] limitation in Exercise Roberto Calloway, PT [address] [place], [address], [facility] 08/12/2024 19:09:05 09/08/2024 text/html Beny is a [...] in April 2024. Moises Perrin MD [address] [place], [address], [facility] 09/08/2024 16:21:54
== END ==
LOC: HO.CARD 08:40
PROVIDERS: PCP Family Medicine; Visit Provider Internal Medicine
DX: R07.2 Precordial pain (principal); I25.10 Atherosclerotic heart disease of native coronary artery without angina pectoris
CPT/HCPCS: 78452; 93017; A9500; J0280; J2785

== ENCOUNTER → 2024-09-17 08:42 | Outpatient (BNV) | payer MEDICARE, OTHER, SELFPAY | PROVIDERS: PCP Family Medicine | DX: R07.2 Precordial pain (principal); R42 Dizziness and giddiness; I44.7 Left bundle-branch block, unspecified | CPT/HCPCS: 78452; 93016; 93018 ==

== ENCOUNTER 2024-09-28 12:31 | Outpatient (AMB) | payer MEDICARE, OTHER, SELFPAY ==
[2024-09-28 12:35] VITALS: BP 120/68; PULSE 78; BMI 27.7
--- NOTE | 2024-09-28 12:35 | A.OFFVIS_ITS ---
Vital Signs 09/28/24 12:35 Height 5 ft 11 in Weight 198 lb 6.656 oz BMI 27.7 BP 120/68 Blood Pressure Location Lt brachial Position Sitting Pulse 78 Pulse Source Pulse Oximeter Intake Visit Reasons: 3m follow up/echo/stress test/holter Allergies Penicillins Allergy (Severe, Verified 05/14/24 14:56) Rash budesonide [From Symbicort] Adverse Reaction (Severe, Verified 05/14/24 14:56) Joint Pain formoterol [From Symbicort] Adverse Reaction (Severe, Verified 05/14/24 14:56) Joint Pain Medication List - Last Reconciled 09/28/24 by Hemal Wisdom MD magnesium glycinate 125 mg (1.25 x 100 mg magnesium) PO BEDTIME 30 days HPI Comments Details: Curtis returns for follow-up. Recently seen in consultation regarding bradycardia. He does not have any known cardiac issues. No history of any coronary disease, myocardial infarction or cardiomyopathy or in fact any other cardiac concerns in the past. There is interstitial lung disease and there is also question of sarcoidosis. From the cardiac standpoint, there was question of bradycardia per Pulmonary note. EKG also showed a right bundle-branch block. Hence he has been referred here. Patient denies any cardiac history and also any cardiac symptoms like angina. He does get some exertional shortness of breath related to interstitial lung disease. Coughing, again most likely pulmonary in nature. Overall, no new concerns since last seen. He has completed an echocardiogram, Holter and stress test. [facility] Medical History (Updated 09/15/24 @ 12:43 by PAVEL Nielsen) Bradycardia Chronic allergic rhinitis Asthma Sarcoidosis Chronic cough ILD (interstitial lung disease) Pulmonary nodule Surgical History H/O arthroscopic knee surgery H/O hernia repair Hx of tonsillectomy Family History Mother Heart disease Family/Other Colon cancer Family/Other Colon cancer Social History (Updated 06/08/24 @ 10:14 by Ruby Hercules CMA) Alcohol intake: current Alcohol intake frequency: holidays/special occasions only Patient Tobacco Use Status: Former Tobacco user Tobacco use type: Cigarette Years Smoked: 7 years Review of Systems Const Denies weakness ENT Denies dizziness Card Denies chest pain, Denies chest pain with activity, Denies syncope, Denies rapid heart rate, Denies pedal edema, Denies edema, Denies leg edema, Denies lightheadedness, Denies palpitations, Denies dyspnea, Denies dyspnea on exertion and Denies orthopnea Resp Denies cough, Denies dyspnea and Denies dyspnea on exertion GI Denies hematochezia and Denies change in stool character Musc Denies abnormal gait, Denies muscle cramps, Denies muscle weakness, Denies numb ness, Denies radiating pain into limb and Denies tingling Neuro Denies Abnormal speech present, Denies abnormal gait, Denies dizziness, Denies syncope, Denies numbness, Denies tingling and Denies weakness Endo Denies palpitations Physical Exam Vital Signs: Last Vital Signs Pulse 78 09/28/24 12:35 BP 120/68 09/28/24 12:35 BMI result Body Mass Index 27.7 Const General: comfortable and no acute distress Orientation/consciousness: patient oriented x3 HEENT Other: Unremarkable Head: Yes normal to inspection Neck Neck: Yes normal visual inspection Chest Chest palpation & inspection: normal inspection of the chest Resp Other: Few fine inspiratory crackles Cardio Palpation: normal PMI Heart sounds: S1 normal heart sound present, S2 normal heart sound present, no gallops, Murmur heart sound present systolic II/ and at the right sternal border and no rubs GI Palpation (GI): Soft to palpation Back/Spine/Pelvis Other: unremarkable Skin General skin exam: no rashes or lesions noted Neuro General: patient oriented x3 Speech: No Abnormal speech present Extrem General: Yes normal to inspection Psych Mental Status: mental status grossly normal Assessment & Plan Assessment & Plan (1) Atherosclerotic cardiovascular disease: Code(s): I25.10 - Atherosclerotic heart disease of [place] coronary artery without angina pectoris Category: Medical Plan: Chest CT scan shows coronary artery calcification. Myocardial perfusion imaging study shows normal perfusion. Findings discussed with patient. He has no angina and no specific interventions. We will obtain lipids from PCP. Can consider statins. (2) Non-rheumatic aortic stenosis: Code(s): I35.0 - Nonrheumatic aortic (valve) stenosis Category: Medical Plan: Mild aortic stenosis on the echocardiogram. Recheck in 2 years. (3) Right bundle branch block: Code(s): I45.10 - Unspecified right bundle-branch block Category: Medical Plan: Recent EKG shows right bundle-branch block. In the Holter monitor, underlying rhythm is sinus with an average rate of 76. Rare supraventricular/ventricular ectopy. No specific interventions. Follow up on EKGs periodically. Plan Discussion Notes I discussed with the patient the current management plans for his cardiovascular and pulmonary conditions. The mild aortic stenosis will require echocardiography follow-up every two years due to its slow progression. The right bundle branch block does not currently necessitate intervention unless compounded by more serious cardiac conduction issues. The potential benefits of starting statin therapy were outlined given the presence of coronary artery calcifications, with a recommendation to obtain recent cholesterol levels. Sarcoidosis will continue to be monitored passively unless symptoms change. The limitations of pulmonary fibrosis treatment were highlighted; oxygen supplementation would be considered if necessary. Emphasized the risk of recurring oral candidiasis with steroid inhalers. Suggested follow-up in one year or sooner if symptoms change. Patient was informed and verbally consented to the use of an ambient scribe for clinic note documentation during this visit. Patient Instructions: - Monitor for worsening symptoms of aortic stenosis, such as chest pain or breathlessness. - Schedule an echocardiogram every two years unless symptoms worsen. - Avoid smoking and engage in heart-healthy lifestyle practices to slow coronary disease progression. - Contact primary care physician to check cholesterol and discuss potential statin therapy. - Report any increase in coughing or shortness of breath. Coding Level of Care Code Est Pt Level 4 (63188) Complex EM visit Add On G2211 Diagnoses Atherosclerotic cardiovascular disease I25.10 Non-rheumatic aortic stenosis I35.0 Right bundle branch block I45.10
--- OUTSIDE RECORDS SUMMARY | 2024-09-28 13:31 | XMS_ITS | Data Portability ---
Author Organization [place] - [facility], Allergy Address [address] [place] [phone] Assessment Encounter Date Assessment Date Assessment LastModified [...] as risk of infection of a medical biller/coder, scar, wound healing. There is an implanted [...] system (PROC) - INSPIRE implant 2023 024 [id number] Not available 15:34:57 Surgeries None recorded. Imaging None recorded. Medication Orders None recorded. Patient TargetsNo targets recorded. Patient InstructionsNo instructions recorded. Reason for Referral None Reported. Problems Name Problem SNOMED Code Status Onset Date Resolution Date Notes Provider Name and Address Organization Details Recorded Time Obstructive sleep apnea syndrome [id number] Active 024 RICHARD OLIVEROS MD [address] [place] [address], [phone], [facility] 13:45:04 Problem Notes None recorded. Procedures Surgical History Date Name Laterality Status Provider Name and Address Organization Details Recorded Time 4 Telehealth completed RICHARD OLIVEROS MD [address] [place] [address], [phone], [facility] 11/04/2023 13:46:15 4 [facility] RICHARD OLIVEROS MD [address] [place] [address],[address], [phone], [facility] 11/04/2023 13:44:28 Imaging Results None recorded. [...] Diagnosis Note [id number] RICHARD OLIVEROS MD [facility] [address] [phone] 11/06/2023 16:47:28 11/10/2023 21:34:07 Obstructive sleep apnea syndrome 08130428 G47.33 Health Concerns Section Related Observation LastModified by Organization Detai ls LastModified Time None Recorded Concern Status LastModified by Organization Details LastModified Time None Recorded Advance Directives Directive None Recorded Payers Insurance Date Sequence Insurance Name Policy Number Policy Brady Covered Member ID Brady Member ID Guarantor Name 11/11/2023 2 [employer] [facility] [id number] Curtis Paredes [id number] Curtis Paredes 11/03/2023 1 [place]IC[place]: [employer] Curtis Paredes [id number] Curtis Paredes Notes Date Note Type Note Provider Name and Address Organization Details Recorded Time 11/06/2023 text/html SHERON - [employer] [facility] [place] 09/03/22BMI 27AHI 18central and mixed - none [...] exercise. weekend travel RICHARD OLIVEROS MD [address] [facility],[place] [address], [place], [phone], [facility] - [facility] 11/06/2023 17:02:11
== END 2024-09-28 13:08 | disposition home or self-care (01) ==
LOC: HO.HCS 12:32
PROVIDERS: PCP Family Medicine; Visit Provider Internal Medicine
DX: I25.10 Atherosclerotic heart disease of native coronary artery without angina pectoris (principal); I35.0 Nonrheumatic aortic (valve) stenosis; I45.10 Unspecified right bundle-branch block
CPT/HCPCS: 99214; G2211

== ENCOUNTER → 2024-09-28 12:31 | Outpatient (BNVA) | payer MEDICARE, OTHER, SELFPAY | PROVIDERS: PCP Family Medicine; Visit Provider Internal Medicine | DX: I25.10 Atherosclerotic heart disease of native coronary artery without angina pectoris (principal); I35.0 Nonrheumatic aortic (valve) stenosis; I45.10 Unspecified right bundle-branch block | CPT/HCPCS: 99212 ==

== ENCOUNTER 2024-10-07 09:28 | Outpatient (AMB) | payer MEDICARE, OTHER, SELFPAY ==
--- NOTE | 2024-10-07 09:31 | MHC.OFFVIS ---
Vital Signs 10/07/24 09:32 Height 5 ft 11 in Weight 198 lb BMI 27.6 BP 122/72 Blood Pressure Location Lt brachial Position Sitting Pulse 72 Pulse Source Pulse Oximeter Pulse Oximetry (%) 99 Oxygen Delivery Method Room Air Intake Visit Reasons: sarcoidosis Allergies Penicillins Allergy (Severe, Verified 05/14/24 14:56) Rash budesonide [From Symbicort] Adverse Reaction (Severe, Verified 05/14/24 14:56) Joint Pain formoterol [From Symbicort] Adverse Reaction (Severe, Verified 05/14/24 14:56) Joint Pain HPI Comments Details: The patient is a 79-year-old gentleman with a known history of chronic cough who apparently back in 2018 he was evaluated with imaging studies. He ultimately had a CT scan of the chest at [facility] [place] demonstrating multiple calcified nodular densities in addition to some noncalcified nodular densities and calcifications of the lymph nodes. He was suspected that he has a diagnosis of sarcoidosis and the patient was monitored closely. Subsequently after that the patient continues to have a cough and was then re-evaluated at [facility]. There he did undergo pulmonary function studies in 2018. I personally reviewed the numbers demonstrating no obstructive nor restrictive ventilatory defects although he had a mile on diffusion impairment. In addition to that he had repeat PFTs in 2019 now with interval worsening of the diffusing capacity to 66 percent predicted. Otherwise no evidence of any obstructive nor restrictive ventilatory defects at that time. In view of the worsening diffusing capacity further evaluation of the CT scan that he had back in 2018 demonstrated what appeared to be some areas of haziness and interstitial changes suggested in underlying interstitial lung disease. A lot of the changes appear to be at the bases. No additional imaging studies were done at that time at [facility]. The patient was lost to follow-up. the patient now presents to our pulmonary office for further evaluation of this chronic cough. We closely discussed his CT scan findings packed then more concerning the fact that he had noncalcified pulmonary nodules measuring up to 7 millimeters in size there have not been followed up. In addition to that the patient had evidence of interstitial lung disease. At this point is not clear definitively he has a diagnosis of sarcoidosis. I explained to him that with his travel history need to consider and dynamic fungal infections or even tuberculosis that may resulting granulomas as well. Therefore the patient does need to undergo additional laboratory data in addition to repeating the CT scan in order to further address the abnormal findings. On my examination was taken back by the fact the patient does have significant rales both lungs bilaterally up to midway up. Also to note the patient does have a allergy shots for reactions to bee stings. Patient denies any other allergens. He denies any exposure to any fumes or toxins recently or in the last 20 years. 05/01/2021 the patient is here for a pulmonary follow-up visit. Overall the patient is doing about the same. He does complaint of dyspnea on exertion. This appears to be progressive. The patient did have multiple results to review. He did undergo blood work including a angiotensin-converting enzyme level which was slightly elevated at 71. Explained to him that this is sometimes used to measure activity of people that have underlying sarcoidosis. suggesting the possibility of active sarcoidosis. Patient also had evidence of eosinophilia and elevations in his IgE suggesting some degree of allergic component. The patient does get allergy shots which appear to be effective for him. He did undergo a CT scan of the chest that was personally reviewed by me. Unfortunately I do not have the images from [place]. However, I could see moderate amount of subpleural reticular changes consistent with scarring in addition to that he does have the significant calcified lymphadenopathy consistent with his granulomatous type of disease. Patient also has pulmonary nodules which appear to have more nodules when I compare the reports. Although the largest nodule still measuring 7-8 mm in size. I also did review his pulmonary function studies and compare them to his previous pulmonary function studies from few years back in 2018. It appears that he has a slight decrease in his total lung capacity from 91% to now 82% predicted in addition to a decrease in his diffusing capacity from 66-51% predicted. Therefore, indeed appears that he does have underlying interstitial lung disease and is likely related to sarcoidosis. although, this has been a clinical diagnosis. 08/07/2021 the patient overall doing well. He responded well to the prednisone. He has been able to cut down the prednisone down to about 5 mg daily. His cough is dramatically improved. His breathing is also better. No significant adverse effects. We did review his blood work demonstrating an elevated Dong level. Therefore, this is something that we can follow to assess the activity of the sarcoid. He also needs to have his eyes checked to rule out uveitis. The goal was to treating for 6 months and see how he is doing. Hopefully we can wean him off the prednisone. We can also consider inhaled cortical steroids. Will have him come back in 3 months time reassess his blood work in addition to his chest x-ray in based on that to see if we need to continue therapy or we can wean him off. The patient is concerned about the side effects of chronic steroid use. I tried to reassuring that is taking a small dose, but, I do understand his concerns. 11/08/2021 the patient is here for a pulmonary follow-up visit. Overall the patient continues to do fairly well. He continues on the 5 mg of prednisone. He does state that a few days that he felt congested need to do full 10 mg tablet. But overall he is doing well. He did have his eyes checked which were within normal limits. Recently he did undergo blood work including Dong level though still slightly elevated. His chest x-ray just demonstrating chronic interstitial changes on the sarcoid. Again, we looked at the CT scan demonstrating significant interstitial involvement bilaterally and some areas of scarring suggesting more progressive illness. The patient is agreeable to continuing the prednisone for now. We did talk about alternatives steroid sparing agents to consider such as methotrexate and CellCept and Remicade. At this point the patient requires only a small dose of prednisone so therefore she does continue with the current therapy. If however the patient continues to be symptomatic under current does or if he needs a prolonged period of immune suppression then he consider an alternative agent. Will follow up in about 4-6 months. The patient should have blood work and chest x-ray prior to the visit so we can discuss further interventions done. 04/11/2022 the patient is here for a pulmonary follow-up visit. He has been doing well from a respiratory status. He stop coughing his breathing overall has been stable. He was able to stop the prednisone weaned off about a month ago. He has been off it now for a month and he continues to do well. He is encouraged with the fact that he is doing well from the respiratory status. We did review his last CT scan from 03/2021 demonstrating interstitial changes in addition to pulmonary nodules multiple bilaterally. Most likely these nodules were related to his underlying sarcoidosis. However, when to make sure that they do not have any significant increasing growth. The patient will have a repeat CT scan in 6 months time to make sure that the nodules are stable. In addition to that we can assess the interstitial lung disease to make sure that he is not progressing in view of being off the immunosuppressant therapy. If the patient has any worsening symptoms he is to call so we can readdress any reactivation of the sarcoid. Right now his lungs sound fine and I am not concerned for any active disease at this time. The patient also needs to undergo blood work to assess his calcium level and also his Dong level. His previous Dong levels have been slightly elevated. 10/18/2022 the patient is here for pulmonary follow-up visit. Since we last spoke the patient unfortunately developed COVID-19. He was treated with Paxlovid and then had a rebound case. Afterwards he had significant shortness of breath and cough. He did not feel well overall. Finally the last few weeks he is starting to feel better starting to get more energy. The patient has been off prednisone now for almost a year. We did review his CT scan of the chest that he had recently. It appears that his parenchymal lung disease on the sarcoidosis appears to be stable. Although he has a new pulmonary nodule that will need follow-up. In the meantime the patient also underwent blood work and his Dong level continues to be elevated. I do not feel strongly that patient needs prednisone at this time. He is going to continue recovering from the COVID-19 that he had in the springtime. And will follow-up in 6 months with blood work and PFTs. If his PFTs are worsened or its Dong level is higher than will discuss any additional therapies at that point. If the patient has any worsening symptoms prior to that visit he will call the office for sooner evaluation. 01/16/2023 the patient is here for a follow-up visit. He did have a follow-up a few months but he move that up because is cough is getting worse. The cough is moderate severe. Is bothering his sleep and is making hard for him to tolerate the new CPAP machine. Also he has been noticing some chest tightness along with a cough during the daytime. He is wondering about starting medications like methotrexate for the sarcoidosis. The patient does have a history of allergies. he denies any wheezing episodes. He does not have any respiratory inhalers at this time. We did have him do a spirometry in the office in his FEV1 and FVC were both about 90% predicted. Looks like a slight improvement from his previous PFT. Therefore the numbers are reassuring. He did have some forced end expiratory wheezing therefore I do believe that will try him on a combination inhaler 1st and also can provide with the Tessalon Perles. We did review his last blood work from back in September 2022 where his total bili was elevated to 1.5 otherwise his LFTs were normal. In addition to this is angiotensin-converting enzyme level had been elevated. 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 Also explained to him that at this higher stage of sarcoidosis typically progresses. 04/01/2023 the patient is here for a pulmonary follow-up visit. Overall he is doing better. He was switched over to Symbicort but then started having significant muscle spasms then was switched over to Flovent. The flow in seems to be working well. Will continue right now as prescribed. He did undergo pulmonary function studies which we personally reviewed. It is reassuring that his spirometry numbers are stable and also the diffusing capacity appears to be better overall. Daily number that is decreases the total lung capacity to a slight mild restriction. This could be the result of his significant COVID that he had a few months ago. The patient does not appear to have any active sarcoidosis. He has been off the prednisone now for some time and doing well. His last CT scan was back in September 2022 demonstrating stability of disease although he does have a new 3 mm pulmonary nodule. He will return in [address] scan to follow up with the interstitial changes and also his pulmonary nodule. If the patient has any worsening symptoms prior to that he will call for an earlier assessment. No need for methotrexate at this time 11/06/2023 the patient is here for a pulmonary follow-up visit. Overall he is doing well from a respiratory status he just came back from [place] and did not have any respiratory issues over there. He does have some underlying allergies at times. He has tolerating the Flovent inhaler is helping. Will go ahead and switch him over to the generic fluticasone propionate which is the only 1 covered now. The patient did have a CT scan of the chest. Initially reading the report is concerning for extensive parenchymal interstitial lung disease. Although when we compare his CT scan to his previous there has no real significant difference in the last couple years. Therefore, reassured that although he does have interstitial lung disease due to the sarcoid and pulmonary nodules due to the sarcoid does appear to be significantly change or changing. I do not believe he needs additional systemic therapies at this time. Will continue to monitoring closely. Otherwise the patient is using his allergy medicines as needed. He did not tolerate CPAP. Therefore he is looking at alternatives. He did speak to a dentist regarding an oral mandibular device. He is also speaking to ENT regarding the possibility of a hypoglossal nerve stimulator. He has not decide how he is going to move forward. I did give him my recommendations and I will try the noninvasive approaches 1st before the invasive approaches. If he does go ahead with the oral mandibular device we will provide him with a letter of medical necessity to his dentist in order to get it approved through his insurance. 05/14/2024 the patient is here for a pulmonary follow-up visit. Overall he is doing better. Back in March however, did have worsening respiratory symptoms. initially, started developing some difficulty swallowing. Denied any laryngitis but just felt he could not swallow well. This lasted several days. Then he started developing worsening cough along with shortness of breath with activity. Moderate severity. his cough at times was productive in nature. At that time had been taking Arnuity. He did get an evaluation. [place] to have some thrush. He was placed on nystatin swish and swallow. He did stop the Arnuity at that time. The patient also subsequently stopped all his medications. Was not sure if this is related to a sarcoid flare-up. We did review his previous CT scan demonstrating the sequela of the sarcoid. We did compare his most recent CT scan from 09/16/2023 demonstrating the interstitial lung disease pulmonary nodules to his initial CT scan that we have on record from 2020 demonstrating not only the interstitial lung disease but ground-glass opacities suggesting after sarcoidosis. His Dong level has been elevated. now that he is off the Arnuity the patient would like to seek further opinions regarding his sarcoidosis. I did ask him to consider going to a sarcoid Clinic. In the meantime he is using his oral mandibular device with good effect. He is not snoring. He is waking up rested therefore it appears to be working well for him. During the initial visit it was noted that his heart rate was decreased down to 46 beats per minute. Although with activity had the heart rate did increase. Therefore, will go ahead and request an EKG. Would not be unreasonable for him to have a cardiology evaluation specially if there is any evidence of any cardiac sarcoid. But, at this point since he is going to a tertiary center while awake their recommendations. 10/07/2024 the patient is here for a pulmonary follow-up visit. The patient overall has been doing well. He did follow-up it start his cough for a tertiary evaluation for sarcoidosis. The patient seems to be stable and no additional recommendations provided. He recently did undergo a CT scan of the chest and I did personally reviewed. Compared to 2023 no interval worsening of the interstitial lung disease which is reassuring. When we did compared to 2022 can see some changes from that time. But seems to be stable. Will plan to repeat PFTs in 6 months to make sure that indeed there is no evidence of any progression of the pulmonary fibrosis. We did talk about deep breathing exercises and continue to build his exercise capacity. In the meantime the patient is sleeping with the mouth mandibular device. He tolerating it well although causes dental pain. Seems to be taking care of the sleep apnea. He did follow-up with cardiology have full workup for the bradycardia and is stable at this time. Will plan to follow up in 6 months with PFTs if he has any issues prior to that he will call. He is right now off all respiratory medications. [facility] Medical History (Updated 09/15/24 @ 12:43 by PAVEL Nielsen) Bradycardia Chronic allergic rhinitis Asthma Sarcoidosis Chronic cough ILD (interstitial lung disease) Pulmonary nodule Surgical History H/O arthroscopic knee surgery H/O hernia repair Hx of tonsillectomy Family History Mother Heart disease Family/Other Colon cancer Family/Other Colon cancer Social History (Updated 06/08/24 @ 10:14 by Ruby Hercules CMA) Alcohol intake: current Alcohol intake frequency: holidays/special occasions only Patient Tobacco Use Status: Former Tobacco user Tobacco use type: Cigarette Years Smoked: 7 years Review of Systems Const Reports fatigue and Denies night sweats ENT Denies change in voice, Denies lip swelling, Denies mouth pain, Denies nasal congestion and Denies tongue swelling Card Denies chest pain and Reports dyspnea on exertion Resp Reports cough and Reports dyspnea on exertion GI Denies abdominal pain Musc Denies no additional complaints, Reports abnormal gait, Reports arthralgias, Reports joint swelling and Reports limited range of motion Neuro Denies Neuro-related abnormal movements and Reports abnormal gait Psych Denies no additional complaints Endo Reports fatigue Ian/Lymph Denies easy bleeding and Denies lymphadenopathy Aller/Immun Denies lip swelling and Denies tongue swelling Physical Exam Vital Signs: Last Vital Signs Pulse 72 10/07/24 09:32 BP 122/72 10/07/24 09:32 Pulse Ox 99 10/07/24 09:32 Oxygen Delivery Method Room Air 10/07/24 09:32 BMI result Body Mass Index 27.6 Const General: alert HEENT General nose exam: Abnormal mucous membranes and turbinates present boggy Throat: Yes postnasal drainage and Yes cobblestoning Neck Neck: Yes normal visual inspection, Yes full ROM and Yes no lymphadenopathy Chest Chest palpation & inspection: normal inspection of the chest Resp Auscultation: crackles bilateral at the base and diminished lung sounds Cardio Rate: regular rate Rhythm: regular rhythm Heart sounds: S1 normal heart sound present and S2 normal heart sound present GI Palpation (GI): Soft to palpation and nontender Auscultation: normal bowel sounds Skin General skin exam: rashes and/or lesions noted Results Reviewed Results Reviewed: [address] [address] [address] Scan Report Signed Patient: Curtis Paredes MR#: [id number] : 1945 Acct:[id number] Age/Sex: 79 / M ADM Date: 09/02/24 Loc: HO.CT Attending Dr: Mike Dempsey MD Ordering Physician: Mike Dempsey MD Date of Service: 09/02/24 Procedure(s): CT chest wo IV con Accession Number(s): [id number] cc: Kvng Joseph MD; Mike Dempsey MD~ Report Number: [id number]: Total DLP = 188.00 mGy-cm CLINICAL HISTORY: J84.9 - Interstitial pulmonary disease, unspecified CT chest without contrast Comparison: 09/17/2023 Findings: Lung nelson are clear without acute infiltrates. Chronic interstitial fibrosis pattern noted. Peripheral end-stage honeycombing is unchanged. Stable anterior left lower lobe nodules. Stable 3 mm right upper lobe nodule. Scattered calcified granulomas noted. No significant mediastinal adenopathy. Benign calcified nodes noted. No significant free pleural fluid. No significant focal bony abnormalities. Impression: Stable interstitial fibrosis No acute processes This document has been electronically signed by: Gomez Alaniz MD on 09/02/2024 20:01:57 Dictated By: Gomez Alaniz MD Signed By: <Electronically signed by Gomez Alaniz MD in OV> 09/02/242001 DD/ 00 TD/TT: 09/02/242000 Cargo Agent: Assessment & Plan Assessment & Plan (1) SHERON (obstructive sleep apnea): Comment: 09/03/2022, HST showed moderate to severe SHERON with AHI was 18/hr and oxygen denise was 80%. Code(s): G47.33 - Obstructive sleep apnea (adult) (pediatric) Category: Medical (2) Chronic cough: Code(s): R05.3 - Chronic cough Category: Medical (3) Sarcoidosis: Code(s): D86.9 - Sarcoidosis, unspecified Category: Medical (4) Bradycardia: Comment: asymptomatic, HR did increase to 80-90 with activity Code(s): R00.1 - Bradycardia, unspecified Category: Medical Plan OMD for SHERON Holding respiratory medications PFTs in 6 months Will follow-up 6 months Orders: Orders PFT pulmonary function test 6 Months J84.9 - Interstitial pulmonary disease, unspecified Coding Level of Care Code Est Pt Level 4 (37197) Complex EM visit Add On G2211 Diagnoses SHERON (obstructive sleep apnea) G47.33 Chronic cough R05.3 Sarcoidosis D86.9 Bradycardia R00.1 Time Spent (min) 17
[2024-10-07 09:32] VITALS: BP 122/72; PULSE 72; O2SAT 99; BMI 27.6
== END 2024-10-07 09:56 | disposition home or self-care (01) ==
LOC: HO.HPS 09:29
PROVIDERS: PCP Family Medicine; Visit Provider Hospitalist
DX: G47.33 Obstructive sleep apnea (adult) (pediatric) (principal); R05.3 Chronic cough; D86.9 Sarcoidosis, unspecified; R00.1 Bradycardia, unspecified
CPT/HCPCS: 99214; G2211

== ENCOUNTER → 2024-10-07 09:28 | Outpatient (BNVA) | payer MEDICARE, OTHER, SELFPAY | PROVIDERS: PCP Family Medicine; Visit Provider Hospitalist | DX: D86.9 Sarcoidosis, unspecified (principal); G47.33 Obstructive sleep apnea (adult) (pediatric); R05.3 Chronic cough; R00.1 Bradycardia, unspecified | CPT/HCPCS: 99212 ==

== ENCOUNTER 2025-04-13 08:33 | Outpatient (AMB) | payer MEDICARE, OTHER, SELFPAY ==
--- OUTSIDE RECORDS SUMMARY | 2025-04-07 21:02 | XMS_ITS | Encounter Summary ---
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 Operator Name Role Phone Kvng Joseph MD Primary Care Provider [phone] Reason for Referral * MRI/CAT Scan - Closed Specialty Diagnoses / Procedures Referred By Bimal snow Referred To Contact Radiology Diagnoses Pain in right ankle and joints of right foot Other chronic pain Procedures MRI Ankle (Right) Moises Perrin MD [address] [place] [address] Phone: tel: fax: [email or web address] Referral ID Status Reason Start Date Expiration Date Visits Re quested Visits Authorized [id number] Closed 03/30/2025 03/30/2026 1 1 Reason for Visit * MRI/CAT Scan - Closed Specialty Diagnoses / Procedures Referred By Bimal snow Referred To Contact Radiology Diagnoses Pain in right ankle and joints of right foot Other chronic pain Procedures MRI Ankle (Right) Moises Perrin MD [address] [place] [id number] Phone: tel: fax: [email or web address] Referral ID Status Reason Start Date Expiration Date Visits Re quested Visits Authorized [id number] Closed 03/30/2025 03/30/2026 1 1 Encounter Details Date Type Department Care Team (Latest Contact Info) Description 04/07/2025 9:02 PM EST - 04/07/2025 11:59 PM EST Hospital Encounter [facility], [facility] [address] [place] [address] Moises Perrin MD [address] [place] [phone] [email or web address] Discharge Disposition: Home or Self Care Social History Tobacco Use Types Packs/Day Years Used Date Smoking Tobacco: Never Smokeless Tobacco: Never Alcohol Use Standard Drinks/Week Comments Yes 0 (1 standard drink = 0.6 oz pur e alcohol) 22 glasses of wine per week Education Answer Date Recorded Are you interested in more education? Not on braxton e 08/24/2022 Are you concerned about learning? Not on file 08/24/2022 No 08/24/2022 No 08/24/2022 Digital Access Answer Date Recorded No 09/22/2022 No 09/22/2022 Reliable internet access at home? Not on file 09/22/2022 Device with a working camera? Not on file Sex and Gender Information Value Date Recorded Sex Assigned at Not on file Legal Sex Male 10:07 PM EDT Gender Identity Not on file Sexual Orientation Not on file documented as of this encounter Plan of Treatment Not on file documented as of this encounter Procedures Procedure Name Priority Date/Time Associated Diagnosis Comments MRI ANKLE WITHOUT CONTRAST (RIGHT) Routine 04/07/2025 10:08 PM EST Pain in right ankle and joints of right foot Other chronic pain documented in this encounter Results * MRI ANKLE WITHOUT CONTRAST (RIGHT) (04/07/2025 10:08 PM EST) Anatomical Region Laterality Modality Ankle Right Magnetic Resonan ce 04/09/2025 9:32 AM EST Impressions 04/09/2025 10:54 AM EST 1. Marked posterior tibial tendinosis with superimposed partial-thickness tearing and tenosynovitis. 2. Nonspecific marrow edema centered within the posterior medial malleolus, likely reactive/secondary to biomechanical stress change. 3. Tenosynovitis of the flexor digitorum longus and flexor hallucis longus. 4. Degenerative changes, most pronounced at the navicular cuneiform joint. Narrative 04/09/2025 10:54 AM EST MRI ANKLE WITHOUT CONTRAST (RIGHT) Referring clinician's provided indication for this examination in [facility]: Outside Radiology Order; CHRONIC PAIN OF RIGHT ANKLE TECHNIQUE: Multi-sequence, multi-planar MRI of the ankle without intravenous contrast. COMPARISON: FOOT 3 V RT FINDINGS: Lateral ligaments: Anterior talofibular, calcaneofibular, and posterior talofibular ligaments are intact. Syndesmotic ligaments are intact. Medial ligaments: The deep fibers of the deltoid ligament complex are mildly attenuated. The superficial fibers and spring ligament are intact. Plantar fascia: Intact. Peroneal tendons: Peroneus longus and brevis are intact. Flexor tendons: Marked tendinosis of the posterior tibial tendon with superimposed partial-thickness tearing. Small volume fluid within the posterior tibial tendon sheath. The flexor digitorum longus and flexor hallucis longus tendons are intact with fluid within the tendon sheaths, most pronounced proximal to the master knot of Fernando. Extensor tendons: Anterior tibialis, extensor hallucis longus, and extensor digitorum longus are intact. Achilles tendon: Intact. Bone: Nonspecific marrow edema centered within the posterior aspect of the medial malleolus. No fracture, osteonecrosis, or focal lesion. Joints: Talonavicular joint effusion multifocal degenerative changes with prominent subchondral cystic change within the lateral navicular at the navicular cuneiform joint. Soft tissues: Subcutaneous edema overlying the medial malleolus. Procedure Note Kingsley Baptiste MD - 04/09/2025 MRI ANKLE WITHOUT CONTRAST (RIGHT) Referring clinician's provided indication for this examination in [facility]:Outside Radiology Order; CHRONIC PAIN OF RIGHT ANKLE TECHNIQUE: Multi-sequence, multi-planar MRI of the ankle withoutintravenous contrast. COMPARISON: FOOT 3 V RT FINDINGS: Lateral ligaments: Anterior talofibular, calcaneofibular, and posteriortalofibular ligaments are intact. Syndesmotic ligaments are intact. Medial ligaments: The deep fibers of the deltoid ligament complex aremildly attenuated. The superficial fibers and spring ligament areintact. Plantar fascia: Intact. Peroneal tendons: Peroneus longus and brevis are intact. Flexor tendons: Marked tendinosis of the posterior tibial tendon withsuperimposed partial-thickness tearing. Small volume fluid within theposterior tibial tendon sheath. The flexor digitorum longus and flexorhallucis longus tendons are intact with fluid within the tendon sheaths,most pronounced proximal to the master knot of Fernando. Extensor tendons: Anterior tibialis, extensor hallucis longus, andextensor digitorum longus are intact. Achilles tendon: Intact. Bone: Nonspecific marrow edema centered within the posterior aspect of themedial malleolus. No fracture, osteonecrosis, or focal lesion. Joints: Talonavicular joint effusion multifocal degenerative changes withprominent subchondral cystic change within the lateral navicular at thenavicular cuneiform joint. Soft tissues: Subcutaneous edema overlying the medial malleolus. IMPRESSION: 1. Marked posterior tibial tendinosis with superimposed partial-thicknesstearing and tenosynovitis. 2. Nonspecific marrow edema centered within the posterior medialmalleolus, likely reactive/secondary to biomechanical stress change. 3. Tenosynovitis of the flexor digitorum longus and flexor hallucislongus. 4. Degenerative changes, most pronounced at the navicular cuneiformjoint. Moises Perrin MD IMG MR EXTREMITY Final Resul t documented in this encounter Visit Diagnoses Diagnosis Pain in right ankle and joints of right foot Other chronic pain documented in this encounter Care Teams Corduroy Cutter Operator Relationship Specialty Start Date End Date Kvng Joseph MD [address] [place] [phone] [email or web address] PCP - General Family Medicine 05/02/17 documented as of this encounter Additional Source Comments The information contained in this document represents components of the legal health record. It is not the complete legal health record.[facility]
--- NOTE | 2025-04-13 08:36 | A.OFFVIS_ITS ---
Vital Signs 04/13/25 08:37 Height 5 ft 11 in Weight 191 lb 12.835 oz BMI 26.7 BP 118/60 Blood Pressure Location Lt brachial Position Sitting Pulse 60 Pulse Source Pulse Oximeter Pulse Oximetry (%) 98 Oxygen Delivery Method Room Air Intake Visit Reasons: Sarcoidosis Photograph Developer Required: No Slitting Machine Operator Helper: Slitting Machine Operator Helper offered & declined Accompanied by: Self / Same As Patient Allergies Penicillins Allergy (Severe, Verified 04/13/25 08:40) Rash budesonide (From Symbicort) Adverse Reaction (Severe, Verified 04/13/25 08:40) Joint Pain formoterol (From Symbicort) Adverse Reaction (Severe, Verified 04/13/25 08:40) Joint Pain HPI Comments Details: The patient is a 79-year-old gentleman with a known history of chronic cough who apparently back in 2018 he was evaluated with imaging studies. He ultimately had a CT scan of the chest at [facility] demonstrating multiple calcified nodular densities in addition to some noncalcified nodular densities and calcifications of the lymph nodes. He was suspected that he has a diagnosis of sarcoidosis and the patient was monitored closely. Subsequently after that the patient continues to have a cough and was then re-evaluated at [facility]. There he did undergo pulmonary function studies in 2018. I personally reviewed the numbers demonstrating no obstructive nor restrictive ventilatory defects although he had a mile on diffusion impairment. In addition to that he had repeat PFTs in 2019 now with interval worsening of the diffusing capacity to 66 percent predicted. Otherwise no evidence of any obstructive nor restrictive ventilatory defects at that time. In view of the worsening diffusing capacity further evaluation of the CT scan that he had back in 2018 demonstrated what appeared to be some areas of haziness and interstitial changes suggested in underlying interstitial lung disease. A lot of the changes appear to be at the bases. No additional imaging studies were done at that time at [facility]. The patient was lost to follow-up. the patient now presents to our pulmonary office for further evaluation of this chronic cough. We closely discussed his CT scan findings packed then more concerning the fact that he had noncalcified pulmonary nodules measuring up to 7 millimeters in size there have not been followed up. In addition to that the patient had evidence of interstitial lung disease. At this point is not clear definitively he has a diagnosis of sarcoidosis. I explained to him that with his travel history need to consider and dynamic fungal infections or even tuberculosis that may resulting granulomas as well. Therefore the patient does need to undergo additional laboratory data in addition to repeating the CT scan in order to further address the abnormal findings. On my examination was taken back by the fact the patient does have significant rales both lungs bilaterally up to midway up. Also to note the patient does have a allergy shots for reactions to bee stings. Patient denies any other allergens. He denies any exposure to any fumes or toxins recently or in the last 20 years. 05/01/2021 the patient is here for a pulmonary follow-up visit. Overall the patient is doing about the same. He does complaint of dyspnea on exertion. This appears to be progressive. The patient did have multiple results to review. He did undergo blood work including a angiotensin-converting enzyme level which was slightly elevated at 71. Explained to him that this is sometimes used to measure activity of people that have underlying sarcoidosis. suggesting the possibility of active sarcoidosis. Patient also had evidence of eosinophilia and elevations in his IgE suggesting some degree of allergic component. The patient does get allergy shots which appear to be effective for him. He did undergo a CT scan of the chest that was personally reviewed by me. Unfortunately I do not have the images from [facility]. However, I could see moderate amount of subpleural reticular changes consistent with scarring in addition to that he does have the significant calcified lymphadenopathy consistent with his granulomatous type of disease. Patient also has pulmonary nodules which appear to have more nodules when I compare the reports. Although the largest nodule still measuring 7-8 mm in size. I also did review his pulmonary function studies and compare them to his previous pulmonary function studies from few years back in 2018. It appears that he has a slight decrease in his total lung capacity from 91% to now 82% predicted in addition to a decrease in his diffusing capacity from 66-51% predicted. Therefore, indeed appears that he does have underlying interstitial lung disease and is likely related to sarcoidosis. although, this has been a clinical diagnosis. 08/07/2021 the patient overall doing well. He responded well to the prednisone. He has been able to cut down the prednisone down to about 5 mg daily. His cough is dramatically improved. His breathing is also better. No significant adverse effects. We did review his blood work demonstrating an elevated Dong level. Therefore, this is something that we can follow to assess the activity of the sarcoid. He also needs to have his eyes checked to rule out uveitis. The goal was to treating for 6 months and see how he is doing. Hopefully we can wean him off the prednisone. We can also consider inhaled cortical steroids. Will have him come back in 3 months time reassess his blood work in addition to his chest x-ray in based on that to see if we need to continue therapy or we can wean him off. The patient is concerned about the side effects of chronic steroid use. I tried to reassuring that is taking a small dose, but, I do understand his concerns. 11/08/2021 the patient is here for a pulmonary follow-up visit. Overall the patient continues to do fairly well. He continues on the 5 mg of prednisone. He does state that a few days that he felt congested need to do full 10 mg tablet. But overall he is doing well. He did have his eyes checked which were within normal limits. Recently he did undergo blood work including Dong level though still slightly elevated. His chest x-ray just demonstrating chronic interstitial changes on the sarcoid. Again, we looked at the CT scan demonstrating significant interstitial involvement bilaterally and some areas of scarring suggesting more progressive illness. The patient is agreeable to continuing the prednisone for now. We did talk about alternatives steroid sparing agents to consider such as methotrexate and CellCept and Remicade. At this point the patient requires only a small dose of prednisone so therefore she does continue with the current therapy. If however the patient continues to be symptomatic under current does or if he needs a prolonged period of immune suppression then he consider an alternative agent. Will follow up in about 4-6 months. The patient should have blood work and chest x-ray prior to the visit so we can discuss further interventions done. 04/11/2022 the patient is here for a pulmonary follow-up visit. He has been doing well from a respiratory status. He stop coughing his breathing overall has been stable. He was able to stop the prednisone weaned off about a month ago. He has been off it now for a month and he continues to do well. He is encouraged with the fact that he is doing well from the respiratory status. We did review his last CT scan from 03/2021 demonstrating interstitial changes in addition to pulmonary nodules multiple bilaterally. Most likely these nodules were related to his underlying sarcoidosis. However, when to make sure that they do not have any significant increasing growth. The patient will have a repeat CT scan in 6 months time to make sure that the nodules are stable. In addition to that we can assess the interstitial lung disease to make sure that he is not progressing in view of being off the immunosuppressant therapy. If the patient has any worsening symptoms he is to call so we can readdress any reactivation of the sarcoid. Right now his lungs sound fine and I am not concerned for any active disease at this time. The patient also needs to undergo blood work to assess his calcium level and also his Dong level. His previous Dong levels have been slightly elevated. 10/18/2022 the patient is here for pulmonary follow-up visit. Since we last spoke the patient unfortunately developed COVID-19. He was treated with Paxlovid and then had a rebound case. Afterwards he had significant shortness of breath and cough. He did not feel well overall. Finally the last few weeks he is starting to feel better starting to get more energy. The patient has been off prednisone now for almost a year. We did review his CT scan of the chest that he had recently. It appears that his parenchymal lung disease on the sarcoidosis appears to be stable. Although he has a new pulmonary nodule that will need follow-up. In the meantime the patient also underwent blood work and his Dong level continues to be elevated. I do not feel strongly that patient needs prednisone at this time. He is going to continue recovering from the COVID-19 that he had in the springtime. And will follow-up in 6 months with blood work and PFTs. If his PFTs are worsened or its Dong level is higher than will discuss any additional therapies at that point. If the patient has any worsening symptoms prior to that visit he will call the office for sooner evaluation. 01/16/2023 the patient is here for a follow-up visit. He did have a follow-up a few months but he move that up because is cough is getting worse. The cough is moderate severe. Is bothering his sleep and is making hard for him to tolerate the new CPAP machine. Also he has been noticing some chest tightness along with a cough during the daytime. He is wondering about starting medications like methotrexate for the sarcoidosis. The patient does have a history of allergies. he denies any wheezing episodes. He does not have any respiratory inhalers at this time. We did have him do a spirometry in the office in his FEV1 and FVC were both about 90% predicted. Looks like a slight improvement from his previous PFT. Therefore the numbers are reassuring. He did have some forced end expiratory wheezing therefore I do believe that will try him on a combination inhaler 1st and also can provide with the Tessalon Perles. We did review his last blood work from back in September 2022 where his total bili was elevated to 1.5 otherwise his LFTs were normal. In addition to this is angiotensin-converting enzyme level had been elevated. 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 Also explained to him that at this higher stage of sarcoidosis typically progresses. 04/01/2023 the patient is here for a pulmonary follow-up visit. Overall he is doing better. He was switched over to Symbicort but then started having significant muscle spasms then was switched over to Flovent. The flow in seems to be working well. Will continue right now as prescribed. He did undergo pulmonary function studies which we personally reviewed. It is reassuring that his spirometry numbers are stable and also the diffusing capacity appears to be better overall. Daily number that is decreases the total lung capacity to a sli ght mild restriction. This could be the result of his significant COVID that he had a few months ago. The patient does not appear to have any active sarcoidosis. He has been off the prednisone now for some time and doing well. His last CT scan was back in September 2022 demonstrating stability of disease although he does have a new 3 mm pulmonary nodule. He will return in [address] scan to follow up with the interstitial changes and also his pulmonary nodule. If the patient has any worsening symptoms prior to that he will call for an earlier assessment. No need for methotrexate at this time 11/06/2023 the patient is here for a pulmonary follow-up visit. Overall he is doing well from a respiratory status he just came back from [place] and did not have any respiratory issues over there. He does have some underlying allergies at times. He has tolerating the Flovent inhaler is helping. Will go ahead and switch him over to the generic fluticasone propionate which is the only 1 covered now. The patient did have a CT scan of the chest. Initially reading the report is concerning for extensive parenchymal interstitial lung disease. Although when we compare his CT scan to his previous there has no real significant difference in the last couple years. Therefore, reassured that although he does have interstitial lung disease due to the sarcoid and pulmonary nodules due to the sarcoid does appear to be significantly change or changing. I do not believe he needs additional systemic therapies at this time. Will continue to monitoring closely. Otherwise the patient is using his allergy medicines as needed. He did not tolerate CPAP. Therefore he is looking at alternatives. He did speak to a dentist regarding an oral mandibular device. He is also speaking to ENT regarding the possibility of a hypoglossal nerve stimulator. He has not decide how he is going to move forward. I did give him my recommendations and I will try the noninvasive approaches 1st before the invasive approaches. If he does go ahead with the oral mandibular device we will provide him with a letter of medical necessity to his dentist in order to get it approved through his insurance. 05/14/2024 the patient is here for a pulmonary follow-up visit. Overall he is doing better. Back in March however, did have worsening respiratory symptoms. initially, started developing some difficulty swallowing. Denied any laryngitis but just felt he could not swallow well. This lasted several days. Then he started developing worsening cough along with shortness of breath with activity. Moderate severity. his cough at times was productive in nature. At that time had been taking Arnuity. He did get an evaluation. [place] to have some thrush. He was placed on nystatin swish and swallow. He did stop the Arnuity at that time. The patient also subsequently stopped all his medications. Was not sure if this is related to a sarcoid flare-up. We did review his previous CT scan demonstrating the sequela of the sarcoid. We did compare his most recent CT scan from 09/16/2023 demonstrating the interstitial lung disease pulmonary nodules to his initial CT scan that we have on record from 2020 demonstrating not only the interstitial lung disease but ground-glass opacities suggesting after sarcoidosis. His Dong level has been elevated. now that he is off the Arnuity the patient would like to seek further opinions regarding his sarcoidosis. I did ask him to consider going to a sarcoid Clinic. In the meantime he is using his oral mandibular device with good effect. He is not snoring. He is waking up rested therefore it appears to be working well for him. During the initial visit it was noted that his heart rate was decreased down to 46 beats per minute. Although with activity had the heart rate did increase. Therefore, will go ahead and request an EKG. Would not be unreasonable for him to have a cardiology evaluation specially if there is any evidence of any cardiac sarcoid. But, at this point since he is going to a tertiary center while awake their recommendations. 10/07/2024 the patient is here for a pulmonary follow-up visit. The patient overall has been doing well. He did follow-up it start his cough for a tertiary evaluation for sarcoidosis. The patient seems to be stable and no additional recommendations provided. He recently did undergo a CT scan of the chest and I did personally reviewed. Compared to 2023 no interval worsening of the interstitial lung disease which is reassuring. When we did compared to 2022 can see some changes from that time. But seems to be stable. Will plan to repeat PFTs in 6 months to make sure that indeed there is no evidence of any progression of the pulmonary fibrosis. We did talk about deep breathing exercises and continue to build his exercise capacity. In the meantime the patient is sleeping with the mouth mandibular device. He tolerating it well although causes dental pain. Seems to be taking care of the sleep apnea. He did follow-up with cardiology have full workup for the bradycardia and is stable at this time. Will plan to follow up in 6 months with PFTs if he has any issues prior to that he will call. He is right now off all respiratory medications. 04/13/2025 the patient is here for pulmonary follow-up visit. He has been developing worsening cough and chest congestion. [id number] severity. He has been using the Arnuity. We did talk about having him use a short-acting beta agonist as needed. I also taught him how to use it be flow in order to measure his peak flows before and after using the inhaler to see if there is any significant objective improvement. We did talk about his last CT scan appears to show stable disease. He does have PFTs scheduled soon. In addition to that we talked about considering holistic therapies or herbal remedies specially since he does not like to take a lot of medications. Otherwise the patient is without any other complaints. Will plan to follow-up in 4-6 months. I will let him know the results of his PFTs once they become available. [facility] Medical History (Updated 09/15/24 @ 12:43 by Jessica Wilder, TRACK SERVICE PERSON) Bradycardia Chronic allergic rhinitis Asthma Sarcoidosis Chronic cough ILD (interstitial lung disease) Pulmonary nodule Surgical History H/O arthroscopic knee surgery H/O hernia repair Hx of tonsillectomy Family History Mother Heart disease Family/Other Colon cancer Family/Other Colon cancer Social History Alcohol intake: current Alcohol intake frequency: holidays/special occasions only Patient Tobacco Use Status: Former Tobacco user Tobacco use type: Cigarette Years Smoked: 7 years Review of Systems Const Reports fatigue and Denies night sweats ENT Denies change in voice, Denies lip swelling, Denies mouth pain, Denies nasal congestion and Denies tongue swelling Card Denies chest pain and Reports dyspnea on exertion Resp Reports chest congestion, Reports cough and Reports dyspnea on exertion GI Denies abdominal pain Musc Denies no additional complaints, Reports abnormal gait, Reports arthralgias, Reports joint swelling and Reports limited range of motion Neuro Denies Neuro-related abnormal movements and Reports abnormal gait Psych Denies no additional complaints Endo Reports fatigue Ian/Lymph Denies easy bleeding and Denies lymphadenopathy Aller/Immun Denies lip swelling and Denies tongue swelling Physical Exam Vital Signs: Last Vital Signs Pulse 60 04/13/25 08:37 BP 118/60 04/13/25 08:37 Pulse Ox 98 04/13/25 08:37 Oxygen Delivery Method Room Air 04/13/25 08:37 BMI result Body Mass Index 26.7 Const General: alert HEENT General nose exam: Abnormal mucous membranes and turbinates present boggy Throat: Yes postnasal drainage and Yes cobblestoning Neck Neck: Yes normal visual inspection, Yes full ROM and Yes no lymphadenopathy Chest Chest palpation & inspection: normal inspection of the chest Resp Effort & Inspection: normal respiratory effort Auscultation: crackles bilateral at the base and diminished lung sounds Cardio Rate: regular rate Rhythm: regular rhythm Heart sounds: S1 normal heart sound present and S2 normal heart sound present GI Palpation (GI): Soft to palpation and nontender Auscultation: normal bowel sounds Skin General skin exam: rashes and/or lesions noted Assessment & Plan Assessment & Plan (1) SHERON (obstructive sleep apnea): Comment: 09/03/2022, HST showed moderate to severe SHERON with AHI was 18/hr and oxygen denise was 80%. Code(s): G47.33 - Obstructive sleep apnea (adult) (pediatric) Category: Medical (2) Chronic cough: Code(s): R05.3 - Chronic cough Category: Medical (3) Sarcoidosis: Code(s): D86.9 - Sarcoidosis, unspecified Category: Medical Plan OMD for SHERON added RADU as needed Arnuity peak flow meter to assess PFTs CXR if cough persist Will follow-up 4-6 months Orders: Orders XR chest 2V Today J45.40 - Moderate persistent asthma, uncomplicated Medications: New albuterol sulfate 90 mcg/actuation 2 inhalations inhalation Q6H PRN 18 grams 12RF shortness of breath or wheezing 30 days J44.9 - Chronic obstructive pulmonary disease, unspecified Coding Level of Care Code Est Pt Level 4 (81594) Diagnoses SHERON (obstructive sleep apnea) G47.33 Chronic cough R05.3 Sarcoidosis D86.9 Time Spent (min) 18
[2025-04-13 08:37] VITALS: BP 118/60; PULSE 60; O2SAT 98; BMI 26.7
--- OUTSIDE RECORDS SUMMARY | 2025-04-13 09:09 | XMS_ITS | Encounter Summary ---
Author Organization [facility] Address [address] [place] [phone] Phone Care Team Providers Care Turf Grower Name Role Phone Kvng Joseph MD Primary Care Provider [phone] Reason for Referral * MRI/CAT Scan - Closed Specialty Diagnoses / Procedures Referred By Contac t Referred To Contact Radiology Diagnoses Pain in right ankle and joints of right foot Other chronic pain Procedures MRI Ankle (Right) Moises Perrin MD [address] [place] [address] Phone: tel: fax: [email or web address] Referral ID Status Reason Start Date Expiration Date Visits Re quested Visits Authorized [id number] Closed 03/30/2025 03/30/2026 1 1 Encounter Details Date Type Department Care Team (Latest Contact Info) Description 03/30/2025 Transcribe Orders Virtual Department [address] [place] [phone] Moises Perrin MD [address] [place] [phone] [email or web address] Pain in right ankle and joints of right foot (Primary Dx); Other chronic pain Social History Tobacco Use Types Packs/Day Years [...] on file documented as of this encounter Results * MRI ANKLE WITHOUT [...] clinician's provided indication for this examination in Epic: Outside Radiology Order; CHRONIC PAIN OF RIGHT [...] clinician's provided indication for this examination in Epic:Outside Radiology Order; CHRONIC PAIN OF RIGHT ANKLE [...] in right ankle and joints of right foot- Primary Other chronic pain Pain in right ankle and joints of right foot Other chronic pain documented in this encounter Care Teams Turf Grower Relationship Specialty Start Date End Date Kvng Joseph MD [address] [place] [phone] [email or web address] PCP - General Family Medicine 05/02/17 documented as of this encounter Additional Source Comments The information contained in this document represents components of the legal health record. It is not the complete legal health record.[facility]
--- OUTSIDE RECORDS SUMMARY | 2025-04-13 09:09 | XMS_ITS | Encounter Summary ---
Author Organization [facility] Address [address] [facility] [address] [place] [address] Phone Care Team Providers Care Clinical Biostatistician Name Role Phone Kvng Joseph MD Primary Care Provider [phone] Reason for Referral * MRI/CAT Scan - Closed Specialty Diagnoses / Procedures Referred By Contrishi t Referred To Contact Radiology Diagnoses Other nonspecific abnormal finding of lung field (CODE) Lung nodule, multiple Procedures CT Chest Kvng Joseph MD Phone: tel: fax: [email or web address] Referral ID Status Reason Start Date Expiration Date Visits Re quested Visits Authorized [id number] Closed 07/01/2017 07/01/2018 1 1 Encounter Details Date Type Department Care Team (Late st Contact Info) Description 07/01/2017 Ancillary Orders Virtual Department [address] [place] [address] Kvng Joseph MD [address] [place] [address] [email or web address] Other nonspecific abnormal finding of lung field (CODE); Lung nodule, multiple Social History Tobacco Use Types Packs/Day Years Used Date Smoking Tobacco: Never Assessed Sex and Gender Information Value Date Recorded Sex Assigned at Not on file Legal Sex Male 10:07 PM EDT Gender Identity Not on file Sexual Orientation Not on file documented as of this encounter Plan of Treatment Not on file documented as of this encounter Results * CT CHEST WITH CONTRAST (07/10/2017 4:36 PM EDT) Anatomical Region Laterality Modality Chest Computed Tomogra phy 07/10/2017 5:11 PM EDT Impressions 07/10/2017 7:14 PM EDT 1. Findings consistent with prior granulomatous disease. There are multiple bilateral calcified nodules consistent with granulomas. There are a few subcentimeter pulmonary nodules which are not clearly calcified. Follow-up CT in 6-12 months recommended. 2. 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 TOTAL CTDIvol: 28.90 mGy POS [id number] Narrative 07/10/2017 7:14 PM EDT HISTORY: Cough, abnormal chest x-ray. COMPARISON: Chest x-ray 06/27/2017. A report from a CT chest dated 10/06/1997 reviewed. TECHNIQUE: CT chest with IV contrast. Multiplanar reformats generated. Automated exposure control utilized. FINDINGS: Right lung/pleura: Multiple small calcified nodules and nodules which contain central calcification within the lung. A few subcentimeter nodules are not clearly calcified, for instance a 7 mm nodule in the apex (series 6, image 58). Small-moderate amount of subpleural linear opacities within upper lung zone predominance. Small-moderate amount of dependent opacity and coarse, linear opacities in the dependent portion of the lower lobe. No evidence of bronchiectasis. No pleural effusion. Left lung/pleura: Multiple scattered diffusely calcified nodules and nodules with central calcifications within the lung. An 8 mm nodule within the anterior lower lobe is not clearly calcified (series 6, image 152). A 4 mm nodule slightly more posterior inferiorly within the lower lobe is also not clearly calcified. Small-moderate amount of subpleural linear opacities within the lungs similar to the right. Similar hazy opacity within the dependent portion of the lower lobe compared to the right likely representing atelectasis. No evidence of bronchiectasis. No pleural effusion. Trachea/mainstem bronchi: Mild diffuse tracheomegaly. Lymph nodes/lymphatics: Numerous calcified mediastinal and bilateral hilar lymph nodes. Cardiovascular: The heart does not appear grossly enlarged. No pericardial effusion. Thoracic aorta normal in caliber. Main pulmonary arteries normal in caliber. No definite PE. Thyroid: No significant abnormalities. Esophagus: No significant abnormalities. Musculoskeletal: No suspicious lytic or blastic lesions within the bones. Upper abdomen: No significant abnormalities. Procedure Note Jeff Michael MD - 07/10/2017 HISTORY: Cough, abnormal chest x-ray. COMPARISON: Chest x-ray 06/27/2017. A report from a CT chest dated10/06/1997 reviewed. TECHNIQUE: CT chest with IV contrast. Multiplanar reformats generated.Automated exposure control utilized. FINDINGS: Right lung/pleura: Multiple small calcified nodules and nodules whichcontain central calcification within the lung. A few subcentimeternodules are not clearly calcified, for instance a 7 mm nodule in the apex(series 6, image 58). Small-moderate amount of subpleural linearopacities within upper lung zone predominance. Small-moderate amount ofdependent opacity and coarse, linear opacities in the dependent portion ofthe lower lobe. No evidence of bronchiectasis. No pleural effusion. Left lung/pleura: Multiple scattered diffusely calcified nodules andnodules with central calcifications within the lung. An 8 mm nodulewithin the anterior lower lobe is not clearly calcified (series 6, [id number]). A 4 mm nodule slightly more posterior inferiorly within the lowerlobe is also not clearly calcified. Small-moderate amount of subpleurallinear opacities within the lungs similar to the right. Similar hazyopacity within the dependent portion of the lower lobe compared to theright likely representing atelectasis. No evidence of bronchiectasis. Nopleural effusion. Trachea/mainstem bronchi: Mild diffuse tracheomegaly. Lymph nodes/lymphatics: Numerous calcified mediastinal and bilateralhilar lymph nodes. Cardiovascular: The heart does not appear grossly enlarged. Nopericardial effusion. Thoracic aorta normal in caliber. Main pulmonaryarteries normal in caliber. No definite PE. Thyroid: No significant abnormalities. Esophagus: No significant abnormalities. Musculoskeletal: No suspicious lytic or blastic lesions within thebones. Upper abdomen: No significant abnormalities. IMPRESSION: 1. Findings consistent with prior granulomatous disease. There aremultiple bilateral calcified nodules consistent with granulomas. Thereare a few subcentimeter pulmonary nodules which are not clearly calcified.Follow-up CT in 6-12 months recommended. 2. 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 TOTAL CTDIvol: 28.90 mGy POS [id number] Kvng Joseph MD IMG CT CHEST Final Resul t documented in this encounter Visit Diagnoses Diagnosis Other nonspecific abnormal finding of lung field (CODE) Lung nodule, multiple Other nonspecific abnormal finding of lung field (CODE) Lung nodule, multiple documented in this encounter Care Teams Clinical Biostatistician Relationship Specialty Start Date End Date Kvng Joseph MD [address] [place] [address] [email or web address] PCP - General Family Medicine 05/02/17 documented as of this encounter Additional Source Comments The information contained in this document represents components of the legal health record. It is not the complete legal health record.[facility]
--- OUTSIDE RECORDS SUMMARY | 2025-04-13 09:09 | XMS_ITS | Encounter Summary ---
Author Organization [facility] Address [address] [place] [address] Phone Care Team Providers Care Cuff Presser Name Role Phone Kvng Joseph MD Primary Care Provider [phone] Encounter Details Date Type Department Care Team (Latest Contact Info) Description 07/16/2019 Ancillary Orders Virtual Department [address] [place] [address] System, Provider Not In, [place] [address] Right ankle pain, unspecified chronicity; Primary osteoarthritis of right hip; Primary osteoarthritis of right knee Social History Tobacco Use Types Packs/Day Years Used Date Smoking Tobacco: Never Smokeless Tobacco: Never Alcohol Use Standard Drinks/Week Comments Yes 0 (1 standard drink = 0.6 oz pur e alcohol) 22 glasses of wine per week Sex and Gender Information Value Date Recorded Sex Assigned at Not on file Legal Sex Male 10:07 PM EDT Gender Identity Not on file Sexual Orientation Not on file documented as of this encounter Plan of Treatment Not on file documented as of this encounter Visit Diagnoses Diagnosis Right ankle pain, unspecified chronicity Primary osteoarthritis of right hip Primary osteoarthritis of right knee documented in this encounter Care Teams Cuff Presser Relationship Specialty Start Date End Date Kvng Joseph MD [address] [place] [address] [email or web address] PCP - General Family Medicine 05/02/17 documented as of this encounter Additional Source Comments The information contained in this document represents components of the legal health record. It is not the complete legal health record.[facility]
--- OUTSIDE RECORDS SUMMARY | 2025-04-13 09:09 | XMS_ITS | Clinical Summary ---
Author Organization [facility] Address [address] [place] [address] Phone Care Team Providers Care Oxidation Operator Name Role Phone Kvng Joseph MD Primary Care Provider Allergies Active Allergy Reactions Criticality Noted Date Comments Penicillins Medium 01/14/2018 Rash Medications No known medications Encounters Date Type Department Care Team Description 04/07/2025 9:02 PM EST - 04/07/2025 11:59 PM EST Hospital Encounter [address] [address] Moises Perrin MD Discharge Disposition: Home or Self Care 04/06/2025 Ancillary Orders [facility],Outside Imaging [address] [place] [address] Unknown, Nigel, 04/06/2025 Ancillary Orders [facility],Outside Imaging [address] [place] [address] Unknown, MD Nigel 04/06/2025 Ancillary Orders [facility],Outside [facility] [address] [place] [address] Unknown, Nigel, 04/06/2025 Ancillary Orders [facility],Outside Imaging [address] [place] [address] Unknown, MD Nigel 04/06/2025 Ancillary Orders [facility] [address] [place] [address] Unknown, MD Nigel 03/30/2025 Procedure Pass [address] [address] 03/30/2025 Transcribe Orders Virtual Department [address] [place] [address] Moises Perrin MD Pain in right ankle and joints of right foot (Primary Dx); Other chronic pain from Last 3 Months Social History Tobacco Use Types Packs/Day Years [...] on file Sexual Orientation Not on file Last Filed Vital Signs Vital Sign Reading Time Taken Comments Blood Pressure 104/77 01/14/2018 9:17 AM EDT Pulse 74 01/14/2018 8:00 AM EDT Temperature 36.1 C (97 F) 01/14/2018 9:02 AM EDT Respiratory Rate 14 01/14/2018 8:00 AM EDT Oxygen Saturation 96% 01/14/2018 9:17 AM EDT Inhaled Oxygen Concentration - - Weight 86.2 kg (190 lb) 04/05/2025 1:03 PM EST Height 177.8 cm (5' 10 ) 04/05/2025 1:03 PM EST Body Mass Index 27.26 04/05/2025 1:03 PM EST Plan of Treatment Health Maintenance Due Date Last Done Comments LIPID PANEL 1946 DEPRESSION SCREENING 1958 HEPATITIS C SCREENING 1964 PNEUMOCOCCAL VACCINES (50+ years) (1 of 1 - PCV) 1996 Adult Td,Tdap Booster 02/21/2020 02/20/2010, 988 RSV VACCINE (1 - 1-dose 75+ series) 2021 INFLUENZA VACCINE (#1) 2024 0, 02/05/2019, 03/05/2018, Additional history exists COVID-19 VACCINE (2024- season) 2024 06/28/2020 SMOKING STATUS SCREENING (Once After 26 Yrs) Completed 01/14/2018 HEPATITIS A VACCINES Aged Out 09/30/2018 No long er eligible based on patient's age to complete this topic ZOSTER VACCINES Completed 07/02/2019, 03/29, 04/10/2011 HIB VACCINES Aged Out No longer eligi ble based on patient's age to complete this topic MENINGOCOCCAL VACCINES (ACWY) Aged Out No longer eligible based on patient's age to complete this topic MENINGOCOCCAL VACCINES (B) Aged Out N o longer eligible based on patient's age to complete this topic Medical Devices Not on file Procedures Procedure Name Priority Date/Time Associated Diagnosis Comments MRI ANKLE WITHOUT CONTRAST (RIGHT) Routine 04/07/2025 10:08 PM EST Pain in right ankle and joints of right foot Other chronic pain from Last 3 Months Results * MRI ANKLE WITHOUT CONTRAST (RIGHT) [...] MD IMG MR EXTREMITY Final Resul t from Last 3 Months Insurance MEDICARE PART A & B [facility] MEDICARE SUPPLEMENT MEDICARE PART A & B [employer] MEDICARE SUPPLEMENT MEDICARE PART A & B [employer] MEDICARE SUPPLEMENT MEDICARE PART A & B [facility] MEDICARE SUPPLEMENT MEDICARE PART A & B [employer] MEDICARE SUPPLEMENT MEDICARE PART A & B [employer] MEDICARE SUPPLEMENT MEDICARE PART A & B [facility] MEDICARE SUPPLEMENT MEDICARE PART A & B [facility] EXTENSION MEDICARE SUPPLEMENT MEDICARE PART A & B [facility] [employer]ION MEDICARE SUPPLEMENT Care Teams Oxidation Operator Relationship Specialty Start Date End Date Kvng Joseph MD [address] [place] [address] [place] [address] [email or web address] PCP - General Family Medicine 05/02/17 Additional Source Comments The information contained in this document represents components of the legal health record. It is not the complete legal health record.[facility]
--- OUTSIDE RECORDS SUMMARY | 2025-04-13 09:09 | XMS_ITS | Encounter Summary ---
Author Organization [facility] Address [address] [place] [address] Phone Care Team Providers Care Retail Receiving Clerk Name Role Phone Kvng Joseph MD Primary Care Provider [phone] Encounter Details Date Type Department Care Team (Late st Contact Info) Description 01/14/2018 Procedure Pass [facility] Endoscopy Admitting Dept Virtual Department [address] [place] [address] Social History Tobacco Use Types Packs/Day Years [...] documented as of this encounter Visit Diagnoses Not on filedocumented in this encounter Care Teams Retail Receiving Clerk Relationship Specialty Start Date End Date Kvng Joseph MD [address] [place] [address] [email or web address] PCP - General Family Medicine 05/02/17 documented as of this encounter Additional Source Comments The information contained in this document represents components of the legal health record. It is not the complete legal health record.[facility]
--- OUTSIDE RECORDS SUMMARY | 2025-04-13 09:09 | XMS_ITS | Encounter Summary ---
Author Organization [facility] Address [address] [facility] [address] [place] [address] Phone Care Team Providers Care Business Risk Analyst Name Role Phone Kvng Joseph MD Primary Care Provider [phone] Encounter Details Date Type Department Care Team (Late st Contact Info) Description 02/21/2023 Procedure Pass [facility] Endoscopy Admitting Dept Virtual Department [address] [place] [address] Social History Tobacco Use Types Packs/Day Years [...] on filedocumented in this encounter Care Teams Business Risk Analyst Relationship Specialty Start Date End Date Kvng Joseph MD [address] [place] [address] PCP - General Family Medicine 05/02/17 documented as of this encounter Additional Source Comments The information contained in this document represents components of the legal health record. It is not the complete legal health record.[facility]
--- OUTSIDE RECORDS SUMMARY | 2025-04-13 09:09 | XMS_ITS | Encounter Summary ---
Author Organization [facility] Address [address] [place] [address] Phone Care Team Providers Care Paper Carrier Name Role Phone Kvng Joseph MD Primary Care Provider [phone] Encounter Details Date Type Department Care Team (Late st Contact Info) Description 07/01/2017 Procedure Pass [facility], Ct Scan - [address] [address] Social History Tobacco Use Types Packs/Day Years [...] on filedocumented in this encounter Care Teams Paper Carrier Relationship Specialty Start Date End Date Kvng Joseph MD [address] [place] [phone] PCP - General Family Medicine 05/02/17 documented as of this encounter Additional Source Comments The information contained in this document represents components of the legal health record. It is not the complete legal health record.[facility]
--- OUTSIDE RECORDS SUMMARY | 2025-04-13 09:09 | XMS_ITS | Encounter Summary ---
Author Organization [facility] Address [address] [facility] [address] [place] [address] Phone Care Team Providers Care Patent Engineer Name Role Phone Kvng Joseph MD Primary Care Provider Encounter Details Date Type Department Care Team (Late st Contact Info) Description 06/27/2017 Ancillary Orders , X-Ray - [address] [address] Kvng Joseph MD [address] [place] [address] [email or web address] Pulmonary granuloma Social History Tobacco Use Types Packs/Day Years Used Date Smoking Tobacco: Never Assessed Sex and Gender Information Value Date Recorded Sex Assigned at Not on file Legal Sex Male 10:07 PM EDT Gender Identity Not on file Sexual Orientation Not on file documented as of this encounter Plan of Treatment Not on file documented as of this encounter Results * XR CHEST PA AND LATERAL 2 VIEWS (06/27/2017 11:58 AM EST) Anatomical Region Laterality Modality Chest Radiographic Vida ging 06/27/2017 12:0 6 PM EST Impressions 06/27/2017 12:09 PM EST Diffuse interstitial nodular lung disease. The small nodules may represent benign calcified granulomas. CT chest is recommended for further evaluation. POS - [id number] Narrative 06/27/2017 12:09 PM EST HISTORY: As above. COMPARISON: Right shoulder x-rays 06/21/2017. No other imaging available for comparison. CHEST RADIOGRAPH FINDINGS: 3 views obtained. Heart is normal in size. Tortuous calcified aorta. Mildly prominent main pulmonary arteries which may be due to hypertension. Mild hyperinflation. There is a diffuse interstitial nodular lung disease pattern. The small nodules may represent granulomas as noted on the previous shoulder x- ray report. No acute soft tissue or bony findings. Procedure Note Ellie Newman MD - 06/27/2017 HISTORY: As above. COMPARISON: Right shoulder x-rays 06/21/2017. No other imaging availablefor comparison. CHEST RADIOGRAPH FINDINGS: 3 views obtained. Heart is normal in size. Tortuous calcified aorta.Mildly prominent main pulmonary arteries which may be due to hypertension.Mild hyperinflation. There is a diffuse interstitial nodular lungdisease pattern. The small nodules may represent granulomas as noted onthe previous shoulder x-ray report. No acute soft tissue or bonyfindings. IMPRESSION: Diffuse interstitial nodular lung disease. The small nodules mayrepresent benign calcified granulomas. CT chest is recommended forfurther evaluation. POS - [id number] Kvng Joseph MD IMG XR CHEST Final Resul t documented in this encounter Visit Diagnoses Diagnosis Pulmonary granuloma Pulmonary granuloma documented in this encounter Care Teams Patent Engineer Relationship Specialty Start Date End Date Kvng Joseph MD [address] [place] [address] PCP - General Family Medicine 05/02/17 documented as of this encounter Additional Source Comments The information contained in this document represents components of the legal health record. It is not the complete legal health record.[facility]
--- OUTSIDE RECORDS SUMMARY | 2025-04-13 09:09 | XMS_ITS | Encounter Summary ---
Author Organization [facility] Address [address] [place] [address] Phone Care Team Providers Care Double End Production Grinder Name Role Phone Kvng Joseph MD Primary Care Provider Encounter Details Date Type Department Care Team (Late st Contact Info) Description 06/21/2017 Ancillary Orders [facility], X-Ray - [address] [address] Cooper Villalta, DO [address] [place] [address] [email or web address] Impingement syndrome of right shoulder Social History Tobacco Use Types Packs/Day Years Used Date Smoking Tobacco: Never Assessed Sex and Gender Information Value Date Recorded Sex Assigned at Not on file Legal Sex Male 10:07 PM EDT Gender Identity Not on file Sexual Orientation Not on file documented as of this encounter Plan of Treatment Not on file documented as of this encounter Results * XR SHOULDER 2 VIEWS (RIGHT) (06/21/2017 8:54 AM EST) Anatomical Region Laterality Modality Shoulder Right Radiographic Vida ging 06/21/2017 8:59 AM EST Addenda Addendum by Ellie Newman MD on 07/09/2017 7:29 AM EDT HISTORY: As above. COMPARISON: None. RIGHT SHOULDER RADIOGRAPH FINDINGS: Four views obtained. No acute fracture or malalignment. Mild acromioclavicular and glenohumeral joint space narrowing and osteophytes. No destructive bone lesions or AVN. No rotator cuff calcifications. There are small nodular densities in the right midlung lateral to the hilum which may represent calcified granulomas. Bilateral calcified granulomas were reported on a chest x-ray on 06/24/2001 which is not available for direct comparison. IMPRESSION: 1. Mild osteoarthritis. 2. Probable incidental right midlung calcified <<< GRANULOMAS >>>. A follow-up chest radiograph may be warranted. POS - [id number] Edited by: Tracy Clayton on 07/08/2017 7:02 PM Impressions 06/21/2017 9:03 AM EST 1. Mild osteoarthritis. 2. 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 A follow-up chest radiograph warranted. POS - [id number] Narrative 06/21/2017 9:03 AM EST HISTORY: As above. COMPARISON: None. RIGHT SHOULDER RADIOGRAPH FINDINGS: 4 views obtained. No acute fracture or malalignment. Mild acromioclavicular and glenohumeral joint space narrowing and osteophytes. No destructive bone lesions or AVN. No rotator cuff calcifications. There are small nodular densities in the right midlung lateral to the hilum which may represent calcified granulomas. Bilateral calcified granulomas were reported on a chest x-ray on 06/24/2001 which is not available for direct comparison. Procedure Note Ellie Newman MD - 06/21/2017 HISTORY: As above. COMPARISON: None. RIGHT SHOULDER RADIOGRAPH FINDINGS: 4 views obtained. No acute fracture or malalignment. Mildacromioclavicular and glenohumeral joint space narrowing and osteophytes.No destructive bone lesions or AVN. No rotator cuff calcifications.There are small nodular densities in the right midlung lateral to thehilum which may represent calcified granulomas. Bilateral calcifiedgranulomas were reported on a chest x-ray on 06/24/2001 which is notavailable for direct comparison. IMPRESSION: 1. Mild osteoarthritis. 2. 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 A follow-upchest radiograph warranted. POS - [email or web address] us Cooper Villalta DO IMG XR UPPER EXTREMITY Edite d Result - Final documented in this encounter Visit Diagnoses Diagnosis Impingement syndrome of right shoulder Impingement syndrome of right shoulder documented in this encounter Care Teams Double End Production Grinder Relationship Specialty Start Date End Date Kvng Joseph MD [address] [place] [address] [email or web address] PCP - General Family Medicine 05/02/17 documented as of this encounter Additional Source Comments The information contained in this document represents components of the legal health record. It is not the complete legal health record.[facility]
--- OUTSIDE RECORDS SUMMARY | 2025-04-13 09:09 | XMS_ITS | Clinical Summary ---
Author Organization [facility] Address [facility] [place] [address] Care Team Providers Care Consumer Services Consultant Name Role Phone Kvng Joseph MD Primary Care Provider [phone] Allergies Active Allergy Reactions Criticality Noted Date Comments Budesonide-Formoterol 07/06/2024 Other Reaction(s): leg cramping, vasculitis Symbicort Insect Venom 07/06/2024 Other Reaction(s): carries epi pen Penicillins Hives High 01/14/2018 Other Reaction(s): rash Rash Venom-Honey Bee High 07/06/2024 Other Reaction(s): Not available Medications benzonatate (Tessalon) 200 mg capsule TAKE ONE CAPSULE BY MOUTH TWICE A DAY NEEDED FOR COUGH 04/01/2024 Active EPINEPHrine 0.3 mg/0.3 mL Auto-Injector INJECT ONE PEN INTO THE MUSCLE NEEDED FOR ALLERGIC REACTION 09/10/2023 Active Arnuity Ellipta 200 mcg/actuation inhaler (DPI) Inhale 1 puff into the lungs daily. 04/27/2024 Active montelukast (Singulair) 10 mg tablet Take 1 tablet by mouth nightly. Active Social History Tobacco Use Types Packs/Day Years Used Date Smoking Tobacco: Former Cigarettes Smokeless Tobacco: Never Tobacco Cessation:Counseling Given: Not Answered Comments:Smoked 50+ Sex and Gender Information Value Date Recorded Sex Assigned at Not on file Legal Sex Male 7:46 AM EST Gender Identity Not on file Sexual Orientation Not on file Last Filed Vital Signs Vital Sign Reading Time Taken Comments Blood Pressure 159/85 07/06/2024 9:43 AM EDT Pulse 82 07/06/2024 9:43 AM EDT Temperature 35.7 C (96.3 F) 07/06/2024 9:43 AM EDT Respiratory Rate 20 07/06/2024 9:43 AM EDT Oxygen Saturation 100% 07/06/2024 9:43 AM EDT Inhaled Oxygen Concentration - - Weight 89.8 kg (198 lb) 07/06/2024 9:43 AM EDT Height 177.8 cm (5' 10 ) 07/06/2024 9:43 AM EDT Body Mass Index 28.41 07/06/2024 9:43 AM EDT Plan of Treatment Health Maintenance Due Date Last Done Comments Hepatitis C Screening 1963 Tetanus/Diphtheria/Pertussis Vaccines (1 - Tdap) 1965 Pneumoccocal Vaccine: 50+ (1 of 1 - PCV) 1996 Zoster vaccine (1 of 2) 1996 Advance Directive 2001 RSV Vaccine (1 - 1-dose 75+ series) 2021 Covid-19 Vaccine (3 - season) 2024, 06/28/2020 Influenza (Flu) vaccine (1 o f 1 - Influenza standard series) 12/28/2024 Insurance MEDICARE [facility] Care Teams Consumer Services Consultant Relationship Specialty Start Date End Date Kvng Joseph MD [address] [place] [phone] PCP - General Family Medicine 06/15/24
--- OUTSIDE RECORDS SUMMARY | 2025-04-13 09:09 | XMS_ITS | Encounter Summary ---
Author Organization [facility] Address [address] [place] [phone] Phone Care Team Providers Care Service Desk Director Name Role Phone Kvng Joseph MD Primary Care Provider [phone] Encounter Details Date Type Department Care Team (Late st Contact Info) Description 03/30/2025 Procedure Pass [facility], [address] [address] Social History Tobacco Use Types Packs/Day Years [...] on filedocumented in this encounter Care Teams Service Desk Director Relationship Specialty Start Date End Date Kvng Joseph MD [address] [place] [phone] PCP - General Family Medicine 05/02/17 documented as of this encounter Additional Source Comments The information contained in this document represents components of the legal health record. It is not the complete legal health record.[facility]
== END 2025-04-13 09:10 | disposition home or self-care (01) ==
LOC: HO.HPS 08:34
PROVIDERS: PCP Family Medicine; Visit Provider Hospitalist
DX: G47.33 Obstructive sleep apnea (adult) (pediatric) (principal); R05.3 Chronic cough; D86.9 Sarcoidosis, unspecified
CPT/HCPCS: 99214

== ENCOUNTER → 2025-04-13 08:33 | Outpatient (BNVA) | payer MEDICARE, OTHER, SELFPAY | PROVIDERS: PCP Family Medicine; Visit Provider Hospitalist | DX: G47.33 Obstructive sleep apnea (adult) (pediatric) (principal); R05.3 Chronic cough; D86.9 Sarcoidosis, unspecified; Z99.89 Dependence on other enabling machines and devices; Z91.198 Patient's noncompliance with other medical treatment and regimen for other reason | CPT/HCPCS: 99212 ==